=== PATIENT | male | born 1965 | race Two or more races ===

== ENCOUNTER → 2020-08-20 13:25 | Outpatient (BNVA) | payer OTHER, SELFPAY | PROVIDERS: Visit Provider Internal Medicine Gastroenterology | DX: K21.9 Gastro-esophageal reflux disease without esophagitis (principal); K62.5 Hemorrhage of anus and rectum; Z86.010 Personal history of colon polyps; Z79.899 Other long term (current) drug therapy | CPT/HCPCS: 99213 ==

== ENCOUNTER → 2020-11-16 14:44 | Outpatient (BNVA) | payer OTHER, SELFPAY | PROVIDERS: Visit Provider Internal Medicine Gastroenterology | DX: Z76.89 Persons encountering health services in other specified circumstances (principal) ==

== ENCOUNTER → 2020-11-26 10:26 | Outpatient (BNVA) | payer OTHER, SELFPAY | PROVIDERS: Visit Provider Physician Assistant | DX: G56.20 Lesion of ulnar nerve, unspecified upper limb (principal); M75.80 Other shoulder lesions, unspecified shoulder | CPT/HCPCS: 99212 ==

== ENCOUNTER 2021-01-09 09:58 | Emergency (ER) | payer OTHER, SELFPAY ==
--- NOTE | ~2021-01-09 | XR_ITS ---
EXAMINATION: SHOULDER 3 VIEWS, RIGHT CLINICAL INFORMATION: Right shoulder pain. COMPARISON: None. TECHNIQUE: AP views of the right shoulder were obtained in internal and external rotation. In addition, a Y view was obtained. FINDINGS: There are no fractures or dislocations. The humeral head is seated within a well-formed glenoid. The AC joint is intact. XR/XR shoulder RT min 2V IMPRESSION: Unremarkable right shoulder radiographs.
[2021-01-09 11:10] VITALS: BP 120/81; PULSE 76; RESP 18; TEMP 36.6; O2SAT 99; BMI 27.4
--- NOTE | 2021-01-09 12:38 | ED.EXTPRO ---
HPI - Extremity Problem General Chief complaint: Extremity Injury, Upper Stated complaint: shoulder pain Time Seen by Provider: 01/09/21 12:38 History of Present Illness HPI Narrative: Patient complains of right shoulder pain for the past several months which is getting worse and now it is at the point where it keeps him up at night and wakes him from sleep multiple times and has been very painful to use the shoulder or move the shoulder, there is no injury that he could recall, he does have some tingling running down to his fingertips but no weakness and no numbness Related Data Home Medications Medication Instructions Recorded Confirmed atorvastatin 20 mg tablet 20 mg PO DAILY 08/20/20 12/28/20 hydroxyzine HCl 25 mg tablet 25 mg PO Q8H PRN 08/20/20 12/28/20 meclizine 12.5 mg tablet 12.5 mg PO TID 08/20/20 12/28/20 omeprazole 20 mg capsule,delayed 20 mg PO QAM 08/20/20 12/28/20 release sertraline 100 mg tablet 100 mg PO DAILY 08/20/20 12/28/20 Previous Rx's Medication Instructions Recorded nicotine 21 mg/24 hr daily 1 patch TRANSDERMAL DAILY #28 ea 09/23/20 transdermal patch pantoprazole 40 mg tablet,delayed 40 mg PO BID 30 Days #60 tab 11/16/20 release ibuprofen 600 mg tablet 600 mg PO Q8H PRN 10 Days #30 tab 12/28/20 tramadol 50 mg tablet 50 mg PO BID PRN 10 Days #20 tab 12/28/20 hydrocortisone 2.5 % topical cream 1 appl AR BID-QID PRN 30 Days #30 g 12/29/20 with perineal applicator sucralfate 1 gram tablet 1 g PO BID 30 Days #60 tab 12/29/20 hydrocodone-acetaminophen 1 tab PO Q6H PRN #10 tab 01/09/21 Allergies Allergy/AdvReac Type Severity Reaction Status Date / Time No Known Allergies Allergy Verified 12/14/20 13:26 [No Known Allergies*] Review of Systems Review of Systems: Positive for right shoulder pain and tingling Negatives are no fever no chills no dizziness no weakness no neck pain, no numbness no muscle weakness, no changes to bowel or bladder no chest pain no shortness of breath no rash PMFSH Past Medical History Source: nursing notes reviewed Medical History Anxiety Arthritis Chronic back pain High cholesterol History of adenomatous polyp of colon Hyperlipidemia Internal hemorrhoids Major depression Rectal bleeding Shoulder pain Sigmoid diverticulosis Surgical History (Updated 01/09/21 @ 11:16 by Natalie Heredia RN) H/O shoulder surgery Hx of colonoscopy Hx of endoscopy Family History Family History Father Diabetes Mother Alzheimer disease Dementia Brother No problems noted. Brother No problems noted. Sister No problems noted. Sister No problems noted. Son No problems noted. Daughter No problems noted. Daughter No problems noted. Social History Social History Alcohol intake: never Smoking Status: Current every day smoker Tobacco Type: Cigarette Packs Per Day: 1 Cigarettes Per Day: 20.0 Advance Directives: No Advance Directives Information Provided: No Current occupational status: unemployed Current occupation: Right Handed Physical Exam Vital Signs: Vital Signs: Last Vital Signs Temp 97.9 F 01/09/21 11:10 Pulse 76 01/09/21 11:10 Resp 18 01/09/21 11:10 BP 120/81 01/09/21 11:10 Pulse Ox 99 01/09/21 11:10 Body Mass Index 27.4 General appearance is no acute distress, com cooperative Head is normocephalic atraumatic The neck is supple and nontender The chest is clear to auscultation, no chest wall tenderness The extremities the right shoulder is tender over the deltoid and anterior shoulder area, there is also some mild right trapezius tenderness, the skin is normal with no redness or warmth or swelling, the arm is neurovascular intact distal, the range of motion is limited by pain on extension and external rotation and abduction Neuro no focal deficit Skin no rash Course Course Course Narrative: X-ray right shoulder was normal, patient was given a sling to use a few hours a day for comfort, as he said it did make him feel more comfortable but he is warned there will be muscle loss and loss of range of motion if he uses it more frequently He will follow with Orthopedics for right shoulder pain Discharge Plan Discharge Clinical Impression: Arthralgia of right shoulder region Patient Disposition: Home, Self-Care Additional Instructions: Follow with orthopedist for further evaluation Return any concerns Prescriptions: New hydrocodone-acetaminophen 5-325 mg tablet 1 tab PO Q6H PRN (Reason: pain) Qty: 10 RF: 0 No Action tramadol 50 mg tablet 50 mg PO BID PRN (Reason: pain) 10 Days Qty: 20 RF: 0 ibuprofen 600 mg tablet 600 mg PO Q8H PRN (Reason: pain) 10 Days Qty: 30 RF: 0 nicotine 21 mg/24 hr patch 24 hour 1 patch transdermal DAILY Qty: 28 RF: 5 omeprazole 20 mg capsule,delayed release(DR/EC) 20 mg PO QAM RF: 0 sertraline 100 mg tablet 100 mg PO DAILY RF: 0 atorvastatin 20 mg tablet 20 mg PO DAILY RF: 0 hydroxyzine HCl 25 mg tablet 25 mg PO Q8H PRN (Reason: anxiety) RF: 0 meclizine 12.5 mg tablet 12.5 mg PO TID RF: 0 pantoprazole 40 mg tablet,delayed release (DR/EC) 40 mg PO BID 30 Days Qty: 60 RF: 3 sucralfate 1 gram tablet 1 g PO BID 30 Days Qty: 60 RF: 1 hydrocortisone 2.5 % cream with perineal applicator 1 appl AR BID-QID PRN (Reason: hemorrhoids) 30 Days Qty: 30 RF: 1 Referrals: Marlin Real MD [Physician] - 1 week (Chronic worsening right shoulder pain)
== END 2021-01-09 14:15 | disposition home or self-care (01) ==
PROVIDERS: Emergency Provider Emergency Medicine Emergency Medical Services; PCP Internal Medicine
DX: M25.511 Pain in right shoulder (principal); E78.5 Hyperlipidemia, unspecified; F41.9 Anxiety disorder, unspecified; Z79.02 Long term (current) use of antithrombotics/antiplatelets; Z79.899 Other long term (current) drug therapy; F17.210 Nicotine dependence, cigarettes, uncomplicated
CPT/HCPCS: 73030; 99283

== ENCOUNTER → 2021-01-20 10:02 | Outpatient (BNVA) | payer OTHER, SELFPAY | PROVIDERS: PCP Internal Medicine; Visit Provider Student in an Organized Health Care Education/Training Program | DX: M25.50 Pain in unspecified joint (principal); Z79.899 Other long term (current) drug therapy | CPT/HCPCS: 99202 ==

== ENCOUNTER 2021-01-21 07:49 | Outpatient (REF) | payer OTHER, SELFPAY ==
--- NOTE | ~2021-01-21 | XR_ITS ---
EXAMINATION: XR HAND, RIGHT XR HAND, LEFT CLINICAL INFORMATION: Pain. COMPARISON: None TECHNIQUE: AP, oblique, and lateral views of the right and left hand. FINDINGS: Right Hand: No acute fracture or dislocation. Normal carpal alignment. Tiny marginal osteophytes at the 1st carpometacarpal joint. No osseous erosion. No abnormal soft tissue calcification. No significant periarticular osteopenia. Left Hand: No acute fracture or dislocation. Corticated ossification along the dorsal aspect of the 2nd metatarsal head which may represent an accessory ossicle versus remote fracture fragment. Normal carpal alignment. Tiny marginal osteophytes at the triscaphe and 1st carpometacarpal joints. Joint space narrowing with marginal osteophytes at the 5th carpometacarpal joint. No osseous erosion. XR/XR hand RT min 3V IMPRESSION: Right Hand: Mild degenerative arthritis at the 1st carpometacarpal joint. Left Hand: Mild degenerative arthritis at the triscaphe and 1st carpometacarpal joints with more moderate degenerative arthritis at the 5th carpometacarpal joint.
--- NOTE | ~2021-01-21 | XR_ITS ---
EXAMINATION: XR HAND, RIGHT XR HAND, LEFT CLINICAL INFORMATION: Pain. COMPARISON: None TECHNIQUE: AP, oblique, and lateral views of the right and left hand. FINDINGS: Right Hand: No acute fracture or dislocation. Normal carpal alignment. Tiny marginal osteophytes at the 1st carpometacarpal joint. No osseous erosion. No abnormal soft tissue calcification. No significant periarticular osteopenia. Left Hand: No acute fracture or dislocation. Corticated ossification along the dorsal aspect of the 2nd metatarsal head which may represent an accessory ossicle versus remote fracture fragment. Normal carpal alignment. Tiny marginal osteophytes at the triscaphe and 1st carpometacarpal joints. Joint space narrowing with marginal osteophytes at the 5th carpometacarpal joint. No osseous erosion. XR/XR hand LT min 3V IMPRESSION: Right Hand: Mild degenerative arthritis at the 1st carpometacarpal joint. Left Hand: Mild degenerative arthritis at the triscaphe and 1st carpometacarpal joints with more moderate degenerative arthritis at the 5th carpometacarpal joint.
--- NOTE | ~2021-01-21 | XR_ITS ---
EXAMINATION: XR LUMBOSACRAL SPINE CLINICAL INFORMATION: Pain. COMPARISON: None TECHNIQUE: Three views of the lumbosacral spine. FINDINGS: The lumbar lordosis is maintained. No acute fracture or subluxation. No loss of vertebral body height. Mild multilevel loss of intervertebral disc height with anterior endplate osteophytes. Bilateral facet arthropathy at L4-L5 and L5-S1. No concerning lytic or blastic osseous lesion. Atherosclerotic calcifications. XR/XR lumbar spine 2-3V IMPRESSION: Mild to moderate multilevel degenerative disc disease. Bilateral facet arthropathy at L4-L5 and L5-S1.
[2021-01-21 08:36] LABS: MANUAL DIFF FLAG NO
[2021-01-21 08:41] LABS: Basophils Percent Auto 0.6 % (0-2); Eosinophils Absolute Auto 0.1 X10*3/uL (0.0-0.4); Eosinophils Percent Auto 1.7 % (0-4); Hemoglobin 14.6 g/dl (14.0-18.0); Imm Gran Abs Auto 0.01 X10*3/uL (0.00-0.03); Imm Gran Pct Auto 0.2 % (0.0-0.4); Lymphocytes Absolute Auto 1.8 X10*3/uL (1.2-4.9); Lymphocytes Percent Auto 38.3 % (20-40); Mean Corpuscular HGB Conc 33.2 g/dl (31.0-36.0); Mean Corpuscular Hemoglobin 29.7 pg (27.0-33.0); Mean Corpuscular Volume 89.6 fL (80-98); Mean Platelet Volume 9.1 fL (9.4-12.4); Monocytes Absolute Auto 0.5 X10*3/uL (0.1-1.2); Monocytes Percent Auto 9.5 % (2-11); Neutrophils Absolute Auto 2.4 X10*3/uL (2.0-8.3); Neutrophils Percent Auto 49.7 % (45-73); Platelet Count 264 X10*3/uL (160-400); Red Blood Count 4.91 X10*6/uL (4.60-5.80); Red Cell Distribution Width 12.4 % (11.0-16.0); White Blood Count 4.8 X10*3/uL (4.8-10.8)
[2021-01-21 09:07] LABS: Alanine Aminotransferase 26 U/L (0-40); Albumin Level 4.3 g/dL (3.5-5.0); Alkaline Phosphatase 87 U/L (39-117); Anion Gap 10 (12-20); Aspartate Amino Transferase 19 U/L (5-37); Bilirubin Total 0.4 mg/dL (0.0-1.0); Blood Urea Nitrogen 19 mg/dL (9-16); C Reactive Protein 0.09 mg/dL (< or = 0.50); Calcium 8.7 mg/dL (8.4-10.2); Carbon Dioxide 29 mmol/L (22-29); Chloride 105 mmol/L (96-108); Cholesterol 250 mg/dL; Estimated Glomerular Filt Rate > 60; Glucose Random 94 mg/dL (60-115); HDL Cholesterol 39 mg/dL; LDL Cholesterol Calculated 154 mg/dl; Potassium 4.4 mmol/L (3.3-5.1); Rheumatoid Factor < 15.0 IU/mL (<15.0); Sodium 140 mmol/L (135-145); Triglycerides 286 mg/dL
[2021-01-21 09:32] LABS: Lipase 41 U/L (8-78)
[2021-01-21 09:36] LABS: Erythrocyte Sedimentation Rate 7 MM/HR (0-15)
[2021-01-22 17:56] LABS: Lyme Abs Screen <0.90 index
[2021-01-25 13:01] LABS: Cyclic Citrullinated Peptide <16 UNITS
[2021-01-31 12:36] LABS: Vitamin D 25-OH, D2 <4 ng/mL; Vitamin D 25-OH, D3 19 ng/mL; Vitamin D 25-OH, Total 19 ng/mL (30-100)
== END 2021-01-21 07:50 | disposition home or self-care (01) ==
LOC: HO.LAB 07:49
PROVIDERS: PCP Internal Medicine; Visit Provider Student in an Organized Health Care Education/Training Program
DX: M25.50 Pain in unspecified joint (principal); E78.00 Pure hypercholesterolemia, unspecified; E11.9 Type 2 diabetes mellitus without complications; R10.32 Left lower quadrant pain
CPT/HCPCS: 36415; 72100; 73130; 80053; 80061; 82306; 83690; 85025; 85652; 86140; 86200; 86431; 86618

== ENCOUNTER → 2021-02-04 12:34 | Outpatient (BNVA) | payer OTHER, SELFPAY | PROVIDERS: Visit Provider Student in an Organized Health Care Education/Training Program | DX: M25.50 Pain in unspecified joint (principal); M19.041 Primary osteoarthritis, right hand; M47.816 Spondylosis without myelopathy or radiculopathy, lumbar region | CPT/HCPCS: 99212 ==

== ENCOUNTER 2021-02-10 12:57 | Outpatient (REF) | payer OTHER, SELFPAY ==
--- NOTE | ~2021-02-10 | CT_ITS ---
EXAMINATION: CT ABDOMEN AND PELVIS WITH CONTRAST CLINICAL INFORMATION: Upper abdominal pain COMPARISON: None TECHNIQUE: Multidetector volumetric images were obtained from the superior aspect of the liver through the pubic symphysis following administration 85 mL of Omnipaque 350 intravenous contrast. Sagittal and coronal reformatted images were obtained on the technologist's workstation. Oral contrast: Yes This CT examination was performed using dose optimization techniques as appropriate, variously including the following: *Automated exposure control *Adjustment of mA and/or kV according to patient size (this includes techniques or standardized protocols for targeted exams where dose is matched to indication/reason for exam; i.e. extremities or head) *Use of iterative reconstruction technique DLP: 410 mGy-cm FINDINGS: LUNG BASES: The visualized lung bases are unremarkable. LIVER, GALLBLADDER, AND BILIARY TREE: The liver is normal in size, shape, and attenuation. No focal hepatic lesion or biliary ductal dilatation is present. The gallbladder is unremarkable with no evidence of radiopaque gallstones, gallbladder wall thickening, or obvious pericholecystic inflammatory changes. PANCREAS: Unremarkable. SPLEEN: Unremarkable. ADRENAL GLANDS: Unremarkable. KIDNEYS AND URETERS: There is a 2 mm nonobstructing stone in the upper pole of the left kidney. The kidneys are otherwise unremarkable. BLADDER: Unremarkable. GASTROINTESTINAL TRACT: There is a small duodenal diverticulum adjacent to the head of the pancreas. The small and large bowel are otherwise unremarkable. The appendix is unremarkable. The stomach is unremarkable. ABDOMINAL WALL: No significant hernia is appreciated. LYMPH NODES: Normal. VASCULAR: Unremarkable. PELVIC VISCERA: Unremarkable. OSSEOUS STRUCTURES: There are mild degenerative changes of the cysts spine. CT/CT abdomen pelvis w con IMPRESSION: Small nonobstructing left renal stone. Otherwise unremarkable exam.
[2021-02-10] MEDS: Barium Sulfate Oral (Mocha) 450 ML ORAL.SUSP 900 ML PO (15:55)
== END 2021-02-10 12:58 | disposition home or self-care (01) ==
LOC: HO.CT 12:57
PROVIDERS: PCP Internal Medicine; Visit Provider Internal Medicine Gastroenterology
DX: R10.32 Left lower quadrant pain (principal); R10.10 Upper abdominal pain, unspecified
CPT/HCPCS: 74177; Q9967

== ENCOUNTER → 2021-02-11 09:12 | Outpatient (BNVA) | payer OTHER, SELFPAY | PROVIDERS: PCP Internal Medicine; Visit Provider Surgery | DX: K64.9 Unspecified hemorrhoids (principal) | CPT/HCPCS: 46600; 99212 ==

== ENCOUNTER → 2021-02-15 13:36 | Outpatient (BNVA) | payer OTHER, SELFPAY | PROVIDERS: PCP Internal Medicine; Visit Provider Internal Medicine Gastroenterology ==

== ENCOUNTER 2021-02-19 06:41 | Day surgery (SDC) | payer OTHER, SELFPAY ==
--- NOTE | 2021-02-17 15:18 | HO.ANESPROP2 ---
Documented by User: Rea Santiago 02/17/21 15:19 HPI - Anesthesia Eval Consult details Narrative: 55yo M for EUA, Hemorrhoidectomy PMFSH Active Problems Active Problems: All Active Problems (Updated 02/11/21 @ 09:39 by Diogo Serrato MD) Bleeding hemorrhoids (Acute) Smoker (Acute) Lumbar spondylosis (Acute) Primary osteoarthritis of hands, bilateral (Acute) Polyarthralgia (Acute) High cholesterol (Acute) GERD (gastroesophageal reflux disease) (Acute) Rotator cuff tendonitis (Acute) Cubital tunnel syndrome (Acute) Left lower quadrant abdominal pain of unknown etiology (Acute) Major depression (Acute) Hyperlipidemia (Acute) Shoulder pain (Acute) Rectal bleeding (Acute) History of adenomatous polyp of colon (Acute) Internal hemorrhoids (Acute) Sigmoid diverticulosis (Acute) Past Medical History Medical History Anxiety Arthritis Bleeding hemorrhoids Chronic back pain High cholesterol History of adenomatous polyp of colon Hyperlipidemia Internal hemorrhoids Major depression Rectal bleeding Shoulder pain Sigmoid diverticulosis Smoker Family History Family History Father Diabetes Mother Alzheimer disease Dementia Brother No problems noted. Brother No problems noted. Sister No problems noted. Sister No problems noted. Son No problems noted. Daughter No problems noted. Daughter No problems noted. Surgical History Surgical History H/O shoulder surgery Hx of colonoscopy Hx of endoscopy Social History Social History Alcohol intake: never Smoking Status: Current every day smoker Tobacco Type: Cigarette Packs Per Day: 1 Cigarettes Per Day: 20.0 Use of substances other than those prescribed or required for medical reasons: No Advance Directives: No Advance Directives Information Provided: Yes Current occupational status: unemployed Current occupation: Right Handed Meds Allergies Allergy/AdvReac Type Severity Reaction Status Date / Time No Known Allergies Allergy Verified 02/15/21 13:37 [No Known Allergies*] Home Medications Medication Instructions Recorded Confirmed Last Taken Type hydroxyzine HCl 25 mg tablet 25 mg PO Q8H PRN 08/20/20 02/15/21 Unknown History meclizine 12.5 mg tablet 12.5 mg PO TID 08/20/20 02/15/21 Unknown History sertraline 100 mg tablet 100 mg PO DAILY 08/20/20 02/15/21 Unknown History Exam Exam Date and Time: February 17, 2021 1518 Pertinent Lab Results Pertinent Lab Results: Laboratory Tests 01/21/21 01/21/21 08:19 08:19 WBC 4.8 Hgb 14.6 Hct 44.0 Plt Count 264 Sodium 140 Potassium 4.4 Chloride 105 Carbon Dioxide 29 BUN 19 H Creatinine 0.92 Assessment and Plan Assessment Anesthesia Assessment: Chart Reviewed Documented by User: Samara Figueroa 02/19/21 07:47 PMFSH Past Medical History Medical History Anxiety Arthritis Bleeding hemorrhoids Chronic back pain High cholesterol History of adenomatous polyp of colon Hyperlipidemia Internal hemorrhoids Major depression Rectal bleeding Shoulder pain Sigmoid diverticulosis Smoker Family History Family History Father Diabetes Mother Alzheimer disease Dementia Brother No problems noted. Brother No problems noted. Sister No problems noted. Sister No problems noted. Son No problems noted. Daughter No problems noted. Daughter No problems noted. Surgical History Surgical History H/O shoulder surgery Hx of colonoscopy Hx of endoscopy Social History Social History Alcohol intake: never Smoking Status: Current every day smoker Tobacco Type: Cigarette Packs Per Day: 1 Cigarettes Per Day: 20.0 Use of substances other than those prescribed or required for medical reasons: No Advance Directives: No Advance Directives Information Provided: Yes Current occupational status: unemployed Current occupation: Right Handed Meds Allergies Allergy/AdvReac Type Severity Reaction Status Date / Time No Known Allergies Allergy Verified 02/15/21 13:37 [No Known Allergies*] Home Medications Medication Instructions Recorded Confirmed Last Taken Type hydroxyzine HCl 25 mg tablet 25 mg PO Q8H PRN 08/20/20 02/15/21 Unknown History meclizine 12.5 mg tablet 12.5 mg PO TID 08/20/20 02/15/21 Unknown History sertraline 100 mg tablet 100 mg PO DAILY 08/20/20 02/15/21 Unknown History Exam Airway Mallampati Class: II TM Dist: >3cm Neck ROM: Full Loose/Missing/Broken Teeth: No Heart: RRR Lungs: CTA Assessment and Plan Assessment Anesthesia Assessment: Anesthesia Plan Discussed and Chart Reviewed Final Anesthetic Review NPO: Yes ASA Class: II Final Preanesthetic Review: Meds/Allgs Chart Reviewed, Consent Obtained/Reviewed and Anes Risks/Benef Reviewed Patient Risk: Low Procedure Risk: Intermediate Anesthetic Plan Anesthetic Plan: GA Disposition: Standard PACU
[2021-02-19 07:08] VITALS: BMI 29.8
[2021-02-19] MEDS: Lactated Ringers 1,000 ML 100 ML IVCONT (07:22)
--- NOTE | 2021-02-19 08:04 | MHC.SHP ---
Pre-Procedural Eval Section B Chief Complaint: Bleeding Hemorrhoids Allergies: Allergies Allergy/AdvReac Type Severity Reaction Status Date / Time No Known Allergies Allergy Verified 02/15/21 13:37 [No Known Allergies*] Plan I have reviewed the history and physical and performed a pertinent physical examination on my patient. No changes have occurred unless specified.
--- NOTE | 2021-02-19 09:07 | PM.OP ---
Brief Operative Note Date of Service: 02/19/21 Pre-op diagnosis: Bleeding hemorrhoids Post-op diagnosis: same Procedure: Exam under anesthesia, hemorrhoidectomy Surgeon: Diogo Serrato MD Anesthesia: GETA Estimated blood loss (mL): 50 Pathology: other (Hemorrhoids) Condition: stable Disposition: PACU
--- NOTE | 2021-02-19 09:08 | P.OP_ITS ---
Operative Note Operative Note Date of Service: 02/19/21 Narrative: Preop diagnosis: Bleeding hemorrhoids Postop diagnose: Bleeding hemorrhoids, internal and external Procedure: Exam under anesthesia, hemorrhoidectomy x2 columns Surgeon: Diogo Serrato MD The patient is a 55-year-old male seen in the office for bleeding per rectum consistent with the hemorrhoids. He wanted to proceed with hemorrhoidectomy. He understood the technique of the procedure. He was aware of the risks, benefits, and alternatives. He was brought the operating room and placed in prone modesta-knife position under general anesthesia via endotracheal tube. The buttocks were retracted with wide tape laterally. The perianal area was prepped and draped in the usual sterile fashion. There was note of bulky external hemorrhoids on the right anterior. There was note of another less bulky external hemorrhoidal column on the left lateral. I inserted a Kayla Sarkar retractor and examined the anal canal circumferentially. Examined the entire anal canal carefully and circumferentially. Examination of the anal with the retractor in place showed a bulky internal external hemorrhoidal column on the right anterior. There was note of a smaller hemorrhoidal columns, mix of internal and external the left. I therefore applied a Rolon grasper at the hemorrhoidal column on the left side to retract this. I created a [id number] stitch at the pedicle proximal to the dentate line using chromic 3-0. I made an incision around this hemorrhoidal column to the perianal skin using blade 15. I excised this hemorrhoidal column above the plane of the sphincters along this incision all the way to the pedicle. I closed the incision with a running chromic 3-0 stitch with additional hemostatic sutures being placed for oozing areas care I then applied a Rolon grasper on the bulky hemorrhoidal column on the right anterior. I made a [id number]-[id number] stitch at the pedicle using chromic 3- 0 a mid incision on this hemorrhoid column to the perianal skin using using a blade 15. Excised this hemorrhoid column above the plane of sphincters using scissors. There was note of significant oozing because of the bulky nature of this hemorrhoid. I applied a chromic 3-0 running states to close this incision. I had to apply multiple [id number] sutures as well for hemostasis. There were no other lesions on examination of the anal canal. I observed for hemostasis. Once hemostasis was ensured, I proceeded to then apply rolled Gelfoam packing to the anal area. I infiltrated the perianal area with Marcaine 0.5% for postop analgesia. The procedure was then completed The patient tolerated the procedure well. There were no immediate complications. Initial and final counts of sponges and instruments were correct. Estimated blood loss was about 50 cc. He was extubated without difficulty and transferred to the recovery room with stable vital signs.
[2021-02-19 09:10] VITALS: BP 107/68; PULSE 84; RESP 18; TEMP 36.1; O2SAT 100
[2021-02-19 09:15] VITALS: BP 90/57; PULSE 73; RESP 16; O2SAT 100
[2021-02-19] MEDS: Acetaminophen 325 MG TABLET 650 MG PO (09:19)
[2021-02-19 09:20] VITALS: BP 100/64; PULSE 74; RESP 16; O2SAT 100
[2021-02-19] MEDS: oxyCODONE HCl Immed Release 5 MG TABLET 10 MG PO (09:20)
[2021-02-19 09:25] VITALS: BP 101/54; PULSE 71; RESP 16; O2SAT 100
[2021-02-19 09:40] VITALS: BP 96/65; PULSE 64; RESP 16; O2SAT 96
[2021-02-19 09:55] VITALS: BP 118/77; PULSE 68; RESP 16; TEMP 36.2; O2SAT 97
== END 2021-02-19 10:20 | disposition home or self-care (01) ==
PROVIDERS: PCP Internal Medicine; Visit Provider Surgery
PROC: (CPT 46260; principal; 2021-02-19 08:20)
DX: K64.8 Other hemorrhoids (principal); K64.4 Residual hemorrhoidal skin tags
CPT/HCPCS: 46260; 88304; J1100; J1885; J2250; J2405; J3010

== ENCOUNTER → 2021-03-04 12:30 | Outpatient (BNVA) | payer OTHER, SELFPAY | PROVIDERS: PCP Internal Medicine; Visit Provider Internal Medicine Gastroenterology ==

== ENCOUNTER 2021-03-09 08:00 | Outpatient (RCR) | payer OTHER, SELFPAY | END 2021-06-18 09:27 | disposition other institution (70) | LOC: HO.OT 08:00 | PROVIDERS: PCP Internal Medicine; Visit Provider Student in an Organized Health Care Education/Training Program | DX: M19.041 Primary osteoarthritis, right hand (principal) | CPT/HCPCS: 97035; 97110; 97165 ==

== ENCOUNTER → 2021-03-10 09:48 | Outpatient (BNVA) | payer OTHER, SELFPAY | PROVIDERS: PCP Internal Medicine; Visit Provider Surgery | DX: Z87.19 Personal history of other diseases of the digestive system (principal) | CPT/HCPCS: 99212 ==

== ENCOUNTER → 2021-04-06 14:35 | Outpatient (BNVA) | payer OTHER, SELFPAY | PROVIDERS: PCP Internal Medicine; Visit Provider Nurse Practitioner Family | DX: Z13.89 Encounter for screening for other disorder (principal) | CPT/HCPCS: 99202 ==

== ENCOUNTER → 2021-05-19 09:40 | Outpatient (BNVA) | payer OTHER, SELFPAY | PROVIDERS: Visit Provider Nurse Practitioner Family ==

== ENCOUNTER 2021-06-01 15:41 | Emergency (ER) | payer OTHER, SELFPAY ==
--- NOTE | 2021-06-01 | ECG_ITS ---
Test Reason : CHEST PAIN Blood Pressure : / mmHG Vent. Rate : 087 BPM Atrial Rate : 087 BPM P-R Int : 152 ms QRS Dur : 092 ms QT Int : 374 ms P-R-T Axes : 074 078 057 degrees QTc Int : 450 ms Normal sinus rhythm Normal ECG No previous ECGs available Referred By: Generic ED Physician Electronically Signed By:STEFANIA CARTAGENA MD
--- NOTE | ~2021-06-01 | CT_ITS ---
EXAMINATION: CT HEAD WITHOUT CONTRAST CLINICAL INFORMATION: Left-sided headache blurred vision COMPARISON: None TECHNIQUE: Contiguous axial imaging was performed from the skull base to vertex without intravenous administration of contrast. This CT examination was performed using dose optimization techniques as appropriate, variously including the following: *Automated exposure control *Adjustment of mA and/or kV according to patient size (this includes techniques or standardized protocols for targeted exams where dose is matched to indication/reason for exam; i.e. extremities or head) *Use of iterative reconstruction technique DLP: 716 mGy-cm FINDINGS: There is no evidence of acute intracranial hemorrhage or territorial infarction. No abnormal mass effect or midline shift is seen. Nielson to white matter differentiation is well preserved. No extra-axial fluid collections are identified. The ventricles are normal in size. There is no abnormal attenuation within the brain parenchyma. The osseous structures are intact. There is minimal stranding in the subcutaneous soft tissues knee left posterior parietal scalp region with some minimal calcification. This could reflect old soft tissue contusion Mastoid air cells clear. Sinuses clear. CT/CT head/brain wo con IMPRESSION: No acute intracranial pathology.
--- NOTE | ~2021-06-01 | XR_ITS ---
EXAMINATION: XR CHEST CLINICAL INFORMATION: Pain COMPARISON: None TECHNIQUE: Frontal view of the chest was obtained. FINDINGS: No acute significant abnormality is noted involving the heart, lungs, mediastinum, bony thorax or soft tissues. Of note the left costophrenic angle is out of the [id number] the exam. XR/XR chest 1V IMPRESSION: Unremarkable examination.
--- NOTE | ~2021-06-01 | CT_ITS ---
EXAMINATION: CT CERVICAL SPINE WITHOUT CONTRAST CLINICAL INFORMATION: Neck pain with tingling down left arm COMPARISON: None TECHNIQUE: CT scan of the cervical spine was performed with reconstruction imaging performed at the acquisition workstation. This CT examination was performed using dose optimization techniques as appropriate, variously including the following: *Automated exposure control *Adjustment of mA and/or kV according to patient size (this includes techniques or standardized protocols for targeted exams where dose is matched to indication/reason for exam; i.e. extremities or head) *Use of iterative reconstruction technique DLP: 586 mGy-cm FINDINGS: Vertebral bodies normally aligned. There is no fracture subluxation or dislocation. There is multilevel degenerative disc changes manifested by endplate osteophytes with minimal disc space narrowing from C3-4 through C6-7. Facets unremarkable. Surrounding soft tissues unremarkable. Lung apices clear. CT/CT cervical spine wo con IMPRESSION: Spondylosis of the cervical spine. No acute abnormality
[2021-06-01 15:43] VITALS: BP 137/86; PULSE 97; RESP 18; TEMP 37.1; O2SAT 98; BMI 29.0
--- NOTE | 2021-06-01 16:57 | ED.CHESTPAIN ---
HPI - Chest Pain General Chief Complaint: Chest Pain Stated Complaint: headache,chest pain, left sided numbness Time Seen by Provider: 06/01/21 16:52 Source: patient and family Mode of arrival: ambulatory Limitations: no limitations History of Present Illness HPI narrative: 56 y/o male with history of fibromyalgia, migraines, HLD, diverticulosis, GERD who presents to the ER with c/o left sided headache since 10 am today. He reports it feels different than his usual migraine headaches and that he has not gotten a migrane in a long time. He also reports aching, non-radiating central chest pain that has been going on for weeks but he noticed it to be worse today. It is worse with palpation and movement. He is not short of breath. He also c/o left sided arm pain and tingling since this morning as well. It starts in his neck and radiates down to his hand. No numbness or weakness. It feels like his arm is asleep. He denies neck injury. He has had pains like this before but they usually do not last very long. He reports his headache is on the left side of his head, starting behind his eye and radiating to his entire left head. No fever, chills, N/V/D, abdominal pain. No difficulty walking. No difficulty speaking. No photophobia. MD complaint: chest pain and other (headache) Onset (ago): week(s) Timing of current episode: constant Prior episodes: Yes Onset: during rest Pain location: substernal Severity: mild Quality: aching Relieving factors: nothing Exacerbating factors: palpation and movement Treatment prior to arrival: none Risk Factors Coronary artery disease risk factors: hyperlipidemia Thoracic aortic dissection risk factors: none Related Data Home Medications Medication Instructions Recorded Confirmed hydroxyzine HCl 25 mg tablet 25 mg PO Q8H PRN 08/20/20 05/19/21 meclizine 12.5 mg tablet 12.5 mg PO TID 08/20/20 05/19/21 sertraline 100 mg tablet 100 mg PO DAILY 08/20/20 05/19/21 Previous Rx's Medication Instructions Recorded docusate sodium [Colace] 100 mg PO BID #60 cap 02/19/21 tramadol 50 mg tablet 50 mg PO BID PRN 10 Days #20 tab 04/26/21 prednisone 40 mg PO DAILY #10 tab 06/01/21 Allergies Allergy/AdvReac Type Severity Reaction Status Date / Time ibuprofen [From Motrin] Allergy Severe stomach Verified 06/01/21 15:43 pain Review of Systems Review of Systems: Constitutional: No Fever, No Chills ENT/Mouth: No sore throat, No Rhinorrhea, No Swallowing Difficulty Eyes: + Eye Pain, No Swelling, No Redness Cardiovascular: + Chest Pain, No SOB, No Orthopnea, No Edema Respiratory: No Cough, No Sputum, No Wheezing, No dyspnea Gastrointestinal: No Nausea, No Vomiting, No Diarrhea, No abdominal Pain, No Hematochezia, No Melena Genitourinary: No Dysuria, No Urinary Frequency, No Hematuria Musculoskeletal: + joint pain, + Myalgias Skin: No Skin Lesions, No rash Neuro: No Weakness, No Numbness, No Dizziness, + Headache Psych: No Anxiety/Panic, No Depression Heme/Lymph: No Bruising, No Lymphadenopathy Endocrine: No Polyuria, No Polydipsia PMFSH Past Medical History Attestation statement: The following information was validated with the patient. Medical History Anxiety Arthritis Bleeding hemorrhoids Chronic back pain Fibromyalgia High cholesterol History of adenomatous polyp of colon Hyperlipidemia Internal hemorrhoids Major depression Rectal bleeding Shoulder pain Sigmoid diverticulosis Smoker Surgical History (Updated 04/26/21 @ 10:49 by ZENA Rosenthal) H/O hemorrhoidectomy H/O shoulder surgery History of elbow surgery Hx of colonoscopy Hx of endoscopy Family History Family History Father Diabetes Mother Alzheimer disease Dementia Brother No problems noted. Brother No problems noted. Sister No problems noted. Sister No problems noted. Son No problems noted. Daughter No problems noted. Daughter No problems noted. Social History Social History Housing: Apartment Alcohol intake: never Patient Tobacco Use Status: Current everyday Tobacco user Cigarette Packs Per Day: 1 Cigarettes Per Day: 20.0 Second Hand Smoke Exposure: No Advance Directives: No Advance Directives Information Provided: No service: No Current occupational status: unemployed Current occupation: Right Handed Physical Exam Vital Signs: Vital Signs: Last Vital Signs Temp 98.7 F 06/01/21 15:43 Pulse 64 06/01/21 18:04 Resp 16 06/01/21 18:04 BP 120/87 06/01/21 18:04 Pulse Ox 98 06/01/21 18:04 Body Mass Index 29.0 Appearance: Alert. Oriented X3. No acute distress. Eyes: Pupils equal, round and reactive to light. EOMI, no nystagmus ENT: Pharynx normal. Neck: Normal inspection. Neck supple. CVS: Normal heart rate and rhythm. Pulses normal. Respiratory: No respiratory distress. Breath sounds normal. Abdomen: Soft and nontender. +BS x4 Skin: Skin warm and dry. Normal skin color. Normal skin turgor. No rashes. Extremities: No lower extremity edema. Neuro: Oriented X 3. No motor deficit. No sensory deficit. Speaks in complete sentences. Equal and symmetrical strength throughout. NIH 0 Course Course Course Narrative: 56 y/o male presenting with chest pain, headache and left arm tingling. Chest pain is reproducible and present for weeks to months. His left arm tingling also has been going on chronically at home but usually does not last as long as it is today. His NIH is 0 and his symptoms are nondebiliting, not a tpa candidate. Doubt CVA. His headache is most consistent with migraine. Will treat with Toradol, Bendryl and Reglan. Will check CT head, EKG and lab work up. Reevaluation(s) Reevaluation #1: Workup is unremarkable. CT head normal. Cervical spine with some degenerative disc disease that could explain his LUE tingling. His headache is almost completely resolved. He is stable for discharge home with treatment for costochrondritis and f/u with his doctor for migraines. Encouraged trial of excedrin migraine if recurs. He is stable for d/c home. MDM - Chest Pain Medical Records Data Attestation: I reviewed the patient's medical records. Lab Data Attestation: I reviewed the patient's lab results. Result diagrams: 06/01/21 17:17 06/01/21 17:17 Labs: Lab Results 06/01/21 06/01/21 06/01/21 Range/Units 17:17 17:17 17:17 WBC 8.1 (4.8-10.8) X10*3/uL RBC 4.82 (4.60-5.80) X10*6/uL Hgb 14.4 (14.0-18.0) g/dl Hct 42.0 (42-52) % MCV 87.1 (80-98) fL MCH 29.9 (27.0-33.0) pg MCHC 34.3 (31.0-36.0) g/dl RDW 12.6 (11.0-16.0) % Plt Count 276 (160-400) X10*3/uL MPV 8.9 L (9.4-12.4) fL Immature Gran % (Auto) 0.1 (0.0-0.4) % Neut % (Auto) 63.0 (45-73) % Lymph % (Auto) 29.6 (20-40) % [place] % (Auto) 5.7 (2-11) % Eos % (Auto) 1.1 (0-4) % Baso % (Auto) 0.5 (0-2) % Lymph # (Auto) 2.4 (1.2-4.9) X10*3/uL [place] # (Auto) 0.5 (0.1-1.2) X10*3/uL Eos # (Auto) 0.1 (0.0-0.4) X10*3/uL Baso # (Auto) 0.0 (0.0-0.2) X10*3/uL Abs Immat Gran (auto) 0.01 (0.00-0.03) X10*3/uL Absolute Neuts (auto) 5.1 (2.0-8.3) X10*3/uL Absolute Nucleated RBC 0.000 (0.0-0.012) X10*3/uL Nucleated RBC % (auto) 0.0 (0.0-0.2) /100WBC Sodium 140 (135-145) mmol/L Potassium 4.1 (3.3-5.1) mmol/L Chloride 105 (96-108) mmol/L Carbon Dioxide 25 (22-29) mmol/L Anion Gap 14 (12-20) BUN 13 (9-16) mg/dL Creatinine 0.95 (0.5-1.4) mg/dL Estim Creat Clear Calc 87.1 Estimated GFR > 60 Random Glucose 94 (60-115) mg/dL Calcium 9.3 D (8.4-10.2) mg/dL Magnesium 2.2 (1.6-2.6) mg/dL Total Bilirubin 0.4 (0.0-1.0) mg/dL Direct Bilirubin < 0.2 (0.0-0.5) mg/dL AST 20 (5-37) U/L ALT 17 (0-40) U/L Alkaline Phosphatase 80 (39-117) U/L Troponin I High Sens < 3.5 (<3.5-35.0) ng/L Total Protein 7.0 (6.5-8.0) g/dL Albumin 4.2 (3.5-5.0) g/dL Urine Color Urine Appearance Urine pH (5.0-8.0) Ur Specific [place] (1.005-1.025) Urine Protein (NEG-TRACE) MG/DL Urine Glucose (UA) (NEG) MG/DL Urine Ketones (NEG) MG/DL Urine Blood (NEG) Urine Nitrite (NEG) Ur Leukocyte Esterase (NEG) COVID-19 (RENA) (Negative) COVID-19 Clin Com 06/01/21 06/01/21 Range/Units 17:17 18:10 WBC (4.8-10.8) X10*3/uL RBC (4.60-5.80) X10*6/uL Hgb (14.0-18.0) g/dl Hct (42-52) % MCV (80-98) fL MCH (27.0-33.0) pg MCHC (31.0-36.0) g/dl RDW (11.0-16.0) % Plt Count (160-400) X10*3/uL MPV (9.4-12.4) fL Immature Gran % (Auto) (0.0-0.4) % Neut % (Auto) (45-73) % Lymph % (Auto) (20-40) % [place] % (Auto) (2-11) % Eos % (Auto) (0-4) % Baso % (Auto) (0-2) % Lymph # (Auto) (1.2-4.9) X10*3/uL [place] # (Auto) (0.1-1.2) X10*3/uL Eos # (Auto) (0.0-0.4) X10*3/uL Baso # (Auto) (0.0-0.2) X10*3/uL Abs Immat Gran (auto) (0.00-0.03) X10*3/uL Absolute Neuts (auto) (2.0-8.3) X10*3/uL Absolute Nucleated RBC (0.0-0.012) X10*3/uL Nucleated RBC % (auto) (0.0-0.2) /100WBC Sodium (135-145) mmol/L Potassium (3.3-5.1) mmol/L Chloride (96-108) mmol/L Carbon Dioxide (22-29) mmol/L Anion Gap (12-20) BUN (9-16) mg/dL Creatinine (0.5-1.4) mg/dL Estim Creat Clear Calc Estimated GFR Random Glucose (60-115) mg/dL Calcium (8.4-10.2) mg/dL Magnesium (1.6-2.6) mg/dL Total Bilirubin (0.0-1.0) mg/dL Direct Bilirubin (0.0-0.5) mg/dL AST (5-37) U/L ALT (0-40) U/L Alkaline Phosphatase (39-117) U/L Troponin I High Sens (<3.5-35.0) ng/L Total Protein (6.5-8.0) g/dL Albumin (3.5-5.0) g/dL Urine Color YELLOW Urine Appearance CLEAR Urine pH 7.0 (5.0-8.0) Ur Specific [place] 1.015 (1.005-1.025) Urine Protein NEG (NEG-TRACE) MG/DL Urine Glucose (UA) NEG (NEG) MG/DL Urine Ketones NEG (NEG) MG/DL Urine Blood NEG (NEG) Urine Nitrite NEG (NEG) Ur Leukocyte Esterase NEG (NEG) COVID-19 (RENA) Negative (Negative) COVID-19 Clin Com See Note ECG Data ECG #1: Attestation: I personally reviewed and interpreted this ECG as follows: ECG interpretation date: 06/01/21 Prior ECG tracings: available for review Interpretation: normal sinus rhythm, HR 87 bpm, normal CA interval, no ST segment elevations or depressions. Core Measures AMI core measures followed: No Measure exclusions: not indicated Scores Heart Score History: -0- slightly suspicious ECG: -0- normal Age: -1- >45 - <65 Risk factory: -1- 1 or 2 risk factors Troponin: -0- < or = normal limit Score: 2 Risk: 1.7% Critical Care Time Critical Care Time Critical Care Time: No Discharge Plan Discharge Clinical Impression: Costalchondritis Migraine Qualifiers: Migraine type: without aura Status migrainosus presence: without status migrainosus Intractability: not intractable Qualified Code(s): G43.009 - Migraine without aura, not intractable, without status migrainosus Patient Disposition: Home, Self-Care Instructions: Migraine Headache (ED), Costochondritis (ED) Additional Instructions: Your lab workup today was normal. Your CT scan showed degenerative disc changes in your spine in your neck. This can cause the symptoms you have in your left arm. Recommend following up with your doctor this week. Your chest pain is muscular. Recommend rest and anti-inflammatories. Take the prescribed medication for 5 days. Take with food. If you develop new or worsening symptoms call 911 or come back to the ER for further evaluation. Prescriptions: New prednisone 20 mg tablet 40 mg PO DAILY Qty: 10 RF: 0 No Action docusate sodium [Colace] 100 mg capsule 100 mg PO BID Qty: 60 RF: 2 tramadol 50 mg tablet 50 mg PO BID PRN (Reason: pain) 10 Days Qty: 20 RF: 0 sertraline 100 mg tablet 100 mg PO DAILY RF: 0 hydroxyzine HCl 25 mg tablet 25 mg PO Q8H PRN (Reason: anxiety) RF: 0 meclizine 12.5 mg tablet 12.5 mg PO TID RF: 0 Interventions: ED Discharge Assessment Last Done: 06/01/21 20:14 Discharge Date/Time: 06/01/21 20:14
[2021-06-01] MEDS: 0.9 % Sodium Chloride 1,000 ML 999 ML IVCONT (17:18)
[2021-06-01 17:24] LABS: MANUAL DIFF FLAG NO
[2021-06-01 17:27] LABS: Basophils Percent Auto 0.5 % (0-2); Eosinophils Absolute Auto 0.1 X10*3/uL (0.0-0.4); Eosinophils Percent Auto 1.1 % (0-4); Hemoglobin 14.4 g/dl (14.0-18.0); Imm Gran Abs Auto 0.01 X10*3/uL (0.00-0.03); Imm Gran Pct Auto 0.1 % (0.0-0.4); Lymphocytes Absolute Auto 2.4 X10*3/uL (1.2-4.9); Lymphocytes Percent Auto 29.6 % (20-40); Mean Corpuscular HGB Conc 34.3 g/dl (31.0-36.0); Mean Corpuscular Hemoglobin 29.9 pg (27.0-33.0); Mean Corpuscular Volume 87.1 fL (80-98); Mean Platelet Volume 8.9 fL (9.4-12.4); Monocytes Absolute Auto 0.5 X10*3/uL (0.1-1.2); Monocytes Percent Auto 5.7 % (2-11); Neutrophils Absolute Auto 5.1 X10*3/uL (2.0-8.3); Platelet Count 276 X10*3/uL (160-400); Red Blood Count 4.82 X10*6/uL (4.60-5.80); Red Cell Distribution Width 12.6 % (11.0-16.0); White Blood Count 8.1 X10*3/uL (4.8-10.8)
[2021-06-01] MEDS: Metoclopramide HCl 10 MG/2 ML VIAL IVPUSH (17:35)
[2021-06-01] MEDS: diphenhydrAMINE HCL 50 MG/ML VIAL IVPUSH (17:35)
[2021-06-01] MEDS: Ketorolac Tromethamine 30 MG/ML VIAL IVPUSH (17:36)
[2021-06-01 17:42] LABS: COVID-19 Test Negative (Negative)
[2021-06-01 17:46] LABS: Alanine Aminotransferase 17 U/L (0-40); Albumin Level 4.2 g/dL (3.5-5.0); Alkaline Phosphatase 80 U/L (39-117); Anion Gap 14 (12-20); Aspartate Amino Transferase 20 U/L (5-37); Bilirubin Direct < 0.2 mg/dL (0.0-0.5); Bilirubin Total 0.4 mg/dL (0.0-1.0); Blood Urea Nitrogen 13 mg/dL (9-16); Calcium 9.3 mg/dL (8.4-10.2); Carbon Dioxide 25 mmol/L (22-29); Chloride 105 mmol/L (96-108); Creatinine Clr Calc Pharmacy 87.1; Estimated Glomerular Filt Rate > 60; Glucose Random 94 mg/dL (60-115); Magnesium 2.2 mg/dL (1.6-2.6); Potassium 4.1 mmol/L (3.3-5.1); Sodium 140 mmol/L (135-145)
[2021-06-01 17:52] LABS: Troponin-I High Sensitivity < 3.5 ng/L (<3.5-35.0)
[2021-06-01 18:01] VITALS: BP 119/82; PULSE 59
[2021-06-01 18:02] VITALS: BP 120/87; BP 126/84; PULSE 60; PULSE 61
[2021-06-01 18:04] VITALS: BP 120/87; PULSE 64; RESP 16; O2SAT 98
[2021-06-01 18:18] LABS: Glucose Urine UA NEG (NEG); Leukocyte Esterase Urine NEG (NEG); Nitrite Urine NEG (NEG); Specific Gravity - Urine 1.015 (1.005-1.025); Urine Blood NEG (NEG); Urine Ketones NEG (NEG); Urine Protein NEG (NEG-TRACE)
[2021-06-01 18:19] LABS: Appearance Urine CLEAR; Color Urine YELLOW; UACC Culture Trigger NO
== END 2021-06-01 20:14 | disposition home or self-care (01) ==
PROVIDERS: Physician Assistant; Emergency Provider Emergency Medicine
DX: G43.009 Migraine without aura, not intractable, without status migrainosus (principal); M94.0 Chondrocostal junction syndrome [Tietze]; Z79.899 Other long term (current) drug therapy; Z20.822 Contact with and (suspected) exposure to COVID-19
CPT/HCPCS: 36415; 70450; 71045; 72125; 80048; 80076; 81003; 83735; 84484; 85025; 87635; 93005; 96361; 96374; 96375; 99285; J1200; J1885; J2765

== ENCOUNTER → 2021-06-24 14:59 | Outpatient (BNVA) | payer OTHER, SELFPAY | PROVIDERS: Visit Provider Internal Medicine Gastroenterology ==

== ENCOUNTER 2021-07-27 06:21 | Outpatient (REF) | payer OTHER, SELFPAY ==
--- NOTE | ~2021-07-27 | FL_ITS ---
EXAMINATION: XR FLUOROSCOPY WITH IMAGES CLINICAL INFORMATION: M47.816 - Spondylosis without myelopathy or radiculopathy COMPARISON: The CT abdomen and pelvis 02/10/2021 TECHNIQUE: Fluoroscopy performed by Dr. Peter Shi. Fluoroscopy time: 0.3 minutes DAP: 3.33 Gycm2 Images: 4 FINDINGS: There are spinal needles overlying the bilateral outer neural foramen, likely L3 and L4 on each side. There is contrast seen in the respective nerve sheaths. Some early transforaminal epidural extension is suggested. No visible vascular communication. FL/FL guidance in treatment room IMPRESSION: Fluoroscopy for pain management procedures.
== END 2021-07-27 06:22 | disposition home or self-care (01) ==
LOC: HO.RADIR 06:21
PROVIDERS: Visit Provider Anesthesiology
DX: M47.816 Spondylosis without myelopathy or radiculopathy, lumbar region (principal); M53.3 Sacrococcygeal disorders, not elsewhere classified
CPT/HCPCS: 64493; 64494; Q9967

== ENCOUNTER → 2021-08-04 08:50 | Outpatient (BNVA) | payer OTHER, SELFPAY | PROVIDERS: PCP Internal Medicine; Visit Provider Anesthesiology | DX: M47.816 Spondylosis without myelopathy or radiculopathy, lumbar region (principal); M53.3 Sacrococcygeal disorders, not elsewhere classified; M51.36 Other intervertebral disc degeneration, lumbar region | CPT/HCPCS: 99212 ==

== ENCOUNTER 2021-08-17 06:18 | Outpatient (REF) | payer OTHER, SELFPAY | END 2021-08-17 06:19 | disposition home or self-care (01) | LOC: HO.RADIR 06:18 | PROVIDERS: Visit Provider Anesthesiology | DX: M47.816 Spondylosis without myelopathy or radiculopathy, lumbar region (principal); M53.3 Sacrococcygeal disorders, not elsewhere classified; M51.36 Other intervertebral disc degeneration, lumbar region | CPT/HCPCS: 64493; 64494; J3300; Q9967 ==

== ENCOUNTER → 2021-09-13 11:11 | Outpatient (BNVA) | payer OTHER, SELFPAY | PROVIDERS: PCP Internal Medicine; Visit Provider Internal Medicine Gastroenterology ==

== ENCOUNTER → 2021-09-15 10:38 | Outpatient (BNVA) | payer OTHER, SELFPAY | PROVIDERS: PCP Internal Medicine; Visit Provider Anesthesiology | DX: M47.816 Spondylosis without myelopathy or radiculopathy, lumbar region (principal); M53.3 Sacrococcygeal disorders, not elsewhere classified; M51.36 Other intervertebral disc degeneration, lumbar region | CPT/HCPCS: 99212 ==

== ENCOUNTER → 2021-09-29 09:57 | Outpatient (BNVA) | payer OTHER, SELFPAY | PROVIDERS: Visit Provider Anesthesiology | DX: M47.816 Spondylosis without myelopathy or radiculopathy, lumbar region (principal); M53.3 Sacrococcygeal disorders, not elsewhere classified; M51.36 Other intervertebral disc degeneration, lumbar region; M46.1 Sacroiliitis, not elsewhere classified | CPT/HCPCS: 99212 ==

== ENCOUNTER 2021-12-21 06:10 | Outpatient (REF) | payer OTHER, SELFPAY ==
--- NOTE | ~2021-12-21 | FL_ITS ---
EXAMINATION: XR FLUOROSCOPY WITH IMAGES CLINICAL INFORMATION: M47.816 - Spondylosis without myelopathy or radiculopathy COMPARISON: Fluoroscopic spot images 07/27/2021. TECHNIQUE: Fluoroscopy performed by Dr. Peter Shi. Fluoroscopy time: 0.2 minutes DAP: 1.44 Gycm2 Images: 2 FINDINGS: There is spinal needle at the interlaminar L2 space. There are osteophytes involving the lumbar vertebral bodies. No vertebral compression or focal disc narrowing appreciated. FL/FL guidance in treatment room IMPRESSION: Fluoroscopy for pain management procedure.
== END 2021-12-21 06:11 | disposition home or self-care (01) ==
LOC: HO.RADIR 06:10
PROVIDERS: Visit Provider Anesthesiology
DX: M47.816 Spondylosis without myelopathy or radiculopathy, lumbar region (principal); M51.36 Other intervertebral disc degeneration, lumbar region; M53.3 Sacrococcygeal disorders, not elsewhere classified; F17.210 Nicotine dependence, cigarettes, uncomplicated; M46.1 Sacroiliitis, not elsewhere classified
CPT/HCPCS: 62323; J2270; Q9967

== ENCOUNTER → 2021-12-27 16:33 | Outpatient (BNVA) | payer OTHER, SELFPAY | PROVIDERS: Visit Provider Anesthesiology ==

== ENCOUNTER → 2022-03-01 13:33 | Outpatient (RCR) | payer OTHER, SELFPAY | END | disposition home or self-care (01) | LOC: HO.PTCHIC 12-02 09:38 | PROVIDERS: PCP Internal Medicine; Visit Provider Physician Assistant | DX: M75.80 Other shoulder lesions, unspecified shoulder (principal) ==

== ENCOUNTER 2022-07-28 12:37 | Outpatient (REF) | payer OTHER, SELFPAY | END 2022-07-28 12:38 | disposition home or self-care (01) | LOC: HO.HOSX 12:37 | PROVIDERS: Visit Provider Physician Assistant | DX: Z13.89 Encounter for screening for other disorder (principal) ==

== ENCOUNTER 2022-09-12 08:28 | Outpatient (REF) | payer OTHER, SELFPAY | END 2022-09-12 08:29 | disposition home or self-care (01) | LOC: HO.HOSX 08:28 | PROVIDERS: Visit Provider Physician Assistant | DX: Z13.89 Encounter for screening for other disorder (principal) ==

== ENCOUNTER 2022-10-01 07:05 | Emergency (ER) | payer MEDICARE, MEDICAID, SELFPAY ==
--- NOTE | ~2022-10-01 | XR_ITS ---
EXAMINATION: XR HIP, RIGHT CLINICAL INFORMATION: Right hip pain COMPARISON: None TECHNIQUE: Two views of the right hip. Pelvis one view. FINDINGS: Minimal right hip arthritis, with small osteophytes and acetabular roof sclerosis. No acute fracture or dislocation. Hip joint space is maintained. Minimal left hip arthritis. Mild symphysis pubis degeneration. Symphysis pubis and SI joints are intact. Endplate spurring in the visualized lower lumbar spine. No acute pelvic fractures seen. No abnormal soft tissue calcification.. XR/XR hip RT w PEL1V IMPRESSION: Minimal bilateral hip joint arthritis. No evidence of acute fracture or dislocation.
[2022-10-01 07:09] VITALS: BP 148/93; PULSE 100; RESP 19; TEMP 36.6; O2SAT 98; BMI 26.9
[2022-10-01 08:30] VITALS: BP 141/95; PULSE 94; RESP 17; TEMP 37.1; O2SAT 96
--- NOTE | 2022-10-01 08:47 | ED.LOWEXIN ---
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 He states the pain is been constant. He describes the pain is a burning sensation he points to the lateral aspect of his hip. The pain is 8/10. The pain is worse if he sits stands or lies down. He states that especially at night if he lies on his right side the pain is worse. The patient denies any injury. He has not had any systemic illness such as fever, chills, weakness, fatigue, nausea or vomiting. He has not been evaluated for this hip pain. He is not taking any new medications for this have pain. The patient does have chronic pain and has been taking his meloxicam and gabapentin with no relief his discomfort. Severity: severe Severity scale (1-10): 8 Relieving factors: nothing Exacerbating factors: nothing Other symptoms: none Related Data Home Medications Medication Instructions Recorded Confirmed hydroxyzine HCl 25 mg tablet 25 mg PO Q8H PRN anxiety 08/20/20 09/29/21 meclizine 12.5 mg tablet 12.5 mg PO TID 08/20/20 09/29/21 sertraline 100 mg tablet 100 mg PO DAILY 08/20/20 09/29/21 gabapentin 400 mg capsule 400 mg PO TID 09/13/21 09/29/21 trazodone 50 mg tablet 25 - 50 mg PO BEDTIME 12/27/21 Previous Rx's Medication Instructions Recorded docusate sodium 100 mg capsule 100 mg PO BID #60 caps 02/19/21 (Colace) albuterol sulfate 90 mcg/actuation 2 puff inhalation Q4-6H PRN 06/04/21 aerosol inhaler (ProAir HFA) bronchospasm 30 days #8.5 grams pantoprazole 40 mg tablet,delayed 40 mg PO BID 30 days #60 tabs 06/24/21 release dicyclomine 20 mg tablet 20 mg PO TID PRN abdominal pain 30 09/13/21 days #60 tabs meloxicam 15 mg tablet 15 mg PO DAILY #30 tabs 09/16/21 methylprednisolone 4 mg tablets in 4 mg PO QAM 6 days #21 ea 12/24/21 a dose pack (Medrol (Joselito)) meloxicam 7.5 mg tablet 7.5 mg PO DAILY #14 tabs 10/01/22 Allergies Allergy/AdvReac Type Severity Reaction Status Date / Time ibuprofen [From Motrin] Allergy Severe stomach Verified 12/27/21 16:34 pain morphine Allergy Rash Verified 10/01/22 07:13 Review of Systems Review of Systems: Yes all other systems are reviewed and are negative [facility] Past Medical History [facility] Narrative: Social history: The patient smokes 1 pack of cigarettes per day times 44 years. The patient drinks alcohol every 2-3 days he drinks a 12 pack and several shots of rum. He denies drug use. Medical History Anxiety Arthritis Bleeding hemorrhoids Chronic back pain Disc degeneration, lumbar Fibromyalgia High cholesterol History of adenomatous polyp of colon Hyperlipidemia Internal hemorrhoids Major depression Rectal bleeding Sacroiliitis Shoulder pain Sigmoid diverticulosis Smoker Surgical History H/O hemorrhoidectomy H/O shoulder surgery History of elbow surgery Hx of colonoscopy Hx of endoscopy Family History Family History Father Diabetes Mother Alzheimer disease Dementia Brother No problems noted. Brother No problems noted. Sister No problems noted. Sister No problems noted. Son No problems noted. Daughter No problems noted. Daughter No problems noted. Social History Social History Housing: Apartment Alcohol intake: never Patient Tobacco Use Status: Current everyday Tobacco user Cigarette Packs Per Day: 1 Cigarettes Per Day: 20.0 Second Hand Smoke Exposure: No Advance Directives: No service: No Current occupational status: unemployed Current occupation: Right Handed Physical Exam Vital Signs: Vital Signs: Last Vital Signs Temp 98.8 F 10/01/22 08:30 Pulse 94 10/01/22 08:30 Resp 17 10/01/22 08:30 BP 141/95 H 10/01/22 08:30 Pulse Ox 96 10/01/22 08:30 O2 Del Method 10/01/22 08:30 BMI result Body Mass Index 26.9 Const: General: cooperative and no acute distress Orientation/consciousness: oriented to person and oriented to place Limitations: no limitations HEENT: Head: Yes normal to inspection, Yes normocephalic and Yes atraumatic Ears: external ears normal General nose exam: Normal external nose present Face and sinus: Yes normal facial exam Mouth: Normal oral and palatal mucosa present Throat: Yes posterior oropharynx normal Eyes: General: appearance normal, both eyes and all related structures Pupils: Equal, round and reactive pupils present Neck: Neck: Yes normal visual inspection, Yes no lymphadenopathy, Yes trachea midline and Yes supple Chest: Chest palpation & inspection: normal inspection of the chest and normal palpation of entire chest wall Resp: Effort & Inspection: normal respiratory effort and able to speak in complete sentences Auscultation: clear to auscultation bilaterally Cardio: Rate: regular rate Rhythm: regular rhythm Heart sounds: S1 normal heart sound present, S2 normal heart sound present and no murmurs GI: Inspection: Yes normal to inspection Palpation (GI): Soft to palpation, nontender and no guarding Auscultation: normal bowel sounds : General: Yes no CVA tenderness Back/Spine/Pelvis: Back: no CVA tenderness Skin: General skin exam: no rashes or lesions noted Neuro: General: oriented to person and oriented to place Cranial nerves: Yes CN's II-XII intact bilaterally and Yes Equal, round and reactive pupils present Cognition (Neuro): normal cognition Motor exam (neuro): 5/5 motor strength present throughout Extrem: Other: Right hip examination: Patient has limited range of motion both actively and passively secondary to pain, he has no pain with palpation over the groin area/hip joint. His significant pain with palpation over the lateral trochanteric area with no ecchymosis or soft tissue swelling noted. There is no erythema. Psych: Appearance: grossly normal Speech and movement: Normal speech and movement present Affect: normal affect Attitude: cooperative Course Course Course Narrative: 57-year-old male who presents emergency department for evaluation of right hip pain x2 months with no injury. Patient does have chronic pain syndrome and takes meloxicam and gabapentin and this is not relieved his pain. Patient's vital signs did reveal an elevated blood pressure of 140/93 which could be secondary to his pain. Patient does have significant pain with palpation over the right trochanteric bursa region. X-rays of the right hip and pelvis were obtained the patient has mild degenerative disease of the hip. Patient's presentation is consistent with bursitis. The patient's right bursa area was injected with 5 cc of 2% lidocaine and 40 mg Depo-Medrol. Patient states that ibuprofen upsets his stomach but he has been able take meloxicam in the past. He was prescribed meloxicam 7.5 mg once a day as needed for pain. He was given printed and verbal instructions and discharged home. Medications Administered Discontinued Medications Generic Name Dose Route Start Last Admin Trade Name Brina PRN Reason Stop Dose Admin Lidocaine HCl 5 ml 10/01/22 08:46 10/01/22 09:17 Lidocaine Hcl 2 % Mpf 5 Ml Vial INFILTRATI 10/01/22 08:47 5 ml ONCE ONE Administration Methylprednisolone Acetate 40 mg 10/01/22 07:44 10/01/22 09:16 Methylprednisolone Acetate 40 Mg Vial IM 10/01/22 07:45 40 mg ONCE STA Administration Procedures Bursa Procedures Time Out Performed: No Side of body: right Site of Procedure: trochanteric bursa (Bursitis) XRAY Obtained: normal Antisepsis Used: Povidone-Iodine1% Medication Injected: Methylprednisolone Acetate Amount of medication used (mg): 40 Lidocaine Added to Medication: Yes (2% lidocaine-3 cc) Patient Tolerated Procedure: well Complications: none Additional Comments: Patient has trochanteric bursitis and was injected with 40 mg of Depo-Medrol and 2% lidocaine 3 cc Discharge Plan Discharge Clinical Impression: Greater trochanteric bursitis of right hip Patient Disposition: Home, Self-Care Instructions: Hip Bursitis (ED) Additional Instructions: Your x-ray of your hip revealed mild hip arthritis, your pain is not coming from your hip joints. You had tenderness with palpation over the bursa of the hip (trochanteric bursitis) which is caused by inflammation of the bursa (bursitis). Your injected with 40 mg of Depo-Medrol (a long-acting anti-inflammatory steroid) and 3 mL of 2% lidocaine. Take meloxicam 7.5 mg once a day for the next 3 days then as needed for pain. Follow-up with your doctor in 2 days. Please return to the emergency department if your symptoms get worse or if you develop any symptoms that are concerning to you. Prescriptions: New meloxicam 7.5 mg tablet 7.5 mg PO DAILY Qty: 14 0RF No Action albuterol sulfate [ProAir HFA] 90 mcg/actuation HFA aerosol inhaler 2 puff inhalation Q4-6H PRN (Reason: bronchospasm) 30 Days Qty: 8.5 8RF meloxicam 15 mg tablet 15 mg PO DAILY Qty: 30 4RF methylprednisolone [Medrol (Joselito)] 4 mg tablets,dose pack 4 mg PO QAM 6 Days Qty: 21 0RF Rx Instructions: Day 1: 8 mg PO before breakfast, 4 mg after lunch and after dinner, and 8 mg at bedtime Day 2: 4 mg PO before breakfast, after lunch, and after dinner and 8 mg at bedtime Day 3: 4 mg PO before breakfast, after lunch, after dinner, and at bedtime Day 4: 4 mg PO before breakfast, after lunch, and at bedtime Day 5: 4 mg PO before breakfast and at bedtime Day 6: 4 mg PO before breakfast docusate sodium [Colace] 100 mg capsule 100 mg PO BID Qty: 60 2RF sertraline 100 mg tablet 100 mg PO DAILY hydroxyzine HCl 25 mg tablet 25 mg PO Q8H PRN (Reason: anxiety) meclizine 12.5 mg tablet 12.5 mg PO TID pantoprazole 40 mg tablet,delayed release (DR/EC) 40 mg PO BID 30 Days Qty: 60 3RF gabapentin 400 mg capsule 400 mg PO TID dicyclomine 20 mg tablet 20 mg PO TID PRN (Reason: abdominal pain) 30 Days Qty: 60 3RF trazodone 50 mg tablet 25 - 50 mg PO BEDTIME
[2022-10-01] MEDS: methylPREDNISolone acetate 40 MG VIAL IM (09:16)
[2022-10-01] MEDS: Lidocaine HCl 2 % MPF 5 ML VIAL INFILTRATI (09:17)
== END 2022-10-01 10:43 | disposition home or self-care (01) ==
PROVIDERS: Emergency Provider Emergency Medicine Emergency Medical Services; PCP Internal Medicine
DX: M70.61 Trochanteric bursitis, right hip (principal); Y93.9 Activity, unspecified; M25.551 Pain in right hip
CPT/HCPCS: 20610; 73502; 96372; 99283; 99285; J1020

== ENCOUNTER 2023-01-21 22:08 | Emergency (ER) | payer MEDICARE, MEDICAID, SELFPAY ==
--- NOTE | 2023-01-21 | ECG_ITS ---
Test Reason : SHORTNESS OF BREATH Blood Pressure : / mmHG Vent. Rate : 091 BPM Atrial Rate : 091 BPM P-R Int : 142 ms QRS Dur : 106 ms QT Int : 396 ms P-R-T Axes : 063 073 056 degrees QTc Int : 487 ms Normal sinus rhythm Prolonged QT Abnormal ECG When compared with ECG of 01-JUN-2021 15:56, No significant change was found Referred By: Generic ED Physician Electronically Signed By:VLADIMIR PRITCHARD
--- NOTE | ~2023-01-21 | XR_ITS ---
EXAMINATION: XR CHEST CLINICAL INFORMATION: Cough COMPARISON: 06/01/2021 TECHNIQUE: 2 views of the chest were obtained. FINDINGS: No acute finding. No infiltrate or effusion. The cardiac silhouette is within normal limits. The hilar regions do not appear pathologically enlarged. There is no effusion. Degenerative change in the thoracic spine. XR/XR chest 2V IMPRESSION: No acute finding.
[2023-01-21 22:11] VITALS: BP 161/102; PULSE 96; RESP 20; TEMP 37; O2SAT 96; BMI 33.5
[2023-01-21 22:34] LABS: Basophils Absolute Auto 0.1 X10*3/uL (0.0-0.2); Basophils Percent Auto 0.9 % (0-2); Eosinophils Absolute Auto 0.4 X10*3/uL (0.0-0.4); Eosinophils Percent Auto 5.7 % (0-4); Hematocrit 42.6 % (42.0-52.0); Hemoglobin 14.6 g/dl (14.0-18.0); Imm Gran Abs Auto 0.01 X10*3/uL (0.00-0.03); Imm Gran Pct Auto 0.2 % (0.0-0.4); Lymphocytes Absolute Auto 1.8 X10*3/uL (1.2-4.9); Lymphocytes Percent Auto 27.1 % (20-40); MANUAL DIFF FLAG NO; Mean Corpuscular HGB Conc 34.3 g/dl (31.0-36.0); Mean Corpuscular Hemoglobin 30.7 pg (27.0-33.0); Mean Corpuscular Volume 89.5 fL (80.0-98.0); Mean Platelet Volume 9.2 fL (9.4-12.4); Monocytes Absolute Auto 0.7 X10*3/uL (0.1-1.2); Monocytes Percent Auto 10.8 % (2-11); Neutrophils Absolute Auto 3.7 x10*3/uL (2.0-8.3); Neutrophils Percent Auto 55.3 % (45-73); Platelet Count 244 X10*3/uL (160-400); Red Blood Count 4.76 X10*6/uL (4.60-5.80); Red Cell Distribution Width 12.4 % (11.0-16.0); White Blood Count 6.6 X10*3/uL (4.8-10.8)
[2023-01-21 22:44] VITALS: BP 165/95; PULSE 93; RESP 20; O2SAT 96
[2023-01-21 22:49] LABS: COVID-19 Test Negative (Negative); IDNOW Serial# 6674DD1D
[2023-01-21 22:51] LABS: Alanine Aminotransferase 27 U/L (0-40); Albumin Level 4.2 g/dL (3.5-5.0); Alkaline Phosphatase 85 U/L (39-117); Anion Gap 13 (12-20); Aspartate Amino Transferase 27 U/L (5-37); Bilirubin Total 1.2 mg/dL (0.0-1.0); Blood Urea Nitrogen 15 mg/dL (9-16); Calcium 8.9 mg/dL (8.4-10.2); Carbon Dioxide 26 mmol/L (22-29); Chloride 104 mmol/L (96-108); Creatinine Clr Calc Pharmacy 104.7; Estimated Glomerular Filt Rate > 60; Glucose Random 103 mg/dL (60-115); Potassium 3.6 mmol/L (3.3-5.1); Sodium 139 mmol/L (135-145); Total Protein 7.1 g/dL (6.5-8.0)
[2023-01-21 22:58] LABS: Troponin-I High Sensitivity 5.4 ng/L (<3.5-35.0)
--- NOTE | 2023-01-21 22:59 | ED_ITS ---
HPI - Asthma General Chief Complaint: Asthma Stated Complaint: Chest pain/back pain/astma Time Seen by Provider: 01/21/23 22:44 Source: patient Mode of arrival: ambulatory Limitations: no limitations History of Present Illness HPI Narrative: Patient history of asthma smoker ran out of his inhaler been coughing for last 3- 4 days mostly dry cough but feels phlegm in his lungs no fever no chills no chest pain or palpitation Related Data Home Medications Medication Instructions Recorded Confirmed hydroxyzine HCl 25 mg tablet 25 mg PO Q8H PRN anxiety 08/20/20 09/29/21 meclizine 12.5 mg tablet 12.5 mg PO TID 08/20/20 09/29/21 sertraline 100 mg tablet 100 mg PO DAILY 08/20/20 09/29/21 gabapentin 400 mg capsule 400 mg PO TID 09/13/21 09/29/21 trazodone 50 mg tablet 25 - 50 mg PO BEDTIME 12/27/21 Previous Rx's Medication Instructions Recorded docusate sodium 100 mg capsule 100 mg PO BID #60 caps 02/19/21 (Colace) albuterol sulfate 90 mcg/actuation 2 puff inhalation Q4-6H PRN 06/04/21 aerosol inhaler (ProAir HFA) bronchospasm 30 days #8.5 grams pantoprazole 40 mg tablet,delayed 40 mg PO BID 30 days #60 tabs 06/24/21 release dicyclomine 20 mg tablet 20 mg PO TID PRN abdominal pain 30 09/13/21 days #60 tabs meloxicam 15 mg tablet 15 mg PO DAILY #30 tabs 09/16/21 methylprednisolone 4 mg tablets in 4 mg PO QAM 6 days #21 ea 12/24/21 a dose pack (Medrol (Joselito)) meloxicam 7.5 mg tablet 7.5 mg PO DAILY #14 tabs 10/01/22 albuterol sulfate 90 mcg/actuation 2 puff inhalation Q4-6H PRN 01/21/23 aerosol inhaler (ProAir HFA) shortness of breath or wheezing #8.5 grams benzonatate 200 mg capsule 200 mg PO TID PRN cough #30 caps 01/21/23 doxycycline hyclate 100 mg tablet 100 mg PO BID #20 tabs 01/21/23 prednisone 20 mg tablet 40 mg PO DAILY #10 tabs 01/21/23 Allergies Allergy/AdvReac Type Severity Reaction Status Date / Time ibuprofen [From Motrin] Allergy Severe stomach Verified 01/21/23 22:10 pain morphine Allergy Rash Verified 01/21/23 22:10 Review of Systems Review of Systems: Yes all other systems are reviewed and are negative [facility] Past Medical History Medical History Anxiety Arthritis Bleeding hemorrhoids Chronic back pain Disc degeneration, lumbar Fibromyalgia High cholesterol History of adenomatous polyp of colon Hyperlipidemia Internal hemorrhoids Major depression Rectal bleeding Sacroiliitis Shoulder pain Sigmoid diverticulosis Smoker Surgical History H/O hemorrhoidectomy H/O shoulder surgery History of elbow surgery Hx of colonoscopy Hx of endoscopy Family History Family History Father Diabetes Mother Alzheimer disease Dementia Brother No problems noted. Brother No problems noted. Sister No problems noted. Sister No problems noted. Son No problems noted. Daughter No problems noted. Daughter No problems noted. Social History Social History Housing: Apartment Alcohol intake: never Patient Tobacco Use Status: Current everyday Tobacco user Cigarette Packs Per Day: 1 Cigarettes Per Day: 20.0 Second Hand Smoke Exposure: No Advance Directives: No Advance Directives Information Provided: Yes service: No Current occupational status: unemployed Current occupation: Right Handed Physical Exam Vital Signs: Vital Signs: Last Vital Signs Temp 98.6 F 01/21/23 22:11 Pulse 85 01/21/23 23:23 Resp 20 01/21/23 23:23 BP 165/95 H 01/21/23 22:44 Pulse Ox 96 01/21/23 22:44 O2 Del Method 01/21/23 22:44 BMI result Body Mass Index 33.5 Appearance: Alert. Oriented X3. No acute distress. ENT: Pharynx normal. Oral Mucosa moist Neck: Normal inspection. Neck supple. CVS: Normal heart rate and rhythm. Pulses normal. Respiratory: No respiratory distress. Equal air entry bilateral, bilateral wheezing prolonged expiration no crackles Abdomen: Soft and nontender. Bowel sounds are present, no mass palpable, no CVA tenderness Skin: Skin warm and dry. Normal skin color. Normal skin turgor. Extremities: No lower extremity edema. No calf tenderness Neuro: Oriented X 3. Medications Administered Discontinued Medications Generic Name Dose Route Start Last Admin Trade Name Rolandoq PRN Reason Stop Dose Admin Albuterol Sulfate 5 mg/ 0 mg 01/21/23 23:03 01/21/23 23:22 Ipratropium [place] 0.5 mg INHALE 01/21/23 23:04 1 each ONCE ONE Administration Dexamethasone 10 mg 01/21/23 23:03 01/21/23 23:15 Dexamethasone 2 Mg Tablet PO 01/21/23 23:04 10 mg ONCE ONE Administration Doxycycline Monohydrate 100 mg 01/21/23 23:04 01/21/23 23:14 Doxycycline Monohydrate 100 Mg Capsule PO 01/21/23 23:05 100 mg ONCE ONE Administration Guaifenesin/Codeine Phosphate 10 ml 01/21/23 23:03 01/21/23 23:14 Guaifen/Codeine Sf 200/20/10ml 10 Ml Liquid PO 01/21/23 23:04 10 ml ONCE ONE Administration Medical Decision Making Medical Decision Making MDM Narrative: Patient lab stable click chest x-ray negative clinically allergic bronchitis will give nebulizing treatment and steroids Lab Data MDM Lab Attestation statement: I reviewed the patient's lab results. 01/21/23 22:29 01/21/23 22:29 Labs: Lab Results 01/21/23 01/21/23 01/21/23 Range/Units 22:29 22:29 22:29 WBC 6.6 (4.8-10.8) X10*3/uL RBC 4.76 (4.60-5.80) X10*6/uL Hgb 14.6 (14.0-18.0) g/dl Hct 42.6 (42.0-52.0) % MCV 89.5 (80.0-98.0) fL MCH 30.7 (27.0-33.0) pg MCHC 34.3 (31.0-36.0) g/dl RDW 12.4 (11.0-16.0) % Plt Count 244 (160-400) X10*3/uL MPV 9.2 L (9.4-12.4) fL Immature Gran % (Auto) 0.2 (0.0-0.4) % Neut % (Auto) 55.3 (45-73) % Lymph % (Auto) 27.1 (20-40) % [place] % (Auto) 10.8 (2-11) % Eos % (Auto) 5.7 H (0-4) % Baso % (Auto) 0.9 (0-2) % Lymph # (Auto) 1.8 (1.2-4.9) X10*3/uL [place] # (Auto) 0.7 (0.1-1.2) X10*3/uL Eos # (Auto) 0.4 (0.0-0.4) X10*3/uL Baso # (Auto) 0.1 (0.0-0.2) X10*3/uL Abs Immat Gran (auto) 0.01 (0.00-0.03) X10*3/uL Absolute Neuts (auto) 3.7 (2.0-8.3) x10*3/uL Absolute Nucleated RBC 0.000 (0.0-0.012) X10*3/uL Nucleated RBC % (auto) 0.0 (0.0-0.2) /100WBC Sodium 139 (135-145) mmol/L Potassium 3.6 (3.3-5.1) mmol/L Chloride 104 (96-108) mmol/L Carbon Dioxide 26 (22-29) mmol/L Anion Gap 13 (12-20) BUN 15 (9-16) mg/dL Creatinine 0.78 (0.5-1.4) mg/dL Estim Creat Clear Calc 104.7 Estimated GFR > 60 Random Glucose 103 (60-115) mg/dL Calcium 8.9 (8.4-10.2) mg/dL Total Bilirubin 1.2 H (0.0-1.0) mg/dL AST 27 (5-37) U/L ALT 27 (0-40) U/L Alkaline Phosphatase 85 (39-117) U/L Troponin I High Sens 5.4 (<3.5-35.0) ng/L Total Protein 7.1 (6.5-8.0) g/dL Albumin 4.2 (3.5-5.0) g/dL COVID-19 ([facility]) (Negative) COVID-19 Clin Com 01/21/23 Range/Units 22:29 WBC (4.8-10.8) X10*3/uL RBC (4.60-5.80) X10*6/uL Hgb (14.0-18.0) g/dl Hct (42.0-52.0) % MCV (80.0-98.0) fL MCH (27.0-33.0) pg MCHC (31.0-36.0) g/dl RDW (11.0-16.0) % Plt Count (160-400) X10*3/uL MPV (9.4-12.4) fL Immature Gran % (Auto) (0.0-0.4) % Neut % (Auto) (45-73) % Lymph % (Auto) (20-40) % [place] % (Auto) (2-11) % Eos % (Auto) (0-4) % Baso % (Auto) (0-2) % Lymph # (Auto) (1.2-4.9) X10*3/uL [place] # (Auto) (0.1-1.2) X10*3/uL Eos # (Auto) (0.0-0.4) X10*3/uL Baso # (Auto) (0.0-0.2) X10*3/uL Abs Immat Gran (auto) (0.00-0.03) X10*3/uL Absolute Neuts (auto) (2.0-8.3) x10*3/uL Absolute Nucleated RBC (0.0-0.012) X10*3/uL Nucleated RBC % (auto) (0.0-0.2) /100WBC Sodium (135-145) mmol/L Potassium (3.3-5.1) mmol/L Chloride (96-108) mmol/L Carbon Dioxide (22-29) mmol/L Anion Gap (12-20) BUN (9-16) mg/dL Creatinine (0.5-1.4) mg/dL Estim Creat Clear Calc Estimated GFR Random Glucose (60-115) mg/dL Calcium (8.4-10.2) mg/dL Total Bilirubin (0.0-1.0) mg/dL AST (5-37) U/L ALT (0-40) U/L Alkaline Phosphatase (39-117) U/L Troponin I High Sens (<3.5-35.0) ng/L Total Protein (6.5-8.0) g/dL Albumin (3.5-5.0) g/dL COVID-19 ([facility]) Negative (Negative) COVID-19 Clin Com See Note Discharge Plan Discharge Clinical Impression: Acute bronchitis Patient Disposition: Home, Self-Care Instructions: Acute Bronchitis (ED) Additional Instructions: Please do not smoke Use albuterol inhaler 2 puffs every 4-6 hours as needed Antibiotics prednisone and cough drops as prescribed Follow with PCP if not better por favor no fumes Use el inhalador de albuterol 2 inhalaciones cada 4 a 6 horas seg?n sea necesario Antibi?ticos prednisona y pastillas para la tos seg?n prescripci?n m?dica Siga con PCP si no mejor Prescriptions: New benzonatate 200 mg capsule 200 mg PO TID PRN (Reason: cough) Qty: 30 0RF prednisone 20 mg tablet 40 mg PO DAILY Qty: 10 0RF albuterol sulfate [ProAir HFA] 90 mcg/actuation HFA aerosol inhaler 2 puff inhalation Q4-6H PRN (Reason: shortness of breath or wheezing) Qty: 8.5 2RF doxycycline hyclate 100 mg tablet 100 mg PO BID Qty: 20 0RF No Action albuterol sulfate [ProAir HFA] 90 mcg/actuation HFA aerosol inhaler 2 puff inhalation Q4-6H PRN (Reason: bronchospasm) 30 Days Qty: 8.5 8RF meloxicam 15 mg tablet 15 mg PO DAILY Qty: 30 4RF methylprednisolone [Medrol (Joselito)] 4 mg tablets,dose pack 4 mg PO QAM 6 Days Qty: 21 0RF Rx Instructions: Day 1: 8 mg PO before breakfast, 4 mg after lunch and after dinner, and 8 mg at bedtime Day 2: 4 mg PO before breakfast, after lunch, and after dinner and 8 mg at bedtime Day 3: 4 mg PO before breakfast, after lunch, after dinner, and at bedtime Day 4: 4 mg PO before breakfast, after lunch, and at bedtime Day 5: 4 mg PO before breakfast and at bedtime Day 6: 4 mg PO before breakfast docusate sodium [Colace] 100 mg capsule 100 mg PO BID Qty: 60 2RF meloxicam 7.5 mg tablet 7.5 mg PO DAILY Qty: 14 0RF sertraline 100 mg tablet 100 mg PO DAILY hydroxyzine HCl 25 mg tablet 25 mg PO Q8H PRN (Reason: anxiety) meclizine 12.5 mg tablet 12.5 mg PO TID pantoprazole 40 mg tablet,delayed release (DR/EC) 40 mg PO BID 30 Days Qty: 60 3RF gabapentin 400 mg capsule 400 mg PO TID dicyclomine 20 mg tablet 20 mg PO TID PRN (Reason: abdominal pain) 30 Days Qty: 60 3RF trazodone 50 mg tablet 25 - 50 mg PO BEDTIME Interventions: ED Discharge Assessment Last Done: 01/22/23 00:06 Discharge Date/Time: 01/22/23 00:31 Print Language: Bhutanese
[2023-01-21] MEDS: Doxycycline Monohydrate 100 MG CAPSULE PO (23:14)
[2023-01-21] MEDS: guaiFEN/Codeine SF 200/20/10ML 10 ML LIQUID PO (23:14)
[2023-01-21] MEDS: dexAMETHasone 2 MG TABLET 10 MG PO (23:15)
[2023-01-21 23:23] VITALS: PULSE 85; RESP 20; O2SAT 96
== END 2023-01-22 00:31 | disposition home or self-care (01) ==
PROVIDERS: Emergency Provider Internal Medicine
DX: J20.9 Acute bronchitis, unspecified (principal); Z20.822 Contact with and (suspected) exposure to COVID-19; E78.00 Pure hypercholesterolemia, unspecified; F17.210 Nicotine dependence, cigarettes, uncomplicated; Z79.899 Other long term (current) drug therapy
CPT/HCPCS: 36415; 71046; 80053; 84484; 85025; 87635; 93005; 94640; 99284; 99285; J8540

== ENCOUNTER 2023-01-26 22:31 | Emergency (ER) | payer MEDICARE, MEDICAID, SELFPAY ==
--- NOTE | 2023-01-26 | ECG_ITS ---
Test Reason : sob Blood Pressure : / mmHG Vent. Rate : 093 BPM Atrial Rate : 093 BPM P-R Int : 138 ms QRS Dur : 092 ms QT Int : 350 ms P-R-T Axes : 065 077 066 degrees QTc Int : 435 ms Normal sinus rhythm Normal ECG When compared with ECG of 21-JAN-2023 22:19, Nonspecific T wave abnormality now evident in Lateral leads QT has shortened Referred By: Generic ED Physician Electronically Signed By:Kyler Toney
--- NOTE | ~2023-01-26 | CT_ITS ---
EXAMINATION: CT ANGIOGRAM OF THE CHEST WITH AND WITHOUT CONTRAST (CT PULMONARY ANGIOGRAM FOR PE) CLINICAL INFORMATION: Reason for Exam shortness of breath COMPARISON: None available. TECHNIQUE: Prior to contrast administration, noncontrast localization images were obtained. Subsequently, multidetector volumetric imaging was performed from the thoracic inlet to below the diaphragms following the administration of 65 mL Omnipaque 350 intravenous contrast. No contrast reaction reported Sagittal, coronal, and MIP oblique sagittal reformatted images were obtained on the CT workstation, uploaded to PACS, and reviewed. This CT examination was performed using dose optimization techniques as appropriate, variously including the following: *Automated exposure control *Adjustment of mA and/or kV according to patient size (this includes techniques or standardized protocols for targeted exams where dose is matched to indication/reason for exam; i.e. extremities or head) *Use of iterative reconstruction technique Total exam dose-length product 284 mGy-cm FINDINGS: QUALITY OF STUDY/CONTRAST BOLUS: Satisfactory. PULMONARY ARTERIES: No central or segmental pulmonary emboli. THORACIC AORTA: No aneurysm or dissection. LUNG: No focal consolidation, nodules or masses. Diffuse moderate bronchial thickening, with scattered endobronchial secretions within bilateral lower lobe bronchioles. Patchy groundglass opacities scattered throughout both lungs but predominantly within the lower lungs bilaterally. PLEURA: No pleural effusion or pneumothorax. MEDIASTINUM: Normal heart size. Coronary calcifications. No pericardial effusion. No hilar or mediastinal lymphadenopathy. No evidence of septal bowing or right heart strain. CORONARY ARTERY CALCIFICATION: None visualized on this study. CHEST WALL/AXILLA: No axillary or internal mammary lymphadenopathy. OSSEOUS STRUCTURES: No acute or suspicious osseous abnormality. UPPER ABDOMEN: Unremarkable. CT/CT angio chest PE protocol IMPRESSION: * No evidence of pulmonary embolism. * Diffuse moderate bronchial thickening with scattered endobronchial secretions within bilateral lower lobe bronchioles. Findings likely represent colitis. * Patchy groundglass opacities scattered throughout both lungs, predominantly within the lower lungs bilaterally. These could represent areas of atelectasis mild or resolving atypical pneumonitis VTE: negative
[2023-01-26 22:36] VITALS: BP 100/54; PULSE 100; RESP 28; TEMP 36.6; O2SAT 89; BMI 33.3
[2023-01-26 23:14] VITALS: BP 122/73; PULSE 94; RESP 16; TEMP 36.8; O2SAT 94
[2023-01-26 23:19] LABS: MANUAL DIFF FLAG NO
[2023-01-26 23:20] LABS: Basophils Percent Auto 0.4 % (0-2); Eosinophils Absolute Auto 0.3 X10*3/uL (0.0-0.4); Eosinophils Percent Auto 3.3 % (0-4); Hematocrit 43.1 % (42.0-52.0); Hemoglobin 14.8 g/dl (14.0-18.0); Imm Gran Abs Auto 0.07 X10*3/uL (0.00-0.03); Imm Gran Pct Auto 0.8 % (0.0-0.4); Lymphocytes Absolute Auto 2.7 X10*3/uL (1.2-4.9); Lymphocytes Percent Auto 29.5 % (20-40); Mean Corpuscular HGB Conc 34.3 g/dl (31.0-36.0); Mean Corpuscular Hemoglobin 30.9 pg (27.0-33.0); Mean Platelet Volume 9.1 fL (9.4-12.4); Monocytes Absolute Auto 0.7 X10*3/uL (0.1-1.2); Monocytes Percent Auto 8.1 % (2-11); Neutrophils Absolute Auto 5.3 x10*3/uL (2.0-8.3); Neutrophils Percent Auto 57.9 % (45-73); Platelet Count 256 X10*3/uL (160-400); Red Blood Count 4.79 X10*6/uL (4.60-5.80); Red Cell Distribution Width 12.4 % (11.0-16.0); White Blood Count 9.1 X10*3/uL (4.8-10.8)
[2023-01-26 23:22] VITALS: PULSE 100; RESP 18; O2SAT 95
[2023-01-26 23:23] LABS: VBG Base Excess -2.3 mmol/L; VBG HCO3 22 mmol/L (22-26); VBG pCO2 38 mmHg; VBG pH 7.37 (7.32-7.43); VBG pO2 75 mmHg
[2023-01-26 23:24] LABS: Venous Blood Gas Refer to POC result
[2023-01-26 23:37] LABS: COVID-19 Test Negative (Negative); IDNOW Serial# BCCEAD1C
[2023-01-26 23:39] LABS: Alanine Aminotransferase 20 U/L (0-40); Albumin Level 3.9 g/dL (3.5-5.0); Alkaline Phosphatase 78 U/L (39-117); Anion Gap 19 (12-20); Aspartate Amino Transferase 21 U/L (5-37); Bilirubin Total 0.2 mg/dL (0.0-1.0); Blood Urea Nitrogen 23 mg/dL (9-16); Carbon Dioxide 24 mmol/L (22-29); Chloride 101 mmol/L (96-108); Creatinine Clr Calc Pharmacy 74.6; Estimated Glomerular Filt Rate > 60; Glucose Random 104 mg/dL (60-115); Potassium 4.1 mmol/L (3.3-5.1); Sodium 140 mmol/L (135-145); Total Protein 6.8 g/dL (6.5-8.0)
--- NOTE | 2023-01-26 23:45 | ED_ITS ---
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 He was prescribed prednisone, albuterol inhaler, benzonatate, doxycycline. The patient reports he has been taking the medication without any improvement in his symptoms He feels as though ?I am not getting any oxygen in. ? He denies any fevers or chills. He has been coughing and has chest pain related to his cough He rates his discomfort as he out of 10 Related Data Home Medications Medication Instructions Recorded Confirmed hydroxyzine HCl 25 mg tablet 25 mg PO Q8H PRN anxiety 08/20/20 09/29/21 meclizine 12.5 mg tablet 12.5 mg PO TID 08/20/20 09/29/21 sertraline 100 mg tablet 100 mg PO DAILY 08/20/20 09/29/21 gabapentin 400 mg capsule 400 mg PO TID 09/13/21 09/29/21 trazodone 50 mg tablet 25 - 50 mg PO BEDTIME 12/27/21 Previous Rx's Medication Instructions Recorded docusate sodium 100 mg capsule 100 mg PO BID #60 caps 02/19/21 (Colace) albuterol sulfate 90 mcg/actuation 2 puff inhalation Q4-6H PRN 06/04/21 aerosol inhaler (ProAir HFA) bronchospasm 30 days #8.5 grams pantoprazole 40 mg tablet,delayed 40 mg PO BID 30 days #60 tabs 06/24/21 release dicyclomine 20 mg tablet 20 mg PO TID PRN abdominal pain 30 09/13/21 days #60 tabs meloxicam 15 mg tablet 15 mg PO DAILY #30 tabs 09/16/21 methylprednisolone 4 mg tablets in 4 mg PO QAM 6 days #21 ea 12/24/21 a dose pack (Medrol (Joselito)) meloxicam 7.5 mg tablet 7.5 mg PO DAILY #14 tabs 10/01/22 albuterol sulfate 90 mcg/actuation 2 puff inhalation Q4-6H PRN 01/21/23 aerosol inhaler (ProAir HFA) shortness of breath or wheezing #8.5 grams benzonatate 200 mg capsule 200 mg PO TID PRN cough #30 caps 01/21/23 doxycycline hyclate 100 mg tablet 100 mg PO BID #20 tabs 01/21/23 prednisone 20 mg tablet 40 mg PO DAILY #10 tabs 01/21/23 azithromycin 250 mg tablet See Rx Instructions PO .COMPLEX #6 01/27/23 tabs Allergies Allergy/AdvReac Type Severity Reaction Status Date / Time ibuprofen [From Motrin] Allergy Severe stomach Verified 01/21/23 22:10 pain morphine Allergy Rash Verified 01/21/23 22:10 Penicillins Allergy Hives Verified 01/26/23 22:43 Review of Systems Constitutional: Constitutional: Reports as per HPI, Denies chills, Denies fatigue, Denies fever(s) and Denies headache(s) ENT: Denies headache(s) Cardiovascular: Cardiovascular: Reports chest pain and Reports dyspnea Respiratory: Respiratory: Reports cough and Reports dyspnea Gastrointestinal: Gastrointestinal: Denies abdominal pain, Denies constipation and Denies vomiting Genitourinary: Genitourinary: Denies difficulty urinating and Denies dysuria Neurologic: Denies headache(s) and Denies focal weakness Endocrine: Endocrine: Denies fatigue PMFSH Past Medical History Medical History Anxiety Arthritis Bleeding hemorrhoids Chronic back pain Disc degeneration, lumbar Fibromyalgia High cholesterol History of adenomatous polyp of colon Hyperlipidemia Internal hemorrhoids Major depression Rectal bleeding Sacroiliitis Shoulder pain Sigmoid diverticulosis Smoker Surgical History H/O hemorrhoidectomy H/O shoulder surgery History of elbow surgery Hx of colonoscopy Hx of endoscopy Family History Family History Father Diabetes Mother Alzheimer disease Dementia Brother No problems noted. Brother No problems noted. Sister No problems noted. Sister No problems noted. Son No problems noted. Daughter No problems noted. Daughter No problems noted. Social History Social History Housing: Apartment Alcohol intake: never Patient Tobacco Use Status: Current everyday Tobacco user Cigarette Packs Per Day: 1 Cigarettes Per Day: 20.0 Second Hand Smoke Exposure: No Advance Directives: No Advance Directives Information Provided: Yes service: No Current occupational status: unemployed Current occupation: Right Handed Physical Exam ED Vital Signs: Vital Signs - 24 hr 01/26/23 22:36 01/26/23 23:14 01/26/23 23:22 Temperature 97.8 F 98.2 F Pulse Rate 100 94 100 Respiratory Rate 28 H 16 18 Blood Pressure 100/54 L 122/73 Pulse Oximetry 89 L 94 Oxygen Delivery Method Room Air Nasal Cannula Oxygen Flow Rate 3 BMI result Body Mass Index 33.3 Const General: healthy appearing, comfortable, no acute distress, alert and awake Nutritional Appearance: well nourished Orientation/consciousness: patient oriented x3 HENMT Head: Yes normocephalic and Yes atraumatic Throat: Yes posterior oropharynx normal Eyes Eyelids: Yes eyelids normal Conjunctivae: conjunctivae normal Sclerae: sclerae normal Corneas: corneas normal Pupils: Equal, round and reactive pupils present EOM: EOMs intact bilaterally Neck Neck: Yes full ROM Resp Effort & Inspection: normal respiratory effort, able to speak in complete sentences, no audible wheezes and not labored Auscultation: clear to auscultation bilaterally (Faint expiratory wheeze) Cardio Rate: regular rate Rhythm: regular rhythm GI Inspection: No distended Palpation (GI): Soft to palpation, not firm, nontender, no guarding and not rigid Auscultation: normoactive bowel sounds Skin General skin exam: no rashes or lesions noted and elasticity normal Neuro General: patient oriented x3 Cranial nerves: Yes CN's II-XII intact bilaterally, Yes Equal, round and reactive pupils present and Yes Bilaterally intact EOM present Cognition (Neuro): normal cognition Extrem Other: Moving all extremities well without any obvious deformities Course Reevaluation(s) Reevaluation #1: Patient re-evaluated reports that he feels much better. His oxygen saturation is 96% on 2 L. The patient would prefer to be discharged home. Will take him for ambulation trial with oxygen saturation monitoring. Patient's CTA was negative for PE but did show bronchial thickening and likely resolving atypical pneumonia. Time: 01:10 Reevaluation #2: Patient ambulated with an oxygen saturation maintained 96% on room air. Patient would prefer discharge, he will be discharged will add azithromycin to his regimen to treat community-acquired. I do not feel a need any further prednisone and hear any has albuterol Time: 01:34 Medications Administered Discontinued Medications Generic Name Dose Route Start Last Admin Trade Name Brina PRN Reason Stop Dose Admin Albuterol Sulfate 5 mg/ 0 mg 01/26/23 23:10 01/26/23 23:21 Ipratropium [place] 0.5 mg INHALE 01/26/23 23:11 1 each ONCE ONE Administration Iohexol 65 ml 01/27/23 00:27 01/27/23 00:27 Iohexol 350 Mg/Ml 100 Ml Infus..Btl IV 01/27/23 00:28 65 ml ONCE ONE Administration Medical Decision Making Medical Decision Making [facility] Narrative: 57-year-old male past medical history significant for asthma, tobacco dependence presents for evaluation shortness of breath. Also asked to have the patient shortly after patient's arrival as nursing prior to my attention as oxygen satur ation was 89% on room air. The time of my evaluation he is on 2 L supplemental oxygen via nasal cannula as sat is 98%. His lungs have a faint expiratory wheeze but no significant wheezing or rhonchi. He has been taking his previously prescribed medications as prescribed. Will repeat chest x-ray to evaluate for pneumonia, pneumothorax. I also feel that given his physical exam is not impressive to warrant such a low O2 sat which she get a CTA to evaluate for PE. Patient's EKG is sinus rhythm with some flattening T-waves when compared to January 21, 2023. Will get troponin as well Differential Diagnosis Acute asthma exacerbation Bronchitis Pneumonia PE Lab Data [facility] Lab Attestation statement: I reviewed the patient's lab results. 01/26/23 23:11 01/26/23 23:11 Labs: Lab Results 01/26/23 01/26/23 01/26/23 Range/Units 23:11 23:11 23:11 WBC 9.1 (4.8-10.8) X10*3/uL RBC 4.79 (4.60-5.80) X10*6/uL Hgb 14.8 (14.0-18.0) g/dl Hct 43.1 (42.0-52.0) % MCV 90.0 (80.0-98.0) fL MCH 30.9 (27.0-33.0) pg MCHC 34.3 (31.0-36.0) g/dl RDW 12.4 (11.0-16.0) % Plt Count 256 (160-400) X10*3/uL MPV 9.1 L (9.4-12.4) fL Immature Gran % (Auto) 0.8 H (0.0-0.4) % Neut % (Auto) 57.9 (45-73) % Lymph % (Auto) 29.5 (20-40) % [place] % (Auto) 8.1 (2-11) % Eos % (Auto) 3.3 (0-4) % Baso % (Auto) 0.4 (0-2) % Lymph # (Auto) 2.7 (1.2-4.9) X10*3/uL [place] # (Auto) 0.7 (0.1-1.2) X10*3/uL Eos # (Auto) 0.3 (0.0-0.4) X10*3/uL Baso # (Auto) 0.0 (0.0-0.2) X10*3/uL Abs Immat Gran (auto) 0.07 H (0.00-0.03) X10*3/uL Absolute Neuts (auto) 5.3 (2.0-8.3) x10*3/uL Absolute Nucleated RBC 0.000 (0.0-0.012) X10*3/uL Nucleated RBC % (auto) 0.0 (0.0-0.2) /100WBC VBG pH (7.32-7.43) VBG pCO2 mmHg VBG pO2 mmHg VBG HCO3 (22-26) mmol/L VBG O2 Saturation % VBG Base Excess mmol/L Sodium 140 (135-145) mmol/L Potassium 4.1 (3.3-5.1) mmol/L Chloride 101 (96-108) mmol/L Carbon Dioxide 24 (22-29) mmol/L Anion Gap 19 (12-20) BUN 23 H (9-16) mg/dL Creatinine 1.13 (0.5-1.4) mg/dL Estim Creat Clear Calc 74.6 Estimated GFR > 60 Random Glucose 104 (60-115) mg/dL Calcium 9.0 (8.4-10.2) mg/dL Total Bilirubin 0.2 (0.0-1.0) mg/dL AST 21 (5-37) U/L ALT 20 (0-40) U/L Alkaline Phosphatase 78 (39-117) U/L Total Protein 6.8 (6.5-8.0) g/dL Albumin 3.9 (3.5-5.0) g/dL COVID-19 (RENA) Negative (Negative) COVID-19 Clin Com See Note 01/26/23 Range/Units 23:16 WBC (4.8-10.8) X10*3/uL RBC (4.60-5.80) X10*6/uL Hgb (14.0-18.0) g/dl Hct (42.0-52.0) % MCV (80.0-98.0) fL MCH (27.0-33.0) pg MCHC (31.0-36.0) g/dl RDW (11.0-16.0) % Plt Count (160-400) X10*3/uL MPV (9.4-12.4) fL Immature Gran % (Auto) (0.0-0.4) % Neut % (Auto) (45-73) % Lymph % (Auto) (20-40) % [place] % (Auto) (2-11) % Eos % (Auto) (0-4) % Baso % (Auto) (0-2) % Lymph # (Auto) (1.2-4.9) X10*3/uL [place] # (Auto) (0.1-1.2) X10*3/uL Eos # (Auto) (0.0-0.4) X10*3/uL Baso # (Auto) (0.0-0.2) X10*3/uL Abs Immat Gran (auto) (0.00-0.03) X10*3/uL Absolute Neuts (auto) (2.0-8.3) x10*3/uL Absolute Nucleated RBC (0.0-0.012) X10*3/uL Nucleated RBC % (auto) (0.0-0.2) /100WBC VBG pH 7.37 (7.32-7.43) VBG pCO2 38 mmHg VBG pO2 75 mmHg VBG HCO3 22 (22-26) mmol/L VBG O2 Saturation 93.0 % VBG Base Excess -2.3 mmol/L Sodium (135-145) mmol/L Potassium (3.3-5.1) mmol/L Chloride (96-108) mmol/L Carbon Dioxide (22-29) mmol/L Anion Gap (12-20) BUN (9-16) mg/dL Creatinine (0.5-1.4) mg/dL Estim Creat Clear Calc Estimated GFR Random Glucose (60-115) mg/dL Calcium (8.4-10.2) mg/dL Total Bilirubin (0.0-1.0) mg/dL AST (5-37) U/L ALT (0-40) U/L Alkaline Phosphatase (39-117) U/L Total Protein (6.5-8.0) g/dL Albumin (3.5-5.0) g/dL COVID-19 ([facility]NA) (Negative) COVID-19 Clin Com Independent Interpretation I performed an independent interpretation of an: EKG Discharge Plan Discharge Clinical Impression: Atypical pneumonia Patient Disposition: Home, Self-Care Instructions: Community Acquired Pneumonia (ED) Additional Instructions: Your CT scan shows that you have what looks like atypical pneumonia though it looks like it is resolving. Continue taking your doxycycline as prescribed. I am going to add an additional medication azithromycin Take this medication as prescribed Continue using your inhaler Return for new or worsening symptoms Prescriptions: New azithromycin 250 mg tablet See Rx Instructions .ROUTE .COMPLEX Qty: 6 0RF Rx Instructions: For 250 mg dose pack: take 500 mg today (day 1), then 250 mg for 4 days (days 2-5) No Action albuterol sulfate [ProAir HFA] 90 mcg/actuation HFA aerosol inhaler 2 puff inhalation Q4-6H PRN (Reason: bronchospasm) 30 Days Qty: 8.5 8RF meloxicam 15 mg tablet 15 mg PO DAILY Qty: 30 4RF methylprednisolone [Medrol (Joselito)] 4 mg tablets,dose pack 4 mg PO QAM 6 Days Qty: 21 0RF Rx Instructions: Day 1: 8 mg PO before breakfast, 4 mg after lunch and after dinner, and 8 mg at bedtime Day 2: 4 mg PO before breakfast, after lunch, and after dinner and 8 mg at bedtime Day 3: 4 mg PO before breakfast, after lunch, after dinner, and at bedtime Day 4: 4 mg PO before breakfast, after lunch, and at bedtime Day 5: 4 mg PO before breakfast and at bedtime Day 6: 4 mg PO before breakfast docusate sodium [Colace] 100 mg capsule 100 mg PO BID Qty: 60 2RF meloxicam 7.5 mg tablet 7.5 mg PO DAILY Qty: 14 0RF benzonatate 200 mg capsule 200 mg PO TID PRN (Reason: cough) Qty: 30 0RF prednisone 20 mg tablet 40 mg PO DAILY Qty: 10 0RF albuterol sulfate [ProAir HFA] 90 mcg/actuation HFA aerosol inhaler 2 puff inhalation Q4-6H PRN (Reason: shortness of breath or wheezing) Qty: 8.5 2RF doxycycline hyclate 100 mg tablet 100 mg PO BID Qty: 20 0RF sertraline 100 mg tablet 100 mg PO DAILY hydroxyzine HCl 25 mg tablet 25 mg PO Q8H PRN (Reason: anxiety) meclizine 12.5 mg tablet 12.5 mg PO TID pantoprazole 40 mg tablet,delayed release (DR/EC) 40 mg PO BID 30 Days Qty: 60 3RF gabapentin 400 mg capsule 400 mg PO TID dicyclomine 20 mg tablet 20 mg PO TID PRN (Reason: abdominal pain) 30 Days Qty: 60 3RF trazodone 50 mg tablet 25 - 50 mg PO BEDTIME
[2023-01-27] MEDS: iohexoL 350 MG/ML 100 ML INFUS..BTL 65 ML IV (00:27)
--- NOTE | 2023-01-27 01:24 | MHC.EDTECH ---
Ambulated pt per HAYDEN De León'Zhao O2 steady at 96% RN aware.
== END 2023-01-27 02:00 | disposition home or self-care (01) ==
PROVIDERS: Emergency Provider Emergency Medicine Emergency Medical Services; PCP Internal Medicine
DX: J18.9 Pneumonia, unspecified organism (principal); Z20.822 Contact with and (suspected) exposure to COVID-19; F17.210 Nicotine dependence, cigarettes, uncomplicated; Z79.899 Other long term (current) drug therapy
CPT/HCPCS: 36415; 71275; 80053; 82803; 85025; 87635; 93005; 94640; 99285; Q9967

== ENCOUNTER 2023-02-01 21:56 | Emergency (ER) | payer MEDICARE, MEDICAID, SELFPAY ==
--- NOTE | ~2023-02-01 | XR_ITS ---
EXAMINATION: XR CHEST CLINICAL INFORMATION: Pneumonia. COMPARISON: Most recent CTA chest dated 01/27/2023. TECHNIQUE: Frontal view of the chest was obtained. FINDINGS: The lungs are clear. The cardiomediastinal silhouette is normal in size. There is no pleural effusion or pneumothorax. No acute osseous abnormality. XR/XR chest 1V IMPRESSION: No acute cardiopulmonary findings.
[2023-02-01 22:14] VITALS: BP 94/62; PULSE 102; RESP 18; TEMP 36.4; O2SAT 91; BMI 34.3
--- NOTE | 2023-02-01 22:30 | ED_ITS ---
HPI - Asthma General Chief Complaint: Asthma Stated Complaint: Asthma Time Seen by Provider: 02/01/23 22:24 Source: patient and family Mode of arrival: ambulatory Limitations: no limitations History of Present Illness HPI Narrative: Patient comes emergency room complaining of cough, wheezing. Patient's family states that the main reason that the patient is here is because of the cough. Patient has been seen here for similar complaints on 11 days and 6 days ago. Patient has not had any fever. No difficulty breathing. No chest pain. Related Data Home Medications Medication Instructions Recorded Confirmed hydroxyzine HCl 25 mg tablet 25 mg PO Q8H PRN anxiety 08/20/20 09/29/21 meclizine 12.5 mg tablet 12.5 mg PO TID 08/20/20 09/29/21 sertraline 100 mg tablet 100 mg PO DAILY 08/20/20 09/29/21 gabapentin 400 mg capsule 400 mg PO TID 09/13/21 09/29/21 trazodone 50 mg tablet 25 - 50 mg PO BEDTIME 12/27/21 Previous Rx's Medication Instructions Recorded docusate sodium 100 mg capsule 100 mg PO BID #60 caps 02/19/21 (Colace) albuterol sulfate 90 mcg/actuation 2 puff inhalation Q4-6H PRN 06/04/21 aerosol inhaler (ProAir HFA) bronchospasm 30 days #8.5 grams pantoprazole 40 mg tablet,delayed 40 mg PO BID 30 days #60 tabs 06/24/21 release dicyclomine 20 mg tablet 20 mg PO TID PRN abdominal pain 30 09/13/21 days #60 tabs meloxicam 15 mg tablet 15 mg PO DAILY #30 tabs 09/16/21 methylprednisolone 4 mg tablets in 4 mg PO QAM 6 days #21 ea 12/24/21 a dose pack (Medrol (Joselito)) meloxicam 7.5 mg tablet 7.5 mg PO DAILY #14 tabs 10/01/22 albuterol sulfate 90 mcg/actuation 2 puff inhalation Q4-6H PRN 01/21/23 aerosol inhaler (ProAir HFA) shortness of breath or wheezing #8.5 grams benzonatate 200 mg capsule 200 mg PO TID PRN cough #30 caps 01/21/23 doxycycline hyclate 100 mg tablet 100 mg PO BID #20 tabs 01/21/23 prednisone 20 mg tablet 40 mg PO DAILY #10 tabs 01/21/23 azithromycin 250 mg tablet See Rx Instructions PO .COMPLEX #6 01/27/23 tabs guaifenesin 400 mg tablet 400 mg PO Q4H PRN cough #14 tabs 02/01/23 Allergies Allergy/AdvReac Type Severity Reaction Status Date / Time ibuprofen [From Motrin] Allergy Severe stomach Verified 01/21/23 22:10 pain morphine Allergy Rash Verified 01/21/23 22:10 Penicillins Allergy Hives Verified 01/26/23 22:43 Review of Systems Review of Systems: Constitutional : No Weight loss, No Fever, No Chills, No Night Sweats, No Fatigue, No Malaise ENT/Mouth : No Hearing loss, No Ear Pain, No Nasal Congestion, No Sinus Pain, No Hoarseness, No sore throat, No Rhinorrhea, No Swallowing Difficulty Eyes: No Eye Pain, No Swelling, No Redness, No Foreign Body, No Discharge, No Vision Changes Cardiovascular : No Chest Pain, No SOB, No Dyspnea on Exertion, No Orthopnea, No Edema, No Palpitations Respiratory : Patient complaining of cough for approximately 2 weeks Gastrointestinal : No Nausea, No Vomiting, No Diarrhea, No Constipation, No abdominal Pain, No Hematochezia, No Melena Genitourinary : no irregular bleeding, No Dysuria, No Urinary Frequency, No Hematuria, No Urinary Incontinence, No Urgency, No Flank Pain, No Urinary Flow Changes, No Hesitancy Musculoskeletal : No joint pain, No Myalgias, No Joint Swelling Skin : No Skin Lesions, No rash Neuro : No Weakness, No Numbness, No Paresthesias, No Loss of Consciousness, No Dizziness, No Headache Psych : No Anxiety/Panic, No Depression, No SI/HI/AH/VH, No Social Issues, Heme/Lymph: No Bruising, No Bleeding,No Lymphadenopathy Endocrine : No Polyuria, No Polydipsia, No Temperature Intolerance PMFSH Past Medical History Medical History Anxiety Arthritis Bleeding hemorrhoids Chronic back pain Disc degeneration, lumbar Fibromyalgia High cholesterol History of adenomatous polyp of colon Hyperlipidemia Internal hemorrhoids Major depression Rectal bleeding Sacroiliitis Shoulder pain Sigmoid diverticulosis Smoker Surgical History H/O hemorrhoidectomy H/O shoulder surgery History of elbow surgery Hx of colonoscopy Hx of endoscopy Family History Family History Father Diabetes Mother Alzheimer disease Dementia Brother No problems noted. Brother No problems noted. Sister No problems noted. Sister No problems noted. Son No problems noted. Daughter No problems noted. Daughter No problems noted. Social History Social History Housing: Apartment Alcohol intake: never Patient Tobacco Use Status: Current everyday Tobacco user Cigarette Packs Per Day: 1 Cigarettes Per Day: 20.0 Second Hand Smoke Exposure: No Advance Directives: No Advance Directives Information Provided: Yes service: No Current occupational status: unemployed Current occupation: Right Handed Physical Exam Vital Signs: Vital Signs: Last Vital Signs Temp 97.6 F 02/01/23 22:14 Pulse 92 02/01/23 22:37 Resp 20 02/01/23 22:37 BP 94/62 02/01/23 22:14 Pulse Ox 91 L 02/01/23 22:14 O2 Del Method 02/01/23 22:14 BMI result Body Mass Index 34.3 Const: Other: Appearance: Alert. Oriented X3. Patient came in very angry for unclear reason, patient's family trying to help him and talked in to calm down Eyes: Pupils equal, round and reactive to light. ENT: Pharynx normal. Neck: Normal inspection. Neck supple. No lymph nodes noted. No crepitus CVS: Normal heart rate and rhythm. Pulses normal. Normal S1 and S2 Respiratory: No respiratory distress. Breath sounds normal. No Wheezing. Oxygen saturation 95% on room air, yelling at his family and his nurse in full sentences Abdomen: Soft and nontender. No rigidity. No distention. Skin: Skin warm and dry. Normal skin color. Normal skin turgor. Extremities: No lower extremity edema. No Lacerations. No Rash Neuro: Oriented X 3. No motor deficit. No sensory deficit. Moving all extremities. No slurred speech. CN 2 through 12 grossly intact Psych: calm, a bit belligerent, redirectable by his family Course Course Course Narrative: -patient's labs and imaging pending. -patient had a CTA done 5 days ago, patient did not have a pulmonary embolism, likely bronchitis versus resolving atypical pneumonitis Medications Administered Generic Name Dose Route Start Last Admin Trade Name Freq PRN Reason Stop Dose Admin Sodium Chloride 1,000 mls @ 999 mls/hr 02/01/23 22:31 02/01/23 22:38 Ns IVCONT 02/01/23 23:31 999 mls/hr .Q1H1M ONE Administration Discontinued Medications Generic Name Dose Route Start Last Admin Trade Name Freq PRN Reason Stop Dose Admin Albuterol Sulfate 5 mg 02/01/23 22:28 02/01/23 22:36 Albuterol Sulfate (0.083%) 2.5 Mg/3 Ml Vial.Neb INHALE 02/01/23 22:29 5 mg ONCE ONE Administration Benzonatate 100 mg 02/01/23 22:29 02/01/23 22:38 Benzonatate 100 Mg Capsule PO 02/01/23 22:30 100 mg ONCE ONE Administration Methylprednisolone Sodium Succinate 125 mg 02/01/23 22:28 02/01/23 22:38 Methylprednisolone Sod Succ 125 Mg/2 Ml Vial IVPUSH 02/01/23 22:29 125 mg ONCE ONE Administration Medical Decision Making Medical Decision Making [facility] Narrative: -I discussed with the patient his labs imaging, chest x-ray shows no acute abnormalities. -this patient arrived to the emergency room, patient has been [id number] to 94% on RA. -on ambulation, oxygen saturation remained at 95% -of note, it was noted that the patient tries to hold his breath to make his O2 sat look low. When patient can no longer hold his breath, takes a big breath and starts breathing normal, oxygen saturation 96% Differential Diagnosis Differential Diagnoses: The differential diagnosis associated with the presentation includes (Bronchitis, viral URI) Lab Data [facility] Lab Attestation statement: I reviewed the patient's lab results. 02/01/23 22:33 02/01/23 22:52 Labs: Lab Results 02/01/23 02/01/23 Range/Units 22:33 22:52 WBC 9.4 (4.8-10.8) X10*3/uL RBC 4.47 L (4.60-5.80) X10*6/uL Hgb 14.0 (14.0-18.0) g/dl Hct 41.0 L (42.0-52.0) % MCV 91.7 (80.0-98.0) fL MCH 31.3 (27.0-33.0) pg MCHC 34.1 (31.0-36.0) g/dl RDW 12.3 (11.0-16.0) % Plt Count 293 (160-400) X10*3/uL MPV 8.9 L (9.4-12.4) fL Immature Gran % (Auto) 0.9 H (0.0-0.4) % Neut % (Auto) 59.1 (45-73) % Lymph % (Auto) 26.4 (20-40) % [place] % (Auto) 6.6 (2-11) % Eos % (Auto) 6.1 H (0-4) % Baso % (Auto) 0.9 (0-2) % Lymph # (Auto) 2.5 (1.2-4.9) X10*3/uL [place] # (Auto) 0.6 (0.1-1.2) X10*3/uL Eos # (Auto) 0.6 H (0.0-0.4) X10*3/uL Baso # (Auto) 0.1 (0.0-0.2) X10*3/uL Abs Immat Gran (auto) 0.08 H (0.00-0.03) X10*3/uL Absolute Neuts (auto) 5.6 (2.0-8.3) x10*3/uL Absolute Nucleated RBC 0.000 (0.0-0.012) X10*3/uL Nucleated RBC % (auto) 0.0 (0.0-0.2) /100WBC Sodium 140 (135-145) mmol/L Potassium 3.7 (3.3-5.1) mmol/L Chloride 106 (96-108) mmol/L Carbon Dioxide 23 (22-29) mmol/L Anion Gap 15 (12-20) BUN 16 (9-16) mg/dL Creatinine 0.91 (0.5-1.4) mg/dL Estim Creat Clear Calc 90.9 Estimated GFR > 60 Random Glucose 108 (60-115) mg/dL Calcium 8.4 D (8.4-10.2) mg/dL Independent Interpretation I performed an independent interpretation of an: Plain X-Ray (My interpretation of chest x-ray: No infiltrates, no pneumonia) Radiology Impression Discussion of test interpretation with radiology: I have reviewed the radiologist's reading. Radiologist Impression: INDINGS: The lungs are clear. The cardiomediastinal silhouette is normal in size. There is no pleural effusion or pneumothorax. No acute osseous abnormality. XR/XR chest 1V IMPRESSION: No acute cardiopulmonary findings. Discharge Plan Discharge Clinical Impression: Bronchitis Patient Disposition: Home, Self-Care Instructions: Acute Bronchitis (ED) Additional Instructions: You will probably be coughing for next 4-6 weeks gradually getting better. Please follow-up with your primary care physician tomorrow. If you have any worsening or new symptoms, please return to the emergency room or call 911 Prescriptions: New guaifenesin 400 mg tablet 400 mg PO Q4H PRN (Reason: cough) Qty: 14 0RF No Action albuterol sulfate [ProAir HFA] 90 mcg/actuation HFA aerosol inhaler 2 puff inhalation Q4-6H PRN (Reason: bronchospasm) 30 Days Qty: 8.5 8RF meloxicam 15 mg tablet 15 mg PO DAILY Qty: 30 4RF methylprednisolone [Medrol (Joselito)] 4 mg tablets,dose pack 4 mg PO QAM 6 Days Qty: 21 0RF Rx Instructions: Day 1: 8 mg PO before breakfast, 4 mg after lunch and after dinner, and 8 mg at bedtime Day 2: 4 mg PO before breakfast, after lunch, and after dinner and 8 mg at bedtime Day 3: 4 mg PO before breakfast, after lunch, after dinner, and at bedtime Day 4: 4 mg PO before breakfast, after lunch, and at bedtime Day 5: 4 mg PO before breakfast and at bedtime Day 6: 4 mg PO before breakfast docusate sodium [Colace] 100 mg capsule 100 mg PO BID Qty: 60 2RF meloxicam 7.5 mg tablet 7.5 mg PO DAILY Qty: 14 0RF benzonatate 200 mg capsule 200 mg PO TID PRN (Reason: cough) Qty: 30 0RF prednisone 20 mg tablet 40 mg PO DAILY Qty: 10 0RF albuterol sulfate [ProAir HFA] 90 mcg/actuation HFA aerosol inhaler 2 puff inhalation Q4-6H PRN (Reason: shortness of breath or wheezing) Qty: 8.5 2RF doxycycline hyclate 100 mg tablet 100 mg PO BID Qty: 20 0RF azithromycin 250 mg tablet See Rx Instructions .ROUTE .COMPLEX Qty: 6 0RF Rx Instructions: For 250 mg dose pack: take 500 mg today (day 1), then 250 mg for 4 days (days 2-5) sertraline 100 mg tablet 100 mg PO DAILY hydroxyzine HCl 25 mg tablet 25 mg PO Q8H PRN (Reason: anxiety) meclizine 12.5 mg tablet 12.5 mg PO TID pantoprazole 40 mg tablet,delayed release (DR/EC) 40 mg PO BID 30 Days Qty: 60 3RF gabapentin 400 mg capsule 400 mg PO TID dicyclomine 20 mg tablet 20 mg PO TID PRN (Reason: abdominal pain) 30 Days Qty: 60 3RF trazodone 50 mg tablet 25 - 50 mg PO BEDTIME
[2023-02-01] MEDS: Albuterol Sulfate (0.083%) 2.5 MG/3 ML VIAL.NEB 5 MG INHALE (22:36)
[2023-02-01 22:37] VITALS: PULSE 92; RESP 20; O2SAT 95
[2023-02-01 22:37] LABS: MANUAL DIFF FLAG NO
[2023-02-01] MEDS: Benzonatate 100 MG CAPSULE PO (22:38)
[2023-02-01] MEDS: 0.9 % Sodium Chloride 1,000 ML 999 ML IVCONT (22:38)
[2023-02-01] MEDS: methylPREDNISolone Sod Succ 125 MG/2 ML VIAL IVPUSH (22:38)
[2023-02-01 22:39] LABS: Basophils Absolute Auto 0.1 X10*3/uL (0.0-0.2); Basophils Percent Auto 0.9 % (0-2); Eosinophils Absolute Auto 0.6 X10*3/uL (0.0-0.4); Eosinophils Percent Auto 6.1 % (0-4); Imm Gran Abs Auto 0.08 X10*3/uL (0.00-0.03); Imm Gran Pct Auto 0.9 % (0.0-0.4); Lymphocytes Absolute Auto 2.5 X10*3/uL (1.2-4.9); Lymphocytes Percent Auto 26.4 % (20-40); Mean Corpuscular HGB Conc 34.1 g/dl (31.0-36.0); Mean Corpuscular Hemoglobin 31.3 pg (27.0-33.0); Mean Corpuscular Volume 91.7 fL (80.0-98.0); Mean Platelet Volume 8.9 fL (9.4-12.4); Monocytes Absolute Auto 0.6 X10*3/uL (0.1-1.2); Monocytes Percent Auto 6.6 % (2-11); Neutrophils Absolute Auto 5.6 x10*3/uL (2.0-8.3); Neutrophils Percent Auto 59.1 % (45-73); Platelet Count 293 X10*3/uL (160-400); Red Blood Count 4.47 X10*6/uL (4.60-5.80); Red Cell Distribution Width 12.3 % (11.0-16.0); White Blood Count 9.4 X10*3/uL (4.8-10.8)
[2023-02-01 23:17] LABS: Anion Gap 15 (12-20); Blood Urea Nitrogen 16 mg/dL (9-16); Calcium 8.4 mg/dL (8.4-10.2); Carbon Dioxide 23 mmol/L (22-29); Chloride 106 mmol/L (96-108); Creatinine Clr Calc Pharmacy 90.9; Estimated Glomerular Filt Rate > 60; Glucose Random 108 mg/dL (60-115); Potassium 3.7 mmol/L (3.3-5.1); Sodium 140 mmol/L (135-145)
[2023-02-01 23:27] VITALS: O2SAT 95
--- NOTE | 2023-02-01 23:27 | PC.NURSE ---
O2 check per Dr. Leonard, pt stating 95% provider aware.
[2023-02-01 23:47] VITALS: BP 122/68; PULSE 94; RESP 18; TEMP 36.9; O2SAT 94
--- NOTE | 2023-02-01 23:51 | PC.NURSE ---
iv removed at discharge spo2 94% ra. pt at bedside at this time. pt provided with discharge packet. pt and verbalize understanding of discharge plan
== END 2023-02-01 23:53 | disposition home or self-care (01) ==
PROVIDERS: Emergency Provider Emergency Medicine; PCP Internal Medicine
DX: J40 Bronchitis, not specified as acute or chronic (principal); E78.00 Pure hypercholesterolemia, unspecified; F17.210 Nicotine dependence, cigarettes, uncomplicated; Z79.899 Other long term (current) drug therapy
CPT/HCPCS: 36415; 71045; 80048; 85025; 94640; 99284; 99285; J2930

== ENCOUNTER 2023-02-05 13:03 | Emergency (ER) | payer MEDICARE, MEDICAID, SELFPAY ==
--- NOTE | ~2023-02-05 | XR_ITS ---
EXAMINATION: XR CHEST CLINICAL INFORMATION: Difficulty breathing. COMPARISON: Chest radiograph 02/01/2023. TECHNIQUE: Frontal view of the chest was obtained. FINDINGS: Normal appearance of the cardiomediastinal silhouette. Mild subsegmental atelectasis in the retrocardiac region and left lower lobe. No focal infiltrate, pleural effusion or pneumothorax. No acute osseous abnormalities. XR/XR chest 1V IMPRESSION: Mild subsegmental atelectasis in the left lower lobe. Otherwise, clear lungs.
[2023-02-05 14:09] VITALS: BP 136/93; PULSE 106; RESP 19; TEMP 37.1; O2SAT 95; BMI 26.4
--- NOTE | 2023-02-05 14:12 | ECG_ITS ---
Test Reason : SOB Blood Pressure : / mmHG Vent. Rate : 093 BPM Atrial Rate : 093 BPM P-R Int : 138 ms QRS Dur : 092 ms QT Int : 364 ms P-R-T Axes : 069 074 060 degrees QTc Int : 452 ms Normal sinus rhythm Normal ECG When compared with ECG of 26-JAN-2023 23:00, Nonspecific T wave abnormality no longer evident in Lateral leads Referred By: Roc Tijerina Electronically Signed By:VLADIMIR PRITCHARD
--- NOTE | 2023-02-05 14:15 | ED.GENADULT ---
HPI - General Adult General Chief complaint: Upper Respiratory Symptoms Stated complaint: Diff breathing Time Seen by Provider: 02/05/23 20:35 Related Data Home Medications Medication Instructions Recorded Confirmed hydroxyzine HCl 25 mg tablet 25 mg PO Q8H PRN anxiety 08/20/20 02/02/23 meclizine 12.5 mg tablet 12.5 mg PO TID 08/20/20 02/02/23 sertraline 100 mg tablet 100 mg PO DAILY 08/20/20 02/02/23 gabapentin 400 mg capsule 400 mg PO TID 09/13/21 02/02/23 trazodone 50 mg tablet 25 - 50 mg PO BEDTIME 12/27/21 02/02/23 Previous Rx's Medication Instructions Recorded docusate sodium 100 mg capsule 100 mg PO BID #60 caps 02/19/21 (Colace) albuterol sulfate 90 mcg/actuation 2 puff inhalation Q4-6H PRN 06/04/21 aerosol inhaler (ProAir HFA) bronchospasm 30 days #8.5 grams pantoprazole 40 mg tablet,delayed 40 mg PO BID 30 days #60 tabs 06/24/21 release dicyclomine 20 mg tablet 20 mg PO TID PRN abdominal pain 30 09/13/21 days #60 tabs meloxicam 15 mg tablet 15 mg PO DAILY #30 tabs 09/16/21 meloxicam 7.5 mg tablet 7.5 mg PO DAILY #14 tabs 10/01/22 albuterol sulfate 90 mcg/actuation 2 puff inhalation Q4-6H PRN 01/21/23 aerosol inhaler (ProAir HFA) shortness of breath or wheezing #8.5 grams benzonatate 200 mg capsule 200 mg PO TID PRN cough #30 caps 01/21/23 guaifenesin 400 mg tablet 400 mg PO Q4H PRN cough #14 tabs 02/01/23 nicotine 21 mg/24 hr daily 1 patch transdermal DAILY #28 ea 02/02/23 transdermal patch benzonatate 200 mg capsule 200 mg PO TID PRN cough #30 caps 02/05/23 loratadine 10 mg tablet (Claritin) 10 mg PO DAILY #30 tabs 02/05/23 montelukast 10 mg tablet 10 mg PO BEDTIME #30 tabs 02/05/23 (Singulair) prednisone 20 mg tablet 40 mg PO DAILY #10 tabs 02/05/23 Allergies Allergy/AdvReac Type Severity Reaction Status Date / Time ibuprofen [From Motrin] Allergy Severe stomach Verified 02/05/23 14:14 pain morphine Allergy Rash Verified 02/05/23 14:14 Penicillins Allergy Hives Verified 02/05/23 14:14 [facility] Past Medical History Medical History Anxiety Arthritis Bleeding hemorrhoids Chronic back pain Disc degeneration, lumbar Fibromyalgia High cholesterol History of adenomatous polyp of colon Hyperlipidemia Internal hemorrhoids Major depression Rectal bleeding Sacroiliitis Shoulder pain Sigmoid diverticulosis Smoker Surgical History H/O hemorrhoidectomy H/O shoulder surgery History of elbow surgery Hx of colonoscopy Hx of endoscopy Family History Family History Father Diabetes Mother Alzheimer disease Dementia Brother No problems noted. Brother No problems noted. Sister No problems noted. Sister No problems noted. Son No problems noted. Daughter No problems noted. Daughter No problems noted. Social History Social History Housing: Apartment Alcohol intake: never Patient Tobacco Use Status: Current everyday Tobacco user Cigarette Packs Per Day: 1 Cigarettes Per Day: 20.0 e-Cigarette/Vaping Use: Never Used Second Hand Smoke Exposure: No Advance Directives: No Advance Directives Information Provided: Yes service: No Current occupational status: unemployed Current occupation: Right Handed Cognitive needs: No Hearing needs: No Vision needs: No Physical Exam ED Vital Signs: Vital Signs - 24 hr 02/05/23 14:09 02/05/23 20:22 02/05/23 21:22 Temperature 98.8 F 98.5 F Pulse Rate 106 H 89 90 Respiratory Rate 19 18 18 Blood Pressure 136/93 H 154/97 H Pulse Oximetry 95 96 Oxygen Delivery Method Room Air Room Air 02/05/23 21:50 Temperature 98.4 F Pulse Rate 111 H Respiratory Rate 16 Blood Pressure 137/91 H Pulse Oximetry 91 L Oxygen Delivery Method Room Air BMI result Body Mass Index 26.4 Course Course Course Narrative: RME: 57 yold male smoker presents to the ED for SOB. patient recently diagnosed with with Bronchitis. states no leg swelling. EKG and labs ordered. CHest xray ordered. no leg swelling, pitting edema, or calf tendernss on palpation. lungs clear. Medications Administered Discontinued Medications Generic Name Dose Route Start Last Admin Trade Name [place] PRN Reason Stop Dose Admin Albuterol Sulfate 4 puff 02/05/23 22:36 02/05/23 22:51 Albuterol Sulfate 90 Mcg 8 Gm Inhaler INHALE 02/05/23 22:37 Not Given ONCE ONE Albuterol Sulfate 7.5 mg/ 0 mg 02/05/23 21:03 02/05/23 21:20 Ipratropium [place] 0.5 mg INHALE 02/05/23 21:04 1 each ONCE ONE Administration Dexamethasone 10 mg 02/05/23 21:03 02/05/23 21:13 Dexamethasone 2 Mg Tablet PO 02/05/23 21:04 10 mg ONCE ONE Administration Guaifenesin/Codeine Phosphate 10 ml 02/05/23 21:03 02/05/23 21:13 Guaifen/Codeine Sf 200/20/10ml 10 Ml Liquid PO 02/05/23 21:04 10 ml ONCE ONE Administration Medical Decision Making Lab Data 02/05/23 15:42 02/05/23 15:42 Labs: Lab Results 02/05/23 02/05/23 02/05/23 Range/Units 15:42 15:42 15:42 WBC 9.8 (4.8-10.8) X10*3/uL RBC 4.52 L (4.60-5.80) X10*6/uL Hgb 14.2 (14.0-18.0) g/dl Hct 41.4 L (42.0-52.0) % MCV 91.6 (80.0-98.0) fL MCH 31.4 (27.0-33.0) pg MCHC 34.3 (31.0-36.0) g/dl RDW 12.3 (11.0-16.0) % Plt Count 317 (160-400) X10*3/uL MPV 8.9 L (9.4-12.4) fL Immature Gran % (Auto) 0.3 (0.0-0.4) % Neut % (Auto) 64.5 (45-73) % Lymph % (Auto) 17.6 L (20-40) % [place] % (Auto) 7.2 (2-11) % Eos % (Auto) 9.7 H (0-4) % Baso % (Auto) 0.7 (0-2) % Lymph # (Auto) 1.7 (1.2-4.9) X10*3/uL [place] # (Auto) 0.7 (0.1-1.2) X10*3/uL Eos # (Auto) 1.0 H (0.0-0.4) X10*3/uL Baso # (Auto) 0.1 (0.0-0.2) X10*3/uL Abs Immat Gran (auto) 0.03 (0.00-0.03) X10*3/uL Absolute Neuts (auto) 6.3 (2.0-8.3) x10*3/uL Absolute Nucleated RBC 0.000 (0.0-0.012) X10*3/uL Nucleated RBC % (auto) 0.0 (0.0-0.2) /100WBC PT (10.0-13.1) SEC INR (0.9-1.1) APTT (26.0-36.4) SEC Sodium 140 (135-145) mmol/L Potassium 4.3 (3.3-5.1) mmol/L Chloride 103 (96-108) mmol/L Carbon Dioxide 27 (22-29) mmol/L Anion Gap 14 (12-20) BUN 12 (9-16) mg/dL Creatinine 0.84 (0.5-1.4) mg/dL Estim Creat Clear Calc 81.2 Estimated GFR > 60 Random Glucose 87 (60-115) mg/dL Calcium 9.4 D (8.4-10.2) mg/dL Total Bilirubin 0.7 (0.0-1.0) mg/dL AST 15 (5-37) U/L ALT 18 (0-40) U/L Alkaline Phosphatase 87 (39-117) U/L Troponin I High Sens < 3.5 (<3.5-35.0) ng/L B-Natriuretic Peptide (<100) pg/mL Total Protein 6.9 (6.5-8.0) g/dL Albumin 4.1 (3.5-5.0) g/dL Influenza Type A (PCR) (Negative) Influenza Type B (PCR) (Negative) RSV RNA Qual (PCR) (Negative) SARS-CoV-2 RNA (RT-PCR) (Negative) 02/05/23 02/05/23 02/05/23 Range/Units 15:42 15:42 15:42 WBC (4.8-10.8) X10*3/uL RBC (4.60-5.80) X10*6/uL Hgb (14.0-18.0) g/dl Hct (42.0-52.0) % MCV (80.0-98.0) fL MCH (27.0-33.0) pg MCHC (31.0-36.0) g/dl RDW (11.0-16.0) % Plt Count (160-400) X10*3/uL MPV (9.4-12.4) fL Immature Gran % (Auto) (0.0-0.4) % Neut % (Auto) (45-73) % Lymph % (Auto) (20-40) % [place] % (Auto) (2-11) % Eos % (Auto) (0-4) % Baso % (Auto) (0-2) % Lymph # (Auto) (1.2-4.9) X10*3/uL [place] # (Auto) (0.1-1.2) X10*3/uL Eos # (Auto) (0.0-0.4) X10*3/uL Baso # (Auto) (0.0-0.2) X10*3/uL Abs Immat Gran (auto) (0.00-0.03) X10*3/uL Absolute Neuts (auto) (2.0-8.3) x10*3/uL Absolute Nucleated RBC (0.0-0.012) X10*3/uL Nucleated RBC % (auto) (0.0-0.2) /100WBC PT 11.2 (10.0-13.1) SEC INR 1.0 (0.9-1.1) APTT 35.0 (26.0-36.4) SEC Sodium (135-145) mmol/L Potassium (3.3-5.1) mmol/L Chloride (96-108) mmol/L Carbon Dioxide (22-29) mmol/L Anion Gap (12-20) BUN (9-16) mg/dL Creatinine (0.5-1.4) mg/dL Estim Creat Clear Calc Estimated GFR Random Glucose (60-115) mg/dL Calcium (8.4-10.2) mg/dL Total Bilirubin (0.0-1.0) mg/dL AST (5-37) U/L ALT (0-40) U/L Alkaline Phosphatase (39-117) U/L Troponin I High Sens (<3.5-35.0) ng/L B-Natriuretic Peptide 16 (<100) pg/mL Total Protein (6.5-8.0) g/dL Albumin (3.5-5.0) g/dL Influenza Type A (PCR) NEGATIVE (Negative) Influenza Type B (PCR) NEGATIVE (Negative) RSV RNA Qual (PCR) NEGATIVE (Negative) SARS-CoV-2 RNA (RT-PCR) NEGATIVE (Negative) Discharge Plan Discharge Clinical Impression: Asthma with exacerbation Patient Disposition: Home, Self-Care Instructions: Asthma (ED) Additional Instructions: Use inhaler 2 puffs every 4-6 hours as needed Prednisone as advised Cough drops Follow-up with a lung specialist Prescriptions: New benzonatate 200 mg capsule 200 mg PO TID PRN (Reason: cough) Qty: 30 0RF prednisone 20 mg tablet 40 mg PO DAILY Qty: 10 0RF montelukast [Singulair] 10 mg tablet 10 mg PO BEDTIME Qty: 30 0RF loratadine [Claritin] 10 mg tablet 10 mg PO DAILY Qty: 30 0RF No Action albuterol sulfate [ProAir HFA] 90 mcg/actuation HFA aerosol inhaler 2 puff inhalation Q4-6H PRN (Reason: bronchospasm) 30 Days Qty: 8.5 8RF meloxicam 15 mg tablet 15 mg PO DAILY Qty: 30 4RF docusate sodium [Colace] 100 mg capsule 100 mg PO BID Qty: 60 2RF meloxicam 7.5 mg tablet 7.5 mg PO DAILY Qty: 14 0RF benzonatate 200 mg capsule 200 mg PO TID PRN (Reason: cough) Qty: 30 0RF albuterol sulfate [ProAir HFA] 90 mcg/actuation HFA aerosol inhaler 2 puff inhalation Q4-6H PRN (Reason: shortness of breath or wheezing) Qty: 8.5 2RF guaifenesin 400 mg tablet 400 mg PO Q4H PRN (Reason: cough) Qty: 14 0RF nicotine 21 mg/24 hr patch 24 hour 1 patch transdermal DAILY Qty: 28 3RF sertraline 100 mg tablet 100 mg PO DAILY hydroxyzine HCl 25 mg tablet 25 mg PO Q8H PRN (Reason: anxiety) meclizine 12.5 mg tablet 12.5 mg PO TID pantoprazole 40 mg tablet,delayed release (DR/EC) 40 mg PO BID 30 Days Qty: 60 3RF gabapentin 400 mg capsule 400 mg PO TID dicyclomine 20 mg tablet 20 mg PO TID PRN (Reason: abdominal pain) 30 Days Qty: 60 3RF trazodone 50 mg tablet 25 - 50 mg PO BEDTIME Interventions: ED Discharge Assessment Last Done: 02/05/23 22:52 Discharge Date/Time: 02/05/23 22:55
[2023-02-05 15:50] LABS: MANUAL DIFF FLAG NO
[2023-02-05 16:04] LABS: Basophils Absolute Auto 0.1 X10*3/uL (0.0-0.2); Basophils Percent Auto 0.7 % (0-2); Eosinophils Percent Auto 9.7 % (0-4); Hematocrit 41.4 % (42.0-52.0); Hemoglobin 14.2 g/dl (14.0-18.0); Imm Gran Abs Auto 0.03 X10*3/uL (0.00-0.03); Imm Gran Pct Auto 0.3 % (0.0-0.4); Lymphocytes Absolute Auto 1.7 X10*3/uL (1.2-4.9); Lymphocytes Percent Auto 17.6 % (20-40); Mean Corpuscular HGB Conc 34.3 g/dl (31.0-36.0); Mean Corpuscular Hemoglobin 31.4 pg (27.0-33.0); Mean Corpuscular Volume 91.6 fL (80.0-98.0); Mean Platelet Volume 8.9 fL (9.4-12.4); Monocytes Absolute Auto 0.7 X10*3/uL (0.1-1.2); Monocytes Percent Auto 7.2 % (2-11); Neutrophils Absolute Auto 6.3 x10*3/uL (2.0-8.3); Neutrophils Percent Auto 64.5 % (45-73); Platelet Count 317 X10*3/uL (160-400); Red Blood Count 4.52 X10*6/uL (4.60-5.80); Red Cell Distribution Width 12.3 % (11.0-16.0); White Blood Count 9.8 X10*3/uL (4.8-10.8)
[2023-02-05 16:07] LABS: Alanine Aminotransferase 18 U/L (0-40); Albumin Level 4.1 g/dL (3.5-5.0); Alkaline Phosphatase 87 U/L (39-117); Anion Gap 14 (12-20); Aspartate Amino Transferase 15 U/L (5-37); Bilirubin Total 0.7 mg/dL (0.0-1.0); Blood Urea Nitrogen 12 mg/dL (9-16); Calcium 9.4 mg/dL (8.4-10.2); Carbon Dioxide 27 mmol/L (22-29); Chloride 103 mmol/L (96-108); Creatinine Clr Calc Pharmacy 81.2; Estimated Glomerular Filt Rate > 60; Glucose Random 87 mg/dL (60-115); Potassium 4.3 mmol/L (3.3-5.1); Sodium 140 mmol/L (135-145); Total Protein 6.9 g/dL (6.5-8.0)
[2023-02-05 16:11] LABS: B Type Natriuretic Peptide 16 pg/mL (<100); Prothrombin Time 11.2 SEC (10.0-13.1)
[2023-02-05 16:13] LABS: Troponin-I High Sensitivity < 3.5 ng/L (<3.5-35.0)
[2023-02-05 16:28] LABS: Influenza A PCR NEGATIVE (Negative); Influenza B PCR NEGATIVE (Negative); Resp Syncy Virus RNA Qual PCR NEGATIVE (Negative); SARS COV2 PCR INHOUSE NEGATIVE (Negative)
[2023-02-05 20:22] VITALS: BP 154/97; PULSE 89; RESP 18; TEMP 36.9; O2SAT 96
[2023-02-05] MEDS: guaiFEN/Codeine SF 200/20/10ML 10 ML LIQUID PO (21:13)
[2023-02-05] MEDS: dexAMETHasone 2 MG TABLET 10 MG PO (21:13)
[2023-02-05 21:22] VITALS: PULSE 90; RESP 18; O2SAT 90
[2023-02-05 21:50] VITALS: BP 137/91; PULSE 111; RESP 16; TEMP 36.9; O2SAT 91
--- NOTE | 2023-02-05 22:42 | ED.SOB ---
HPI - SOB/Dyspnea General Chief Complaint: Upper Respiratory Symptoms Stated Complaint: Diff breathing Time Seen by Provider: 02/05/23 20:35 Source: patient Mode of arrival: ambulatory Limitations: no limitations History of Present Illness HPI Narrative: Patient history of asthma smoker usually stable last 1 month been having dry cough with wheezing seen here earlier had a atypical pneumonia on CT scan 01/27 taken a course of doxycycline, Zithromax and prednisone comes in for increased shortness of breath for last 3 days with wheezing saturating 91% at room air no fever no chills Related Data Home Medications Medication Instructions Recorded Confirmed hydroxyzine HCl 25 mg tablet 25 mg PO Q8H PRN anxiety 08/20/20 02/02/23 meclizine 12.5 mg tablet 12.5 mg PO TID 08/20/20 02/02/23 sertraline 100 mg tablet 100 mg PO DAILY 08/20/20 02/02/23 gabapentin 400 mg capsule 400 mg PO TID 09/13/21 02/02/23 trazodone 50 mg tablet 25 - 50 mg PO BEDTIME 12/27/21 02/02/23 Previous Rx's Medication Instructions Recorded docusate sodium 100 mg capsule 100 mg PO BID #60 caps 02/19/21 (Colace) albuterol sulfate 90 mcg/actuation 2 puff inhalation Q4-6H PRN 06/04/21 aerosol inhaler (ProAir HFA) bronchospasm 30 days #8.5 grams pantoprazole 40 mg tablet,delayed 40 mg PO BID 30 days #60 tabs 06/24/21 release dicyclomine 20 mg tablet 20 mg PO TID PRN abdominal pain 30 09/13/21 days #60 tabs meloxicam 15 mg tablet 15 mg PO DAILY #30 tabs 09/16/21 meloxicam 7.5 mg tablet 7.5 mg PO DAILY #14 tabs 10/01/22 albuterol sulfate 90 mcg/actuation 2 puff inhalation Q4-6H PRN 01/21/23 aerosol inhaler (ProAir HFA) shortness of breath or wheezing #8.5 grams benzonatate 200 mg capsule 200 mg PO TID PRN cough #30 caps 01/21/23 guaifenesin 400 mg tablet 400 mg PO Q4H PRN cough #14 tabs 02/01/23 nicotine 21 mg/24 hr daily 1 patch transdermal DAILY #28 ea 02/02/23 transdermal patch benzonatate 200 mg capsule 200 mg PO TID PRN cough #30 caps 02/05/23 loratadine 10 mg tablet (Claritin) 10 mg PO DAILY #30 tabs 02/05/23 montelukast 10 mg tablet 10 mg PO BEDTIME #30 tabs 02/05/23 (Singulair) prednisone 20 mg tablet 40 mg PO DAILY #10 tabs 02/05/23 Allergies Allergy/AdvReac Type Severity Reaction Status Date / Time ibuprofen [From Motrin] Allergy Severe stomach Verified 02/05/23 14:14 pain morphine Allergy Rash Verified 02/05/23 14:14 Penicillins Allergy Hives Verified 02/05/23 14:14 Review of Systems Review of Systems: Yes all other systems are reviewed and are negative [facility] Past Medical History Medical History Anxiety Arthritis Bleeding hemorrhoids Chronic back pain Disc degeneration, lumbar Fibromyalgia High cholesterol History of adenomatous polyp of colon Hyperlipidemia Internal hemorrhoids Major depression Rectal bleeding Sacroiliitis Shoulder pain Sigmoid diverticulosis Smoker Surgical History H/O hemorrhoidectomy H/O shoulder surgery History of elbow surgery Hx of colonoscopy Hx of endoscopy Family History Family History Father Diabetes Mother Alzheimer disease Dementia Brother No problems noted. Brother No problems noted. Sister No problems noted. Sister No problems noted. Son No problems noted. Daughter No problems noted. Daughter No problems noted. Social History Social History Housing: Apartment Alcohol intake: never Patient Tobacco Use Status: Current everyday Tobacco user Cigarette Packs Per Day: 1 Cigarettes Per Day: 20.0 e-Cigarette/Vaping Use: Never Used Second Hand Smoke Exposure: No Advance Directives: No Advance Directives Information Provided: Yes service: No Current occupational status: unemployed Current occupation: Right Handed Cognitive needs: No Hearing needs: No Vision needs: No Physical Exam Vital Signs: Vital Signs: Last Vital Signs Temp 98.4 F 02/05/23 21:50 Pulse 111 H 02/05/23 21:50 Resp 16 02/05/23 21:50 BP 137/91 H 02/05/23 21:50 Pulse Ox 91 L 02/05/23 21:50 O2 Del Method Room Air 02/05/23 21:50 BMI result Body Mass Index 26.4 Appearance: Alert. Oriented X3. Mild respiratory distress Eyes: No pallor or icterus ENT: Pharynx normal. Oral Mucosa moist Neck: Normal inspection. Neck supple. CVS: Normal heart rate and rhythm. Pulses normal. Respiratory: Mild respiratory distress. Equal air entry bilateral, bilateral wheezing no crackles Abdomen: Soft and nontender. Bowel sounds are present Skin: Skin warm and dry. Normal skin color. Normal skin turgor. Extremities: No lower extremity edema. No calf tenderness Neuro: Oriented X 3. No motor deficit. Medications Administered Discontinued Medications Generic Name Dose Route Start Last Admin Trade Name Freq PRN Reason Stop Dose Admin Albuterol Sulfate 4 puff 02/05/23 22:36 02/05/23 22:51 Albuterol Sulfate 90 Mcg 8 Gm Inhaler INHALE 02/05/23 22:37 Not Given ONCE ONE Albuterol Sulfate 7.5 mg/ 0 mg 02/05/23 21:03 02/05/23 21:20 Ipratropium [place] 0.5 mg INHALE 02/05/23 21:04 1 each ONCE ONE Administration Dexamethasone 10 mg 02/05/23 21:03 02/05/23 21:13 Dexamethasone 2 Mg Tablet PO 02/05/23 21:04 10 mg ONCE ONE Administration Guaifenesin/Codeine Phosphate 10 ml 02/05/23 21:03 02/05/23 21:13 Guaifen/Codeine Sf 200/20/10ml 10 Ml Liquid PO 02/05/23 21:04 10 ml ONCE ONE Administration Medical Decision Making Medical Decision Making [facility] Narrative: Patient with asthma smoker with acute asthma attack lab workup showed increased eosinophilic count. Patient does not know any allergic component leg since discharge patient prednisone and Singulair and Claritin Lab Data [facility] Lab Attestation statement: I reviewed the patient's lab results. 02/05/23 15:42 02/05/23 15:42 Labs: Lab Results 02/05/23 02/05/23 02/05/23 Range/Units 15:42 15:42 15:42 WBC 9.8 (4.8-10.8) X10*3/uL RBC 4.52 L (4.60-5.80) X10*6/uL Hgb 14.2 (14.0-18.0) g/dl Hct 41.4 L (42.0-52.0) % MCV 91.6 (80.0-98.0) fL MCH 31.4 (27.0-33.0) pg MCHC 34.3 (31.0-36.0) g/dl RDW 12.3 (11.0-16.0) % Plt Count 317 (160-400) X10*3/uL MPV 8.9 L (9.4-12.4) fL Immature Gran % (Auto) 0.3 (0.0-0.4) % Neut % (Auto) 64.5 (45-73) % Lymph % (Auto) 17.6 L (20-40) % [place] % (Auto) 7.2 (2-11) % Eos % (Auto) 9.7 H (0-4) % Baso % (Auto) 0.7 (0-2) % Lymph # (Auto) 1.7 (1.2-4.9) X10*3/uL [place] # (Auto) 0.7 (0.1-1.2) X10*3/uL Eos # (Auto) 1.0 H (0.0-0.4) X10*3/uL Baso # (Auto) 0.1 (0.0-0.2) X10*3/uL Abs Immat Gran (auto) 0.03 (0.00-0.03) X10*3/uL Absolute Neuts (auto) 6.3 (2.0-8.3) x10*3/uL Absolute Nucleated RBC 0.000 (0.0-0.012) X10*3/uL Nucleated RBC % (auto) 0.0 (0.0-0.2) /100WBC PT (10.0-13.1) SEC INR (0.9-1.1) APTT (26.0-36.4) SEC Sodium 140 (135-145) mmol/L Potassium 4.3 (3.3-5.1) mmol/L Chloride 103 (96-108) mmol/L Carbon Dioxide 27 (22-29) mmol/L Anion Gap 14 (12-20) BUN 12 (9-16) mg/dL Creatinine 0.84 (0.5-1.4) mg/dL Estim Creat Clear Calc 81.2 Estimated GFR > 60 Random Glucose 87 (60-115) mg/dL Calcium 9.4 D (8.4-10.2) mg/dL Total Bilirubin 0.7 (0.0-1.0) mg/dL AST 15 (5-37) U/L ALT 18 (0-40) U/L Alkaline Phosphatase 87 (39-117) U/L Troponin I High Sens < 3.5 (<3.5-35.0) ng/L B-Natriuretic Peptide (<100) pg/mL Total Protein 6.9 (6.5-8.0) g/dL Albumin 4.1 (3.5-5.0) g/dL Influenza Type A (PCR) (Negative) Influenza Type B (PCR) (Negative) RSV RNA Qual (PCR) (Negative) SARS-CoV-2 RNA (RT-PCR) (Negative) 02/05/23 02/05/23 02/05/23 Range/Units 15:42 15:42 15:42 WBC (4.8-10.8) X10*3/uL RBC (4.60-5.80) X10*6/uL Hgb (14.0-18.0) g/dl Hct (42.0-52.0) % MCV (80.0-98.0) fL MCH (27.0-33.0) pg MCHC (31.0-36.0) g/dl RDW (11.0-16.0) % Plt Count (160-400) X10*3/uL MPV (9.4-12.4) fL Immature Gran % (Auto) (0.0-0.4) % Neut % (Auto) (45-73) % Lymph % (Auto) (20-40) % [place] % (Auto) (2-11) % Eos % (Auto) (0-4) % Baso % (Auto) (0-2) % Lymph # (Auto) (1.2-4.9) X10*3/uL [place] # (Auto) (0.1-1.2) X10*3/uL Eos # (Auto) (0.0-0.4) X10*3/uL Baso # (Auto) (0.0-0.2) X10*3/uL Abs Immat Gran (auto) (0.00-0.03) X10*3/uL Absolute Neuts (auto) (2.0-8.3) x10*3/uL Absolute Nucleated RBC (0.0-0.012) X10*3/uL Nucleated RBC % (auto) (0.0-0.2) /100WBC PT 11.2 (10.0-13.1) SEC INR 1.0 (0.9-1.1) APTT 35.0 (26.0-36.4) SEC Sodium (135-145) mmol/L Potassium (3.3-5.1) mmol/L Chloride (96-108) mmol/L Carbon Dioxide (22-29) mmol/L Anion Gap (12-20) BUN (9-16) mg/dL Creatinine (0.5-1.4) mg/dL Estim Creat Clear Calc Estimated GFR Random Glucose (60-115) mg/dL Calcium (8.4-10.2) mg/dL Total Bilirubin (0.0-1.0) mg/dL AST (5-37) U/L ALT (0-40) U/L Alkaline Phosphatase (39-117) U/L Troponin I High Sens (<3.5-35.0) ng/L B-Natriuretic Peptide 16 (<100) pg/mL Total Protein (6.5-8.0) g/dL Albumin (3.5-5.0) g/dL Influenza Type A (PCR) NEGATIVE (Negative) Influenza Type B (PCR) NEGATIVE (Negative) RSV RNA Qual (PCR) NEGATIVE (Negative) SARS-CoV-2 RNA (RT-PCR) NEGATIVE (Negative) Discharge Plan Discharge Clinical Impression: Asthma with exacerbation Patient Disposition: Home, Self-Care Instructions: Asthma (ED) Additional Instructions: Use inhaler 2 puffs every 4-6 hours as needed Prednisone as advised Cough drops Follow-up with a lung specialist Prescriptions: New benzonatate 200 mg capsule 200 mg PO TID PRN (Reason: cough) Qty: 30 0RF prednisone 20 mg tablet 40 mg PO DAILY Qty: 10 0RF montelukast [Singulair] 10 mg tablet 10 mg PO BEDTIME Qty: 30 0RF loratadine [Claritin] 10 mg tablet 10 mg PO DAILY Qty: 30 0RF No Action albuterol sulfate [ProAir HFA] 90 mcg/actuation HFA aerosol inhaler 2 puff inhalation Q4-6H PRN (Reason: bronchospasm) 30 Days Qty: 8.5 8RF meloxicam 15 mg tablet 15 mg PO DAILY Qty: 30 4RF docusate sodium [Colace] 100 mg capsule 100 mg PO BID Qty: 60 2RF meloxicam 7.5 mg tablet 7.5 mg PO DAILY Qty: 14 0RF benzonatate 200 mg capsule 200 mg PO TID PRN (Reason: cough) Qty: 30 0RF albuterol sulfate [ProAir HFA] 90 mcg/actuation HFA aerosol inhaler 2 puff inhalation Q4-6H PRN (Reason: shortness of breath or wheezing) Qty: 8.5 2RF guaifenesin 400 mg tablet 400 mg PO Q4H PRN (Reason: cough) Qty: 14 0RF nicotine 21 mg/24 hr patch 24 hour 1 patch transdermal DAILY Qty: 28 3RF sertraline 100 mg tablet 100 mg PO DAILY hydroxyzine HCl 25 mg tablet 25 mg PO Q8H PRN (Reason: anxiety) meclizine 12.5 mg tablet 12.5 mg PO TID pantoprazole 40 mg tablet,delayed release (DR/EC) 40 mg PO BID 30 Days Qty: 60 3RF gabapentin 400 mg capsule 400 mg PO TID dicyclomine 20 mg tablet 20 mg PO TID PRN (Reason: abdominal pain) 30 Days Qty: 60 3RF trazodone 50 mg tablet 25 - 50 mg PO BEDTIME
== END 2023-02-05 22:55 | disposition home or self-care (01) ==
PROVIDERS: Physician Assistant; Emergency Provider Internal Medicine; PCP Internal Medicine
DX: J45.901 Unspecified asthma with (acute) exacerbation (principal); R06.02 Shortness of breath; R05.9 Cough, unspecified; F17.210 Nicotine dependence, cigarettes, uncomplicated; Z71.6 Tobacco abuse counseling; Z20.822 Contact with and (suspected) exposure to COVID-19; Z20.828 Contact with and (suspected) exposure to other viral communicable diseases; Z79.899 Other long term (current) drug therapy
CPT/HCPCS: 0241U; 36415; 71045; 80053; 83880; 84484; 85025; 85610; 85730; 93005; 94640; 99284; J8540

== ENCOUNTER 2023-02-16 06:09 | Outpatient (REF) | payer OTHER, SELFPAY | END 2023-02-16 06:10 | disposition home or self-care (01) | LOC: HO.HOSX 06:09 | PROVIDERS: Visit Provider Physician Assistant | DX: Z13.89 Encounter for screening for other disorder (principal) ==

== ENCOUNTER 2023-04-03 07:03 | Outpatient (REF) | payer MEDICARE, MEDICAID, SELFPAY ==
--- NOTE | ~2023-04-03 | XR_ITS ---
EXAMINATION: XR AP STANDING VIEW BOTH KNEES. XR KNEE, RIGHT. CLINICAL INFORMATION: Knee pain COMPARISON: None. TECHNIQUE: AP standing view both knees. Lateral and sunrise views of the right knee. FINDINGS: No joint space narrowing. No fracture or focal osseous lesion. No joint effusion. Small enthesophyte at the tibial tubercle of the right knee. XR/XR knee standing BI IMPRESSION: No acute osseous abnormality. No joint space narrowing.
--- NOTE | ~2023-04-03 | XR_ITS ---
EXAMINATION: XR AP STANDING VIEW BOTH KNEES. XR KNEE, RIGHT. CLINICAL INFORMATION: Knee pain COMPARISON: None. TECHNIQUE: AP standing view both knees. Lateral and sunrise views of the right knee. FINDINGS: No joint space narrowing. No fracture or focal osseous lesion. No joint effusion. Small enthesophyte at the tibial tubercle of the right knee. XR/XR knee RT 2V IMPRESSION: No acute osseous abnormality. No joint space narrowing.
== END 2023-04-03 07:04 | disposition home or self-care (01) ==
LOC: HO.HOSX 07:03
PROVIDERS: Visit Provider Physician Assistant
DX: M17.11 Unilateral primary osteoarthritis, right knee (principal); M25.562 Pain in left knee; Z79.899 Other long term (current) drug therapy
CPT/HCPCS: 20610; 73560; 73565; 99212; J1040

== ENCOUNTER 2023-08-12 21:20 | Emergency (ER) | payer MEDICARE, MEDICAID, SELFPAY ==
--- NOTE | ~2023-08-12 | XR_ITS ---
EXAMINATION: XR HIP, RIGHT CLINICAL INFORMATION: Right hip pain COMPARISON: None available. TECHNIQUE: Two views of the right hip. AP pelvis one view FINDINGS: AP pelvis and right hip: There is normal symmetry of both hip joints and SI joints. No pelvic bone abnormality seen. AP and frog-leg views right hip reveals normal right hip joint space without bony erosive changes are enthesophytes. No fracture or dislocation. The soft tissues are normal. XR/XR hip RT min 2V IMPRESSION: Normal right hip and AP pelvis
[2023-08-12 21:38] VITALS: BP 123/84; PULSE 99; RESP 18; TEMP 36.6; O2SAT 94; BMI 28.7
[2023-08-13 00:30] VITALS: BP 113/73; PULSE 100; RESP 16; TEMP 36.8; O2SAT 95
--- NOTE | 2023-08-13 00:59 | ED.GENADULT ---
HPI - General Adult General Chief complaint: Extremity Problem Stated complaint: right side lower abd pain Time Seen by Provider: 08/12/23 22:38 Source: patient and family () Mode of arrival: ambulatory History of Present Illness HPI narrative: 58-year-old male with atraumatic right hip pain, no fever, chills no nausea or vomiting in no urinary symptoms. Patient does have an appointment with orthopedic surgeon. Related Data Home Medications Medication Instructions Recorded Confirmed gabapentin 400 mg capsule 400 mg PO TID 09/13/21 04/03/23 trazodone 50 mg tablet 25 - 50 mg PO BEDTIME 12/27/21 04/03/23 Previous Rx's Medication Instructions Recorded albuterol sulfate 90 mcg/actuation 2 puff inhalation Q4-6H PRN 06/04/21 aerosol inhaler (ProAir HFA) bronchospasm 30 days #8.5 grams dicyclomine 20 mg tablet 20 mg PO TID PRN abdominal pain 30 09/13/21 days #60 tabs meloxicam 7.5 mg tablet 7.5 mg PO DAILY #14 tabs 10/01/22 albuterol sulfate 90 mcg/actuation 2 puff inhalation Q4-6H PRN 01/21/23 aerosol inhaler (ProAir HFA) shortness of breath or wheezing #8.5 grams nicotine 21 mg/24 hr daily 1 patch transdermal DAILY #28 ea 02/02/23 transdermal patch Allergies Allergy/AdvReac Type Severity Reaction Status Date / Time ibuprofen [From Motrin] Allergy Severe stomach Verified 04/03/23 09:19 pain morphine Allergy Rash Verified 04/03/23 09:19 Penicillins Allergy Hives Verified 04/03/23 09:19 Review of Systems Review of Systems: Pertinent positives and negatives as stated in HPI [facility] Past Medical History Source: nursing notes reviewed Medical History Sacroiliitis Disc degeneration, lumbar Fibromyalgia Bleeding hemorrhoids Smoker Major depression Hyperlipidemia Shoulder pain Rectal bleeding History of adenomatous polyp of colon Internal hemorrhoids Sigmoid diverticulosis Anxiety Arthritis High cholesterol Chronic back pain Surgical History History of elbow surgery H/O hemorrhoidectomy H/O shoulder surgery Hx of endoscopy Hx of colonoscopy Family History Family History Father Diabetes Mother Alzheimer disease Dementia Brother No problems noted. Brother No problems noted. Sister No problems noted. Sister No problems noted. Son No problems noted. Daughter No problems noted. Daughter No problems noted. Social History Social History Housing: Apartment Alcohol intake: never Patient Tobacco Use Status: Current everyday Tobacco user Cigarette Packs Per Day: 1 Cigarettes Per Day: 20.0 e-Cigarette/Vaping Use: Never Used Second Hand Smoke Exposure: No Advance Directives: No Advance Directives Information Provided: Yes service: No Current occupational status: unemployed Current occupation: Right Handed Cognitive needs: No Hearing needs: No Vision needs: No Physical Exam ED Vital Signs: Vital Signs - 24 hr 08/12/23 21:38 08/13/23 00:30 Temperature 97.9 F 98.2 F Pulse Rate 99 100 Respiratory Rate 18 16 Blood Pressure 123/84 113/73 Pulse Oximetry 94 95 Oxygen Delivery Method Room Air Room Air BMI result Body Mass Index 28.7 VITAL SIGNS: Reviewed. GENERAL: Well developed, well nourished, in no acute distress. HEAD: Normocephalic/atraumatic EYES: PERRLA, EOMI LUNGS: Normal breath sounds. No adventitious sounds or accessory muscle use. SpO2<95> CARDIOVASCULAR: Regular rate and rhythm without noted murmurs ABDOMEN: Soft, non-tender, non-distended with bowel sounds. PELVIS: Stable, nontender, there is mild tenderness to palpation at the superior gluteus without overlying erythema or induration. MUSCULOSKELETAL: No tenderness, deformities, or effusions noted on gross inspection. EXTREMITIES: No cyanosis, clubbing or edema. SKIN: Inspection of the skin reveals no rashes, NEUROLOGIC: Alert and oriented x 4. Strength and sensation to light touch were grossly intact x 4. Medications Administered Discontinued Medications Generic Name Dose Route Start Last Admin Trade Name Freq PRN Reason Stop Dose Admin Acetaminophen 975 mg 08/13/23 00:59 08/13/23 01:35 Acetaminophen 325 Mg Tablet PO 08/13/23 01:00 975 mg ONCE ONE Administration Ketorolac Tromethamine 15 mg 08/13/23 00:59 08/13/23 01:36 Ketorolac Tromethamine 15 Mg/Ml Vial IM 08/13/23 01:00 15 mg ONCE ONE Administration Lidocaine 1 patch 08/13/23 00:59 08/13/23 01:36 Lidocaine 4 % Patch Adh..Patch TRANSDERMA 08/13/23 01:00 1 patch ONCE ONE Administration Protocol Lidocaine/Diphenhydr/Alum/Mg/Simeth 10 ml 08/13/23 01:00 08/13/23 01:37 Mag&Al/Sim/Diphenhyd/Lidocaine 10 Ml Oral.Susp PO 08/13/23 01:01 Not Given ONCE ONE Protocol Medical Decision Making Medical Decision Making MDM Narrative: 58-year-old male with history and clinical presentation consistent with musculoskeletal/chronic right hip pain. He received combination analgesics to include a lidocaine patch with good resolution of his pain. On review of x-rays there is no evidence of acute pathology such as fracture or dislocation. Patient is otherwise discharged home. Differential Diagnosis Differential Diagnoses: The differential diagnosis associated with the presentation includes Please see the discussion above Admission/Observation Consideration of admission/observation: Escalation of care including admission/observation considered Please see the discussion above Radiology Impression Discussion of test interpretation with radiology: I have reviewed the radiologist's reading. Radiologist Impression: Please see the discussion above External Record Review External record reviewed: Outpatient record, Prior outpatient labs and Prior outpatient radiology Discharge Plan Discharge Clinical Impression: Hip pain, right Patient Disposition: Home, Self-Care Instructions: Hip Pain (ED) Additional Instructions: 1. Tylenol 1000 mg, por v?a oral, cada 6 horas seg?n sea necesario para controlar el dolor. No exceda los 4000 mg en 24 horas. 2. Parche de lidoca?na, apl?quelo en el ?ivan de m?xima sensibilidad yan se indica en el paquete exterior. 3. Zane un seguimiento de baldwin reshma ortop?dica seg?n lo programado. Regrese a la parris de emergencias si los s?ntomas empeoran. 1. Tylenol 1000 mg, orally, every 6 hours as needed for pain control. Do not exceed 4000 mg within 24 hours. 2. Lidocaine patch, apply to area of maximal tenderness as directed on the outside packaging. 3. Follow-up with your orthopedic appointment as scheduled. Return to the ER for any worsening symptoms. Prescriptions: No Action albuterol sulfate [ProAir HFA] 90 mcg/actuation HFA aerosol inhaler 2 puff inhalation Q4-6H PRN (Reason: bronchospasm) 30 Days Qty: 8.5 8RF meloxicam 7.5 mg tablet 7.5 mg PO DAILY Qty: 14 0RF albuterol sulfate [ProAir HFA] 90 mcg/actuation HFA aerosol inhaler 2 puff inhalation Q4-6H PRN (Reason: shortness of breath or wheezing) Qty: 8.5 2RF nicotine 21 mg/24 hr patch 24 hour 1 patch transdermal DAILY Qty: 28 3RF gabapentin 400 mg capsule 400 mg PO TID dicyclomine 20 mg tablet 20 mg PO TID PRN (Reason: abdominal pain) 30 Days Qty: 60 3RF trazodone 50 mg tablet 25 - 50 mg PO BEDTIME Referrals: Servando Willard MD [Primary Care Provider] - Print Language: Indonesian
[2023-08-13] MEDS: Acetaminophen 325 MG TABLET 975 MG PO (01:35)
[2023-08-13] MEDS: Ketorolac Tromethamine 15 MG/ML VIAL IM (01:36)
[2023-08-13] MEDS: Lidocaine 4 % Patch ADH..PATCH 1 PATCH TRANSDERMA (01:36)
== END 2023-08-13 03:32 | disposition home or self-care (01) ==
PROVIDERS: Emergency Provider Student in an Organized Health Care Education/Training Program; PCP Internal Medicine
DX: M25.551 Pain in right hip (principal); E78.5 Hyperlipidemia, unspecified; F17.210 Nicotine dependence, cigarettes, uncomplicated
CPT/HCPCS: 73502; 96372; 99283; 99284; J1885

== ENCOUNTER 2023-08-25 18:58 | Emergency (ER) | payer MEDICARE, MEDICAID, SELFPAY ==
--- NOTE | ~2023-08-25 | XR_ITS ---
EXAMINATION: XR CHEST CLINICAL INFORMATION: Shortness of breath. COMPARISON: 02/05/2023 TECHNIQUE: Frontal view of the chest was obtained. FINDINGS: The cardiomediastinal silhouette is normal. There is no focal lung consolidation or pleural effusion. The bony structures and soft tissues are unremarkable. XR/XR chest 1V IMPRESSION: No active cardiopulmonary disease.
--- NOTE | 2023-08-25 19:03 | ECG_ITS ---
Test Reason : CHEST PAIN Blood Pressure : / mmHG Vent. Rate : 102 BPM Atrial Rate : 102 BPM P-R Int : 160 ms QRS Dur : 108 ms QT Int : 372 ms P-R-T Axes : 062 087 059 degrees QTc Int : 484 ms Sinus tachycardia Otherwise normal ECG When compared with ECG of 05-FEB-2023 15:44, T wave amplitude has decreased in Anterolateral leads Referred By: Gildardo Tam Electronically Signed By:LYNDSAY COVINGTON MD
--- NOTE | 2023-08-25 19:04 | ED.GENADULT ---
HPI - General Adult General Chief complaint: Asthma Stated complaint: Asthma Time Seen by Provider: 08/25/23 19:12 Source: patient Mode of arrival: ambulatory Limitations: no limitations History of Present Illness HPI narrative: Patient has history of asthma complaining of increased shortness of breath for last 3 days patient ran out of his inhaler and the nebulizing medication having dry cough no fever no chills does have nausea no other family member sick Related Data Home Medications Medication Instructions Recorded Confirmed gabapentin 400 mg capsule 400 mg PO TID 09/13/21 04/03/23 trazodone 50 mg tablet 25 - 50 mg PO BEDTIME 12/27/21 04/03/23 Previous Rx's Medication Instructions Recorded albuterol sulfate 90 mcg/actuation 2 puff inhalation Q4-6H PRN 06/04/21 aerosol inhaler (ProAir HFA) bronchospasm 30 days #8.5 grams dicyclomine 20 mg tablet 20 mg PO TID PRN abdominal pain 30 09/13/21 days #60 tabs meloxicam 7.5 mg tablet 7.5 mg PO DAILY #14 tabs 10/01/22 albuterol sulfate 90 mcg/actuation 2 puff inhalation Q4-6H PRN 01/21/23 aerosol inhaler (ProAir HFA) shortness of breath or wheezing #8.5 grams nicotine 21 mg/24 hr daily 1 patch transdermal DAILY #28 ea 02/02/23 transdermal patch albuterol sulfate 2.5 mg/3 mL 2.5 mg (3 mL) inhalation Q4-6H PRN 08/25/23 (0.083 %) solution for nebulization shortness of breath or wheezing #90 mL albuterol sulfate 90 mcg/actuation 2 puff inhalation Q4-6H PRN 08/25/23 aerosol inhaler (ProAir HFA) shortness of breath or wheezing #8.5 grams benzonatate 200 mg capsule 200 mg PO TID PRN cough #30 caps 08/25/23 nebulizer and compressor #1 ea 08/25/23 prednisone 20 mg tablet 40 mg (2 x 20 mg) PO DAILY #10 tabs 08/25/23 Allergies Allergy/AdvReac Type Severity Reaction Status Date / Time ibuprofen [From Motrin] Allergy Severe stomach Verified 04/03/23 09:19 pain morphine Allergy Rash Verified 04/03/23 09:19 Penicillins Allergy Hives Verified 04/03/23 09:19 [facility] Past Medical History Medical History (Updated 08/26/23 @ 00:03 by Marshal Berry) Asthma Sacroiliitis Disc degeneration, lumbar Fibromyalgia Bleeding hemorrhoids Smoker Major depression Hyperlipidemia Shoulder pain Rectal bleeding History of adenomatous polyp of colon Internal hemorrhoids Sigmoid diverticulosis Anxiety Arthritis High cholesterol Chronic back pain Surgical History History of elbow surgery H/O hemorrhoidectomy H/O shoulder surgery Hx of endoscopy Hx of colonoscopy Family History Family History Father Diabetes Mother Alzheimer disease Dementia Brother No problems noted. Brother No problems noted. Sister No problems noted. Sister No problems noted. Son No problems noted. Daughter No problems noted. Daughter No problems noted. Social History Social History Housing: Apartment Alcohol intake: current Alcohol intake frequency: does not drink Alcohol type: hard liquor Patient Tobacco Use Status: Current everyday Tobacco user Cigarette Packs Per Day: 1 Cigarettes Per Day: 20.0 Smoked in Last 30 Days: Yes e-Cigarette/Vaping Use: Never Used Second Hand Smoke Exposure: No Use of substances other than those prescribed or required for medical reasons: No Advance Directives: No Advance Directives Information Provided: No service: No Current occupational status: unemployed Current occupation: Right Handed Cognitive needs: No Hearing needs: No Vision needs: No Physical Exam ED Vital Signs: Vital Signs - 24 hr 08/25/23 19:09 08/25/23 19:32 08/25/23 19:33 Temperature 98.0 F 97.9 F Pulse Rate 106 H 97 102 H Respiratory Rate 16 22 H 18 Blood Pressure 125/75 105/73 Pulse Oximetry 98 98 Oxygen Delivery Method Room Air Room Air 08/25/23 21:20 Temperature Pulse Rate 95 Respiratory Rate 14 Blood Pressure 121/88 Pulse Oximetry 97 Oxygen Delivery Method Room Air BMI result Body Mass Index 29.9 Appearance: Alert. Oriented X3. No acute distress. Eyes: PERRLA, No Nystagmus ENT: Pharynx normal. Oral Mucosa moist Neck: Normal inspection. Neck supple. CVS: Normal heart rate and rhythm. Pulses normal. Respiratory: No respiratory distress. Equal air entry bilateral, bilateral wheezing Abdomen: Soft and nontender. Bowel sounds are present, no mass palpable, Skin: Skin warm and dry. Normal skin color. Normal skin turgor. Extremities: No lower extremity edema. No calf tenderness Neuro: Oriented X 3. No motor deficit. No sensory deficit.No cerebellar signs , Course Course Course Narrative: RME- 58 year old male presents for evaluation of cough and shortness of breath. Symptoms started 3-4 days ago. Denies fevers but reports that he feels similar to when he was diagnosed with pneumonia last year. Plan for labs, chest x-ray. sat 96% on room air, he is afebrile Medications Administered Discontinued Medications Generic Name Dose Route Start Last Admin Trade Name Freq PRN Reason Stop Dose Admin Albuterol/Ipratropium 3 ml 08/25/23 19:30 08/25/23 19:33 Albuterol/Iprat 2.5/0.5mg 3 Ml Ampul.Neb INHALE 08/25/23 19:31 3 ml ONCE ONE Administration Magnesium Sulfate 2 gm in 50 mls @ 25 mls/hr 08/25/23 19:27 08/25/23 19:34 Magnesium Sulfate/H2o IV 08/25/23 21:26 25 mls/hr ONCE ONE Administration Methylprednisolone Sodium Succinate 125 mg 08/25/23 19:26 08/25/23 19:30 Methylprednisolone Sod Succ 125 Mg/2 Ml Vial IVPUSH 08/25/23 19:27 125 mg ONCE ONE Administration Medical Decision Making Medical Decision Making [facility] Narrative: Patient is PERC negative loss of responded to nebulizing treatment will discharge patient home on same same patient is saturating 97% at room air at time of discharge Differential Diagnosis Differential Diagnoses: The differential diagnosis associated with the presentation includes Asthma/atypial pneumonia/pneumonia/CHF Lab Data [facility] Lab Attestation statement: I reviewed the patient's lab results. 08/25/23 19:08/25/23 19:23 Labs: Lab Results 08/25/23 08/25/23 Range/Units : 19:29 WBC 5.4 (4.8-10.8) X10*3/uL RBC 4.40 L (4.60-5.80) X10*6/uL Hgb 13.8 L (14.0-18.0) g/dl Hct 40.6 L (42.0-52.0) % MCV 92.3 (80.0-98.0) fL MCH 31.4 (27.0-33.0) pg MCHC 34.0 (31.0-36.0) g/dl RDW 13.2 (11.0-16.0) % Plt Count 243 (160-400) X10*3/uL MPV 9.2 L (9.4-12.4) fL Immature Gran % (Auto) 0.2 (0.0-0.4) % Neut % (Auto) 50.7 (45-73) % Lymph % (Auto) 38.1 (20-40) % Barnwell % (Auto) 6.7 (2-11) % Eos % (Auto) 3.4 (0-4) % Baso % (Auto) 0.9 (0-2) % Lymph # (Auto) 2.0 (1.2-4.9) X10*3/uL Barnwell # (Auto) 0.4 (0.1-1.2) X10*3/uL Eos # (Auto) 0.2 (0.0-0.4) X10*3/uL Baso # (Auto) 0.1 (0.0-0.2) X10*3/uL Abs Immat Gran (auto) 0.01 (0.00-0.03) X10*3/uL Absolute Neuts (auto) 2.7 (2.0-8.3) x10*3/uL Absolute Nucleated RBC 0.000 (0.0-0.012) X10*3/uL Nucleated RBC % (auto) 0.0 (0.0-0.2) /100WBC Sodium 148 H (135-145) mmol/L Potassium 3.3 D (3.3-5.1) mmol/L Chloride 109 H (96-108) mmol/L Carbon Dioxide 26 (22-29) mmol/L Anion Gap 16 (12-20) BUN 13 (9-16) mg/dL Creatinine 0.83 (0.5-1.4) mg/dL Estim Creat Clear Calc 98.5 Estimated GFR > 60 Random Glucose 124 H (60-115) mg/dL Lactic Acid 1.7 (0.5-2.0) mmol/L Calcium 8.8 D (8.4-10.2) mg/dL Total Bilirubin 0.2 (0.0-1.0) mg/dL AST 46 H (5-37) U/L ALT 57 H (0-40) U/L Alkaline Phosphatase 71 (39-117) U/L Total Protein 7.2 (6.5-8.0) g/dL Albumin 4.3 (3.5-5.0) g/dL Lipase 31 (8-78) U/L COVID-19 (RENA) Negative (Negative) COVID-19 Clin Com See Note Influenza Type A (TOBY) Negative (Negative) Influenza Type B (TOBY) Negative (Negative) Influenza A & B Note See Note Independent Interpretation I performed an independent interpretation of an: EKG Interpretation: Sinus tachycardia heart rate 102 beats per minute no acute ST T wave changes no acute ischemic Discharge Plan Discharge Clinical Impression: Acute asthma exacerbation Patient Disposition: Home, Self-Care Instructions: Asthma (ED) Additional Instructions: Use a nebulizer/inhaler treatment every 4 hours as needed Prednisone as prescribed Cough drops as needed Follow-up with PCP if not better Prescriptions: New albuterol sulfate 2.5 mg /3 mL (0.083 %) solution for nebulization 2.5 mg inhalation Q4-6H PRN (Reason: shortness of breath or wheezing) Qty: 90 0RF albuterol sulfate [ProAir HFA] 90 mcg/actuation HFA aerosol inhaler 2 puff inhalation Q4-6H PRN (Reason: shortness of breath or wheezing) Qty: 8.5 0RF benzonatate 200 mg capsule 200 mg PO TID PRN (Reason: cough) Qty: 30 0RF prednisone 20 mg tablet 40 mg PO DAILY Qty: 10 0RF (DME) nebulizer and compressor Device See Rx Instructions .Route Qty: 1 0RF Rx Instructions: As directed No Action albuterol sulfate [ProAir HFA] 90 mcg/actuation HFA aerosol inhaler 2 puff inhalation Q4-6H PRN (Reason: bronchospasm) 30 Days Qty: 8.5 8RF meloxicam 7.5 mg tablet 7.5 mg PO DAILY Qty: 14 0RF albuterol sulfate [ProAir HFA] 90 mcg/actuation HFA aerosol inhaler 2 puff inhalation Q4-6H PRN (Reason: shortness of breath or wheezing) Qty: 8.5 2RF nicotine 21 mg/24 hr patch 24 hour 1 patch transdermal DAILY Qty: 28 3RF gabapentin 400 mg capsule 400 mg PO TID dicyclomine 20 mg tablet 20 mg PO TID PRN (Reason: abdominal pain) 30 Days Qty: 60 3RF trazodone 50 mg tablet 25 - 50 mg PO BEDTIME Interventions: ED Discharge Assessment Last Done: 08/25/23 21:20 Discharge Date/Time: 08/25/23 21:21
[2023-08-25 19:09] VITALS: BP 125/75; PULSE 106; RESP 16; TEMP 36.7; O2SAT 98; BMI 29.9
--- NOTE | 2023-08-25 19:13 | MHC.EDTECH ---
Pt very agitated while trying to obtain EKG, will try again after.
[2023-08-25 19:29] LABS: MANUAL DIFF FLAG NO
[2023-08-25] MEDS: methylPREDNISolone Sod Succ 125 MG/2 ML VIAL IVPUSH (19:30)
[2023-08-25 19:32] VITALS: BP 105/73; PULSE 97; RESP 22; TEMP 36.6; O2SAT 98
[2023-08-25 19:33] VITALS: PULSE 102; RESP 18; O2SAT 95
[2023-08-25] MEDS: Albuterol/Iprat 2.5/0.5MG 3 ML AMPUL.NEB INHALE (19:33)
[2023-08-25] MEDS: Magnesium Sulfate/H2O 2 GM/50 ML PIGGYBACK IV (19:34)
[2023-08-25 19:36] LABS: Basophils Absolute Auto 0.1 X10*3/uL (0.0-0.2); Basophils Percent Auto 0.9 % (0-2); Eosinophils Absolute Auto 0.2 X10*3/uL (0.0-0.4); Eosinophils Percent Auto 3.4 % (0-4); Hematocrit 40.6 % (42.0-52.0); Hemoglobin 13.8 g/dl (14.0-18.0); Imm Gran Abs Auto 0.01 X10*3/uL (0.00-0.03); Imm Gran Pct Auto 0.2 % (0.0-0.4); Lymphocytes Percent Auto 38.1 % (20-40); Mean Corpuscular Hemoglobin 31.4 pg (27.0-33.0); Mean Corpuscular Volume 92.3 fL (80.0-98.0); Mean Platelet Volume 9.2 fL (9.4-12.4); Monocytes Absolute Auto 0.4 X10*3/uL (0.1-1.2); Monocytes Percent Auto 6.7 % (2-11); Neutrophils Absolute Auto 2.7 x10*3/uL (2.0-8.3); Neutrophils Percent Auto 50.7 % (45-73); Platelet Count 243 X10*3/uL (160-400); Red Cell Distribution Width 13.2 % (11.0-16.0); White Blood Count 5.4 X10*3/uL (4.8-10.8)
[2023-08-25 19:45] LABS: Lactic Acid 1.7 mmol/L (0.5-2.0)
[2023-08-25 19:50] LABS: Alanine Aminotransferase 57 U/L (0-40); Albumin Level 4.3 g/dL (3.5-5.0); Alkaline Phosphatase 71 U/L (39-117); Anion Gap 16 (12-20); Aspartate Amino Transferase 46 U/L (5-37); Bilirubin Total 0.2 mg/dL (0.0-1.0); Blood Urea Nitrogen 13 mg/dL (9-16); Calcium 8.8 mg/dL (8.4-10.2); Carbon Dioxide 26 mmol/L (22-29); Chloride 109 mmol/L (96-108); Creatinine Clr Calc Pharmacy 98.5; Estimated Glomerular Filt Rate > 60; Glucose Random 124 mg/dL (60-115); Lipase 31 U/L (8-78); Potassium 3.3 mmol/L (3.3-5.1); Sodium 148 mmol/L (135-145); Total Protein 7.2 g/dL (6.5-8.0)
[2023-08-25 19:56] LABS: IDNOW Serial# 08D9AD1C; Influenza A Negative (Negative); Influenza B2 Negative (Negative)
[2023-08-25 19:57] LABS: COVID-19 Test Negative (Negative); IDNOW Serial# BCCEAD1C
--- NOTE | 2023-08-25 19:57 | PC.NURSE ---
Pt aox4 brought in by triage nurse as pt was sob and having difficulty breathing. Pt anxious and agitated, reporting difficulty breathing. O2 sat 97% RA, no respiratory distress noted. Sinus tach on monitor with HR 105. Abd soft and non tender. Skin warm pink and dry. No diaphoresis noted. Verbal reassurance provided. Pt became calm and cooperative. Apologetic for previous aggressive behavior. Nurse able to place 20G L AC. Labs drawn and sent. Respiratory at bedside. Bi Pt medicated as ordered and tolerated well. Pending lab and x-ray results. Pt aware of plan of care.
--- NOTE | 2023-08-25 20:56 | PC.NURSE ---
Pt reports feeling better and breathing better. Reports wanting to go home. O2 sat 97% on RA. NSR on monitor HR 99. No distress noted. aware.
[2023-08-25 21:20] VITALS: BP 121/88; PULSE 95; RESP 14; O2SAT 97
== END 2023-08-25 21:21 | disposition home or self-care (01) ==
PROVIDERS: Physician Assistant; Emergency Provider Internal Medicine; PCP Internal Medicine
DX: J45.901 Unspecified asthma with (acute) exacerbation (principal); R06.02 Shortness of breath; Z11.52 Encounter for screening for COVID-19; F17.210 Nicotine dependence, cigarettes, uncomplicated; Z79.899 Other long term (current) drug therapy
CPT/HCPCS: 71045; 80053; 83605; 83690; 85025; 87040; 87502; 87635; 93005; 96374; 96375; 99284; 99285; J2930; J3475

== ENCOUNTER 2023-08-28 08:12 | Outpatient (AMB) | payer MEDICARE, MEDICAID, SELFPAY ==
--- NOTE | 2023-08-28 08:21 | A.OFFVIS_ITS ---
Intake Vital Signs 08/28/23 08:29 Height 5 ft 6 in Weight 185 lb BMI 29.9 Intake Visit Reasons: New Prob- Right hip pain Intake Note: Rei yepez 58 year old male presents today with complaints of right hip pain. Patient reports pain has been present for about 5-6 months. States falling in the shower twice due to his pain. Pain starts at the lateral aspect of hip that radiates into his groin and down his leg to his toes. Complaints of numbness at the lateral aspect of right knee. No previous tx. 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 He states he has pain in the lateral aspect of his groin which radiates down to his leg and toes. His pain is aggravated with sleeping on the right side and he reports he fell in the shower twice due to the pain. He also c/o numbness at the lateral aspect of his right knee. He has not had any treatment in the past. He has a history of back pain. He does not have a history of diabetes. [facility] Medical History (Updated 08/28/23 @ 11:37 by Sheree Vargas PA-C) Asthma Sacroiliitis Disc degeneration, lumbar Fibromyalgia Bleeding hemorrhoids Smoker Major depression Hyperlipidemia Shoulder pain Rectal bleeding History of adenomatous polyp of colon Internal hemorrhoids Sigmoid diverticulosis Anxiety Arthritis High cholesterol Chronic back pain Surgical History History of elbow surgery H/O hemorrhoidectomy H/O shoulder surgery Hx of endoscopy Hx of colonoscopy Family History Father Diabetes Mother Alzheimer disease Dementia Brother No problems noted. Brother No problems noted. Sister No problems noted. Sister No problems noted. Son No problems noted. Daughter No problems noted. Daughter No problems noted. Social History Housing: Apartment Alcohol intake: current Alcohol intake frequency: does not drink Alcohol type: hard liquor Patient Tobacco Use Status: Current everyday Tobacco user Cigarette Packs Per Day: 1 Cigarettes Per Day: 20.0 e-Cigarette/Vaping Use: Never Used Second Hand Smoke Exposure: No service: No Current occupational status: unemployed Current occupation: Right Handed Cognitive needs: No Hearing needs: No Vision needs: No Review of Systems Const All systems reviewed & are unremarkable except as noted in HPI and below Physical Exam Vital Signs: BMI result Body Mass Index 29.9 Extrem Other: Right hip: Normal to inspection. No pain with ROM of the hip. Pain along the greater trochanter. No pain with hip flexion or abduction. Negative tenderness along the SI joint, Negative SLR. NVI. Office Procedures Joint Injection/Drain Joint Injection/Drain Details: right trochanteric bursa Prep: site was prepped using aseptic technique, ethochloride spray was applied and injection warnings given Injected: 80 mg of, DepoMedrol, with 8 mL of and 1% plain lidocaine Procedure: The patient tolerated the procedure well and there was some relief wi th the local anesthesia Coding 19743 - Glenohumeral/Tronchanteric Bursa/Intraarticular Procedure code (CPT) selection complete Results Reviewed Results Reviewed: 08/28/23 08:52 Lidocaine HCl 2 % MPF [Xylocaine 2 % MPF] 5 ml .ROUTE .STK-MED ONE methylPREDNISolone acetate [DEPO-MedroL] 80 mg .ROUTE .STK-MED ONE X-rays of the right hip obtained on August 12 show mild OA. Assessment & Plan Assessment & Plan (1) Trochanteric bursitis, right hip: Code(s): M70.61 - Trochanteric bursitis, right hip Plan We discussed options today which include steroid injection. They did consent to move forward with the right hip injection, which was tolerated well. I recommended rest, ice and elevation and OTC anti-inflammatories PRN for d iscomfort. He was also given a handout of home exercises in the office today. If symptoms persist or worsens over the next 6-8 weeks, patient will contact the office, otherwise follow-up as needed. Patient Instructions: Scribed for Sheree Vargas PA-C, by [facility] manager, on 08/28/2023 at 8:30 AM Sheree HERRERA PA-C, have personally reviewed and agree with the information entered by the scribe. Coding Level of Care Code Est Pt Level 3 (04399) Diagnoses Trochanteric bursitis, right hip M70.61 CPT Codes Coding - Joint 7: 52323 - Glenohumeral/Tronchanteric Bursa/Intraarticular ([id number])
[2023-08-28 08:29] VITALS: BMI 29.9
== END 2023-08-28 09:44 | disposition home or self-care (01) ==
PROVIDERS: PCP Internal Medicine; Visit Provider Physician Assistant
DX: M70.61 Trochanteric bursitis, right hip (principal)
CPT/HCPCS: 20610; 99213

== ENCOUNTER → 2023-08-28 08:12 | Outpatient (BNVA) | payer MEDICARE, MEDICAID, SELFPAY | PROVIDERS: PCP Internal Medicine; Visit Provider Physician Assistant | DX: M70.61 Trochanteric bursitis, right hip (principal) | CPT/HCPCS: 20610; 99212; J1040 ==

== ENCOUNTER 2023-09-06 11:14 | Outpatient (AMB) | payer MEDICARE, MEDICAID, SELFPAY ==
--- NOTE | 2023-09-06 11:32 | A.OFFVIS_ITS ---
Intake Vital Signs 09/06/23 11:41 09/06/23 11:42 Height 5 ft 6 in Weight 179 lb BMI 28.9 BP 172/102 H 176/102 H Blood Pressure Location Rt brachial Lt brachial Position Sitting Respiration 16 Pulse 96 Pulse Source Pulse Oximeter Pulse Oximetry (%) 98 Oxygen Delivery Method Room Air Intake Visit Reasons: SCS DISCUSSION Allergies ibuprofen [From Motrin] Allergy (Severe, Verified 09/06/23 11:41) stomach pain morphine Allergy (Verified 09/06/23 11:41) Rash Penicillins Allergy (Verified 09/06/23 11:41) Hives HPI HPI Comments History of Present Illness Details Rei is a pleasant Sami speaking 56 year old male who is in my office today for the discussion of the results of trial of intrathecal drug delivery system pain pump and prospects for further management. He developed brief episode of post dural puncture headache after trial of morphine in 2021. He also developed allergic reaction to morphine. He refuses to continue pain pump trials. I offered him in the past [facility] in he wants to go for the trial. His psych evaluation might have and if it is so we would need to try to endorse the previous psych evaluation.. Prior: ?He is suffering from spondylosis and disc degeneration of the lumbar spine mostly at L4- L5 level. Previously he has tried physical therapy but did not feel his symptoms were improving. He recently completed PT for his bilateral hand pain. Denies any chiropractic manipulation, massage or acupuncture. He has had injections for the hips at [facility]. Denies any previous back injections or surgery. He is unsure if he had any recent imaging of his lumbar spine. He went for L4-5 bilateral medial branch blocks and he reports only pain aggravation in no pain improvement.? After that we performed L4-5 L5 and S1 left transforaminal epidural steroid injection and he reports today that his pain is not getting better.? 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 Therefore I offered him a trial of intrathecal drug delivery system pain pump [facility] Medical History (Updated 08/28/23 @ 11:37 by Sheree Vargas PA-C) Asthma Sacroiliitis Disc degeneration, lumbar Fibromyalgia Bleeding hemorrhoids Smoker Major depression Hyperlipidemia Shoulder pain Rectal bleeding History of adenomatous polyp of colon Internal hemorrhoids Sigmoid diverticulosis Anxiety Arthritis High cholesterol Chronic back pain Surgical History History of elbow surgery H/O hemorrhoidectomy H/O shoulder surgery Hx of endoscopy Hx of colonoscopy Family History Father Diabetes Mother Alzheimer disease Dementia Brother No problems noted. Brother No problems noted. Sister No problems noted. Sister No problems noted. Son No problems noted. Daughter No problems noted. Daughter No problems noted. Social History Housing: Apartment Alcohol intake: current Alcohol intake frequency: does not drink Alcohol type: hard liquor Patient Tobacco Use Status: Current everyday Tobacco user Cigarette Packs Per Day: 1 Cigarettes Per Day: 20.0 e-Cigarette/Vaping Use: Never Used Second Hand Smoke Exposure: No service: No Current occupational status: unemployed Current occupation: Right Handed Cognitive needs: No Hearing needs: No Vision needs: No Review of Systems Const All systems reviewed & are unremarkable except as noted in HPI and below ENT Reports Normal hearing present Neuro Reports Normal hearing present and Denies Abnormal speech present Physical Exam Vital Signs: Last Vital Signs Pulse 96 09/06/23 11:41 Resp 16 09/06/23 11:41 BP 176/102 H 09/06/23 11:42 Pulse Ox 98 09/06/23 11:41 Oxygen Delivery Method Room Air 09/06/23 11:41 BMI result Body Mass Index 28.9 Const General: cooperative and no acute distress Orientation/consciousness: patient oriented x3 Resp Effort & Inspection: normal respiratory effort, able to speak in complete sentences and no audible wheezes Back/Spine/Pelvis Other: Reports pain mostly axial in nature across the lumbar spine with radiation into bilateral lower extremities. Neuro General: patient oriented x3 Cranial nerves: Yes Normal hearing present Speech: No Abnormal speech present Psych Mental Status: mental status grossly normal Speech and movement: Clear speech present Attitude: cooperative Thought process: Normal thought process present Thought content: Normal thought content present Insight: Good insight present (Psych) Judgement: Good judgement present (Psych) Assessment & Plan Assessment & Plan (1) Spondylosis of lumbar region without myelopathy or radiculopathy: Code(s): M47.816 - Spondylosis without myelopathy or radiculopathy, lumbar region (2) Pain of both sacroiliac joints: Code(s): M53.3 - Sacrococcygeal disorders, not elsewhere classified (3) Disc degeneration, lumbar: Code(s): M51.36 - Other intervertebral disc degeneration, lumbar region (4) Sacroiliitis: Code(s): M46.1 - Sacroiliitis, not elsewhere classified Isaiah Minaya is a very pleasant 56 years old gentleman received a trial of morphine I DDD. He developed brief episode of post dural puncture headache and he developed allergic reaction to intrathecal morphine. I explained to him that this might not be necessary occurrence with next I DDD trial but he wants to proceed with a trial of SCS Nevro. I will schedule him for the procedure. Will try to endorse previous psych evaluation. Patient Instructions: I here by testify that I spent 30 minutes in conversation with this patient with the help of our office bilingual interpreter Jacki, I also was planning his care and organizing this note. Coding Level of Care Code Est Pt Level 4 (11049) Diagnoses Spondylosis of lumbar region without myelopathy or radiculopathy M47.816 Pain of both sacroiliac joints M53.3 Disc degeneration, lumbar M51.36 Sacroiliitis M46.1
[2023-09-06 11:41] VITALS: BP 172/102; PULSE 96; RESP 16; O2SAT 98; BMI 28.9
[2023-09-06 11:42] VITALS: BP 176/102
== END 2023-09-06 11:54 | disposition home or self-care (01) ==
PROVIDERS: PCP Internal Medicine; Visit Provider Anesthesiology
DX: M47.816 Spondylosis without myelopathy or radiculopathy, lumbar region (principal); M53.3 Sacrococcygeal disorders, not elsewhere classified; M51.36 Other intervertebral disc degeneration, lumbar region; M46.1 Sacroiliitis, not elsewhere classified
CPT/HCPCS: 99214

== ENCOUNTER → 2023-09-06 11:14 | Outpatient (BNVA) | payer MEDICARE, MEDICAID, SELFPAY | PROVIDERS: PCP Internal Medicine; Visit Provider Anesthesiology | DX: M47.816 Spondylosis without myelopathy or radiculopathy, lumbar region (principal); M53.3 Sacrococcygeal disorders, not elsewhere classified; M51.36 Other intervertebral disc degeneration, lumbar region; M46.1 Sacroiliitis, not elsewhere classified | CPT/HCPCS: 99212 ==

== ENCOUNTER 2023-10-19 04:36 | Emergency (ER) | payer MEDICARE, MEDICAID, SELFPAY ==
[2023-10-19 04:48] VITALS: BP 158/99; PULSE 108; RESP 20; TEMP 37.2; O2SAT 95; BMI 28.4
--- NOTE | 2023-10-19 05:33 | ED.SOB ---
HPI - SOB/Dyspnea General Chief Complaint: Dyspnea Stated Complaint: Asthma Time Seen by Provider: 10/19/23 05:23 Source: patient and family Mode of arrival: ambulatory Limitations: no limitations History of Present Illness HPI Narrative: Patient comes to the emergency room accompanied by his . Patient complaining of asthma exacerbation. Patient states that his neb machine at home treatments are not working. Patient denies any chest pain. Patient has not been using steroids within the last few weeks. Related Data Home Medications Medication Instructions Recorded Confirmed gabapentin 400 mg capsule 400 mg PO TID 09/13/21 04/03/23 trazodone 50 mg tablet 25 - 50 mg PO BEDTIME 12/27/21 04/03/23 Previous Rx's Medication Instructions Recorded dicyclomine 20 mg tablet 20 mg PO TID PRN abdominal pain 30 09/13/21 days #60 tabs meloxicam 7.5 mg tablet 7.5 mg PO DAILY #14 tabs 10/01/22 nicotine 21 mg/24 hr daily 1 patch transdermal DAILY #28 ea 02/02/23 transdermal patch albuterol sulfate 2.5 mg/3 mL 2.5 mg (3 mL) inhalation Q4-6H PRN 08/25/23 (0.083 %) solution for nebulization shortness of breath or wheezing #90 mL benzonatate 200 mg capsule 200 mg PO TID PRN cough #30 caps 08/25/23 nebulizer and compressor #1 ea 08/25/23 prednisone 20 mg tablet 40 mg (2 x 20 mg) PO DAILY #10 tabs 08/25/23 albuterol sulfate 90 mcg/actuation 2 puff inhalation Q4-6H PRN 10/18/23 aerosol inhaler (ProAir HFA) shortness of breath or wheezing #8.5 grams albuterol sulfate 2.5 mg/3 mL 2.5 mg (3 mL) inhalation Q4H PRN 10/19/23 (0.083 %) solution for nebulization shortness of breath or wheezing #75 mL albuterol sulfate 90 mcg/actuation 2 puff inhalation Q4-6H PRN 10/19/23 aerosol inhaler shortness of breath or wheezing #8.5 grams prednisone 50 mg tablet 50 mg PO DAILY #4 tabs 10/19/23 Allergies Allergy/AdvReac Type Severity Reaction Status Date / Time ibuprofen [From Motrin] Allergy Severe stomach Verified 09/06/23 11:41 pain morphine Allergy Rash Verified 09/06/23 11:41 Penicillins Allergy Hives Verified 09/06/23 11:41 Review of Systems Review of Systems: Constitutional : No Weight loss, No Fever, No Chills, No Night Sweats, No Fatigue, No Malaise ENT/Mouth : No Hearing loss, No Ear Pain, No Nasal Congestion, No Sinus Pain, No Hoarseness, No sore throat, No Rhinorrhea, No Swallowing Difficulty Eyes: No Eye Pain, No Swelling, No Redness, No Foreign Body, No Discharge, No Vision Changes Cardiovascular : No Chest Pain, No SOB, No Dyspnea on Exertion, No Orthopnea, No Edema, No Palpitations Respiratory : Complaining of cough, wheezing, shortness of breath Gastrointestinal : No Nausea, No Vomiting, No Diarrhea, No Constipation, No abdominal Pain, No Hematochezia, No Melena Genitourinary : no irregular bleeding, No Dysuria, No Urinary Frequency, No Hematuria, No Urinary Incontinence, No Urgency, No Flank Pain, No Urinary Flow Changes, No Hesitancy Musculoskeletal : No joint pain, No Myalgias, No Joint Swelling Skin : No Skin Lesions, No rash Neuro : No Weakness, No Numbness, No Paresthesias, No Loss of Consciousness, No Dizziness, No Headache Psych : No Anxiety/Panic, No Depression, No SI/HI/AH/VH, No Social Issues, Heme/Lymph: No Bruising, No Bleeding,No Lymphadenopathy Endocrine : No Polyuria, No Polydipsia, No Temperature Intolerance PMFSH Past Medical History Medical History Asthma Sacroiliitis Disc degeneration, lumbar Fibromyalgia Bleeding hemorrhoids Smoker Major depression Hyperlipidemia Shoulder pain Rectal bleeding History of adenomatous polyp of colon Internal hemorrhoids Sigmoid diverticulosis Anxiety Arthritis High cholesterol Chronic back pain Surgical History History of elbow surgery H/O hemorrhoidectomy H/O shoulder surgery Hx of endoscopy Hx of colonoscopy Family History Family History Father Diabetes Mother Alzheimer disease Dementia Brother No problems noted. Brother No problems noted. Sister No problems noted. Sister No problems noted. Son No problems noted. Daughter No problems noted. Daughter No problems noted. Social History Social History Housing: Apartment Alcohol intake: current Alcohol intake frequency: does not drink Alcohol type: hard liquor Patient Tobacco Use Status: Current everyday Tobacco user Cigarette Packs Per Day: 1 Cigarettes Per Day: 20.0 e-Cigarette/Vaping Use: Never Used Second Hand Smoke Exposure: No Advance Directives: No Advance Directives Information Provided: Yes service: No Current occupational status: unemployed Current occupation: Right Handed Cognitive needs: No Hearing needs: No Vision needs: No Physical Exam Vital Signs: Vital Signs: Last Vital Signs Temp 98.9 F 10/19/23 04:48 Pulse 108 H 10/19/23 04:48 Resp 20 10/19/23 04:48 BP 158/99 H 10/19/23 04:48 Pulse Ox 95 10/19/23 04:48 O2 Del Method Room Air 10/19/23 04:48 BMI result Body Mass Index 28.4 Const: Other: Appearance: Alert. Oriented X3. Very anxious Eyes: Pupils equal, round and reactive to light. ENT: Pharynx normal. Neck: Normal inspection. Neck supple. No lymph nodes noted. No crepitus CVS: Normal heart rate and rhythm. Pulses normal. Normal S1 and S2 Respiratory: No respiratory distress. Breath sounds normal. No Wheezing. No rales Abdomen: Soft and nontender. No rigidity. No distention. Skin: Skin warm and dry. Normal skin color. Normal skin turgor. Extremities: No lower extremity edema. No Lacerations. No Rash Neuro: Oriented X 3. No motor deficit. No sensory deficit. Moving all extremities. No slurred speech. CN 2 through 12 grossly intact Psych: calm, cooperative, very anxious Course Course Course Narrative: -patient is not wheezing at all, oxygen saturation 99% on room air. Patient is very anxious. -at this time, patient does not need a breathing treatment, airway is completely open, oxygen saturation 99% on room air. -patient was given p.o. prednisone and 1 mg of Ativan for his anxiety. Medications Administered Discontinued Medications Generic Name Dose Route Start Last Admin Trade Name Freq PRN Reason Stop Dose Admin Lorazepam 1 mg 10/19/23 05:34 10/19/23 05:53 Lorazepam 1 Mg Tablet PO 10/19/23 05:35 1 mg ONCE ONE Administration Prednisone 60 mg 10/19/23 05:32 10/19/23 05:53 Prednisone 20 Mg Tablet PO 10/19/23 05:33 60 mg ONCE ONE Administration Medical Decision Making Medical Decision Making [facility] [place] Narrative: Patient came in with normal vitals, not wheezing. Seems that patient symptoms are related to anxiety. Differential Diagnosis Differential Diagnoses: The differential diagnosis associated with the presentation includes (Asthma exacerbation, anxiety) Lab Data [facility] [place] Lab Attestation statement: I reviewed the patient's lab results. Labs: Lab Results 10/19/23 Range/Units 05:54 Influenza Type A (PCR) NEGATIVE (Negative) Influenza Type B (PCR) NEGATIVE (Negative) RSV RNA Qual (PCR) NEGATIVE (Negative) SARS-CoV-2 RNA (RT-PCR) NEGATIVE (Negative) Discharge Plan Discharge Clinical Impression: Asthma, Anxiety Patient Disposition: Home, Self-Care Instructions: Asthma (ED) Additional Instructions: Please follow-up with your primary care physician tomorrow. If you have any worsening or new symptoms, please return to the emergency room or call 911 Prescriptions: New prednisone 50 mg tablet 50 mg PO DAILY Qty: 4 0RF Rx Instructions: Starting 10/20/2023 1st dose given 10/19/2023 albuterol sulfate 90 mcg/actuation HFA aerosol inhaler 2 puff inhalation Q4-6H PRN (Reason: shortness of breath or wheezing) Qty: 8.5 0RF albuterol sulfate 2.5 mg /3 mL (0.083 %) solution for nebulization 2.5 mg inhalation Q4H PRN (Reason: shortness of breath or wheezing) Qty: 75 0RF No Action albuterol sulfate [ProAir HFA] 90 mcg/actuation HFA aerosol inhaler 2 puff inhalation Q4-6H PRN (Reason: shortness of breath or wheezing) Qty: 8.5 3RF meloxicam 7.5 mg tablet 7.5 mg PO DAILY Qty: 14 0RF albuterol sulfate 2.5 mg /3 mL (0.083 %) solution for nebulization 2.5 mg inhalation Q4-6H PRN (Reason: shortness of breath or wheezing) Qty: 90 0RF benzonatate 200 mg capsule 200 mg PO TID PRN (Reason: cough) Qty: 30 0RF prednisone 20 mg tablet 40 mg PO DAILY Qty: 10 0RF (DME) nebulizer and compressor Device See Rx Instructions .Route Qty: 1 0RF Rx Instructions: As directed nicotine 21 mg/24 hr patch 24 hour 1 patch transdermal DAILY Qty: 28 3RF gabapentin 400 mg capsule 400 mg PO TID dicyclomine 20 mg tablet 20 mg PO TID PRN (Reason: abdominal pain) 30 Days Qty: 60 3RF trazodone 50 mg tablet 25 - 50 mg PO BEDTIME
[2023-10-19] MEDS: LORazepam 1 MG TABLET PO (05:53)
[2023-10-19] MEDS: predniSONE 20 MG TABLET 60 MG PO (05:53)
[2023-10-19 06:38] LABS: Influenza A PCR NEGATIVE (Negative); Influenza B PCR NEGATIVE (Negative); Resp Syncy Virus RNA Qual PCR NEGATIVE (Negative); SARS COV2 PCR INHOUSE NEGATIVE (Negative)
== END 2023-10-19 06:56 | disposition home or self-care (01) ==
PROVIDERS: Emergency Provider Emergency Medicine; PCP Internal Medicine
DX: J45.909 Unspecified asthma, uncomplicated (principal); F41.9 Anxiety disorder, unspecified; Z20.822 Contact with and (suspected) exposure to COVID-19; Z20.828 Contact with and (suspected) exposure to other viral communicable diseases; F17.210 Nicotine dependence, cigarettes, uncomplicated
CPT/HCPCS: 0241U; 99283; 99284

== ENCOUNTER 2023-11-04 01:33 | Emergency (ER) | payer MEDICARE, MEDICAID, SELFPAY ==
--- NOTE | ~2023-11-04 | XR_ITS ---
EXAMINATION: XR CHEST CLINICAL INFORMATION: Cough COMPARISON: 08/25/2023 TECHNIQUE: 2 views of the chest were obtained. FINDINGS: No significant abnormality is noted involving the heart, lungs, mediastinum, bony thorax or soft tissues. XR/XR chest 2V IMPRESSION: Unremarkable examination.
[2023-11-04 01:36] VITALS: BP 145/101; PULSE 90; RESP 16; TEMP 36.6; O2SAT 94; BMI 29.0
--- NOTE | 2023-11-04 03:04 | ECG_ITS ---
Test Reason : SOB Blood Pressure : / mmHG Vent. Rate : 078 BPM Atrial Rate : 078 BPM P-R Int : 158 ms QRS Dur : 090 ms QT Int : 402 ms P-R-T Axes : 066 065 074 degrees QTc Int : 458 ms Normal sinus rhythm Normal ECG When compared with ECG of 25-AUG-2023 19:53, No significant change was found Referred By: Mariama Harrison Electronically Signed By:STEFANIA CARTAGENA MD
--- NOTE | 2023-11-04 03:06 | ED.SOB ---
HPI - SOB/Dyspnea General Chief Complaint: Dyspnea Stated Complaint: coughing, sometimes coughing blood, hx ashtma Time Seen by Provider: 11/04/23 02:58 Source: patient and family Mode of arrival: ambulatory Limitations: no limitations History of Present Illness HPI Narrative: patient comes to the emergency room accompanied by his . Patient complaining of shortness of breath with exertion and wheezing. Patient denies syncope or near syncope, no chest pain, no lower extremity swelling. Patient states that sometimes he coughs so hard that he sees blood in the cough. Patient denies nausea vomiting or diarrhea Related Data Home Medications Medication Instructions Recorded Confirmed gabapentin 400 mg capsule 400 mg PO TID 09/13/21 04/03/23 trazodone 50 mg tablet 25 - 50 mg PO BEDTIME 12/27/21 04/03/23 Previous Rx's Medication Instructions Recorded dicyclomine 20 mg tablet 20 mg PO TID PRN abdominal pain 30 09/13/21 days #60 tabs meloxicam 7.5 mg tablet 7.5 mg PO DAILY #14 tabs 10/01/22 nicotine 21 mg/24 hr daily 1 patch transdermal DAILY #28 ea 02/02/23 transdermal patch albuterol sulfate 2.5 mg/3 mL 2.5 mg (3 mL) inhalation Q4-6H PRN 08/25/23 (0.083 %) solution for nebulization shortness of breath or wheezing #90 mL benzonatate 200 mg capsule 200 mg PO TID PRN cough #30 caps 08/25/23 nebulizer and compressor #1 ea 08/25/23 prednisone 20 mg tablet 40 mg (2 x 20 mg) PO DAILY #10 tabs 08/25/23 albuterol sulfate 90 mcg/actuation 2 puff inhalation Q4-6H PRN 10/18/23 aerosol inhaler (ProAir HFA) shortness of breath or wheezing #8.5 grams albuterol sulfate 2.5 mg/3 mL 2.5 mg (3 mL) inhalation Q4H PRN 10/19/23 (0.083 %) solution for nebulization shortness of breath or wheezing #75 mL albuterol sulfate 90 mcg/actuation 2 puff inhalation Q4-6H PRN 10/19/23 aerosol inhaler shortness of breath or wheezing #8.5 grams prednisone 50 mg tablet 50 mg PO DAILY #4 tabs 10/19/23 albuterol sulfate 2.5 mg/3 mL 2.5 mg (3 mL) inhalation Q4H #75 mL 11/04/23 (0.083 %) solution for nebulization albuterol sulfate 90 mcg/actuation 2 puff inhalation Q4-6H PRN 11/04/23 aerosol inhaler shortness of breath or wheezing #8.5 grams prednisone 50 mg tablet 50 mg PO DAILY #4 tabs 11/04/23 Allergies Allergy/AdvReac Type Severity Reaction Status Date / Time ibuprofen [From Motrin] Allergy Severe stomach Verified 09/06/23 11:41 pain morphine Allergy Rash Verified 09/06/23 11:41 Penicillins Allergy Hives Verified 09/06/23 11:41 Review of Systems Review of Systems: Constitutional : No Weight loss, No Fever, No Chills, No Night Sweats, No Fatigue, No Malaise ENT/Mouth : No Hearing loss, No Ear Pain, No Nasal Congestion, No Sinus Pain, No Hoarseness, No sore throat, No Rhinorrhea, No Swallowing Difficulty Eyes: No Eye Pain, No Swelling, No Redness, No Foreign Body, No Discharge, No Vision Changes Cardiovascular : No Chest Pain, No SOB, No Dyspnea on Exertion, No Orthopnea, No Edema, No Palpitations Respiratory : complaining of cough, wheezing Gastrointestinal : No Nausea, No Vomiting, No Diarrhea, No Constipation, No abdominal Pain, No Hematochezia, No Melena Genitourinary : no irregular bleeding, No Dysuria, No Urinary Frequency, No Hematuria, No Urinary Incontinence, No Urgency, No Flank Pain, No Urinary Flow Changes, No Hesitancy Musculoskeletal : No joint pain, No Myalgias, No Joint Swelling Skin : No Skin Lesions, No rash Neuro : No Weakness, No Numbness, No Paresthesias, No Loss of Consciousness, No Dizziness, No Headache Psych : No Anxiety/Panic, No Depression, No SI/HI/AH/VH, No Social Issues, Heme/Lymph: No Bruising, No Bleeding,No Lymphadenopathy Endocrine : No Polyuria, No Polydipsia, No Temperature Intolerance PMFSH Past Medical History Medical History Asthma Sacroiliitis Disc degeneration, lumbar Fibromyalgia Bleeding hemorrhoids Smoker Major depression Hyperlipidemia Shoulder pain Rectal bleeding History of adenomatous polyp of colon Internal hemorrhoids Sigmoid diverticulosis Anxiety Arthritis High cholesterol Chronic back pain Surgical History History of elbow surgery H/O hemorrhoidectomy H/O shoulder surgery Hx of endoscopy Hx of colonoscopy Family History Family History Father Diabetes Mother Alzheimer disease Dementia Brother No problems noted. Brother No problems noted. Sister No problems noted. Sister No problems noted. Son No problems noted. Daughter No problems noted. Daughter No problems noted. Social History Social History Housing: Apartment Alcohol intake: current Alcohol intake frequency: does not drink Alcohol type: hard liquor Patient Tobacco Use Status: Current everyday Tobacco user Cigarette Packs Per Day: 1 Cigarettes Per Day: 20.0 Smoked in Last 30 Days: No e-Cigarette/Vaping Use: Never Used Second Hand Smoke Exposure: No Use of substances other than those prescribed or required for medical reasons: No Advance Directives: No Advance Directives Information Provided: No service: No Current occupational status: unemployed Current occupation: Right Handed Cognitive needs: No Hearing needs: No Vision needs: No Physical Exam Vital Signs: Vital Signs: Last Vital Signs Temp 97.3 F 11/04/23 05:21 Pulse 85 11/04/23 05:21 Resp 16 11/04/23 05:21 BP 128/85 11/04/23 05:21 Pulse Ox 92 11/04/23 05:21 O2 Del Method Room Air 11/04/23 05:21 BMI result Body Mass Index 29.0 Const: Other: Appearance: Alert. Oriented X3. No acute distress. Eyes: Pupils equal, round and reactive to light. ENT: Pharynx normal. Neck: Normal inspection. Neck supple. No lymph nodes noted. No crepitus CVS: Normal heart rate and rhythm. Pulses normal. Normal S1 and S2 Respiratory: No respiratory distress. bilateral wheezing, no rales or crackles Abdomen: Soft and nontender. No rigidity. No distention. Skin: Skin warm and dry. Normal skin color. Normal skin turgor. Extremities: No lower extremity edema. No Lacerations. No Rash Neuro: Oriented X 3. No motor deficit. No sensory deficit. Moving all extremities. No slurred speech. CN 2 through 12 grossly intact Psych: calm, cooperative, normal affect Course Course Course Narrative: - patient receiving nebulization treatments, IV magnesium and prednisone. - Patient's EKG labs and imaging pending Medications Administered Discontinued Medications Generic Name Dose Route Start Last Admin Trade Name Brina PRN Reason Stop Dose Admin Albuterol Sulfate 7.5 mg 11/04/23 03:05 11/04/23 03:23 Albuterol Sulfate (0.083%) 2.5 Mg/3 Ml Vial.Neb INHALE 11/04/23 03:06 7.5 mg ONCE ONE Administration Magnesium Sulfate 2 gm in 50 mls @ 25 mls/hr 11/04/23 03:05 11/04/23 03:56 Magnesium Sulfate/H2o IV 11/04/23 05:04 25 mls/hr ONCE ONE Administration Methylprednisolone Sodium Succinate 125 mg 11/04/23 03:05 11/04/23 03:56 Methylprednisolone Sod Succ 125 Mg/2 Ml Vial IVPUSH 11/04/23 03:06 125 mg ONCE ONE Administration Medical Decision Making Medical Decision Making [facility] Narrative: - my interpretation of chest x-ray: No infiltrate - my interpretation of labs: Normal hematology, normal chemistry, normal coagulation, normal troponin and BNP. - Patient improved with steroids and albuterol. - Patient has a remote history of smoking. Discussed with the patient that it would be good to follow up with pulmonology for pulmonary function tests to rule out COPD at this time, patient does not have the diagnosis Differential Diagnosis Differential Diagnoses: The differential diagnosis associated with the presentation includes ( asthma, pneumonia, viral illness) Admission/Observation Consideration of admission/observation: Escalation of care including admission/observation considered ( patient came in complaining of asthma exacerbation, admission was considered) Lab Data [facility] Lab Attestation statement: I reviewed the patient's lab results. 11/04/23 03:38 11/04/23 03:38 Labs: Lab Results 11/04/23 11/04/23 Range/Units 02:49 03:38 WBC 10.0 (4.8-10.8) X10*3/uL RBC 4.53 L (4.60-5.80) X10*6/uL Hgb 14.4 (14.0-18.0) g/dl Hct 41.7 L (42.0-52.0) % MCV 92.1 (80.0-98.0) fL MCH 31.8 (27.0-33.0) pg MCHC 34.5 (31.0-36.0) g/dl RDW 12.3 (11.0-16.0) % Plt Count 342 D (160-400) X10*3/uL MPV 8.9 L (9.4-12.4) fL Immature Gran % (Auto) 0.3 (0.0-0.4) % Neut % (Auto) 63.7 (45-73) % Lymph % (Auto) 18.6 L (20-40) % [place] % (Auto) 6.9 (2-11) % Eos % (Auto) 9.4 H (0-4) % Baso % (Auto) 1.1 (0-2) % Lymph # (Auto) 1.9 (1.2-4.9) X10*3/uL [place] # (Auto) 0.7 (0.1-1.2) X10*3/uL Eos # (Auto) 0.9 H (0.0-0.4) X10*3/uL Baso # (Auto) 0.1 (0.0-0.2) X10*3/uL Abs Immat Gran (auto) 0.03 (0.00-0.03) X10*3/uL Absolute Neuts (auto) 6.4 (2.0-8.3) x10*3/uL Absolute Nucleated RBC 0.000 (0.0-0.012) X10*3/uL Nucleated RBC % (auto) 0.0 (0.0-0.2) /100WBC PT 11.5 (11.1-13.3) SEC INR 0.9 (0.9-1.1) Sodium 137 (135-145) mmol/L Potassium 3.8 (3.3-5.1) mmol/L Chloride 103 (96-108) mmol/L Carbon Dioxide 24 (22-29) mmol/L Anion Gap 14 (12-20) BUN 13 (9-16) mg/dL Creatinine 0.79 (0.5-1.4) mg/dL Estim Creat Clear Calc 105.5 Estimated GFR > 60 Random Glucose 100 (60-115) mg/dL Calcium 9.4 D (8.4-10.2) mg/dL Troponin I High Sens < 2.7 (<3.5-35.0) ng/L B-Natriuretic Peptide 13 (<100) pg/mL Influenza Type A (PCR) NEGATIVE (Negative) Influenza Type B (PCR) NEGATIVE (Negative) RSV RNA Qual (PCR) NEGATIVE (Negative) SARS-CoV-2 RNA (RT-PCR) NEGATIVE (Negative) Independent Interpretation I performed an independent interpretation of an: Plain X-Ray Radiology Impression Discussion of test interpretation with radiology: I have reviewed the radiologist's reading. Radiologist Impression: No significant abnormality is noted involving the heart, lungs, mediastinum, bony thorax or soft tissues. XR/XR chest 2V IMPRESSION: Unremarkable examination. Independent Historian Clinical information obtained from an independent historian. History obtained from or confirmed by: Spouse Critical Care Time Critical Care Time Critical Care Time: Yes Total Critical Care Time: 30 Attestation: I have personally provided critical care time. Time includes review of lab data, radiology results, discussion with consultants, and monitoring for potential decompensation. Intervention performed as documented. Discharge Plan Discharge Clinical Impression: Asthma Patient Disposition: Home, Self-Care Instructions: Asthma (ED) Additional Instructions: Please follow-up with your primary care physician tomorrow. If you have any worsening or new symptoms, please return to the emergency room or call 911 Prescriptions: New albuterol sulfate 90 mcg/actuation HFA aerosol inhaler 2 puff inhalation Q4-6H PRN (Reason: shortness of breath or wheezing) Qty: 8.5 1RF albuterol sulfate 2.5 mg /3 mL (0.083 %) solution for nebulization 2.5 mg inhalation Q4H Qty: 75 0RF prednisone 50 mg tablet 50 mg PO DAILY Qty: 4 0RF No Action albuterol sulfate [ProAir HFA] 90 mcg/actuation HFA aerosol inhaler 2 puff inhalation Q4-6H PRN (Reason: shortness of breath or wheezing) Qty: 8.5 3RF meloxicam 7.5 mg tablet 7.5 mg PO DAILY Qty: 14 0RF albuterol sulfate 2.5 mg /3 mL (0.083 %) solution for nebulization 2.5 mg inhalation Q4-6H PRN (Reason: shortness of breath or wheezing) Qty: 90 0RF benzonatate 200 mg capsule 200 mg PO TID PRN (Reason: cough) Qty: 30 0RF prednisone 20 mg tablet 40 mg PO DAILY Qty: 10 0RF (DME) nebulizer and compressor Device See Rx Instructions .Route Qty: 1 0RF Rx Instructions: As directed prednisone 50 mg tablet 50 mg PO DAILY Qty: 4 0RF Rx Instructions: Starting 10/20/2023 1st dose given 10/19/2023 albuterol sulfate 90 mcg/actuation HFA aerosol inhaler 2 puff inhalation Q4-6H PRN (Reason: shortness of breath or wheezing) Qty: 8.5 0RF albuterol sulfate 2.5 mg /3 mL (0.083 %) solution for nebulization 2.5 mg inhalation Q4H PRN (Reason: shortness of breath or wheezing) Qty: 75 0RF nicotine 21 mg/24 hr patch 24 hour 1 patch transdermal DAILY Qty: 28 3RF gabapentin 400 mg capsule 400 mg PO TID dicyclomine 20 mg tablet 20 mg PO TID PRN (Reason: abdominal pain) 30 Days Qty: 60 3RF trazodone 50 mg tablet 25 - 50 mg PO BEDTIME Referrals: Rei Bailey MD [Physician] - 11/07/23 (asthma/copd, pulm function test)
[2023-11-04] MEDS: Albuterol Sulfate (0.083%) 2.5 MG/3 ML VIAL.NEB 7.5 MG INHALE (03:23)
[2023-11-04 03:24] VITALS: PULSE 76; RESP 16; O2SAT 96
[2023-11-04 03:30] LABS: Influenza A PCR NEGATIVE (Negative); Influenza B PCR NEGATIVE (Negative); Resp Syncy Virus RNA Qual PCR NEGATIVE (Negative); SARS COV2 PCR INHOUSE NEGATIVE (Negative)
[2023-11-04 03:42] LABS: MANUAL DIFF FLAG NO
[2023-11-04 03:44] LABS: Basophils Absolute Auto 0.1 X10*3/uL (0.0-0.2); Basophils Percent Auto 1.1 % (0-2); Eosinophils Absolute Auto 0.9 X10*3/uL (0.0-0.4); Eosinophils Percent Auto 9.4 % (0-4); Hematocrit 41.7 % (42.0-52.0); Hemoglobin 14.4 g/dl (14.0-18.0); Imm Gran Abs Auto 0.03 X10*3/uL (0.00-0.03); Imm Gran Pct Auto 0.3 % (0.0-0.4); Lymphocytes Absolute Auto 1.9 X10*3/uL (1.2-4.9); Lymphocytes Percent Auto 18.6 % (20-40); Mean Corpuscular HGB Conc 34.5 g/dl (31.0-36.0); Mean Corpuscular Hemoglobin 31.8 pg (27.0-33.0); Mean Corpuscular Volume 92.1 fL (80.0-98.0); Mean Platelet Volume 8.9 fL (9.4-12.4); Monocytes Absolute Auto 0.7 X10*3/uL (0.1-1.2); Monocytes Percent Auto 6.9 % (2-11); Neutrophils Absolute Auto 6.4 x10*3/uL (2.0-8.3); Neutrophils Percent Auto 63.7 % (45-73); Platelet Count 342 X10*3/uL (160-400); Red Blood Count 4.53 X10*6/uL (4.60-5.80); Red Cell Distribution Width 12.3 % (11.0-16.0)
[2023-11-04 03:52] LABS: INTERNATIONAL NORM RATIO 0.9 (0.9-1.1); Prothrombin Time 11.5 SEC (11.1-13.3)
[2023-11-04] MEDS: methylPREDNISolone Sod Succ 125 MG/2 ML VIAL IVPUSH (03:56)
[2023-11-04] MEDS: Magnesium Sulfate/H2O 2 GM/50 ML PIGGYBACK IV (03:56)
[2023-11-04 04:00] LABS: Anion Gap 14 (12-20); Blood Urea Nitrogen 13 mg/dL (9-16); Calcium 9.4 mg/dL (8.4-10.2); Carbon Dioxide 24 mmol/L (22-29); Chloride 103 mmol/L (96-108); Creatinine Clr Calc Pharmacy 105.5; Estimated Glomerular Filt Rate > 60; Glucose Random 100 mg/dL (60-115); Potassium 3.8 mmol/L (3.3-5.1); Sodium 137 mmol/L (135-145)
[2023-11-04 04:04] LABS: B Type Natriuretic Peptide 13 pg/mL (<100)
[2023-11-04 04:22] LABS: Troponin-I High Sensitivity < 2.7 ng/L (<3.5-35.0)
[2023-11-04 05:21] VITALS: BP 128/85; PULSE 85; RESP 16; TEMP 36.3; O2SAT 92
== END 2023-11-04 06:19 | disposition home or self-care (01) ==
PROVIDERS: Emergency Provider Emergency Medicine; PCP Internal Medicine
DX: J45.909 Unspecified asthma, uncomplicated (principal); R06.02 Shortness of breath; R05.9 Cough, unspecified; R11.2 Nausea with vomiting, unspecified; Z20.822 Contact with and (suspected) exposure to COVID-19; Z20.828 Contact with and (suspected) exposure to other viral communicable diseases; Z79.899 Other long term (current) drug therapy
CPT/HCPCS: 0241U; 36415; 71046; 80048; 83880; 84484; 85025; 85610; 93005; 94640; 96374; 96375; 99284; 99285; J2930; J3475

== ENCOUNTER → 2023-11-04 03:04 | Outpatient (BNV) | payer MEDICARE, MEDICAID, SELFPAY | PROVIDERS: Emergency Provider Emergency Medicine; PCP Internal Medicine; Visit Provider Internal Medicine Cardiovascular Disease | DX: R06.02 Shortness of breath (principal) | CPT/HCPCS: 93010 ==

== ENCOUNTER 2023-11-07 13:38 | Outpatient (AMB) | payer MEDICARE, MEDICAID, SELFPAY ==
[2023-11-07 13:39] VITALS: BP 138/86; PULSE 85; O2SAT 93; BMI 29.3
--- NOTE | 2023-11-07 13:39 | A.OFFPC_ITS ---
Vital Signs 11/07/23 13:39 Height 5 ft 7 in Weight 187 lb 0.6 oz BMI 29.3 BP 138/86 Blood Pressure Location Lt brachial Position Sitting Pulse 85 Pulse Source Pulse Oximeter Pulse Oximetry (%) 93 Oxygen Delivery Method Room Air Intake [place] Re[place] [facility] [place] - Severe Asthma/ SOB [employer] Inspector Required: No Allergies ibuprofen [From Motrin] Allergy (Severe, Verified 11/07/23 13:39) stomach pain morphine Allergy (Verified 11/07/23 13:39) Rash Penicillins Allergy (Verified 11/07/23 13:39) Hives Medication List - Last Reconciled 11/07/23 by Servando Willard MD albuterol sulfate 2.5 mg (3 mL) inhalation Q4H PRN albuterol sulfate 90 mcg/actuation 2 puffs inhalation Q4-6H PRN albuterol sulfate 2.5 mg (3 mL) inhalation Q4H albuterol sulfate 90 mcg/actuation (ProAir HFA) 2 puffs inhalation Q4-6H PRN benzonatate 200 mg PO TID PRN dicyclomine 20 mg PO TID PRN 30 days gabapentin 400 mg PO TID meloxicam 7.5 mg PO DAILY nebulizer and compressor As directed nicotine 1 patch transdermal DAILY prednisone 50 mg PO DAILY trazodone 25 - 50 mg PO BEDTIME Tobacco use date assessed: 11/07/23 H[place] [facility] [place] - Severe Asthma/ SOB HPI Details had an er visit for asthma; given steroids and improved; er recommended a pulmonary f/u PFSH Medical History Asthma Sacroiliitis Disc degeneration, lumbar Fibromyalgia Bleeding hemorrhoids Smoker Major depression Hyperlipidemia Shoulder pain Rectal bleeding History of adenomatous polyp of colon Internal hemorrhoids Sigmoid diverticulosis Anxiety Arthritis High cholesterol Chronic back pain Surgical History History of elbow surgery H/O hemorrhoidectomy H/O shoulder surgery Hx of endoscopy Hx of colonoscopy Family History Father Diabetes Mother Alzheimer disease Dementia Brother No problems noted. Brother No problems noted. Sister No problems noted. Sister No problems noted. Son No problems noted. Daughter No problems noted. Daughter No problems noted. Social History Housing: Apartment Alcohol intake: current Alcohol intake frequency: does not drink Alcohol type: hard liquor Patient Tobacco Use Status: Current everyday Tobacco user Cigarette Packs Per Day: 1 Cigarettes Per Day: 20.0 e-Cigarette/Vaping Use: Never Used Second Hand Smoke Exposure: No service: No Current occupational status: unemployed Current occupation: Right Handed Cognitive needs: No Hearing needs: No Vision needs: No Questionnaire Thrive Questionnaire Date Thrive assessed: 02/02/23 AUDIT C Alcohol Use Questionnaire (AUDIT-C) 1. How often do you have a drink containing alcohol?: Never Total Score: 0 Score Reviewed/Action Taken: Yes FILEMON-7 AMB Questionnaire FILEMON-7 Date FILEMON - 7 assessed: 02/02/23 Source: Developed by Drs. José Miguel Mcclellan, Tessie Mcclain, Yair Sethi and colleagues, with an educational sudhakar from [employer]. Review of Systems Const Denies chills, Denies headache(s) and Denies weight loss ENT Denies headache(s) Card Denies chest pain, Denies syncope, Denies irregular heart rhythm and Denies dyspnea Resp Denies chest congestion, Denies cough and Denies dyspnea GI Denies abdominal pain, Denies change in stool character, Denies nausea and Denies vomiting Musc Denies deformity and Denies joint swelling Neuro Denies syncope and Denies headache(s) Physical exam (Primary Care) Vital Signs: Last Vital Signs Pulse 85 11/07/23 13:39 BP 138/86 11/07/23 13:39 Pulse Ox 93 11/07/23 13:39 Oxygen Delivery Method Room Air 11/07/23 13:39 BMI result Body Mass Index 29.3 Tobacco/Smoking Status: Tobacco use Status Tobacco use date assessed 11/07/23 11/07/23 13:40 Patient Tobacco Use Status Current everyday Tobacco 11/07/23 13:40 e-Cigarette/Vaping Use Never Used 11/07/23 13:40 Thrive Assessment: Date of Thrive Assessment Date Thrive assessed 02/02/23 11/07/23 13:40 Const General: cooperative, comfortable, no acute distress and alert Neck Neck: Yes no lymphadenopathy Thyroid: Thyroid normal Resp Effort & Inspection: normal respiratory effort Auscultation: clear to auscultation bilaterally Percussion: percussion normal Cardio Jugular venous distension: no JVD Palpation: normal PMI Rate: regular rate Rhythm: regular rhythm Heart sounds: S1 normal heart sound present and S2 normal heart sound present GI Inspection: Yes normal to inspection Palpation (GI): No hepatosplenomegaly present Skin General skin exam: no rashes or lesions noted Extrem General: Yes no clubbing, cyanosis or edema Assessment and Plan Assessment & Plan (1) Asthma: Code(s): J45.909 - Unspecified asthma, uncomplicated Plan: improved; ref pulm Orders: Referrals Pulmonary Medicine Referral J45.909 - Unspecified asthma, uncomplicated Coding Level of Care Code Est Pt Level 3 (25432) Diagnoses Asthma J45.909
== END 2023-11-07 14:05 | disposition home or self-care (01) ==
PROVIDERS: PCP Internal Medicine; Visit Provider Internal Medicine
DX: J45.909 Unspecified asthma, uncomplicated (principal)
CPT/HCPCS: 99213

== ENCOUNTER 2023-12-15 10:16 | Outpatient (REF) | payer MEDICARE, MEDICAID, SELFPAY ==
[2023-12-15 11:06] LABS: MANUAL DIFF FLAG NO
[2023-12-15 11:57] LABS: Basophils Percent Auto 0.5 % (0-2); Eosinophils Absolute Auto 0.2 X10*3/uL (0.0-0.4); Eosinophils Percent Auto 3.9 % (0-4); Hemoglobin 13.9 g/dl (14.0-18.0); Imm Gran Abs Auto 0.02 X10*3/uL (0.00-0.03); Imm Gran Pct Auto 0.3 % (0.0-0.4); Lymphocytes Absolute Auto 1.7 X10*3/uL (1.2-4.9); Lymphocytes Percent Auto 27.2 % (20-40); Mean Corpuscular HGB Conc 33.9 g/dl (31.0-36.0); Mean Corpuscular Hemoglobin 29.9 pg (27.0-33.0); Mean Corpuscular Volume 88.2 fL (80.0-98.0); Mean Platelet Volume 8.9 fL (9.4-12.4); Monocytes Absolute Auto 0.6 X10*3/uL (0.1-1.2); Neutrophils Absolute Auto 3.6 x10*3/uL (2.0-8.3); Neutrophils Percent Auto 59.1 % (45-73); Platelet Count 285 X10*3/uL (160-400); Red Blood Count 4.65 X10*6/uL (4.60-5.80); Red Cell Distribution Width 12.3 % (11.0-16.0); White Blood Count 6.1 X10*3/uL (4.8-10.8)
[2023-12-18 19:28] LABS: Class Alternaria alternata 0; Class Aspergillus fumigatus 1; Class Bermuda Grass 0; Class Birch 0; Class Cat Dander 0; Class Cladosporium herbarum 0; Class Cockroach 0; Class Common Ragweed 0; Class Cottonwood 0; Class Derm. pterony 0; Class Dermatophagoides farinae 0; Class Dog Dander 2; Class Elm 0; Class Maple Box Elder 0; Class Mountain Cedar 0; Class Mouse Urine Protein 0; Class Mugwort 0; Class Oak 0; Class Penicillium crysogenum 0; Class Rough Pigweed 0; Class Sheep Sorrel 0; Class Sycamore 0; Class Timothy Grass 0; Class Walnut Tree 0; Class White Ash 0; Class White Mulberry 0; D001 IgE D pteronyssinus <0.10 kU/L; D002 - IgE D farinae <0.10 kU/L; E001 - IgE Cat Dander <0.10 kU/L; E005 - IgE Dog Dander 0.91 kU/L; E072-IgE Mouse Urine <0.10 kU/L; G002 IgE Bermuda Grass <0.10 kU/L; G006 - IgE Timothy Grass <0.10 kU/L; I006-IgE Cockroach, German <0.10 kU/L; Immunoglobulin E 106 kU/L (<OR=114); M001 IgE Penicillium chrysogen <0.10 kU/L; M002 - IgE Cladosporium herbar <0.10 kU/L; M003 - IgE Aspergillus fumigat 0.68 kU/L; M006 - IgE Alternaria alternat <0.10 kU/L; T001 IgE Maple/Box Elder <0.10 kU/L; T003 IgE Common Silver Birch <0.10 kU/L; T006 - IgE Cedar, Mountain <0.10 kU/L; T007 - IgE Oak, White <0.10 kU/L; T008 IgE Elm, American <0.10 kU/L; T010 - IgE Walnut <0.10 kU/L; T011 - IgE Maple Leaf Sycamore <0.10 kU/L; T014 - IgE Cottonwood <0.10 kU/L; T015 - IgE Ash, White <0.10 kU/L; T070 - IgE White Mulberry <0.10 kU/L; W001 - IgE Ragweed, Short <0.10 kU/L; W006 - IgE Mugwort <0.10 kU/L; W014 IgE Pigweed, Common <0.10 kU/L; W018 IgE Sheep Sorrel <0.10 kU/L
== END 2023-12-15 10:17 | disposition home or self-care (01) ==
LOC: HO.LAB 10:16
PROVIDERS: PCP Internal Medicine; Referring Provider Internal Medicine; Visit Provider Internal Medicine Pulmonary Disease
DX: J45.909 Unspecified asthma, uncomplicated (principal); Z91.09 Other allergy status, other than to drugs and biological substances; G47.33 Obstructive sleep apnea (adult) (pediatric)
CPT/HCPCS: 36415; 82785; 85025; 86003; 99202

== ENCOUNTER 2023-12-15 10:16 | Outpatient (AMB) | payer MEDICARE, MEDICAID, SELFPAY ==
[2023-12-15 10:29] VITALS: BP 118/79; PULSE 91; O2SAT 96; BMI 31.1
--- NOTE | 2023-12-15 10:29 | MHC.OFFVIS ---
Intake Vital Signs 12/15/23 10:29 Height 5 ft 7 in Weight 198 lb 6.656 oz BMI 31.1 BP 118/79 Blood Pressure Location Lt brachial Position Sitting Pulse 91 Pulse Source Doppler Pulse Oximetry (%) 96 Oxygen Delivery Method Room Air Intake Visit Reasons: asthma Allergies ibuprofen [From Motrin] Allergy (Severe, Verified 12/15/23 10:32) stomach pain morphine Allergy (Verified 12/15/23 10:32) Rash Penicillins Allergy (Verified 12/15/23 10:32) Hives HPI asthma HPI Details 58-year-old gentleman, recent 40 pack-year smoker with underlying history of asthma since his 20s and recent several evaluations in the emergency room for asthma referred for management of his asthma symptoms. Patient states that he has been using albuterol MDI and nebs with suboptimal control of his symptoms. He complains of intermittent wheezing and dyspnea. He denies exposure to industrial dusts. Patient does have 2 dogs as pets. He also complains of unrestful sleep, daytime sleepiness, and snoring. Patient also complains of some environmental allergies. He denies family history of lung disease. [facility] Medical History Asthma Sacroiliitis Disc degeneration, lumbar Fibromyalgia Bleeding hemorrhoids Smoker Major depression Hyperlipidemia Shoulder pain Rectal bleeding History of adenomatous polyp of colon Internal hemorrhoids Sigmoid diverticulosis Anxiety Arthritis High cholesterol Chronic back pain Surgical History History of elbow surgery H/O hemorrhoidectomy H/O shoulder surgery Hx of endoscopy Hx of colonoscopy Family History Father Diabetes Mother Alzheimer disease Dementia Brother No problems noted. Brother No problems noted. Sister No problems noted. Sister No problems noted. Son No problems noted. Daughter No problems noted. Daughter No problems noted. Social History (Updated 12/15/23 @ 10:34 by ZENA Walters) Housing: Apartment Alcohol intake: current Alcohol intake frequency: does not drink Alcohol type: hard liquor Patient Tobacco Use Status: Former Tobacco user Cigarette Packs Per Day: 1 Cigarettes Per Day: 20.0 Years Smoked: quit in 09/2023 e-Cigarette/Vaping Use: Never Used Second Hand Smoke Exposure: No service: No Current occupational status: unemployed Current occupation: Right Handed Cognitive needs: No Hearing needs: No Vision needs: No Review of Systems Const Reports daytime sleepiness, Denies excessive sweating, Reports fatigue, Denies fever(s), Denies lethargy, Denies malaise, Denies night sweats, Reports snoring and Denies weight loss Eyes Denies blurry vision and Denies itchy eyes ENT Denies nasal congestion, Denies post nasal drip, Denies sinus pain, Denies sinus pressure and Denies other ( Thrush) Card Denies chest pain, Denies pedal edema, Denies dyspnea, Denies orthopnea and Denies paroxysmal nocturnal dyspnea Resp Denies cough, Denies hemoptysis, Denies excessive phlegm production, Denies dyspnea, Reports snoring and Reports wheezing GI Denies abdominal pain and Denies heartburn Musc Denies myalgias, Denies arthralgias and Denies joint swelling Skin/Breast Denies rash Neuro Denies memory loss and Denies seizure-like activity Psych Denies abnormal sleep pattern, Denies anxiety and Denies memory loss Endo Denies excessive sweating, Reports fatigue and Denies heat intolerance Blanco/Lymph Denies easy bruising Aller/Immun Denies itchy eyes, Denies seasonal rhinorrhea and Reports wheezing Physical Exam Vital Signs: Last Vital Signs Pulse 91 12/15/23 10:29 BP 118/79 12/15/23 10:29 Pulse Ox 96 12/15/23 10:29 Oxygen Delivery Method Room Air 12/15/23 10:29 BMI result Body Mass Index 31.1 Const General: no acute distress and alert Nutritional Appearance: not obese Orientation/consciousness: Other orientation findings ( oriented) HEENT Head: Yes atraumatic Eyes General: appearance normal, both eyes and all related structures Sclerae: sclerae normal EOM: EOMs intact bilaterally Neck Neck: Yes supple Lymphatic: no lymphadenopathy noted Resp Effort & Inspection: normal respiratory effort and no use of accessory muscles Auscultation: clear to auscultation bilaterally Cardio Rate: regular rate Rhythm: regular rhythm Heart sounds: no gallops, no murmurs and no rubs Skin General skin exam: other ( warm) Extrem General: No clubbing, No cyanosis and No edema Assessment & Plan Assessment & Plan (1) Asthma: Code(s): J45.909 - Unspecified asthma, uncomplicated Plan: Likely asthma or asthma/COPD overlap syndrome. Suboptimally controlled on albuterol MDI and nebs. Will start on Breo. Will obtain full PFT. (2) Environmental allergies: Code(s): Z91.09 - Other allergy status, other than to drugs and biological substances Plan: Will obtain IgE level, RAST, and CBC with differential for further evaluation. (3) GOLDEN (obstructive sleep apnea): Code(s): G47.33 - Obstructive sleep apnea (adult) (pediatric) Plan: Unrestful sleep, daytime sleepiness, snoring. [place] Sleepiness Scale score of 16. Will obtain home sleep study. Orders: Orders RT home sleep study Today G47.33 - Obstructive sleep apnea (adult) (pediatric) Resp Allergy Profile Region I Today J45.909 - Unspecified asthma, uncomplicated Complete Blood Count Auto Diff Today J45.909 - Unspecified asthma, uncomplicated PFT pulmonary function test Today J45.909 - Unspecified asthma, uncomplicated Medications: New fluticasone furoate-vilanterol 200-25 mcg/dose (Breo Ellipta) 1 inh inhalation DAILY 1 ea 6RF 30 days Coding Level of Care Code New Pt Level 4 (53531) Diagnoses Asthma J45.909 Environmental allergies Z91.09 GOLDEN (obstructive sleep apnea) G47.33
== END 2023-12-15 10:48 | disposition home or self-care (01) ==
PROVIDERS: PCP Internal Medicine; Referring Provider Internal Medicine; Visit Provider Internal Medicine Pulmonary Disease
DX: J45.909 Unspecified asthma, uncomplicated (principal); Z91.09 Other allergy status, other than to drugs and biological substances; G47.33 Obstructive sleep apnea (adult) (pediatric)
CPT/HCPCS: 99204

== ENCOUNTER 2024-01-15 09:41 | Outpatient (REF) | payer MEDICARE, MEDICAID, SELFPAY ==
[2024-01-15 07:42] VITALS: PULSE 90; RESP 16; O2SAT 97
--- NOTE | 2024-01-15 13:47 | PFT_ITS ---
Flows: FEV1: 81 % of predicted at 2.66 L FVC: 83 % of predicted at 3.49 L FEV1/FVC: 76 % Bronchodilator response: Absent Volumes: No lung volumes measurements available secondary to a technical issue. Diffusion capacity: Normal Impression: No obstructive ventilatory defect. No bronchodilator response. No lung volumes measurements available secondary to a technical issue. MTDD
== END 2024-01-15 09:42 | disposition home or self-care (01) ==
LOC: HO.RESP 09:41
PROVIDERS: PCP Internal Medicine; Visit Provider Internal Medicine Pulmonary Disease
DX: J45.909 Unspecified asthma, uncomplicated (principal)
CPT/HCPCS: 94010; 94640; 94727; 94729

== ENCOUNTER → 2024-01-15 13:47 | Outpatient (BNV) | payer MEDICARE, MEDICAID, SELFPAY | PROVIDERS: PCP Internal Medicine; Visit Provider Internal Medicine Pulmonary Disease | DX: J45.909 Unspecified asthma, uncomplicated (principal) | CPT/HCPCS: 94060; 94729 ==

== ENCOUNTER 2024-01-21 09:38 | Emergency (ER) | payer MEDICARE, MEDICAID, SELFPAY ==
--- NOTE | ~2024-01-21 | XR_ITS ---
EXAMINATION: XR KNEE, RIGHT XR ANKLE, RIGHT CLINICAL INFORMATION: Right knee pain. Right ankle pain. COMPARISON: None TECHNIQUE: Three views of the right knee. 3 views of the right ankle. FINDINGS: No fracture or malalignment. Joint spaces are well-preserved. No joint effusion. Enthesopathic spurring is present at the quadriceps tendon insertion and patellar tendon insertion. There is soft tissue swelling in the right ankle with subcutaneous edema. No fracture or malalignment. Enthesopathic spurring is present at the Achilles tendon insertion and plantar fascial origin. XR/XR knee RT 2V IMPRESSION: 1. No acute osseous abnormalities at the right knee and ankle. 2. Soft tissue swelling and subcutaneous edema at the right ankle.
--- NOTE | ~2024-01-21 | XR_ITS ---
EXAMINATION: XR KNEE, RIGHT XR ANKLE, RIGHT CLINICAL INFORMATION: Right knee pain. Right ankle pain. COMPARISON: None TECHNIQUE: Three views of the right knee. 3 views of the right ankle. FINDINGS: No fracture or malalignment. Joint spaces are well-preserved. No joint effusion. Enthesopathic spurring is present at the quadriceps tendon insertion and patellar tendon insertion. There is soft tissue swelling in the right ankle with subcutaneous edema. No fracture or malalignment. Enthesopathic spurring is present at the Achilles tendon insertion and plantar fascial origin. XR/XR ankle RT 2V IMPRESSION: 1. No acute osseous abnormalities at the right knee and ankle. 2. Soft tissue swelling and subcutaneous edema at the right ankle.
[2024-01-21 09:41] VITALS: BP 144/80; PULSE 77; RESP 19; TEMP 36.6; O2SAT 98; BMI 29.8
--- NOTE | 2024-01-21 11:13 | ED.LOWEXIN ---
HPI - Extremity Injury (Lower) General Chief Complaint: Extremity Injury, Lower Stated Complaint: Fall/R leg pain Time Seen by Provider: 01/21/24 11:13 Source: patient and family Mode of arrival: ambulatory Limitations: no limitations History of Present Illness HPI Narrative: 58-year-old male with history of back pain, arthritis, bursitis here with complaints of right knee pain after a fall on Monday. Patient reports he lost his balance and fell down 5 stairs hitting his right knee. No head strike or loss of consciousness. No AC therapy use. Denies associated weakness, numbness, tingling Related Data Home Medications Medication Instructions Recorded Confirmed gabapentin 400 mg capsule 400 mg PO TID 09/13/21 11/07/23 trazodone 50 mg tablet 25 - 50 mg PO BEDTIME 12/27/21 11/07/23 Previous Rx's Medication Instructions Recorded dicyclomine 20 mg tablet 20 mg PO TID PRN abdominal pain 30 09/13/21 days #60 tabs meloxicam 7.5 mg tablet 7.5 mg PO DAILY #14 tabs 10/01/22 nicotine 21 mg/24 hr daily 1 patch transdermal DAILY #28 ea 02/02/23 transdermal patch benzonatate 200 mg capsule 200 mg PO TID PRN cough #30 caps 08/25/23 nebulizer and compressor #1 ea 08/25/23 albuterol sulfate 90 mcg/actuation 2 puff inhalation Q4-6H PRN 10/18/23 aerosol inhaler (ProAir HFA) shortness of breath or wheezing #8.5 grams albuterol sulfate 2.5 mg/3 mL 2.5 mg (3 mL) inhalation Q4H PRN 10/19/23 (0.083 %) solution for nebulization shortness of breath or wheezing #75 mL albuterol sulfate 2.5 mg/3 mL 2.5 mg (3 mL) inhalation Q4H #75 mL 11/04/23 (0.083 %) solution for nebulization albuterol sulfate 90 mcg/actuation 2 puff inhalation Q4-6H PRN 11/04/23 aerosol inhaler shortness of breath or wheezing #8.5 grams prednisone 50 mg tablet 50 mg PO DAILY #4 tabs 11/04/23 fluticasone furoate 200 1 inh inhalation DAILY 30 days #1 12/15/23 mcg-vilanterol 25 mcg/dose ea inhalation powder (Breo Ellipta) Allergies Allergy/AdvReac Type Severity Reaction Status Date / Time ibuprofen [From Motrin] Allergy Severe stomach Verified 01/21/24 09:41 pain morphine Allergy Rash Verified 01/21/24 09:41 Penicillins Allergy Hives Verified 01/21/24 09:41 Review of Systems Review of Systems: Yes all other systems are reviewed and are negative Constitutional: Constitutional: Reports no additional constitutional complaints, Denies body ache(s), Denies chills, Denies fever(s), Denies headache(s) and Denies weakness Eyes: Eyes: Reports no additional eye complaints and Denies change in vision ENT: Reports system reviewed and no additional complaints, except as documented, Denies dizziness, Denies headache(s), Denies nasal congestion, Denies nasal discharge and Denies neck pain Cardiovascular: Cardiovascular: Reports no additional cardiovascular complaints, Denies chest pain, Denies leg edema and Denies dyspnea Respiratory: Respiratory: Reports no additional respiratory complaints, Denies cough and Denies dyspnea Gastrointestinal: Gastrointestinal: Reports no additional gastrointestinal complaints, Denies abdominal pain, Denies diarrhea, Denies nausea and Denies vomiting Genitourinary: Genitourinary: Denies urinary incontinence Musculoskeletal: Musculoskeletal: Reports no additional musculoskeletal complaints, Denies back pain, Reports arthralgias, Reports joint swelling, Denies limited range of motion, Denies neck pain, Denies numbness and Denies tingling Integumentary/Breasts: Skin/Breast: Reports system reviewed and no additional complaints, except as docu and Denies rash Neurologic: Reports system reviewed and no additional complaints, except as documented, Denies Abnormal speech present, Denies dizziness, Denies headache(s), Denies numbness, Denies tingling and Denies weakness [facility] Past Medical History Attestation statement: The following information was validated with the patient. Source: old records reviewed and nursing notes reviewed Medical History Asthma Sacroiliitis Disc degeneration, lumbar Fibromyalgia Bleeding hemorrhoids Smoker Major depression Hyperlipidemia Shoulder pain Rectal bleeding History of adenomatous polyp of colon Internal hemorrhoids Sigmoid diverticulosis Anxiety Arthritis High cholesterol Chronic back pain Surgical History History of elbow surgery H/O hemorrhoidectomy H/O shoulder surgery Hx of endoscopy Hx of colonoscopy Family History Family History Father Diabetes Mother Alzheimer disease Dementia Brother No problems noted. Brother No problems noted. Sister No problems noted. Sister No problems noted. Son No problems noted. Daughter No problems noted. Daughter No problems noted. Social History Social History Housing: Apartment Alcohol intake: current Alcohol intake frequency: does not drink Alcohol type: hard liquor Patient Tobacco Use Status: Former Tobacco user Cigarette Packs Per Day: 1 Cigarettes Per Day: 20.0 Years Smoked: quit in 09/2023 e-Cigarette/Vaping Use: Never Used Second Hand Smoke Exposure: No Advance Directives: No Advance Directives Information Provided: No service: No Current occupational status: unemployed Current occupation: Right Handed Cognitive needs: No Hearing needs: No Vision needs: No Physical Exam Vital Signs: Vital Signs: Last Vital Signs Temp 98 F 01/21/24 09:41 Pulse 77 01/21/24 09:41 Resp 19 01/21/24 09:41 BP 144/80 H 01/21/24 09:41 Pulse Ox 98 01/21/24 09:41 O2 Del Method Room Air 01/21/24 09:41 BMI result Body Mass Index 29.8 Const: General: cooperative, healthy appearing, comfortable and no acute distress Orientation/consciousness: patient oriented x3 Limitations: no limitations HEENT: Head: Yes normal to inspection Ears: hearing grossly normal bilaterally General nose exam: Normal external nose present Face and sinus: Yes normal facial exam Mouth: Normal oral and palatal mucosa present Throat: Yes posterior oropharynx normal Eyes: General: appearance normal, both eyes and all related structures Pupils: Equal, round and reactive pupils present Neck: Neck: Yes normal visual inspection Chest: Chest palpation & inspection: normal inspection of the chest Resp: Effort & Inspection: normal respiratory effort Auscultation: clear to auscultation bilaterally Cardio: Rate: regular rate Rhythm: regular rhythm Peripheral pulses: Peripheral pulses 2+ throughout GI: Inspection: Yes normal to inspection Palpation (GI): Soft to palpation and nontender Auscultation: normal bowel sounds Back/Spine/Pelvis: Thoracic/Lumbar Spine: thoracic and lumbar spine normal to inspection Skin: General skin exam: no rashes or lesions noted Neuro: General: patient oriented x3, no focal motor deficits and normal sensation to monofilament Cranial nerves: Yes Equal, round and reactive pupils present Cognition (Neuro): normal cognition Speech: No Abnormal speech present Gait exam (Neuro): Normal gait present Motor exam (neuro): 5/5 motor strength present throughout Extrem: Other: There is swelling to the right medial and anterior knee. Patient has active and passive range of motion. Normal DP and PT pulses distally. Normal range of motion to the distal joint. Normal sensation distally. Course Course Course Narrative: X-ray shows soft tissue swelling. No bony abnormality. Patient placed in Jose wrap. Reviewed rice. Reviewed worrisome signs and symptoms of when to return to the emergency room. Comfortable plan for discharge home. Medical Decision Making Medical Decision Making MDM Narrative: 58-year-old male with history of back pain, arthritis, bursitis here with complaints of right knee pain after a fall on Monday. Patient reports he lost his balance and fell down 5 stairs hitting his right knee. No head strike or loss of consciousness. No AC therapy use. Denies associated weakness, numbness, tingling There is swelling to the right medial and anterior knee. Patient has active and passive range of motion. Normal DP and PT pulses distally. Normal range of motion to the distal joint. Normal sensation distally. Will check x-rays Differential Diagnosis Differential Diagnoses: The differential diagnosis associated with the presentation includes Contusion, fracture Low suspicion for dislocation, complex fracture or vascular injury Admission/Observation Consideration of admission/observation: Escalation of care including admission/observation considered Low suspicion for dislocation, complex fracture or vascular injury requiring advanced imaging, urgent orthopedic consultation Independent Interpretation I performed an independent interpretation of an: Plain X-Ray Interpretation: I independently reviewed the x-ray and agree with rad report Radiology Impression Discussion of test interpretation with radiology: I have reviewed the radiologist's reading. Radiologist Impression: [address] [address] XRay Report Signed Patient: Rei Dunn MR#: [id number] : 1965 Acct:[id number] Age/Sex: 58 / M ADM Date: 01/21/24 Loc: HO.ED Attending Dr: Ordering Physician: Generic ED Physician Date of Service: 01/21/24 Procedure(s): XR ankle RT 2V Accession Number(s): [id number] cc: Generic ED Physician; Servando Willard MD~ EXAMINATION: XR KNEE, RIGHT XR ANKLE, RIGHT CLINICAL INFORMATION: Right knee pain. Right ankle pain. COMPARISON: None TECHNIQUE: Three views of the right knee. 3 views of the right ankle. FINDINGS: No fracture or malalignment. Joint spaces are well-preserved. No joint effusion. Enthesopathic spurring is present at the quadriceps tendon insertion and patellar tendon insertion. There is soft tissue swelling in the right ankle with subcutaneous edema. No fracture or malalignment. Enthesopathic spurring is present at the Achilles tendon insertion and plantar fascial origin. XR/XR ankle RT 2V IMPRESSION: 1. No acute osseous abnormalities at the right knee and ankle. 2. Soft tissue swelling and subcutaneous edema at the right ankle. Independent Historian Clinical information obtained from an independent historian. History obtained from or confirmed by: Spouse Tests considered The following testing was considered but not selected: Low suspicion for dislocation, complex fracture or vascular injury requiring advanced imaging Prescription Management I considered prescription management with: Pain Medication Discharge Plan Discharge Clinical Impression: Contusion of knee, right Patient Disposition: Home, Self-Care Instructions: Contusion in Adults (ED) Additional Instructions: Ice, elevation, use the compression wrap for the next few days Expect to feel sore for a few days. If still having pain after week please follow-up with primary care doctor. Take Tylenol for pain as needed. Return for any worsening symptoms Hielo, elevaci?n, utiliza la venda de compresi?n concepción los pr?ximos d?as. Espere sentir dolor concepción unos d?as. Si todav?a tiene dolor despu?s de du semana, consulte con baldwin m?dico de atenci?n primaria. Koppel Tylenol para el dolor seg?n sea necesario. Regrese si los s?ntomas empeoran. Prescriptions: No Action albuterol sulfate [ProAir HFA] 90 mcg/actuation HFA aerosol inhaler 2 puff inhalation Q4-6H PRN (Reason: shortness of breath or wheezing) Qty: 8.5 3RF meloxicam 7.5 mg tablet 7.5 mg PO DAILY Qty: 14 0RF benzonatate 200 mg capsule 200 mg PO TID PRN (Reason: cough) Qty: 30 0RF (DME) nebulizer and compressor Device See Rx Instructions .Route Qty: 1 0RF Rx Instructions: As directed albuterol sulfate 90 mcg/actuation HFA aerosol inhaler 2 puff inhalation Q4-6H PRN (Reason: shortness of breath or wheezing) Qty: 8.5 1RF albuterol sulfate 2.5 mg /3 mL (0.083 %) solution for nebulization 2.5 mg inhalation Q4H Qty: 75 0RF prednisone 50 mg tablet 50 mg PO DAILY Qty: 4 0RF albuterol sulfate 2.5 mg /3 mL (0.083 %) solution for nebulization 2.5 mg inhalation Q4H PRN (Reason: shortness of breath or wheezing) Qty: 75 0RF nicotine 21 mg/24 hr patch 24 hour 1 patch transdermal DAILY Qty: 28 3RF gabapentin 400 mg capsule 400 mg PO TID dicyclomine 20 mg tablet 20 mg PO TID PRN (Reason: abdominal pain) 30 Days Qty: 60 3RF trazodone 50 mg tablet 25 - 50 mg PO BEDTIME fluticasone furoate-vilanterol [Breo Ellipta] 200-25 mcg/dose blister with device 1 inh inhalation DAILY 30 Days Qty: 1 6RF Referrals: Servando Willard MD [Primary Care Provider] - 1 week
== END 2024-01-21 11:41 | disposition home or self-care (01) ==
PROVIDERS: Emergency Provider Student in an Organized Health Care Education/Training Program; PCP Internal Medicine
DX: S80.01XA Contusion of right knee, initial encounter (principal); M25.571 Pain in right ankle and joints of right foot; W10.9XXA Fall (on) (from) unspecified stairs and steps, initial encounter; Y93.9 Activity, unspecified; Y92.9 Unspecified place or not applicable; Y99.8 Other external cause status
CPT/HCPCS: 73560; 73600; 99282; 99283

== ENCOUNTER 2024-02-01 07:40 | Outpatient (AMB) | payer MEDICARE, MEDICAID, SELFPAY ==
--- NOTE | 2024-02-01 07:47 | A.OFFVIS_ITS ---
Vital Signs 02/01/24 08:04 Height 5 ft 7 in Weight 195 lb BMI 30.5 BP 142/85 H Blood Pressure Location Lt brachial Position Sitting Pulse 83 Intake Visit Reasons: abdominal pains Intake Note: Patient follow up for abdominal pain. Patient cc: Nauseas with acid reflex, abdominal pain on his left side with bloating, BM with blood. 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 Accompanied by: Spouse Allergies ibuprofen [From Motrin] Allergy (Severe, Verified 06/10/24 09:42) stomach pain morphine Allergy (Verified 06/10/24 09:42) Rash Penicillins Allergy (Verified 06/10/24 09:42) Hives Medication List - Last Reconciled 02/01/24 by Allison Paredes MD albuterol sulfate 2.5 mg (3 mL) inhalation Q4H PRN albuterol sulfate 90 mcg/actuation 2 puffs inhalation Q4-6H PRN albuterol sulfate 2.5 mg (3 mL) inhalation Q4H albuterol sulfate 90 mcg/actuation (ProAir HFA) 2 puffs inhalation Q4-6H PRN benzonatate 200 mg PO TID PRN dicyclomine 20 mg PO TID PRN 30 days fluticasone furoate-vilanterol 200-25 mcg/dose (Breo Ellipta) 1 inh inhalation DAILY 30 days gabapentin 400 mg PO TID meloxicam 7.5 mg PO DAILY nebulizer and compressor As directed nicotine 1 patch transdermal DAILY prednisone 50 mg PO DAILY trazodone 25 - 50 mg PO BEDTIME HPI HPI abdominal pains: Details: 58-YEAR-OLD TELUGU-SPEAKING MALE FOR FU OF GERD AND RECTAL BLEEDING 02/19/21 Pt had an exam under anesthesia, hemorrhoidectomy x2 columns by Dr Serrato ?LABS: January, reviewed ? IMAGING STUIDES:? 02/10/[address] SCAN SHOWED: ? ? ? KIDNEYS AND URETERS: There is a 2 mm nonobstructing stone in the upper ? ? ? pole of the left kidney. The kidneys are otherwise unremarkable. ? ? ? BLADDER: Unremarkable. ? ? ? GASTROINTESTINAL TRACT: There is a small duodenal diverticulum adjacent ? ? ? to the head of the pancreas. The small and large bowel are otherwise ? ? ? unremarkable. The appendix is unremarkable. The stomach is unremarkable. ?ENDOSCOPIC STUDIES: 04/09/20 EGD AND COLONOSCOPY SHOWED: ? ESOPHAGUS: 1 cms tongue of possible Brooks's - biopsied. ? STOMACH: Antral gastritis with superficial erosions. ? Colonoscopy Findings: ? One 10 mm polyp removed (TA on bx) ? Moderate diverticulosis seen in the sigmoid colon ? Large hemorrhoids on retroflexed exam. ? Plan: ? Continue present medications (Famotidine at 20 mg PO once daily) ? Repeat Colonoscopy interval based on path results - in 3-5 years if ? polyps are adenomatous and 10 years if polyps are hyperplastic. ? BIOPSIES SHOWED: ? A. Stomach, biopsies: Gastric mucosa with mild chronic, inactive gastritis; negative for Helicobacter pylori; negative for intestinal metaplasia/dysplasia. ? B. Esophagus, distal, biopsies: Cardia type mucosa with mild chronic inactive inflammation; negative for intestinal metaplasia/dysplasia; no squamous epithelium identified. ? C. Colon, sigmoid polyp, polypectomy: Tubular adenoma. 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 THE PATIENT UNDERSTANDS AND SPEAKS SOME BULGARIAN. Patient cc: Nauseas with acid reflex, abdominal pain on his left side with bloating, BM with blood. Intermittent left sided - sometimes after he eats (2-3 times a week) Pain last for 30 min and goes away after a BM Complains of heartburn and bloating Hb is worse at night He was taking Nexium and ran out. Eats dinner at 4 pm and sleeps at 10 am He quit smoking in Sep and sometimes has a late night snack. Intermittent rectal bleeding every 3-4 days and advised to take fiber in his diet. ?PAST VISIT: Complains of constant left sided abdominal pain (in the middle - beside the belly button) - x 1 week. Notes a burning sensation in the stomach and denies n, v or urinary symptoms. Denies change in BMs - has a BM daily. Doing not too well and not too bad ? Complains of left sided abdominal pain. ? Not taking any GI medications at present - he stopped after he was finished with the prescriptions. ? Has gained 9 lbs over the past year and was advised to work on loosing weight. ? Continues to smoke 1 PPD and trying to quit slowly - advised to quit since continued smoking and wt gain is likely contributing to persistent heartburn. ? Still recovering from hemorrhoid surgery and had just a little bleeding. ? Noted a little improvement in symptoms after increasing the Carafate to three times a day. ? Continues to experience heartburn - notes heartburn whenever he eats ? I have been taking the pills and the pills are not working - advised to increase sucralfate to three times a day. ? Taking medications for GERD and is not helping and unable to sleep at night. ? Taking Omeprazole once a day and is not helping and not taking Famotidine. ? Avoids greasy foods, sodas, citrus fruits and juices and drinks coffee once in the morning. ? Abd CT scan results were reviewed with the patient. ? Has dinner at 6 pm and goes to bed around 7 or 8 (does not go to sleep right away) ? Complains of rectal bleeding for the past several yrs worse for the past 4 yrs. ? Blood is bright red and separate from the stools. ? Can sometimes feel weak. ? Patient denies change in bowel habits, occasional black stools. ? Complains of heartburn x 3 yrs every 3-4 days ? Denies dysphagia, nausea or vomiting, change in appetite or weight. ? Intermittent hoarseness and denies cough or sore throat. ? Patient denies major cardiac or pulmonary problems, loud snoring or history of sleep apnea. ? Has sleep disturbance - does not sleep well ? He denies past problems with anesthesia. ? Patient denies known family history of colon cancer, colon polyp or other GI malignancy [facility] Medical History Asthma Sacroiliitis Disc degeneration, lumbar Fibromyalgia Bleeding hemorrhoids Smoker Major depression Hyperlipidemia Shoulder pain Rectal bleeding History of adenomatous polyp of colon Internal hemorrhoids Sigmoid diverticulosis Anxiety Arthritis High cholesterol Chronic back pain Surgical History History of elbow surgery H/O hemorrhoidectomy H/O shoulder surgery Hx of endoscopy Hx of colonoscopy Family History Father Diabetes Mother Alzheimer disease Dementia Brother No problems noted. Brother No problems noted. Sister No problems noted. Sister No problems noted. Son No problems noted. Daughter No problems noted. Daughter No problems noted. Social History Housing: Apartment Alcohol intake: current Alcohol intake frequency: does not drink Alcohol type: hard liquor Patient Tobacco Use Status: Former Tobacco user Cigarette Packs Per Day: 1 Cigarettes Per Day: 20.0 Years Smoked: quit in 09/2023 e-Cigarette/Vaping Use: Never Used Second Hand Smoke Exposure: No Are you DNR?: No Advance Directives: No Advance Directives Information Provided: Yes Nutrition Risks: No Nutritional Risk service: No Current occupational status: unemployed Current occupation: Right Handed Cognitive needs: Yes (cane) Hearing needs: No Vision needs: No Review of Systems Const All systems reviewed & are unremarkable except as noted in HPI and below Physical Exam Vital Signs: Last Vital Signs Pulse 83 02/01/24 08:04 BP 142/85 H 02/01/24 08:04 BMI result Body Mass Index 30.5 Const General: healthy appearing and no acute distress Nutritional Appearance: obese Orientation/consciousness: patient oriented x3 Limitations: language barrier HEENT Head: Yes normal to inspection Ears: hearing grossly normal bilaterally Eyes Sclerae: sclerae normal Pupils: Equal, round and reactive pupils present Neck Neck: Yes normal visual inspection Chest Chest palpation & inspection: normal inspection of the chest Resp Effort & Inspection: normal respiratory effort Auscultation: clear to auscultation bilaterally Cardio Palpation: normal PMI Rate: regular rate Rhythm: regular rhythm Heart sounds: S1 normal heart sound present, S2 normal heart sound present and no murmurs GI Palpation (GI): Soft to palpation, nontender and No hepatosplenomegaly present Auscultation: normal bowel sounds Rectal Exam - Male: Yes deferred Skin General skin exam: no rashes or lesions noted Neuro General: patient oriented x3, gait normal and moves all extremities Cranial nerves: Yes Equal, round and reactive pupils present Psych Appearance: grossly normal Mental Status: mental status grossly normal Assessment & Plan Assessment & Plan (1) Bleeding hemorrhoids: Comment: 02/19/21 Pt had an exam under anesthesia, hemorrhoidectomy x2 columns by Dr Serrato and rectal bleeding has almost resolved. Code(s): K64.9 - Unspecified hemorrhoids Category: Medical (2) GERD (gastroesophageal reflux disease): Code(s): K21.9 - Gastro-esophageal reflux disease without esophagitis Category: Medical (3) Rectal bleeding: Code(s): K62.5 - Hemorrhage of anus and rectum Category: Medical (4) History of adenomatous polyp of colon: Comment: 04/09/20 Colonoscopy showed sigmoid diverticulosis and a 10 mm tubular adenoma was removed. Repeat colonoscopy is advised in 3 years (due 03/2023) - action was set in [facility]. Code(s): Z86.010 - Personal history of colonic polyps Category: Medical (5) Sigmoid diverticulosis: Code(s): K57.30 - Diverticulosis of large intestine without perforation or abscess without bleeding Category: Medical (6) Hemorrhoids, internal, with bleeding: Code(s): K64.8 - Other hemorrhoids Category: Medical Plan year old Maori-speaking male? followed in GI for rectal bleeding and? history of adenomatous colon polyps. Rectal bleeding is likely from hemorrhoids. Patient also complained of symptoms of heartburn and was advised to take famotidine 20 mg twice daily inplace of Zantac and stated that he did not get the medicine at the pharmacy. Patient was advised to stop omeprazole and take sucralfate and pantoprazole 40 mg twice daily for continuing heartburn symptoms - he stopped the medications after he finished the prescriptions 04/09/20 EGD & COLONOSCOPY showed no esophagitis and antral gastritis with superficial erosions. Gastric biopsies were negative for Helicobacter pylori. A 10 mm tubular adenoma was removed during same-day colonoscopy. Moderate sigmoid diverticulosis and large hemorrhoids were noted. Rectal bleeding is likely from hemorrhoids. 02/19/21 Pt had an exam under anesthesia, hemorrhoidectomy x2 columns by Dr Serrato and rectal bleeding has almost resolved. Continues to smoke 1 PPD and advised to quit. Has gained 9 lbs over the past year and was advised to work on loosing weight. Patient was advised to resume taking pantoprazole 40 mg twice daily for heartburn. [place] of dicyclomine for abdominal pain. 02/01/24 Pt was advised to schedule a colonoscopy (FU of colon polyps) - scheduled 06/10/24 Follow-up clinic appointment in 5 months for follow-up of GERD and abdominal pain Medications: New psyllium husk mix into at least 8 oz of water or juice before administering 1 tbsp PO DAILY 480 grams 0RF 60 days K64.8 - Other hemorrhoids pantoprazole 40 mg PO DAILY 60 tabs 3RF 60 days K21.9 - Gastro-esophageal reflux disease without esophagitis Coding Level of Care Code Est Pt Level 4 (52597) Diagnoses Bleeding hemorrhoids K64.9 GERD (gastroesophageal reflux disease) K21.9 Rectal bleeding K62.5 History of adenomatous polyp of colon Z86.010 Sigmoid diverticulosis K57.30 Hemorrhoids, internal, with bleeding K64.8 Time Spent (min) 25
[2024-02-01 08:04] VITALS: BP 142/85; PULSE 83; BMI 30.5
== END 2024-02-01 09:36 | disposition home or self-care (01) ==
PROVIDERS: PCP Internal Medicine; Visit Provider Internal Medicine Gastroenterology
DX: K64.9 Unspecified hemorrhoids (principal); K21.9 Gastro-esophageal reflux disease without esophagitis; K62.5 Hemorrhage of anus and rectum; Z86.010 Personal history of colon polyps; K57.30 Diverticulosis of large intestine without perforation or abscess without bleeding; K64.8 Other hemorrhoids
CPT/HCPCS: 99214

== ENCOUNTER → 2024-02-01 07:40 | Outpatient (BNVA) | payer MEDICARE, MEDICAID, SELFPAY | PROVIDERS: PCP Internal Medicine; Visit Provider Internal Medicine Gastroenterology | DX: K21.9 Gastro-esophageal reflux disease without esophagitis (principal); K62.5 Hemorrhage of anus and rectum; K64.9 Unspecified hemorrhoids; K57.30 Diverticulosis of large intestine without perforation or abscess without bleeding; Z86.010 Personal history of colon polyps | CPT/HCPCS: 99212 ==

== ENCOUNTER 2024-02-07 08:15 | Outpatient (AMB) | payer MEDICARE, MEDICAID, SELFPAY ==
[2024-02-07 08:49] VITALS: BP 110/65; PULSE 70; O2SAT 98; BMI 44.5
--- NOTE | 2024-02-07 08:49 | A.OFFPC_ITS ---
Vital Signs 02/07/24 08:49 Height 5 ft 7 in Weight 284 lb BMI 44.5 BP 110/65 Blood Pressure Location Lt brachial Position Sitting Pulse 70 Pulse Source Pulse Oximeter Pulse Oximetry (%) 98 Oxygen Delivery Method Room Air Intake Visit Reasons: Annual Exam Computer Clerk Required: No Human Services Care Specialist: Present Accompanied by: Spouse Allergies ibuprofen [From Motrin] Allergy (Severe, Verified 02/07/24 08:50) stomach pain morphine Allergy (Verified 02/07/24 08:50) Rash Penicillins Allergy (Verified 02/07/24 08:50) Hives Medication List - Last Reconciled 02/08/24 by Servando Willard MD albuterol sulfate 2.5 mg (3 mL) inhalation Q4H PRN albuterol sulfate 90 mcg/actuation 2 puffs inhalation Q4-6H PRN albuterol sulfate 2.5 mg (3 mL) inhalation Q4H albuterol sulfate 90 mcg/actuation (ProAir HFA) 2 puffs inhalation Q4-6H PRN dicyclomine 20 mg PO TID PRN 30 days fluticasone furoate-vilanterol 200-25 mcg/dose (Breo Ellipta) 1 inh inhalation DAILY 30 days gabapentin 400 mg PO TID nebulizer and compressor As directed pantoprazole 40 mg PO DAILY 60 days prednisone 50 mg PO DAILY psyllium husk 1 tbsp PO DAILY 60 days trazodone 25 - 50 mg PO BEDTIME Tobacco use date assessed: 02/07/24 Dental Screening Dental Screen Date: 02/07/24 Did you have a dental visit in the last 12 months?: Yes Did you have a dental problem in the last 6 months where you did not have access to dental care?: No Was dental information given to patient?: Patient has dentist HPI Annual Exam HPI Details asthma on rx; doing well PFSH Medical History Asthma Sacroiliitis Disc degeneration, lumbar Fibromyalgia Bleeding hemorrhoids Smoker Major depression Hyperlipidemia Shoulder pain Rectal bleeding History of adenomatous polyp of colon Internal hemorrhoids Sigmoid diverticulosis Anxiety Arthritis High cholesterol Chronic back pain Surgical History History of elbow surgery H/O hemorrhoidectomy H/O shoulder surgery Hx of endoscopy Hx of colonoscopy Family History Father Diabetes Mother Alzheimer disease Dementia Brother No problems noted. Brother No problems noted. Sister No problems noted. Sister No problems noted. Son No problems noted. Daughter No problems noted. Daughter No problems noted. Social History Housing: Apartment Alcohol intake: current Alcohol intake frequency: does not drink Alcohol type: hard liquor Patient Tobacco Use Status: Former Tobacco user Cigarette Packs Per Day: 1 Cigarettes Per Day: 20.0 Years Smoked: quit in 09/2023 e-Cigarette/Vaping Use: Never Used Second Hand Smoke Exposure: No service: No Current occupational status: unemployed Current occupation: Right Handed Cognitive needs: Yes (cane) Hearing needs: No Vision needs: No Questionnaire PHQ-9 Over the last 2 weeks, how often have you been bothered by any of the following problems? 1. Little interest or pleasure in doing things: not at all 2. Feeling down, depressed, or hopeless: not at all 3. Trouble falling or staying asleep, or sleeping too much: not at all 4. Feeling tired or having little energy: not at all 5. Poor appetite or overeating: not at all 6. Feeling bad about yourself - or that you are a failure or have let yourself or your family down: not at all 7. Trouble concentrating on things, such as reading the newspaper or watching television: not at all 8. Moving or speaking so slowly that other people could have noticed. Or the opposite - being so fidgety or restless that you have been moving around a lot more than usual: not at all 9. Thoughts that you would be better off or of hurting yourself in some way: not at all Total score: 0 Depression Screening Interpretation: Negative Depression Screening Done: Yes 98865 - PHQ-9 Billing: Yes Source: Developed by Drs. José Miguel Mcclellan, Tessie Mcclain, Yair Sethi and colleagues, with an educational sudhakar from [employer]. Thrive Questionnaire Date Thrive assessed: 02/07/24 I am a: Patient What is your living situation today?: I have a steady place to live Within the past 12 months, did the food you bought not last and you didn't have the money to get more?: Never true Within the past 12 months, did you worry whether your food would run out before you got money to buy more?: Never true Do you have trouble paying for medicines?: No Do you have trouble getting transportation to medical appointments?: No Do you have trouble paying your heating and electricity bill?: No Do you have trouble taking care of your child, family member or friend?: No Do you have trouble with day-to-day activities such as bathing, preparing meals, shopping, managing finances, etc.?: No Are you currently unemployed and looking for a job?: No Are you interested in more education?: No Please select the resources that you would like help with: None THRIVE Score: 0 AUDIT C Alcohol Use Questionnaire (AUDIT-C) 1. How often do you have a drink containing alcohol?: Never Total Score: 0 Score Reviewed/Action Taken: Yes FILEMON-7 AMB Questionnaire FILEMON-7 Date FILEMON - 7 assessed: 02/07/24 Feeling nervous, anxious, or on edge: 0 = Not at all Not being able to stop or control worryin = Not at all Worrying too much about different things: 0 = Not at all Trouble relaxin = Not at all Being so restless that it is hard to sit still: 0 = Not at all Becoming easily annoyed or irritable: 0 = Not at all Feeling afraid as if something awful might happen: 0 = Not at all Total FILEMON-7 score (0-4 normal; 5-9 mild; 10-14 moderate; 15-21 severe): 0 Source: Developed by Drs. José Miguel Mcclellan, Tessie Mcclain, Yair Sethi and colleagues, with an educational sudhakar from [employer]. FILEMON-7 Assessment Billing FILEMON-7 Assessment Tool: FILEMON-7 Assessment 36834 Review of Systems Const Denies chills, Denies fatigue, Denies headache(s) and Denies weight loss Eyes Denies change in vision, Denies diplopia and Denies eye pain ENT Denies vertigo, Denies dizziness, Denies headache(s) and Denies nasal discharge Card Denies chest pain, Denies rapid heart rate and Denies dyspnea on exertion Resp Denies chest congestion, Denies cough, Denies pain with cough and Denies dyspnea on exertion GI Denies abdominal pain, Denies hematochezia and Denies change in bowel habits Musc Denies myalgias, Denies arthralgias and Denies joint swelling Skin/Breast Denies lesions and Denies unusual bruising Neuro Denies vertigo, Denies dizziness, Denies headache(s) and Denies focal weakness Endo Denies fatigue Physical exam (Primary Care) Vital Signs: Last Vital Signs Pulse 70 02/07/24 08:49 BP 110/65 02/07/24 08:49 Pulse Ox 98 02/07/24 08:49 Oxygen Delivery Method Room Air 02/07/24 08:49 BMI result Body Mass Index 44.5 Tobacco/Smoking Status: Tobacco use Status Tobacco use date assessed 02/07/24 02/07/24 08:52 Patient Tobacco Use Status Former Tobacco user 02/07/24 08:52 e-Cigarette/Vaping Use Never Used 02/07/24 08:52 PHQ-9: PHQ-9 Score PHQ-9: Total score 0 02/07/24 09:13 Depression Screening Interpretation: Negative Thrive Assessment: Date of Thrive Assessment Date Thrive assessed 02/07/24 02/07/24 08:52 Const General: cooperative, healthy appearing and no acute distress Orientation/consciousness: oriented to person, oriented to place and oriented to time [facility] Head: Yes normal to inspection, Yes normocephalic and Yes atraumatic Mouth: Normal oral and palatal mucosa present and tongue normal Throat: Yes posterior oropharynx normal and Yes uvula midline Eyes General: appearance normal, both eyes and all related structures Neck Neck: Yes normal visual inspection, Yes full ROM and Yes no lymphadenopathy Thyroid: Thyroid normal Carotids: normal carotid upstroke Chest Chest palpation & inspection: normal inspection of the chest Resp Effort & Inspection: normal respiratory effort and able to speak in complete sentences Auscultation: clear to auscultation bilaterally Cardio Jugular venous distension: no JVD Palpation: normal PMI Rate: regular rate Rhythm: regular rhythm Heart sounds: S1 normal heart sound present and S2 normal heart sound present GI Inspection: Yes normal to inspection Palpation (GI): Soft to palpation and No hepatosplenomegaly present Auscultation: normal bowel sounds General: Yes no CVA tenderness Back/Spine/Pelvis Back: no CVA tenderness Skin General skin exam: no rashes or lesions noted Neuro General: oriented to person, oriented to place and oriented to time Extrem General: Yes normal to inspection and Yes full ROM Assessment and Plan Assessment & Plan (1) Physical exam: Code(s): Z00.00 - Encounter for general adult medical examination without abnormal findings Plan: stable; do labs (2) Asthma: Code(s): J45.909 - Unspecified asthma, uncomplicated Plan: stable; same rx Orders: Orders Complete Blood Count Auto Diff Today D64.9 - Anemia, unspecified Comprehensive [place]. Panel Fast Today N28.9 - Disorder of kidney and ureter, unspecified Lipid Panel Today E78.5 - Hyperlipidemia, unspecified Thyroid Stimulating Hormone Today E03.9 - Hypothyroidism, unspecified Coding Level of Care Code Est Pt Prev Care 40-64y(70195) Diagnoses Physical exam Z00.00 Asthma J45.909 Additional Codes FILEMON-7 Assessment Billing - FILEMON-7 Assessment Tool: FILEMON-7 Assessment 23462 ([id number])
== END 2024-02-07 09:21 | disposition home or self-care (01) ==
PROVIDERS: Visit Provider Internal Medicine
DX: Z00.00 Encounter for general adult medical examination without abnormal findings (principal); J45.909 Unspecified asthma, uncomplicated
CPT/HCPCS: 99396

== ENCOUNTER 2024-03-12 09:21 | Outpatient (AMB) | payer MEDICARE, MEDICAID, SELFPAY ==
[2024-03-12 09:23] VITALS: BP 110/64; PULSE 75; O2SAT 98; BMI 31.9
--- NOTE | 2024-03-12 09:23 | MHC.OFFVIS ---
Vital Signs 03/12/24 09:23 Height 5 ft 7 in Weight 203 lb 14.841 oz BMI 31.9 BP 110/64 Blood Pressure Location Rt brachial Position Sitting Pulse 75 Pulse Source Doppler Pulse Oximetry (%) 98 Oxygen Delivery Method Room Air Intake Visit Reasons: dyspnea Allergies ibuprofen [From Motrin] Allergy (Severe, Verified 03/12/24 09:28) stomach pain morphine Allergy (Verified 03/12/24 09:28) Rash Penicillins Allergy (Verified 03/12/24 09:28) Hives HPI HPI dyspnea: Details: 58-year-old gentleman, recent 40 pack-year smoker with underlying history of asthma since his 20s and recent several evaluations in the emergency room for asthma referred for management of his asthma symptoms. Patient states that he has been using albuterol MDI and nebs with suboptimal control of his symptoms. He complains of intermittent wheezing and dyspnea. He denies exposure to industrial dusts. Patient does have 2 dogs as pets. He also complains of unrestful sleep, daytime sleepiness, and snoring. Patient also complains of some environmental allergies. He denies family history of lung disease. After the last office visit patient had pulmonary function test that showed off fixed obstruction, but mild decrease in diffusion capacity. His neurologic studies also show allergies to dogs and Aspergillus. He is using Breo and albuterol MDI with reasonable control of his symptoms. He denies any recent exacerbations. His sleep study is pending. [facility] Medical History Asthma Sacroiliitis Disc degeneration, lumbar Fibromyalgia Bleeding hemorrhoids Smoker Major depression Hyperlipidemia Shoulder pain Rectal bleeding History of adenomatous polyp of colon Internal hemorrhoids Sigmoid diverticulosis Anxiety Arthritis High cholesterol Chronic back pain Surgical History History of elbow surgery H/O hemorrhoidectomy H/O shoulder surgery Hx of endoscopy Hx of colonoscopy Family History Father Diabetes Mother Alzheimer disease Dementia Brother No problems noted. Brother No problems noted. Sister No problems noted. Sister No problems noted. Son No problems noted. Daughter No problems noted. Daughter No problems noted. Social History (Reviewed 03/12/24 @ 09:29 by LOLY Walters Housing: Apartment Alcohol intake: current Alcohol intake frequency: does not drink Alcohol type: hard liquor Patient Tobacco Use Status: Former Tobacco user Cigarette Packs Per Day: 1 Cigarettes Per Day: 20.0 Years Smoked: quit in 09/2023 e-Cigarette/Vaping Use: Never Used Second Hand Smoke Exposure: No service: No Current occupational status: unemployed Current occupation: Right Handed Cognitive needs: Yes (cane) Hearing needs: No Vision needs: No Review of Systems Const Denies daytime sleepiness, Denies excessive sweating, Denies fatigue, Denies fever(s), Denies lethargy, Denies malaise, Denies night sweats, Denies snoring and Denies weight loss Eyes Denies blurry vision and Denies itchy eyes ENT Denies nasal congestion, Denies post nasal drip, Denies sinus pain, Denies sinus pressure and Denies other ( Thrush) Card Denies chest pain, Denies pedal edema, Denies dyspnea, Denies orthopnea and Denies paroxysmal nocturnal dyspnea Resp Denies cough, Denies hemoptysis, Denies excessive phlegm production, Denies dyspnea, Denies snoring and Denies wheezing GI Denies abdominal pain and Denies heartburn Musc Denies myalgias, Denies arthralgias and Denies joint swelling Skin/Breast Denies rash Neuro Denies memory loss and Denies seizure-like activity Psych Denies abnormal sleep pattern, Denies anxiety and Denies memory loss Endo Denies excessive sweating, Denies fatigue and Denies heat intolerance Blanco/Lymph Denies easy bruising Aller/Immun Denies itchy eyes, Denies seasonal rhinorrhea and Denies wheezing Physical Exam Vital Signs: Last Vital Signs Pulse 75 03/12/24 09:23 BP 110/64 03/12/24 09:23 Pulse Ox 98 03/12/24 09:23 Oxygen Delivery Method Room Air 03/12/24 09:23 BMI result Body Mass Index 31.9 Const General: no acute distress and alert Nutritional Appearance: not obese Orientation/consciousness: Other orientation findings ( oriented) HEENT Head: Yes atraumatic Eyes General: appearance normal, both eyes and all related structures Sclerae: sclerae normal EOM: EOMs intact bilaterally Neck Neck: Yes supple Lymphatic: no lymphadenopathy noted Resp Effort & Inspection: normal respiratory effort and no use of accessory muscles Auscultation: clear to auscultation bilaterally Cardio Rate: regular rate Rhythm: regular rhythm Heart sounds: no gallops, no murmurs and no rubs Skin General skin exam: other ( warm) Extrem General: No clubbing, No cyanosis and No edema Assessment & Plan Assessment & Plan (1) Asthma: Code(s): J45.909 - Unspecified asthma, uncomplicated Category: Medical Plan: Results of pulmonary function test reviewed, underlying asthma/COPD overlap syndrome now well controlled on Breo MDI/nebs. Continue current regimen. (2) Environmental allergies: Code(s): Z91.09 - Other allergy status, other than to drugs and biological substances Category: Medical Plan: Results of immunologic workup reviewed. Patient does have significant allergies to dogs and Aspergillus. If no longer controlled inhaled corticosteroids, will consider immunologic therapy. (3) GOLDEN (obstructive sleep apnea): Code(s): G47.33 - Obstructive sleep apnea (adult) (pediatric) Category: Medical Plan: Sleep study is still pending. Coding Level of Care Code Est Pt Level 4 (53591) Diagnoses Asthma J45.909 Environmental allergies Z91.09 GOLDEN (obstructive sleep apnea) G47.33
== END 2024-03-12 09:40 | disposition home or self-care (01) ==
PROVIDERS: PCP Internal Medicine; Visit Provider Internal Medicine Pulmonary Disease
DX: J45.909 Unspecified asthma, uncomplicated (principal); Z91.09 Other allergy status, other than to drugs and biological substances; G47.33 Obstructive sleep apnea (adult) (pediatric)
CPT/HCPCS: 99214

== ENCOUNTER → 2024-03-12 09:21 | Outpatient (BNVA) | payer MEDICARE, MEDICAID, SELFPAY | PROVIDERS: PCP Internal Medicine; Visit Provider Internal Medicine Pulmonary Disease | DX: J45.909 Unspecified asthma, uncomplicated (principal); G47.33 Obstructive sleep apnea (adult) (pediatric); Z91.09 Other allergy status, other than to drugs and biological substances | CPT/HCPCS: 99212 ==

== ENCOUNTER → 2024-03-13 07:33 | Outpatient (REF) | payer MEDICARE, MEDICAID, SELFPAY | LOC: HO.SL 07:33 | PROVIDERS: PCP Internal Medicine; Visit Provider Internal Medicine Pulmonary Disease | DX: G47.33 Obstructive sleep apnea (adult) (pediatric) (principal) | CPT/HCPCS: 95806 ==

== ENCOUNTER → 2024-03-13 07:50 | Outpatient (BNV) | payer MEDICARE, MEDICAID, SELFPAY | PROVIDERS: PCP Internal Medicine; Visit Provider Internal Medicine | DX: G47.33 Obstructive sleep apnea (adult) (pediatric) (principal) | CPT/HCPCS: 95806 ==

== ENCOUNTER 2024-05-17 10:48 | Outpatient (AMB) | payer MEDICARE, MEDICAID, SELFPAY ==
[2024-05-17 10:51] VITALS: BMI 31.8
--- NOTE | 2024-05-17 10:51 | MHC.OFFVIS ---
Vital Signs 05/17/24 10:51 Height 5 ft 7 in Weight 203 lb BMI 31.8 Intake Visit Reasons: New prob- LT hand MF Intake Note: Rei is a 59 year old right hand dominant male who presents today for a for a evaluation of his left middle finger trigger. Patient reports he has been having his finger locking everyday for two months. He states that his finger lock even when he is sitting down. Denies numbness and tingling. Allergies ibuprofen [From Motrin] Allergy (Severe, Verified 05/17/24 10:56) stomach pain morphine Allergy (Verified 05/17/24 10:56) Rash Penicillins Allergy (Verified 05/17/24 10:56) Hives HPI HPI New prob- LT hand MF: Details: Patient is a 59-year-old male who presents for a 2 month history of locking and catching, with associated pain, in his left middle finger. The patient reports that his finger locks and catches every day, and that has gotten to the point where he needs to passively extend the finger in order to release it from locking. Patient also reports that he has been experiencing significant pain, which makes it difficult for him to fall asleep. Patient reports that this pain occurs throughout his hand, but that it is worst over the A1 raymond of the left middle finger. Patient also reports occasional locking and catching in middle and ring fingers of the right hand, but reports that these are not nearly as severe as the left middle finger, and he does not feel these require treatment at this time. [facility] Medical History Asthma Sacroiliitis Disc degeneration, lumbar Fibromyalgia Bleeding hemorrhoids Smoker Major depression Hyperlipidemia Shoulder pain Rectal bleeding History of adenomatous polyp of colon Internal hemorrhoids Sigmoid diverticulosis Anxiety Arthritis High cholesterol Chronic back pain Surgical History History of elbow surgery H/O hemorrhoidectomy H/O shoulder surgery Hx of endoscopy Hx of colonoscopy Family History Father Diabetes Mother Alzheimer disease Dementia Brother No problems noted. Brother No problems noted. Sister No problems noted. Sister No problems noted. Son No problems noted. Daughter No problems noted. Daughter No problems noted. Social History Housing: Apartment Alcohol intake: current Alcohol intake frequency: does not drink Alcohol type: hard liquor Patient Tobacco Use Status: Former Tobacco user Cigarette Packs Per Day: 1 Cigarettes Per Day: 20.0 Years Smoked: quit in 09/2023 e-Cigarette/Vaping Use: Never Used Second Hand Smoke Exposure: No service: No Current occupational status: unemployed Current occupation: Right Handed Cognitive needs: Yes (cane) Hearing needs: No Vision needs: No Review of Systems Const All systems reviewed & are unremarkable except as noted in HPI and below Physical Exam Vital Signs: BMI result Body Mass Index 31.8 Const Other: Patient is alert, oriented, cooperative, and in no acute distress HEENT Head: Yes normocephalic and Yes atraumatic Resp Effort & Inspection: normal respiratory effort and able to speak in complete sentences Cardio Jugular venous distension: no JVD Neuro General: gait normal Cognition (Neuro): normal cognition Extrem Other: Patient is alert, oriented, and in no acute distress. Neuro: Median, ulnar, radial nerves motor and sensory intact and sensation is normal to the tips of all digits. Vascular: Cap refill brisk Pain: Patient reports pain throughout the left hand, but states that pain is worst at the level of the A1 raymond of the left middle finger ROM: Patient is able to make a closed fist in the left hand with encouragement. Visible and palpable locking and catching of the left middle finger upon extension from a closed fist Left middle finger must be manually released from flexion at this time due to trigger finger. No locking and catching of any other digit bilaterally observed during exam today. Skin: No lacerations or abrasions. General: No ecchymosis, erythema, or evidence of infection. Psych: Appears grossly normal Affect normal Attitude cooperative Psych Appearance: grossly normal Mental Status: mental status grossly normal Office Procedures Injection-Therapetic Trigger Single Point: 76114-Odaegqt point injection, 1 or 2 Left middle finger trigger injection Assessment & Plan Assessment & Plan (1) Trigger finger, left middle finger: Code(s): M65.332 - Trigger finger, left middle finger Category: Medical (2) Trigger finger, right middle finger: Code(s): M65.331 - Trigger finger, right middle finger Category: Medical (3) Trigger finger, right ring finger: Code(s): M65.341 - Trigger finger, right ring finger Category: Medical Plan 1. Left middle finger trigger finger Locking and catching occurring every day Finger must be passively extended most of the time to be able to release trigger Patient would like to move forward with trigger injection at this time Injection #1: The risks and benefits of a steroid injection including but not limited to risk of damage to blood vessels, nerves, tendons, infection, skin bleaching, failure to improve symptoms, increased pain, and possible need for further injections or other intervention were discussed with the patient and the patient wishes to proceed with the steroid injection. Once consent was obtained, I sterilely prepped the area over the A1 raymond of the flexor tendon sheath of the left middle finger. I then injected the flexor tendon sheath with a combination of 1 mL of dexamethasone (4mg/ml), and 1% lidocaine. The patient tolerated the procedure well with no complications. Patient reports some pain relief while in exam room with local anesthesia Patient advised that it will take at least 3-4 weeks for potential relief of locking and catching. If the patient continues to have locking and catching 4-6 weeks following this injection, they may call to schedule appointment to discuss alternative treatment options Follow-up prn 2. Trigger finger, right middle finger 3. Trigger finger, right ring finger Patient reports that locking and catching occur occasionally in these 2 digits No visible or palpable locking or catching observed during exam today Patient does not feel that these fingers require treatment of triggers today, but will follow up in office if and when he feels he would like to explore potential treatment options. Coding Level of Care Code New Pt Level 3 (30676) Diagnoses Trigger finger, left middle finger M65.332 Trigger finger, right middle finger M65.331 Trigger finger, right ring finger M65.341 CPT Codes Details - Trigger Single Point: 49341-Lmmtsis point injection, 1 or 2 ([id number]) Time Spent (min) 27
== END 2024-05-17 12:13 | disposition home or self-care (01) ==
LOC: HO.HOS 10:48
PROVIDERS: PCP Internal Medicine
DX: M65.332 Trigger finger, left middle finger (principal); M65.331 Trigger finger, right middle finger; M65.341 Trigger finger, right ring finger
CPT/HCPCS: 20550; 99203; 99213

== ENCOUNTER → 2024-05-17 10:48 | Outpatient (BNVA) | payer MEDICARE, MEDICAID, SELFPAY | PROVIDERS: PCP Internal Medicine | DX: M65.332 Trigger finger, left middle finger (principal); M65.331 Trigger finger, right middle finger; M65.341 Trigger finger, right ring finger | CPT/HCPCS: 20550; 99202; J1100 ==

== ENCOUNTER 2024-06-10 08:30 | Day surgery (SDC) | payer MEDICARE, MEDICAID, SELFPAY ==
[2024-06-06 11:01] VITALS: BMI 30.5
--- NOTE | 2024-06-07 09:51 | HO.ANESPROP2 ---
Documented by User: Rea Santiago NP 06/07/24 09:52 HPI - Anesthesia Eval Consult details Narrative: 59yo M for Colonoscopy PMF Active Problems Active Problems: All Active Problems Trigger finger, right ring finger (Acute) Trigger finger, right middle finger (Acute) Trigger finger, left middle finger (Acute) Hemorrhoids, internal, with bleeding (Acute) Environmental allergies (Acute) GOLDEN (obstructive sleep apnea) (Acute) Trochanteric bursitis, right hip (Acute) Asthma (Acute) Osteoarthritis of right knee (Acute) Sacroiliitis (Acute) Disc degeneration, lumbar (Acute) Physical exam (Acute) Fibromyalgia (Acute) Bilateral lumbar radiculopathy (Acute) Pain of both sacroiliac joints (Acute) Spondylosis of lumbar region without myelopathy or radiculopathy (Acute) Bleeding hemorrhoids (Acute) Smoker (Acute) Lumbar spondylosis (Acute) Primary osteoarthritis of hands, bilateral (Acute) Polyarthralgia (Acute) High cholesterol (Acute) GERD (gastroesophageal reflux disease) (Acute) Rotator cuff tendonitis (Acute) Cubital tunnel syndrome (Acute) Left lower quadrant abdominal pain of unknown etiology (Acute) Major depression (Acute) Hyperlipidemia (Acute) Shoulder pain (Acute) Rectal bleeding (Acute) History of adenomatous polyp of colon (Acute) Internal hemorrhoids (Acute) Sigmoid diverticulosis (Acute) Past Medical History Medical History Asthma Sacroiliitis Disc degeneration, lumbar Fibromyalgia Bleeding hemorrhoids Smoker Major depression Hyperlipidemia Shoulder pain Rectal bleeding History of adenomatous polyp of colon Internal hemorrhoids Sigmoid diverticulosis Anxiety Arthritis High cholesterol Chronic back pain Family History Family History Father Diabetes Mother Alzheimer disease Dementia Brother No problems noted. Brother No problems noted. Sister No problems noted. Sister No problems noted. Son No problems noted. Daughter No problems noted. Daughter No problems noted. Surgical History Surgical History History of elbow surgery H/O hemorrhoidectomy H/O shoulder surgery Hx of endoscopy Hx of colonoscopy Social History Social History Housing: Apartment Alcohol intake: current Alcohol intake frequency: does not drink Alcohol type: hard liquor Patient Tobacco Use Status: Former Tobacco user Cigarette Packs Per Day: 1 Cigarettes Per Day: 20.0 Years Smoked: quit in 09/2023 e-Cigarette/Vaping Use: Never Used Second Hand Smoke Exposure: No Are you DNR?: No Advance Directives: No Advance Directives Information Provided: Yes Nutrition Risks: No Nutritional Risk service: No Current occupational status: unemployed Current occupation: Right Handed Cognitive needs: Yes (cane) Hearing needs: No Vision needs: No Meds Allergies Allergy/AdvReac Type Severity Reaction Status Date / Time ibuprofen [From Motrin] Allergy Severe stomach Verified 06/10/24 09:42 pain morphine Allergy Rash Verified 06/10/24 09:42 Penicillins Allergy Hives Verified 06/10/24 09:42 Home Medications ?Medication ?Instructions ?Recorded ?Confirmed ?Last Taken ?Type gabapentin 400 mg capsule 400 mg PO TID 09/13/21 06/10/24 Unknown History trazodone 50 mg tablet 25 - 50 mg PO BEDTIME 12/27/21 06/10/24 Unknown History Exam Height,Weight and Vital Signs: Height 5 ft 7 in Weight 88.451 kg Assessment and Plan Assessment Anesthesia Assessment: Chart Reviewed Documented by User: Samara Figueroa MD 06/10/24 10:58 [facility] Past Medical History Medical History Asthma Sacroiliitis Disc degeneration, lumbar Fibromyalgia Bleeding hemorrhoids Smoker Major depression Hyperlipidemia Shoulder pain Rectal bleeding History of adenomatous polyp of colon Internal hemorrhoids Sigmoid diverticulosis Anxiety Arthritis High cholesterol Chronic back pain Family History Family History Father Diabetes Mother Alzheimer disease Dementia Brother No problems noted. Brother No problems noted. Sister No problems noted. Sister No problems noted. Son No problems noted. Daughter No problems noted. Daughter No problems noted. Surgical History Surgical History History of elbow surgery H/O hemorrhoidectomy H/O shoulder surgery Hx of endoscopy Hx of colonoscopy History of Problems with Anesthesia: No Social History Social History Housing: Apartment Alcohol intake: current Alcohol intake frequency: does not drink Alcohol type: hard liquor Patient Tobacco Use Status: Former Tobacco user Cigarette Packs Per Day: 1 Cigarettes Per Day: 20.0 Years Smoked: quit in 09/2023 e-Cigarette/Vaping Use: Never Used Second Hand Smoke Exposure: No Are you DNR?: No Advance Directives: No Advance Directives Information Provided: Yes Nutrition Risks: No Nutritional Risk service: No Current occupational status: unemployed Current occupation: Right Handed Cognitive needs: Yes (cane) Hearing needs: No Vision needs: No Meds Allergies Allergy/AdvReac Type Severity Reaction Status Date / Time ibuprofen [From Motrin] Allergy Severe stomach Verified 06/10/24 09:42 pain morphine Allergy Rash Verified 06/10/24 09:42 Penicillins Allergy Hives Verified 06/10/24 09:42 Home Medications ?Medication ?Instructions ?Recorded ?Confirmed ?Last Taken ?Type gabapentin 400 mg capsule 400 mg PO TID 09/13/21 06/10/24 Unknown History trazodone 50 mg tablet 25 - 50 mg PO BEDTIME 12/27/21 06/10/24 Unknown History Exam Airway Mallampati Class: III TM Dist: >3cm Neck ROM: Full Loose/Missing/Broken Teeth: No Heart: RRR Lungs: CTA Assessment and Plan Assessment Anesthesia Assessment: Anesthesia Plan Discussed Final Anesthetic Review History of Problems with Anesthesia: No NPO: Yes ASA Class: II Final Preanesthetic Review: Meds/Allgs Chart Reviewed, Consent Obtained/Reviewed and Anes Risks/Benef Reviewed Patient Risk: Low Procedure Risk: Low Anesthetic Plan Anesthetic Plan: MAC: Disposition: Standard PACU
[2024-06-10 09:23] VITALS: BMI 30.7
[2024-06-10 09:40] VITALS: BP 132/80; PULSE 68; RESP 18; TEMP 36.6; O2SAT 98
[2024-06-10] MEDS: Lactated Ringers 1,000 ML 100 ML IVCONT (09:40)
--- NOTE | 2024-06-10 09:46 | MHC.SHP ---
Pre-Procedural Eval Section A - 24 Hr Update-Section A only Date of Service: 06/10/24 The patient is an INPATIENT: No The patient has been examined within 24 hours of the surgical procedure. The History & Physical has been completed within 30 days and I have reviewed it.: No Section B - Complete if H&P > 30 days Chief Complaint: Surveillance for colon polyps, rectal bleed, GERD Relevant Family History (Specify if Yes): No Relevant Social History: Tobacco Use (Former smoker) Present Medications: see Short Stay Collaborative assessment Medical History: Significant History (Asthma Sacroiliitis Disc degeneration, lumbar Fibromyalgia Bleeding hemorrhoids Smoker Major depression Hyperlipidemia Shoulder pain Rectal bleeding History of adenomatous polyp of colon Internal hemorrhoids Sigmoid diverticulosis) History of Previous Operations: Relevant previous surgery/procedure and date(s) (History of elbow surgery H/O hemorrhoidectomy H/O shoulder surgery Hx of endoscopy Hx of colonoscopy) Allergies: Allergies Allergy/AdvReac Type Severity Reaction Status Date / Time ibuprofen [From Motrin] Allergy Severe stomach Verified 06/10/24 09:42 pain morphine Allergy Rash Verified 06/10/24 09:42 Penicillins Allergy Hives Verified 06/10/24 09:42 Review of Systems Sugical H&P ROS: Negative: Constitution, Cardiovascular, Respiratory and Gastrointestinal Exam Surgical H&P Exam: Normal: Heart, Normal: Lungs, Normal: Extremities and Normal: Abdomen Plan Diagnosis/Plan: Unchanged I have reviewed the history and physical and performed a pertinent physical examination on my patient. No changes have occurred unless specified. Time Spent With Patient Time: Total time managing care of this patient today ____ minutes.
[2024-06-10 11:25] VITALS: BP 129/85; PULSE 92; RESP 18; TEMP 36.3; O2SAT 100
--- NOTE | 2024-06-10 11:28 | P.OPN-COLO_ITS ---
Colonoscopy Operative Note Operative Note Date of Service: 06/10/24 Narrative: COLONOSCOPY TILL CECUM WITH BIOPSIES AND SNARE POLYPECTOMY Pre-op diagnosis: Surveillance of colon polyps, rectal bleeding. Post-op diagnosis:? Colon polyps, Diverticulosis, hemorrhoids Endoscopist:? Allison Paredes MD Anesthesia:?MAC Consent: Indications for the procedure and potential complications of bleeding, perforation, reaction to medications and missed diagnosis were discussed with the patient and informed consent was obtained. Instrument: Olympus CF H 190 L variable stiffness adult colonoscope Monitoring: Vital signs and clinical assessment, intermittent blood pressure monitoring, continuous EKG monitoring, Pulse oximetry and Carbon Dioxide monitoring were done throughout the procedure. Please see anesthesia flowsheet. Colon withdrawl time was 15 minutes. Procedure: The patient was placed in the left lateral decubitis position and pre-procedure medications were administered. After a digital rectal examination of the ano-rectum, the video colonoscope was inserted into the rectum and advanced through the colon to the cecum. The colonoscope was slowly withdrawn in a retrograde panoramic fashion and the colon mucosa was carefully examined including a retroflexed view of the rectum. Findings and interventions are described below. Procedure Difficulty: without difficulty Findings: Terminal Ileum: Not evaluated Cecum: Normal Ascending Colon: Normal Transverse Colon: Normal Descending Colon: Normal Sigmoid Colon: A 3-4 mm sessile polyp - removed with a cold biopsy. A 7-8 mm sessile polyp - removed with a cold snare. Moderate diverticulosis Rectum: A 10 mm diminutive appearing polyp in the distal rectum (just inside the anal verge) - biopsied Ano-rectum: Smal internal hemorrhoids and scar of past hemorrhoidectomy Colon preparation: Good after copious irrigation and fair in the cecum (some undigested vegetable matter was scattered throughout the entire colon and could not be suctioned) [place] Bowel Preparation Scale Right colon; 2 Transverse colon: 2 Left colon; 2 (0 = Unprepared colon segment with mucosa not seen due to solid stool that cannot be cleared. 1 = Portion of mucosa of the colon segment seen, but other areas of the colon segment not well seen due to staining, residual stool and/or opaque liquid. 2 = Minor amount of residual staining, small fragments of stool and/or opaque liquid, but mucosa of colon segment seen well. 3 = Entire mucosa of colon segment seen well with no residual staining, small fragments of stool or opaque liquid) Impression and Post Procedure Diagnosis: Colonoscopy Findings: Two small polyps were removed and a hyperplastic appearing polyp was biopsied Moderate diverticulosis seen in the sigmoid colon Small hemorrhoids on retroflexed exam. Plan: Pt has a FU appointment on 06/20/[address] Paredes Repeat Colonoscopy in 5 years if polyps are adenomatous and due to history of adenomatous colon polyps. Above findings were reviewed with the patient and relevant handouts were given and the discharge area. Pt was advised to use hydrocortisone cream for hemorrhoids
[2024-06-10 11:40] VITALS: BP 129/85; PULSE 83; RESP 16; TEMP 36.2; O2SAT 100
== END 2024-06-10 12:22 | disposition home or self-care (01) ==
PROVIDERS: PCP Internal Medicine; Visit Provider Internal Medicine Gastroenterology
PROC: 0DJD8ZZ Inspection of Lower Intestinal Tract, Via Natural or Artificial Opening Endoscopic (ICD-10-PCS; CPT 45378; principal; 2024-06-10 10:50)
DX: Z12.11 Encounter for screening for malignant neoplasm of colon (principal); Z86.010 Personal history of colon polyps; K63.5 Polyp of colon; K62.1 Rectal polyp; K57.30 Diverticulosis of large intestine without perforation or abscess without bleeding; K21.9 Gastro-esophageal reflux disease without esophagitis; K64.8 Other hemorrhoids; E78.00 Pure hypercholesterolemia, unspecified; J45.909 Unspecified asthma, uncomplicated; M79.7 Fibromyalgia; F32.A Depression, unspecified; F41.9 Anxiety disorder, unspecified; Z79.51 Long term (current) use of inhaled steroids; Z79.52 Long term (current) use of systemic steroids; Z79.899 Other long term (current) drug therapy; Z88.0 Allergy status to penicillin; Z88.6 Allergy status to analgesic agent; Z88.5 Allergy status to narcotic agent
CPT/HCPCS: 45385; 45380; 88305; J2704

== ENCOUNTER → 2024-06-10 08:30 | Outpatient (BNV) | payer MEDICARE, MEDICAID, SELFPAY | PROVIDERS: PCP Internal Medicine; Visit Provider Internal Medicine Gastroenterology | DX: Z12.11 Encounter for screening for malignant neoplasm of colon (principal); Z86.010 Personal history of colon polyps; K63.5 Polyp of colon; K62.1 Rectal polyp; K62.5 Hemorrhage of anus and rectum; K57.30 Diverticulosis of large intestine without perforation or abscess without bleeding | CPT/HCPCS: 45380; 45385 ==

== ENCOUNTER 2024-07-19 08:03 | Outpatient (AMB) | payer MEDICARE, MEDICAID, SELFPAY ==
--- NOTE | 2024-07-19 08:06 | MHC.OFFVIS ---
Intake Visit Reasons: OV- Left Hand MF Pain Intake Note: Rei is a 59 year old right hand dominant male who presents today for a for a follow up evaluation of his left middle finger trigger. Patient reports that the injection didn't help and that he still has a lot of pain. Allergies ibuprofen [From Motrin] Allergy (Severe, Verified 07/19/24 08:11) stomach pain morphine Allergy (Verified 07/19/24 08:11) Rash Penicillins Allergy (Verified 07/19/24 08:11) Hives HPI HPI OV- Left Hand MF Pain: Details: Patient is a 59-year-old male who presents for follow-up for left middle finger trigger finger status post injection, date of injection 05/17/2024. The patient comes in wearing a metal finger splint, and states that he has been wearing this to prevent the finger from locking and catching, as it is extremely painful. The patient reports that the injection did not provide him with any relief, and he would like to proceed with further treatment options. The patient does report some occasional numbness only in the left middle finger, no other numbness or tingling noted. No other acute complaints or concerns at this time. [facility] Medical History Asthma Sacroiliitis Disc degeneration, lumbar Fibromyalgia Bleeding hemorrhoids Smoker Major depression Hyperlipidemia Shoulder pain Rectal bleeding History of adenomatous polyp of colon Internal hemorrhoids Sigmoid diverticulosis Anxiety Arthritis High cholesterol Chronic back pain Surgical History History of elbow surgery H/O hemorrhoidectomy H/O shoulder surgery Hx of endoscopy Hx of colonoscopy Family History Father Diabetes Mother Alzheimer disease Dementia Brother No problems noted. Brother No problems noted. Sister No problems noted. Sister No problems noted. Son No problems noted. Daughter No problems noted. Daughter No problems noted. Social History Housing: Apartment Alcohol intake: current Alcohol intake frequency: does not drink Alcohol type: hard liquor Patient Tobacco Use Status: Former Tobacco user Cigarette Packs Per Day: 1 Cigarettes Per Day: 20.0 Years Smoked: quit in 09/2023 e-Cigarette/Vaping Use: Never Used Second Hand Smoke Exposure: No service: No Current occupational status: unemployed Current occupation: Right Handed Cognitive needs: Yes (cane) Hearing needs: No Vision needs: No Physical Exam Extrem Other: Patient is alert, oriented, and in no acute distress. Neuro: Patient reports normal sensation of the tips of all digits at this time Vascular: Cap refill brisk Pain: Patient reports significant pain and discomfort with release of locked left middle finger trigger finger Patient reports tenderness to palpation over the A1 raymond of the left middle finger ROM: Visible and palpable locking and catching, requiring manual release, of the left middle finger noted Patient is able to flex and extend all other digits of bilateral hands fully and without difficulty. No locking and catching of the right middle and right ring fingers noted Skin: No lacerations or abrasions. General: No ecchymosis, erythema, or evidence of infection. Psych: Appears grossly normal Affect normal Attitude cooperative Assessment & Plan Assessment & Plan (1) Trigger finger, left middle finger: Code(s): M65.332 - Trigger finger, left middle finger Category: Medical (2) Trigger finger, right middle finger: Code(s): M65.331 - Trigger finger, right middle finger Category: Medical (3) Trigger finger, right ring finger: Code(s): M65.341 - Trigger finger, right ring finger Category: Medical Plan 1. Trigger finger, left middle finger, status post injection, date of injection 05/17/2024 I educated the patient about the condition. I discussed both operative and nonoperative treatment options. The patient would like to proceed with surgery. The risks and benefits of operative treatment were discussed with the patient and the patient wishes to proceed with surgery. These risks include, but are not limited to, risk of damage to blood vessels, nerves, tendons, infection, recurrence, incomplete relief of preoperative symptoms, persistent pain, possible need for further surgery, and the risks associated with regional blocks and/or anesthesia. Plan is to take the patient to the operating room at some point in the next few weeks for the following procedures: 1. Left middle finger trigger finger release under local anesthesia All of the preoperative paperwork including the consent was discussed today. All of the patient's questions were answered in the clinic today. The patient understands that they will be in contact with our fermentation engineer to discuss scheduling their procedure. Patient denies diabetes, blood thinners, asthma, heart issues, lung issues, kidney issues, or current smoking. 2. Trigger finger, right middle finger 3. Trigger finger, right ring finger Patient reports that these fingers are no longer locking and catching, and would not like any treatment for these fingers at this time. Patient will follow-up as needed with any acute concerns Coding Level of Care Code Est Pt Level 4 (52167) Diagnoses Trigger finger, left middle finger M65.332 Trigger finger, right middle finger M65.331 Trigger finger, right ring finger M65.341
== END 2024-07-19 08:37 | disposition home or self-care (01) ==
PROVIDERS: PCP Internal Medicine
DX: M65.332 Trigger finger, left middle finger (principal); M65.331 Trigger finger, right middle finger; M65.341 Trigger finger, right ring finger
CPT/HCPCS: 99214

== ENCOUNTER → 2024-07-19 08:03 | Outpatient (BNVA) | payer MEDICARE, MEDICAID, SELFPAY | PROVIDERS: PCP Internal Medicine | DX: M65.332 Trigger finger, left middle finger (principal); M65.331 Trigger finger, right middle finger; M65.341 Trigger finger, right ring finger | CPT/HCPCS: 99212 ==

== ENCOUNTER 2024-08-09 08:15 | Outpatient (AMB) | payer MEDICARE, MEDICAID, SELFPAY ==
[2024-08-09 08:29] VITALS: BP 142/82; PULSE 91; O2SAT 95; BMI 32.1
--- NOTE | 2024-08-09 08:29 | MHC.PC.OV ---
Vital Signs 08/09/24 08:29 Height 5 ft 7 in Weight 205 lb BMI 32.1 BP 142/82 H Blood Pressure Location Lt brachial Position Sitting Pulse 91 Pulse Source Pulse Oximeter Pulse Oximetry (%) 95 Oxygen Delivery Method Room Air Intake Visit Reasons: 6 Month F/U Intake Note: Pt reports rectal bleeding and pains in the side of his abdomen. Digester Required: Yes Allergies ibuprofen [From Motrin] Allergy (Severe, Verified 08/09/24 08:35) stomach pain morphine Allergy (Verified 08/09/24 08:35) Rash Penicillins Allergy (Verified 08/09/24 08:35) Hives Medication List - Last Reconciled 08/09/24 by Servando Willard MD albuterol sulfate 2.5 mg (3 mL) inhalation Q4H PRN albuterol sulfate 90 mcg/actuation 2 puffs inhalation Q4-6H PRN albuterol sulfate 2.5 mg (3 mL) inhalation Q4H albuterol sulfate 90 mcg/actuation (ProAir HFA) 2 puffs inhalation Q4-6H PRN fluticasone furoate-vilanterol 200-25 mcg/dose (Breo Ellipta) 1 inh inhalation DAILY 30 days gabapentin 400 mg PO TID hydrocortisone 2.5% 1 appl [place] BID-QID PRN 15 days nebulizer and compressor As directed pantoprazole 40 mg PO DAILY 60 days psyllium husk 1 tbsp PO DAILY 60 days trazodone 25 - 50 mg PO BEDTIME zolpidem 5 mg PO BEDTIME Tobacco use date assessed: 02/07/24 Dental Screening Dental Screen Date: 02/07/24 HPI 6 Month F/U HPI Details left sided abd pain and rectal bleeding for a few weeks PFSH Medical History Asthma Sacroiliitis Disc degeneration, lumbar Fibromyalgia Bleeding hemorrhoids Smoker Major depression Hyperlipidemia Shoulder pain Rectal bleeding History of adenomatous polyp of colon Internal hemorrhoids Sigmoid diverticulosis Anxiety Arthritis High cholesterol Chronic back pain Surgical History History of elbow surgery H/O hemorrhoidectomy H/O shoulder surgery Hx of endoscopy Hx of colonoscopy Family History Father Diabetes Mother Alzheimer disease Dementia Brother No problems noted. Brother No problems noted. Sister No problems noted. Sister No problems noted. Son No problems noted. Daughter No problems noted. Daughter No problems noted. Social History Housing: Apartment Alcohol intake: current Alcohol intake frequency: does not drink Alcohol type: hard liquor Patient Tobacco Use Status: Former Tobacco user Tobacco use type: Cigarette Cigarette Packs Per Day: 1 Cigarettes Per Day: 20.0 Years Smoked: quit in 09/2023 e-Cigarette/Vaping Use: Never Used Second Hand Smoke Exposure: No service: No Current occupational status: unemployed Current occupation: Right Handed Cognitive needs: Yes (cane) Hearing needs: No Vision needs: No Questionnaire PHQ-9 Over the last 2 weeks, how often have you been bothered by any of the following problems? 1. Little interest or pleasure in doing things: not at all 2. Feeling down, depressed, or hopeless: not at all 3. Trouble falling or staying asleep, or sleeping too much: not at all 4. Feeling tired or having little energy: not at all 5. Poor appetite or overeating: not at all 6. Feeling bad about yourself - or that you are a failure or have let yourself or your family down: not at all 7. Trouble concentrating on things, such as reading the newspaper or watching television: not at all 8. Moving or speaking so slowly that other people could have noticed. Or the opposite - being so fidgety or restless that you have been moving around a lot more than usual: not at all 9. Thoughts that you would be better off or of hurting yourself in some way: not at all Total score: 0 Depression Screening Interpretation: Negative Depression Screening Done: Yes [id number] - PHQ-9 Billing: Yes Source: Developed by Drs. José Miguel Mcclellan, Tessie Mcclain, Yair Sethi and colleagues, with an educational sudhakar from [employer]. Thrive Questionnaire Date Thrive assessed: 02/07/24 Are you currently unemployed and looking for a job?: No AUDIT C Alcohol Use Questionnaire (AUDIT-C) 1. How often do you have a drink containing alcohol?: Never Total Score: 0 Score Reviewed/Action Taken: Yes FILEMON-7 AMB Questionnaire FILEMON-7 Date FILEMON - 7 assessed: 02/07/24 Source: Developed by Drs. José Miguel Mcclellan, Tessie Mcclain, Yair Sethi and colleagues, with an educational sudhakar from [employer]. Review of Systems Const Denies chills, Denies headache(s) and Denies weight loss ENT Denies headache(s) Card Denies chest pain, Denies syncope, Denies irregular heart rhythm and Denies dyspnea Resp Denies chest congestion, Denies cough and Denies dyspnea GI Denies change in stool character, Denies nausea and Denies vomiting Musc Denies deformity and Denies joint swelling Neuro Denies syncope and Denies headache(s) Physical exam (Primary Care) Vital Signs: Last Vital Signs Pulse 91 08/09/24 08:29 BP 142/82 H 08/09/24 08:29 Pulse Ox 95 08/09/24 08:29 Oxygen Delivery Method Room Air 08/09/24 08:29 BMI result Body Mass Index 32.1 Tobacco/Smoking Status: Tobacco use Status Tobacco use date assessed 02/07/24 08/09/24 08:31 Patient Tobacco Use Status Former Tobacco user 08/09/24 08:31 Tobacco use type Cigarette 08/09/24 08:36 e-Cigarette/Vaping Use Never Used 08/09/24 08:31 PHQ-9: PHQ-9 Score PHQ-9: Total score 0 08/09/24 08:36 Depression Screening Interpretation: Negative Thrive Assessment: Date of Thrive Assessment Date Thrive assessed 02/07/24 08/09/24 08:31 Const General: cooperative, comfortable, no acute distress and alert Neck Neck: Yes no lymphadenopathy Thyroid: Thyroid normal Resp Effort & Inspection: normal respiratory effort Auscultation: clear to auscultation bilaterally Percussion: percussion normal Cardio Jugular venous distension: no JVD Palpation: normal PMI Rate: regular rate Rhythm: regular rhythm Heart sounds: S1 normal heart sound present and S2 normal heart sound present GI Inspection: Yes normal to inspection Palpation (GI): No hepatosplenomegaly present Skin General skin exam: no rashes or lesions noted Extrem General: Yes no clubbing, cyanosis or edema Assessment and Plan Assessment & Plan (1) Abdominal pain: Code(s): R10.9 - Unspecified abdominal pain Plan: GI referral Orders: Referrals Gastroenterology Referral R10.9 - Unspecified abdominal pain Coding Level of Care Code Est Pt Level 3 (15908) Diagnoses Abdominal pain R10.9
== END 2024-08-09 08:46 | disposition home or self-care (01) ==
PROVIDERS: PCP Internal Medicine; Visit Provider Internal Medicine
DX: R10.9 Unspecified abdominal pain (principal)

== ENCOUNTER → 2024-08-09 08:15 | Outpatient (BNVA) | payer MEDICARE, MEDICAID, SELFPAY | PROVIDERS: PCP Internal Medicine; Visit Provider Internal Medicine | DX: R10.9 Unspecified abdominal pain (principal) | CPT/HCPCS: 99212 ==

== ENCOUNTER 2024-08-12 07:16 | Outpatient (AMB) | payer MEDICARE, MEDICAID, SELFPAY ==
--- NOTE | 2024-08-12 07:28 | MHC.OFFVIS ---
Vital Signs 08/12/24 07:29 Height 5 ft 7 in Weight 250 lb BMI 39.2 BP 119/71 Blood Pressure Location Lt brachial Position Sitting Pulse 71 Intake Visit Reasons: pain with anal bleeding Intake Note: Patient req appt due pain and anal bleeding Patient cc: upper abdominal pain with bloating, dark red and black anal bleeding on and off, and heartburn with burnings sensation on his throat. 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 Required: No Accompanied by: Spouse Allergies ibuprofen [From Motrin] Allergy (Severe, Verified 08/12/24 07:24) stomach pain morphine Allergy (Verified 08/12/24 07:24) Rash Penicillins Allergy (Verified 08/12/24 07:24) Hives Medication List - Last Reconciled 08/12/24 by Allison Paredes MD albuterol sulfate 2.5 mg (3 mL) inhalation Q4H PRN albuterol sulfate 90 mcg/actuation 2 puffs inhalation Q4-6H PRN albuterol sulfate 2.5 mg (3 mL) inhalation Q4H albuterol sulfate 90 mcg/actuation (ProAir HFA) 2 puffs inhalation Q4-6H PRN fluticasone furoate-vilanterol 200-25 mcg/dose (Breo Ellipta) 1 inh inhalation DAILY 30 days gabapentin 400 mg PO TID hydrocortisone 2.5% 1 appl OK BID-QID PRN 15 days nebulizer and compressor As directed pantoprazole 40 mg PO DAILY 60 days psyllium husk 1 tbsp PO DAILY 60 days trazodone 25 - 50 mg PO BEDTIME zolpidem 5 mg PO BEDTIME HPI HPI pain with anal bleeding: Details: 59-YEAR-OLD LATVIAN-SPEAKING MALE FOR FU OF GERD AND RECTAL BLEEDING 02/19/21 Pt had an exam under anesthesia, hemorrhoidectomy x2 columns by Dr Serrato ?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 THE PATIENT UNDERSTANDS AND SPEAKS SOME SWAZI. Pt complains of intermittent rectal bleeding for the past few months - sometimes red and sometimes black. Sometimes mixed with the stool and sometimes just blood. Continues to have LUQ pain - states does not resolve after a BM. Frequent heartburn and medication is not helping. Takes Pantoprazole every day and has to take peptobismol at night. Can have black stool even if he does not take peptobismol. 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 He can wake up at night with the pain. Denies constipation or diarrhea. Can have a BM 2-3 times times a day ??PAST VISIT: Intermittent left sided - sometimes after he eats (2-3 times a week) Pain last for 30 min and goes away after a BM Complains of heartburn and bloating Hb is worse at night He was taking Nexium and ran out. Eats dinner at 4 pm and sleeps at 10 am He quit smoking in Sep and sometimes has a late night snack. Intermittent rectal bleeding every 3-4 days and advised to take fiber in his diet. ? ? ? Complains of constant left sided abdominal pain (in the middle - beside the belly button) - x 1 week. Notes a burning sensation in the stomach and denies n, v or urinary symptoms. Denies change in BMs - has a BM daily. Doing not too well and not too bad ? Complains of left sided abdominal pain. ? Not taking any GI medications at present - he stopped after he was finished with the prescriptions. ? Has gained 9 lbs over the past year and was advised to work on loosing weight. ? Continues to smoke 1 PPD and trying to quit slowly - advised to quit since continued smoking and wt gain is likely contributing to persistent heartburn. ? Still recovering from hemorrhoid surgery and had just a little bleeding. ? Noted a little improvement in symptoms after increasing the Carafate to three times a day. ? Continues to experience heartburn - notes heartburn whenever he eats ? I have been taking the pills and the pills are not working - advised to increase sucralfate to three times a day. ? Taking medications for GERD and is not helping and unable to sleep at night. ? Taking Omeprazole once a day and is not helping and not taking Famotidine. ? Avoids greasy foods, sodas, citrus fruits and juices and drinks coffee once in the morning. ? Abd CT scan results were reviewed with the patient. ? Has dinner at 6 pm and goes to bed around 7 or 8 (does not go to sleep right away) ? Complains of rectal bleeding for the past several yrs worse for the past 4 yrs. ? Blood is bright red and separate from the stools. ? Can sometimes feel weak. ? Patient denies change in bowel habits, occasional black stools. ? Complains of heartburn x 3 yrs every 3-4 days ? Denies dysphagia, nausea or vomiting, change in appetite or weight. ? Intermittent hoarseness and denies cough or sore throat. ? Patient denies major cardiac or pulmonary problems, loud snoring or history of sleep apnea. ? Has sleep disturbance - does not sleep well ? He denies past problems with anesthesia. ? Patient denies known family history of colon cancer, colon polyp or other GI malignancy LABS: January, reviewed ? IMAGING STUIDES:? 02/10/[address] SCAN SHOWED: ? ? ? KIDNEYS AND URETERS: There is a 2 mm nonobstructing stone in the upper ? ? ? pole of the left kidney. The kidneys are otherwise unremarkable. ? ? ? BLADDER: Unremarkable. ? ? ? GASTROINTESTINAL TRACT: There is a small duodenal diverticulum adjacent ? ? ? to the head of the pancreas. The small and large bowel are otherwise ? ? ? unremarkable. The appendix is unremarkable. The stomach is unremarkable. ?ENDOSCOPIC STUDIES: 04/09/20 EGD AND COLONOSCOPY SHOWED: ? ESOPHAGUS: 1 cms tongue of possible Brooks's - biopsied. ? STOMACH: Antral gastritis with superficial erosions. ? Colonoscopy Findings: ? One 10 mm polyp removed (TA on bx) ? Moderate diverticulosis seen in the sigmoid colon ? Large hemorrhoids on retroflexed exam. ? Plan: ? Continue present medications (Famotidine at 20 mg PO once daily) ? Repeat Colonoscopy interval based on path results - in 3-5 years if ? polyps are adenomatous and 10 years if polyps are hyperplastic. ? BIOPSIES SHOWED: ? A. Stomach, biopsies: Gastric mucosa with mild chronic, inactive gastritis; negative for Helicobacter pylori; negative for intestinal metaplasia/dysplasia. ? B. Esophagus, distal, biopsies: Cardia type mucosa with mild chronic inactive inflammation; negative for intestinal metaplasia/dysplasia; no squamous epithelium identified. ? C. Colon, sigmoid polyp, polypectomy: Tubular adenoma. COUNTS INCLUDE 234 BEDS AT THE [facility] Medical History Asthma Sacroiliitis Disc degeneration, lumbar Fibromyalgia Bleeding hemorrhoids Smoker Major depression Hyperlipidemia Shoulder pain Rectal bleeding History of adenomatous polyp of colon Internal hemorrhoids Sigmoid diverticulosis Anxiety Arthritis High cholesterol Chronic back pain Surgical History History of elbow surgery H/O hemorrhoidectomy H/O shoulder surgery Hx of endoscopy Hx of colonoscopy Family History Father Diabetes Mother Alzheimer disease Dementia Brother No problems noted. Brother No problems noted. Sister No problems noted. Sister No problems noted. Son No problems noted. Daughter No problems noted. Daughter No problems noted. Social History Housing: Apartment Alcohol intake: current Alcohol intake frequency: does not drink Alcohol type: hard liquor Patient Tobacco Use Status: Former Tobacco user Tobacco use type: Cigarette Cigarette Packs Per Day: 1 Cigarettes Per Day: 20.0 Years Smoked: quit in 09/2023 e-Cigarette/Vaping Use: Never Used Second Hand Smoke Exposure: No service: No Current occupational status: unemployed Current occupation: Right Handed Cognitive needs: Yes (cane) Hearing needs: No Vision needs: No Review of Systems Const All systems reviewed & are unremarkable except as noted in HPI and below Physical Exam Vital Signs: Last Vital Signs Pulse 71 08/12/24 07:29 BP 119/71 08/12/24 07:29 BMI result Body Mass Index 39.2 Const General: healthy appearing and no acute distress Nutritional Appearance: obese Orientation/consciousness: patient oriented x3 Limitations: language barrier HEENT Head: Yes normal to inspection Ears: hearing grossly normal bilaterally Eyes Sclerae: sclerae normal Pupils: Equal, round and reactive pupils present Neck Neck: Yes normal visual inspection Chest Chest palpation & inspection: normal inspection of the chest Resp Effort & Inspection: normal respiratory effort Auscultation: clear to auscultation bilaterally Cardio Palpation: normal PMI Rate: regular rate Rhythm: regular rhythm Heart sounds: S1 normal heart sound present, S2 normal heart sound present and no murmurs GI Palpation (GI): Soft to palpation, nontender and No hepatosplenomegaly present Auscultation: normal bowel sounds Rectal Exam - Male: Yes deferred Skin General skin exam: no rashes or lesions noted Neuro General: patient oriented x3, gait normal and moves all extremities Cranial nerves: Yes Equal, round and reactive pupils present Psych Appearance: grossly normal Mental Status: mental status grossly normal Assessment & Plan Assessment & Plan (1) Sigmoid diverticulosis: Code(s): K57.30 - Diverticulosis of large intestine without perforation or abscess without bleeding Category: Medical (2) History of adenomatous polyp of colon: Comment: 04/09/20 Colonoscopy showed sigmoid diverticulosis and a 10 mm tubular adenoma was removed. Repeat colonoscopy is advised in 3 years (due 03/2023) - action was set in [facility]. Code(s): Z86.010 - Personal history of colon polyps Category: Medical (3) GERD (gastroesophageal reflux disease): Code(s): K21.9 - Gastro-esophageal reflux disease without esophagitis Category: Medical (4) Bleeding hemorrhoids: Comment: 02/19/21 Pt had an exam under anesthesia, hemorrhoidectomy x2 columns by Dr Serrato and rectal bleeding has almost resolved. Code(s): K64.9 - Unspecified hemorrhoids Category: Medical (5) Chronic LUQ pain: Code(s): R10.12 - Left upper quadrant pain; G89.29 - Other chronic pain Category: Medical (6) Rectal bleeding: Code(s): K62.5 - Hemorrhage of anus and rectum Category: Medical (7) Duodenal diverticulum: Code(s): K57.10 - Diverticulosis of small intestine without perforation or abscess without bleeding Category: Medical Plan 59 year old Thai-speaking male? followed in GI for rectal bleeding and? history of adenomatous colon polyps. Rectal bleeding is likely from hemorrhoids. Patient also complained of symptoms of heartburn and was advised to take famotidine 20 mg twice daily inplace of Zantac and stated that he did not get the medicine at the pharmacy. Patient was advised to stop omeprazole and take sucralfate and pantoprazole 40 mg twice daily for continuing heartburn symptoms - he stopped the medications after he finished the prescriptions 04/09/20 EGD & COLONOSCOPY showed no esophagitis and antral gastritis with superficial erosions. Gastric biopsies were negative for Helicobacter pylori. A 10 mm tubular adenoma was removed during same-day colonoscopy. Moderate sigmoid diverticulosis and large hemorrhoids were noted. Rectal bleeding is likely from hemorrhoids. 02/19/21 Pt had an exam under anesthesia, hemorrhoidectomy x [address] Serrato and rectal bleeding has almost resolved. Continues to smoke 1 PPD and advised to quit. Has gained 9 lbs over the past year and was advised to work on loosing weight. Patient was advised to resume taking pantoprazole 40 mg twice daily for heartburn. Firth of dicyclomine for abdominal pain. 06/10/24 Colonoscopy (FU of colon polyps) was performed and two small hyperplastic polyps were removed and a hyperplastic appearing polyp was biopsied Moderate diverticulosis seen in the sigmoid colon Small hemorrhoids on retroflexed exam. Repeat Colonoscopy in 5 years if polyps are adenomatous and due to history of adenomatous colon polyps Pt placed on the colonoscopy recall list for repeat colon in 5 years. 08/12/24 Pt advised to have labs and schedule an Abd CT scan for evaluation of LUQ pain Increase Pantoprazole to twice daily Follow-up in 6 weeks Orders: Orders Comprehensive Met. Panel 08/12/24 R10.12 - Left upper quadrant pain, G89.29 - Other chronic pain Lipase 08/12/24 R10.12 - Left upper quadrant pain, G89.29 - Other chronic pain C Reactive Protein 08/12/24 R10.12 - Left upper quadrant pain, G89.29 - Other chronic pain Calprotectin, Fecal 08/12/24 R10.12 - Left upper quadrant pain, G89.29 - Other chronic pain, K62.5 - Hemorrhage of anus and rectum Complete Blood Count Auto Diff 08/12/24 R10.12 - Left upper quadrant pain, G89.29 - Other chronic pain Vitamin B12 and Folate 08/12/24 R10.12 - Left upper quadrant pain, G89.29 - Other chronic pain CT abdomen pelvis w IV con 08/12/24 R10.12 - Left upper quadrant pain, K62.5 - Hemorrhage of anus and rectum, K57.10 - Diverticulosis of small intestine without perforation or abscess without bleeding AMB Stool Occult Bld x3 gFOBT 08/12/24 R10.12 - Left upper quadrant pain, G89.29 - Other chronic pain [facility] 08/12/24 R10.12 - Left upper quadrant pain, G89.29 - Other chronic pain Medications: Changed From pantoprazole 40 mg PO DAILY 60 days 60 tabs 3RF K21.9 - Gastro-esophageal reflux disease without esophagitis To pantoprazole 40 mg PO BID 120 tabs 3RF 60 days K21.9 - Gastro-esophageal reflux disease without esophagitis Coding Level of Care Code Est Pt Level 4 (48449) Diagnoses Sigmoid diverticulosis K57.30 History of adenomatous polyp of colon Z86.010 GERD (gastroesophageal reflux disease) K21.9 Bleeding hemorrhoids K64.9 Chronic LUQ pain R10.12; G89.29 Rectal bleeding K62.5 Duodenal diverticulum K57.10 Time Spent (min) 20
[2024-08-12 07:29] VITALS: BP 119/71; PULSE 71; BMI 39.2
== END 2024-08-12 08:11 | disposition home or self-care (01) ==
PROVIDERS: PCP Internal Medicine; Visit Provider Internal Medicine Gastroenterology
DX: K57.30 Diverticulosis of large intestine without perforation or abscess without bleeding (principal); Z86.010 Personal history of colon polyps; K21.9 Gastro-esophageal reflux disease without esophagitis; K64.9 Unspecified hemorrhoids; R10.12 Left upper quadrant pain; G89.29 Other chronic pain; K62.5 Hemorrhage of anus and rectum; K57.10 Diverticulosis of small intestine without perforation or abscess without bleeding
CPT/HCPCS: 99214

== ENCOUNTER 2024-08-12 07:16 | Outpatient (REF) | payer MEDICARE, MEDICAID, SELFPAY ==
[2024-08-12 08:47] LABS: MANUAL DIFF FLAG NO
[2024-08-12 09:10] LABS: Basophils Percent Auto 0.8 % (0-2); Eosinophils Absolute Auto 0.1 X10*3/uL (0.0-0.4); Eosinophils Percent Auto 2.6 % (0-4); Hematocrit 41.8 % (42.0-52.0); Hemoglobin 13.9 g/dl (14.0-18.0); Imm Gran Abs Auto 0.01 X10*3/uL (0.00-0.03); Imm Gran Pct Auto 0.2 % (0.0-0.4); Lymphocytes Absolute Auto 1.8 X10*3/uL (1.2-4.9); Lymphocytes Percent Auto 35.8 % (20-40); Mean Corpuscular HGB Conc 33.3 g/dl (31.0-36.0); Mean Corpuscular Hemoglobin 28.7 pg (27.0-33.0); Mean Corpuscular Volume 86.4 fL (80.0-98.0); Mean Platelet Volume 8.9 fL (9.4-12.4); Monocytes Absolute Auto 0.4 X10*3/uL (0.1-1.2); Monocytes Percent Auto 8.9 % (2-11); Neutrophils Absolute Auto 2.6 x10*3/uL (2.0-8.3); Neutrophils Percent Auto 51.7 % (45-73); Platelet Count 285 X10*3/uL (160-400); Red Blood Count 4.84 X10*6/uL (4.60-5.80); Red Cell Distribution Width 12.9 % (11.0-16.0); White Blood Count 4.9 X10*3/uL (4.8-10.8)
[2024-08-12 09:55] LABS: Alanine Aminotransferase 26 U/L (0-40); Albumin Level 4.3 g/dL (3.5-5.0); Alkaline Phosphatase 105 U/L (39-117); Anion Gap 9 (12-20); Aspartate Amino Transferase 20 U/L (5-37); Bilirubin Total 0.4 mg/dL (0.0-1.0); Blood Urea Nitrogen 13 mg/dL (9-16); C Reactive Protein 0.29 mg/dL (< or = 0.50); Calcium 9.4 mg/dL (8.4-10.2); Carbon Dioxide 28 mmol/L (22-29); Chloride 106 mmol/L (96-108); Estimated Glomerular Filt Rate > 60; Glucose Random 96 mg/dL (60-115); Lipase 36 U/L (8-78); Potassium 4.3 mmol/L (3.3-5.1); Sodium 139 mmol/L (135-145); Total Protein 7.3 g/dL (6.5-8.0)
[2024-08-12 10:22] LABS: Folate 15.4 ng/mL (> or = 4.0); Vitamin B12 351 pg/mL (200-900)
== END 2024-08-12 07:17 | disposition home or self-care (01) ==
LOC: HO.LAB 07:16
PROVIDERS: PCP Internal Medicine; Visit Provider Internal Medicine Gastroenterology
DX: K57.30 Diverticulosis of large intestine without perforation or abscess without bleeding (principal); Z86.010 Personal history of colon polyps; K21.9 Gastro-esophageal reflux disease without esophagitis; K64.9 Unspecified hemorrhoids; R10.12 Left upper quadrant pain; G89.29 Other chronic pain; K62.5 Hemorrhage of anus and rectum; K57.10 Diverticulosis of small intestine without perforation or abscess without bleeding; R12 Heartburn; Z79.899 Other long term (current) drug therapy; Z87.891 Personal history of nicotine dependence
CPT/HCPCS: 36415; 80053; 81405; 81479; 82397; 82607; 82746; 83520; 83690; 85025; 86140; 88346; 88350; 99212

== ENCOUNTER 2024-08-27 | Outpatient (REF) | payer MEDICARE, MEDICAID, SELFPAY | END 2024-08-27 00:01 | disposition home or self-care (01) | LOC: CF | PROVIDERS: PCP Internal Medicine; Visit Provider Internal Medicine Pulmonary Disease | DX: J44.89 Other specified chronic obstructive pulmonary disease (principal); G47.33 Obstructive sleep apnea (adult) (pediatric); Z87.891 Personal history of nicotine dependence; Z91.09 Other allergy status, other than to drugs and biological substances | CPT/HCPCS: 99212 ==

== ENCOUNTER 2024-08-27 09:45 | Outpatient (AMB) | payer MEDICARE, MEDICAID, SELFPAY ==
[2024-08-27 09:52] VITALS: BP 122/82; PULSE 79; O2SAT 98; BMI 31.9
--- NOTE | 2024-08-27 09:52 | A.OFFVIS_ITS ---
Vital Signs 08/27/24 09:52 Height 5 ft 7 in Weight 203 lb 14.841 oz BMI 31.9 BP 122/82 Blood Pressure Location Rt brachial Position Sitting Pulse 79 Pulse Source Doppler Pulse Oximetry (%) 98 Oxygen Delivery Method Room Air Intake Visit Reasons: dyspnea Allergies ibuprofen [From Motrin] Allergy (Severe, Verified 08/12/24 07:24) stomach pain morphine Allergy (Verified 08/12/24 07:24) Rash Penicillins Allergy (Verified 08/12/24 07:24) Hives HPI HPI dyspnea: Details: 59-year-old gentleman, recent 40 pack-year smoker followed for underlying asthma/COPD overlap syndrome, environmental allergies, and mild obstructive sleep apnea. Patient has received her CPAP machine and states that his symptoms are now well controlled. He continues to use Breo, albuterol MDI, and albuterol nebs with good control of his underlying symptoms. He denies any recent exacerbations. [facility] Medical History Asthma Sacroiliitis Disc degeneration, lumbar Fibromyalgia Bleeding hemorrhoids Smoker Major depression Hyperlipidemia Shoulder pain Rectal bleeding History of adenomatous polyp of colon Internal hemorrhoids Sigmoid diverticulosis Anxiety Arthritis High cholesterol Chronic back pain Surgical History History of elbow surgery H/O hemorrhoidectomy H/O shoulder surgery Hx of endoscopy Hx of colonoscopy Family History Father Diabetes Mother Alzheimer disease Dementia Brother No problems noted. Brother No problems noted. Sister No problems noted. Sister No problems noted. Son No problems noted. Daughter No problems noted. Daughter No problems noted. Social History Housing: Apartment Alcohol intake: current Alcohol intake frequency: does not drink Alcohol type: hard liquor Patient Tobacco Use Status: Former Tobacco user Tobacco use type: Cigarette Cigarette Packs Per Day: 1 Cigarettes Per Day: 20.0 Years Smoked: quit in 09/2023 e-Cigarette/Vaping Use: Never Used Second Hand Smoke Exposure: No service: No Current occupational status: unemployed Current occupation: Right Handed Cognitive needs: Yes (cane) Hearing needs: No Vision needs: No Review of Systems Const Denies daytime sleepiness, Denies excessive sweating, Denies fatigue, Denies fever(s), Denies lethargy, Denies malaise, Denies night sweats, Denies snoring and Denies weight loss Eyes Denies blurry vision and Denies itchy eyes ENT Denies nasal congestion, Denies post nasal drip, Denies sinus pain, Denies sinus pressure and Denies other ( Thrush) Card Denies chest pain, Denies pedal edema, Denies dyspnea, Denies orthopnea and Denies paroxysmal nocturnal dyspnea Resp Denies cough, Denies hemoptysis, Denies excessive phlegm production, Denies dyspnea, Denies snoring and Denies wheezing GI Denies abdominal pain and Denies heartburn Musc Denies myalgias, Denies arthralgias and Denies joint swelling Skin/Breast Denies rash Neuro Denies memory loss and Denies seizure-like activity Psych Denies abnormal sleep pattern, Denies anxiety and Denies memory loss Endo Denies excessive sweating, Denies fatigue and Denies heat intolerance Blanco/Lymph Denies easy bruising Aller/Immun Denies itchy eyes, Denies seasonal rhinorrhea and Denies wheezing Physical Exam Vital Signs: Last Vital Signs Pulse 79 08/27/24 09:52 BP 122/82 08/27/24 09:52 Pulse Ox 98 08/27/24 09:52 Oxygen Delivery Method Room Air 08/27/24 09:52 BMI result Body Mass Index 31.9 Const General: no acute distress and alert Nutritional Appearance: not obese Orientation/consciousness: Other orientation findings ( oriented) HEENT Head: Yes atraumatic Eyes General: appearance normal, both eyes and all related structures Sclerae: sclerae normal EOM: EOMs intact bilaterally Neck Neck: Yes supple Lymphatic: no lymphadenopathy noted Resp Effort & Inspection: normal respiratory effort and no use of accessory muscles Auscultation: clear to auscultation bilaterally Cardio Rate: regular rate Rhythm: regular rhythm Heart sounds: no gallops, no murmurs and no rubs Skin General skin exam: other ( warm) Extrem General: No clubbing, No cyanosis and No edema Assessment & Plan Assessment & Plan (1) Asthma-COPD overlap syndrome: Code(s): J44.89 - Other specified chronic obstructive pulmonary disease Category: Medical Plan: Well controlled on current regimen of Breo, albuterol MDI, and albuterol nebs. Continue current regimen (2) Environmental allergies: Code(s): Z91.09 - Other allergy status, other than to drugs and biological substances Category: Medical Plan: Underlying significant allergic component, now well controlled on inhaled corticosteroid, if worsens, will consider immunologic therapy. (3) GOLDEN (obstructive sleep apnea): Code(s): G47.33 - Obstructive sleep apnea (adult) (pediatric) Category: Medical Plan: Underlying mild obstructive sleep apnea controlled on current CPAP therapy. Continue CPAP therapy. (4) Personal history of nicotine dependence: Code(s): Z87.891 - Personal history of nicotine dependence Category: Medical Plan: Will obtain lung cancer screening CT chest. Orders: Orders CT lung screening 01/25/25 Z87.891 - Personal history of nicotine dependence Coding Level of Care Code Est Pt Level 4 (08132) Complex EM visit Add On G2211 Diagnoses Asthma-COPD overlap syndrome J44.89 Environmental allergies Z91.09 GOLDEN (obstructive sleep apnea) G47.33 Personal history of nicotine dependence Z87.891
== END 2024-08-27 10:14 | disposition home or self-care (01) ==
PROVIDERS: PCP Internal Medicine; Visit Provider Internal Medicine Pulmonary Disease
DX: J44.89 Other specified chronic obstructive pulmonary disease (principal); Z91.09 Other allergy status, other than to drugs and biological substances; G47.33 Obstructive sleep apnea (adult) (pediatric); Z87.891 Personal history of nicotine dependence
CPT/HCPCS: 99214; G2211

== ENCOUNTER 2024-08-30 06:26 | Outpatient (REF) | payer MEDICARE, MEDICAID, SELFPAY ==
--- NOTE | ~2024-08-30 | CT_ITS ---
EXAMINATION: CT ABDOMEN AND PELVIS WITH CONTRAST CLINICAL INFORMATION: Left upper quadrant pain, most pronounced after eating; history of duodenal diverticulum. COMPARISON: CT abdomen and pelvis dated 04/12/2021. TECHNIQUE: Multidetector volumetric images were obtained from the superior aspect of the liver through the pubic symphysis following administration 85 mL of Omnipaque 350 intravenous contrast. Sagittal and coronal reformatted images were obtained on the technologist's workstation. Oral contrast: No This CT examination was performed using dose optimization techniques as appropriate, variously including the following: *Automated exposure control *Adjustment of mA and/or kV according to patient size (this includes techniques or standardized protocols for targeted exams where dose is matched to indication/reason for exam; i.e. extremities or head) *Use of iterative reconstruction technique DLP: 519 mGy-cm FINDINGS: LUNG BASES: The visualized lung bases are unremarkable. LIVER, GALLBLADDER, AND BILIARY TREE: The liver is normal in size, shape, and attenuation. No focal hepatic lesion or biliary ductal dilatation is present. The gallbladder is unremarkable with no evidence of radiopaque gallstones, gallbladder wall thickening, or obvious pericholecystic inflammatory changes. PANCREAS: Unremarkable. SPLEEN: Unremarkable. ADRENAL GLANDS: Unremarkable. KIDNEYS AND URETERS: The kidneys are normal in size, shape, and attenuation. At the upper pole of the right kidney (3:27), a 3 mm nonobstructing calculus is seen. There is no further urinary calculus, and no hydronephroureter is noted bilaterally. No perinephric stranding. BLADDER: Unremarkable. GASTROINTESTINAL TRACT: A small duodenal diverticulum is seen towards the junction of the second and third (inferior and transverse) segments. There is no adjacent inflammatory change. The small and large bowel are unremarkable. The vermiform appendix is unremarkable. ABDOMINAL WALL: There is a tiny fat-containing umbilical hernia. LYMPH NODES: Normal. VASCULAR: There is moderate aortoiliac atherosclerotic calcification. No abdominal aortic aneurysm or dissection is seen. There is a retroaortic left renal vein (3:40-2). PELVIC VISCERA: Unremarkable. OSSEOUS STRUCTURES: There is multi-level marked lower thoracic and mild lumbar spondylosis. No acute or aggressive osseous finding is noted. CT/CT abdomen pelvis w IV con IMPRESSION: 1. A small duodenal diverticulum is again seen, without associated inflammatory changes. 2. There is no bowel obstruction, free intraperitoneal air or abscess. No focal bowel wall thickening is seen. The vermiform appendix appears normal. 3. A 3 mm nonobstructing left renal calculus is seen. There is no further urinary calculus noted, and no obstructive uropathy is seen. 4. 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 This finding can be associated with recurrent left flank/abdominal pain, hematuria and proteinuria. 5. No abdominopelvic mass, free fluid or lymphadenopathy is seen. 6. There is a tiny fat-containing umbilical hernia. 7. There is multi-level marked lower thoracic and mild lumbar spondylosis. Fleischner guidelines were followed. Electronically signed by: Miguel Ángel Phillips MD 10/02/2024 02:37 PM FRANCISCA VANCE
[2024-08-30] MEDS: iohexoL 350 MG/ML 100 ML INFUS..BTL IV (09:44)
[2024-08-30] MEDS: Barium Sulfate Oral (Berry) 450 ML ORAL.SUSP PO ×2 (09:45)
== END 2024-08-30 06:27 | disposition home or self-care (01) ==
LOC: HO.CT 06:26
PROVIDERS: PCP Internal Medicine; Visit Provider Internal Medicine Gastroenterology
DX: R10.12 Left upper quadrant pain (principal); K62.5 Hemorrhage of anus and rectum; K57.10 Diverticulosis of small intestine without perforation or abscess without bleeding
CPT/HCPCS: 74177; Q9967

== ENCOUNTER 2024-09-05 07:06 | Outpatient (AMB) | payer MEDICARE, MEDICAID, SELFPAY ==
--- NOTE | 2024-09-05 07:41 | A.OFFVIS_ITS ---
Vital Signs 09/05/24 07:51 Height 5 ft 7 in Weight 202 lb BMI 31.6 BP 114/67 Blood Pressure Location Lt brachial Position Sitting Pulse 73 Intake Visit Reasons: Rectal bleeding, GERD Intake Note: Patient follow up rectal bleeding and GERD and CT scan results Patient cc: abdominal cramp with bloating, acid reflex on and off, denies any other GI issues. 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: No Accompanied by: Spouse Allergies ibuprofen [From Motrin] Allergy (Severe, Verified 11/29/24 07:22) stomach pain morphine Allergy (Verified 11/29/24 07:22) Rash Penicillins Allergy (Verified 11/29/24 07:22) Hives Medication List - Last Reconciled 09/05/24 by Allison Paredes MD albuterol sulfate 2.5 mg (3 mL) inhalation Q4H PRN albuterol sulfate 90 mcg/actuation 2 puffs inhalation Q4-6H PRN albuterol sulfate 2.5 mg (3 mL) inhalation Q4H albuterol sulfate 90 mcg/actuation (ProAir HFA) 2 puffs inhalation Q4-6H PRN fluticasone furoate-vilanterol 200-25 mcg/dose (Breo Ellipta) 1 inh inhalation DAILY 30 days gabapentin 400 mg PO TID hydrocortisone 2.5% 1 appl AL BID-QID PRN 15 days nebulizer and compressor As directed pantoprazole 40 mg PO BID 60 days psyllium husk 1 tbsp PO DAILY 60 days trazodone 25 - 50 mg PO BEDTIME zolpidem 5 mg PO BEDTIME HPI HPI Rectal bleeding, GERD: Details: 59-YEAR-OLD SOUTH AFRICAN-SPEAKING MALE FOR FU OF GERD AND RECTAL BLEEDING 02/19/21 Pt had an exam under anesthesia, hemorrhoidectomy x2 columns by Dr Serrato ?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 Pt is accompanied by his who interpreted for the pt. THE PATIENT UNDERSTANDS AND SPEAKS SOME EQUATORIAL GUINEAN. Rectal bleeding is not as much as before. Continues to have intermittent left sided abd pain - not all the time. Taking Pantoprazole and does not think its helping ?PAST VISIT: Pt complains of intermittent rectal bleeding for the past few months - sometimes red and sometimes black. Sometimes mixed with the stool and sometimes just blood. Continues to have LUQ pain - states does not resolve after a BM. Frequent heartburn and medication is not helping. Takes Pantoprazole every day and has to take peptobismol at night. Can have black stool even if he does not take peptobismol. 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 He can wake up at night with the pain. Denies constipation or diarrhea. Can have a BM 2-3 times times a day Intermittent left sided - sometimes after he eats (2-3 times a week) Pain last for 30 min and goes away after a BM Complains of heartburn and bloating Hb is worse at night He was taking Nexium and ran out. Eats dinner at 4 pm and sleeps at 10 am He quit smoking in Sep and sometimes has a late night snack. Intermittent rectal bleeding every 3-4 days and advised to take fiber in his diet. ? ? ? Complains of constant left sided abdominal pain (in the middle - beside the b cindi button) - x 1 week. Notes a burning sensation in the stomach and denies n, v or urinary symptoms. Denies change in BMs - has a BM daily. Doing not too well and not too bad ? Complains of left sided abdominal pain. ? Not taking any GI medications at present - he stopped after he was finished with the prescriptions. ? Has gained 9 lbs over the past year and was advised to work on loosing weight. ? Continues to smoke 1 PPD and trying to quit slowly - advised to quit since continued smoking and wt gain is likely contributing to persistent heartburn. ? Still recovering from hemorrhoid surgery and had just a little bleeding. ? Noted a little improvement in symptoms after increasing the Carafate to three times a day. ? Continues to experience heartburn - notes heartburn whenever he eats ? I have been taking the pills and the pills are not working - advised to increase sucralfate to three times a day. ? Taking medications for GERD and is not helping and unable to sleep at night. ? Taking Omeprazole once a day and is not helping and not taking Famotidine. ? Avoids greasy foods, sodas, citrus fruits and juices and drinks coffee once in the morning. ? Abd CT scan results were reviewed with the patient. ? Has dinner at 6 pm and goes to bed around 7 or 8 (does not go to sleep right away) ? Complains of rectal bleeding for the past several yrs worse for the past 4 yrs. ? Blood is bright red and separate from the stools. ? Can sometimes feel weak. ? Patient denies change in bowel habits, occasional black stools. ? Complains of heartburn x 3 yrs every 3-4 days ? Denies dysphagia, nausea or vomiting, change in appetite or weight. ? Intermittent hoarseness and denies cough or sore throat. ? Patient denies major cardiac or pulmonary problems, loud snoring or history of sleep apnea. ? Has sleep disturbance - does not sleep well ? He denies past problems with anesthesia. ? Patient denies known family history of colon cancer, colon polyp or other GI malignancy LABS: January, reviewed ? IMAGING STUIDES:? 02/10/[address] SCAN SHOWED: ? ? ? KIDNEYS AND URETERS: There is a 2 mm nonobstructing stone in the upper ? ? ? pole of the left kidney. The kidneys are otherwise unremarkable. ? ? ? BLADDER: Unremarkable. ? ? ? GASTROINTESTINAL TRACT: There is a small duodenal diverticulum adjacent ? ? ? to the head of the pancreas. The small and large bowel are otherwise ? ? ? unremarkable. The appendix is unremarkable. The stomach is unremarkable. ?ENDOSCOPIC STUDIES: 04/09/20 EGD AND COLONOSCOPY SHOWED: ? ESOPHAGUS: 1 cms tongue of possible Brooks's - biopsied. ? STOMACH: Antral gastritis with superficial erosions. ? Colonoscopy Findings: ? One 10 mm polyp removed (TA on bx) ? Moderate diverticulosis seen in the sigmoid colon ? Large hemorrhoids on retroflexed exam. ? Plan: ? Continue present medications (Famotidine at 20 mg PO once daily) ? Repeat Colonoscopy interval based on path results - in 3-5 years if ? polyps are adenomatous and 10 years if polyps are hyperplastic. ? BIOPSIES SHOWED: ? A. Stomach, biopsies: Gastric mucosa with mild chronic, inactive gastritis; negative for Helicobacter pylori; negative for intestinal metaplasia/dysplasia. ? B. Esophagus, distal, biopsies: Cardia type mucosa with mild chronic inactive inflammation; negative for intestinal metaplasia/dysplasia; no squamous epithelium identified. ? C. Colon, sigmoid polyp, polypectomy: Tubular adenoma PFSH Medical History GOLDEN (obstructive sleep apnea) GERD (gastroesophageal reflux disease) Asthma-COPD overlap syndrome Asthma Disc degeneration, lumbar Fibromyalgia Major depression Hyperlipidemia Sigmoid diverticulosis Anxiety Arthritis High cholesterol Chronic back pain Surgical History History of elbow surgery H/O hemorrhoidectomy H/O shoulder surgery Hx of endoscopy Hx of colonoscopy Family History Father Diabetes Mother Alzheimer disease Dementia Brother No problems noted. Brother No problems noted. Sister No problems noted. Sister No problems noted. Son No problems noted. Daughter No problems noted. Daughter No problems noted. Social History Housing: Apartment Alcohol intake: current Alcohol intake frequency: does not drink Alcohol type: hard liquor Patient Tobacco Use Status: Former Tobacco user Tobacco use type: Cigarette Cigarette Packs Per Day: 1 Cigarettes Per Day: 20.0 Years Smoked: quit in 09/2023 e-Cigarette/Vaping Use: Never Used Second Hand Smoke Exposure: No service: No Current occupational status: unemployed Current occupation: Right Handed Cognitive needs: Yes (cane) Hearing needs: No Vision needs: No Review of Systems Const All systems reviewed & are unremarkable except as noted in HPI and below Physical Exam Vital Signs: Last Vital Signs Pulse 73 09/05/24 07:51 BP 114/67 09/05/24 07:51 BMI result Body Mass Index 31.6 Const General: healthy appearing and no acute distress Nutritional Appearance: obese Orientation/consciousness: patient oriented x3 Limitations: language barrier HEENT Head: Yes normal to inspection Ears: hearing grossly normal bilaterally Eyes Sclerae: sclerae normal Pupils: Equal, round and reactive pupils present Neck Neck: Yes normal visual inspection Chest Chest palpation & inspection: normal inspection of the chest Resp Effort & Inspection: normal respiratory effort Auscultation: clear to auscultation bilaterally Cardio Palpation: normal PMI Rate: regular rate Rhythm: regular rhythm Heart sounds: S1 normal heart sound present, S2 normal heart sound present and no murmurs GI Palpation (GI): Soft to palpation, nontender and No hepatosplenomegaly present Auscultation: normal bowel sounds Rectal Exam - Male: Yes deferred Skin General skin exam: no rashes or lesions noted Neuro General: patient oriented x3, gait normal and moves all extremities Cranial nerves: Yes Equal, round and reactive pupils present Psych Appearance: grossly normal Mental Status: mental status grossly normal Assessment & Plan Assessment & Plan (1) Sigmoid diverticulosis: Code(s): K57.30 - Diverticulosis of large intestine without perforation or abscess without bleeding Category: Medical (2) History of adenomatous polyp of colon: Comment: 04/09/20 Colonoscopy showed sigmoid diverticulosis and a 10 mm tubular adenoma was removed. Repeat colonoscopy is advised in 3 years (due 03/2023) - action was set in [facility]. Code(s): Z86.010 - Personal history of colon polyps Category: Medical (3) GERD (gastroesophageal reflux disease): Code(s): K21.9 - Gastro-esophageal reflux disease without esophagitis Category: Medical (4) Bleeding hemorrhoids: Comment: 02/19/21 Pt had an exam under anesthesia, hemorrhoidectomy x2 columns by Dr Serrato and rectal bleeding has almost resolved. Code(s): K64.9 - Unspecified hemorrhoids Category: Medical (5) Hemorrhoids, internal, with bleeding: Code(s): K64.8 - Other hemorrhoids Category: Medical (6) Chronic LUQ pain: Code(s): R10.12 - Left upper quadrant pain; G89.29 - Other chronic pain Category: Medical (7) Duodenal diverticulum: Code(s): K57.10 - Diverticulosis of small intestine without perforation or abscess without bleeding Category: Medical Plan 59 year old Turkmen-speaking male? followed in GI for rectal bleeding and? history of adenomatous colon polyps. Rectal bleeding is likely from hemorrhoids. Patient also complained of symptoms of heartburn and was advised to take famotidine 20 mg twice daily in place of Zantac and stated that he did not get the medicine at the pharmacy. Patient was advised to stop omeprazole and take sucralfate and pantoprazole 40 mg twice daily for continuing heartburn symptoms - he stopped the medications after he finished the prescriptions 04/09/20 EGD & COLONOSCOPY showed no esophagitis and antral gastritis with superficial erosions. Gastric biopsies were negative for Helicobacter pylori. A 10 mm tubular adenoma was removed during same-day colonoscopy. Moderate sigmoid diverticulosis and large hemorrhoids were noted. Rectal bleeding is likely from hemorrhoids. 02/19/21 Pt had an exam under anesthesia, hemorrhoidectomy x [address] Serrato and rectal bleeding has almost resolved. Continues to smoke 1 PPD and advised to quit. Has gained 9 lbs over the past year and was advised to work on loosing weight. Patient was advised to resume taking pantoprazole 40 mg twice daily for heartburn. [place] of dicyclomine for abdominal pain. 06/10/24 Colonoscopy (FU of colon polyps) was performed and two small hyperplastic polyps were removed and a hyperplastic appearing polyp was biopsied Moderate diverticulosis seen in the sigmoid colon Small hemorrhoids on retroflexed exam. Repeat Colonoscopy in 5 years if polyps are adenomatous and due to history of adenomatous colon polyps Pt placed on the colonoscopy recall list for repeat colon in 5 years. 08/12/24 Pt advised to have labs and schedule an Abd CT scan for evaluation of LUQ pain Increase Pantoprazole to twice daily Normal CRP and IBD serologies were negative 09/05/24 Pt advised to switch from pantoprazole to Lansoprozole 30 mg twice daily Follow-up in 3 months Medications: New lansoprazole 30 mg PO BID 180 caps 1RF 90 days K21.9 - Gastro-esophageal reflux disease without esophagitis Discontinued pantoprazole Discontinued Reason: Ancillary Entered New Order 40 mg PO BID 60 days 120 tabs 3RF K21.9 - Gastro-esophageal reflux disease without esophagitis Coding Level of Care Code Est Pt Level 3 (52513) Diagnoses Sigmoid diverticulosis K57.30 History of adenomatous polyp of colon Z86.010 GERD (gastroesophageal reflux disease) K21.9 Bleeding hemorrhoids K64.9 Hemorrhoids, internal, with bleeding K64.8 Chronic LUQ pain R10.12; G89.29 Duodenal diverticulum K57.10 Time Spent (min) 18
[2024-09-05 07:51] VITALS: BP 114/67; PULSE 73; BMI 31.6
== END 2024-09-05 09:03 | disposition home or self-care (01) ==
PROVIDERS: PCP Internal Medicine; Visit Provider Internal Medicine Gastroenterology
DX: K57.30 Diverticulosis of large intestine without perforation or abscess without bleeding (principal); Z86.0100 Personal history of colon polyps, unspecified; K21.9 Gastro-esophageal reflux disease without esophagitis; K64.9 Unspecified hemorrhoids; K64.8 Other hemorrhoids; R10.12 Left upper quadrant pain; G89.29 Other chronic pain; K57.10 Diverticulosis of small intestine without perforation or abscess without bleeding
CPT/HCPCS: 99213

== ENCOUNTER → 2024-09-05 07:06 | Outpatient (BNVA) | payer MEDICARE, MEDICAID, SELFPAY | PROVIDERS: PCP Internal Medicine; Visit Provider Internal Medicine Gastroenterology | DX: K21.9 Gastro-esophageal reflux disease without esophagitis (principal); K62.5 Hemorrhage of anus and rectum; K57.30 Diverticulosis of large intestine without perforation or abscess without bleeding; K64.8 Other hemorrhoids; K57.10 Diverticulosis of small intestine without perforation or abscess without bleeding; R10.12 Left upper quadrant pain; G89.29 Other chronic pain; Z86.0100 Personal history of colon polyps, unspecified | CPT/HCPCS: 99212 ==

== ENCOUNTER 2024-09-12 07:39 | Day surgery (SDC) | payer MEDICARE, MEDICAID, SELFPAY ==
[2024-09-09 13:43] VITALS: BMI 31.6
--- NOTE | 2024-09-11 08:42 | HO.ANESPROP2 ---
HPI - Anesthesia Eval Consult details Narrative: 59yo M for Left Middle Finger Trigger Release PMFSH Active Problems Active Problems: All Active Problems Personal history of nicotine dependence (Acute) Asthma-COPD overlap syndrome (Acute) Duodenal diverticulum (Acute) Chronic LUQ pain (Acute) Abdominal pain (Acute) Trigger finger, right ring finger (Acute) Trigger finger, right middle finger (Acute) Trigger finger, left middle finger (Acute) Hemorrhoids, internal, with bleeding (Acute) Environmental allergies (Acute) GOLDEN (obstructive sleep apnea) (Acute) Trochanteric bursitis, right hip (Acute) Osteoarthritis of right knee (Acute) Sacroiliitis (Acute) Physical exam (Acute) Bilateral lumbar radiculopathy (Acute) Pain of both sacroiliac joints (Acute) Spondylosis of lumbar region without myelopathy or radiculopathy (Acute) Bleeding hemorrhoids (Acute) Lumbar spondylosis (Acute) Primary osteoarthritis of hands, bilateral (Acute) Polyarthralgia (Acute) Left lower quadrant abdominal pain of unknown etiology (Acute) Cubital tunnel syndrome (Acute) Rotator cuff tendonitis (Acute) GERD (gastroesophageal reflux disease) (Acute) High cholesterol (Acute) Shoulder pain (Acute) Rectal bleeding (Acute) History of adenomatous polyp of colon (Acute) Internal hemorrhoids (Acute) Asthma (Acute) Disc degeneration, lumbar (Acute) Fibromyalgia (Acute) Smoker (Acute) Major depression (Acute) Hyperlipidemia (Acute) Sigmoid diverticulosis (Acute) Past Medical History Medical History (Updated 09/09/24 @ 13:33 by Sylvia Quarles RN) GOLDEN (obstructive sleep apnea) GERD (gastroesophageal reflux disease) Asthma-COPD overlap syndrome Asthma Disc degeneration, lumbar Fibromyalgia Major depression Hyperlipidemia Sigmoid diverticulosis Anxiety Arthritis High cholesterol Chronic back pain Family History Family History Father Diabetes Mother Alzheimer disease Dementia Brother No problems noted. Brother No problems noted. Sister No problems noted. Sister No problems noted. Son No problems noted. Daughter No problems noted. Daughter No problems noted. Surgical History Surgical History (Updated 09/09/24 @ 13:31 by Sylvia Quarles RN) History of elbow surgery H/O hemorrhoidectomy H/O shoulder surgery Hx of endoscopy Hx of colonoscopy History of Problems with Anesthesia: No Social History Social History Housing: Apartment Alcohol intake: current Alcohol intake frequency: does not drink Alcohol type: hard liquor Patient Tobacco Use Status: Former Tobacco user Tobacco use type: Cigarette Cigarette Packs Per Day: 1 Cigarettes Per Day: 20.0 Years Smoked: quit in 09/2023 e-Cigarette/Vaping Use: Never Used Second Hand Smoke Exposure: No service: No Current occupational status: unemployed Current occupation: Right Handed Cognitive needs: Yes (cane) Hearing needs: No Vision needs: No Meds Allergies Allergy/AdvReac Type Severity Reaction Status Date / Time ibuprofen [From Motrin] Allergy Severe stomach Verified 09/05/24 07:43 pain morphine Allergy Rash Verified 09/05/24 07:43 Penicillins Allergy Hives Verified 09/05/24 07:43 Home Medications ?Medication ?Instructions ?Recorded ?Confirmed ?Last Taken ?Type gabapentin 400 mg capsule 400 mg PO TID 09/13/21 09/05/24 Unknown History trazodone 50 mg tablet 25 - 50 mg PO BEDTIME 12/27/21 09/05/24 Unknown History zolpidem 5 mg tablet 5 mg PO BEDTIME 08/09/24 09/05/24 Unknown History Exam Height,Weight and Vital Signs: Height 5 ft 7 in Weight 91.626 kg Pertinent Lab Results Pertinent Lab Results: Laboratory Tests 08/12/24 08:46 WBC 4.9 Hgb 13.9 L Hct 41.8 L Plt Count 285 Sodium 139 Potassium 4.3 Chloride 106 Carbon Dioxide 28 BUN 13 Creatinine 0.89 Narrative Narrative: EKG 10/2023 Vent. Rate : 078 BPM Atrial Rate : 078 BPM P-R Int : 158 ms QRS Dur : 090 ms QT Int : 402 ms P-R-T Axes : 066 065 074 degrees QTc Int : 458 ms Normal sinus rhythm Normal ECG When compared with ECG of 25-AUG-2023 19:53, No significant change was found Assessment and Plan Assessment Anesthesia Assessment: Chart Reviewed Final Anesthetic Review History of Problems with Anesthesia: No
--- NOTE | 2024-09-12 09:14 | MHC.SHP ---
Pre-Procedural Eval Section A - 24 Hr Update-Section A only Date of Service: 09/12/24 The patient is an INPATIENT: No Changes since office visit: No Cold of Flu in the past 2 weeks, No New Medical Problems, No Changes in Medication and No Patient answered all questions The patient has been examined within 24 hours of the surgical procedure. The History & Physical has been completed within 30 days and I have reviewed it.: Yes Section B - Complete if H&P > 30 days Chief Complaint: Trigger finger, left middle finger Allergies: Allergies Allergy/AdvReac Type Severity Reaction Status Date / Time ibuprofen [From Motrin] Allergy Severe stomach Verified 09/05/24 07:43 pain morphine Allergy Rash Verified 09/05/24 07:43 Penicillins Allergy Hives Verified 09/05/24 07:43 Plan Diagnosis/Plan: Unchanged I have reviewed the history and physical and performed a pertinent physical examination on my patient. No changes have occurred unless specified. Time Spent With Patient Time: Total time managing care of this patient today ____ minutes.
--- NOTE | 2024-09-12 09:14 | W.PM.OPN ---
Operative Note Operative Note Date of Service: 09/12/24 Narrative: Operative Note Preop diagnosis: 1. Left middle finger Trigger finger Postop diagnosis: 1. Left middle finger Trigger finger Procedure: 1. Left middle finger A1 raymond release Surgeon: Marlin Real MD General Activities Therapist: Bassam BLAKE Anesthesia: local block using 1% lidocaine with epinephrine Findings: No locking or catching after A1 raymond release EBL: Less than 5 mL Tourniquet time: None Specimens: None Complications: None Disposition: Brought to recovery room in stable condition Plan: Follow-up for 10-14 days for wound check and suture removal Indications: The patient is 59 years old, with a left middle finger trigger finger that has been unresponsive to nonoperative management. The risks and benefits of operative treatment including but not limited to risk of damage to blood vessels, nerves, tendons, infection, persistent pain, persistent symptoms, recurrence or possible need for additional surgery were discussed with the patient and the patient wishes to proceed with surgery. Procedure: Once consent was obtained a local block was performed in the preop area using a combination of 1% lidocaine with epinephrine. The patient was then brought back to the operating suite and placed on the operative table in supine position. The left upper extremity was prepped and draped in a standard surgical fashion. Once assured that we had a good block, a 1.5 cm oblique incision was made centered over the A1 raymond of the [ ] . The incision was made through the skin to the subcutaneous tissues using a #15 blade. Careful dissection was made down to the level of the A1 raymond using tenotomy scissors, with care being taken to protect the nearby neurovascular structures. A longitudinal incision was made in the A1 raymond 1st using a #15 blade, then using tenotomy scissors under direct visualization. The A1 raymond was noted to be thickened. Following our A1 raymond release, we no longer saw any locking or catching of the digit with flexion and extension. Once satisfied with our A1 raymond release the wound was copiously irrigated with normal saline and hemostasis was obtained with a brief period of local pressure. The skin edges were reapproximated with some 5.0 nylon suture material and a sterile dressing was applied. The patient appears to have tolerated the procedure well and with no complications. All digits were well vascularized at the conclusion of the case.
--- NOTE | 2024-09-12 09:35 | PC.NURSE ---
patient was a local procedure not mac.
[2024-09-12 11:03] VITALS: BP 104/62; PULSE 64; RESP 17; O2SAT 98
== END 2024-09-12 11:06 | disposition home or self-care (01) ==
PROVIDERS: PCP Internal Medicine; Visit Provider Orthopaedic Surgery
PROC: (CPT 26055; principal; 2024-09-12 10:50)
DX: M65.332 Trigger finger, left middle finger (principal); R20.0 Anesthesia of skin; M79.7 Fibromyalgia; J44.9 Chronic obstructive pulmonary disease, unspecified; E78.00 Pure hypercholesterolemia, unspecified; G47.33 Obstructive sleep apnea (adult) (pediatric); F32.A Depression, unspecified; Z79.899 Other long term (current) drug therapy; Z88.0 Allergy status to penicillin; Z88.5 Allergy status to narcotic agent; Z88.6 Allergy status to analgesic agent; Z98.890 Other specified postprocedural states; Z87.891 Personal history of nicotine dependence; Z56.0 Unemployment, unspecified
CPT/HCPCS: 26055; J0171; J2003

== ENCOUNTER → 2024-09-12 07:39 | Outpatient (BNV) | payer MEDICARE, MEDICAID, SELFPAY | PROVIDERS: PCP Internal Medicine; Visit Provider Orthopaedic Surgery | DX: M65.332 Trigger finger, left middle finger (principal) | CPT/HCPCS: 26055 ==

== ENCOUNTER 2024-09-27 07:40 | Outpatient (AMB) | payer MEDICARE, MEDICAID, SELFPAY ==
--- NOTE | 2024-09-27 08:18 | MHC.OFFVIS ---
Vital Signs 09/27/24 08:20 Height 5 ft 7 in Weight 202 lb BMI 31.6 Handedness Right Intake Visit Reasons: PO-Lt MF Trigger Release 09/12/24 Intake Note: Rei is a 59 year old right hand dominant male who presents today post operatively s/p left middle finger trigger release w/ Dr Real DOS: 09/12/24. Patient reports his left middle finger has no longer been triggering. He expresses his stitches have popped out but does not recall when. Denies numbness and tingling. Allergies ibuprofen [From Motrin] Allergy (Severe, Verified 09/27/24 08:20) stomach pain morphine Allergy (Verified 09/27/24 08:20) Rash Penicillins Allergy (Verified 09/27/24 08:20) Hives HPI HPI PO-Lt MF Trigger Release 09/12/24: Details: Patient is a 59-year-old male who presents for postoperative evaluation status post left middle finger trigger release, DOS 09/12/2024. The patient states that all but 1 of his sutures have fallen out since his surgery, and he did not feel it was necessary to call us for evaluation. Patient states that he is experiencing no pain, no locking or catching. And has no other acute complaints or concerns at this time. Patient states that he has been treating the wound site with antibiotic ointment and peroxide to prevent any infection. [facility] Medical History GOLDEN (obstructive sleep apnea) GERD (gastroesophageal reflux disease) Asthma-COPD overlap syndrome Asthma Disc degeneration, lumbar Fibromyalgia Major depression Hyperlipidemia Sigmoid diverticulosis Anxiety Arthritis High cholesterol Chronic back pain Surgical History History of elbow surgery H/O hemorrhoidectomy H/O shoulder surgery Hx of endoscopy Hx of colonoscopy Family History Father Diabetes Mother Alzheimer disease Dementia Brother No problems noted. Brother No problems noted. Sister No problems noted. Sister No problems noted. Son No problems noted. Daughter No problems noted. Daughter No problems noted. Social History Housing: Apartment Alcohol intake: current Alcohol intake frequency: does not drink Alcohol type: hard liquor Patient Tobacco Use Status: Former Tobacco user Tobacco use type: Cigarette Cigarette Packs Per Day: 1 Cigarettes Per Day: 20.0 Years Smoked: quit in 09/2023 e-Cigarette/Vaping Use: Never Used Second Hand Smoke Exposure: No service: No Current occupational status: unemployed Current occupation: Right Handed Cognitive needs: Yes (cane) Hearing needs: No Vision needs: No Physical Exam Vital Signs: BMI result Body Mass Index 31.6 Extrem Other: Patient is alert, oriented, and in no acute distress. Neuro: Normal sensation of the tips of all digits of the left hand at this time Vascular: Cap refill brisk Pain: No tenderness about the incision site at the A1 raymond of the left middle finger No pain with range of motion testing of the left hand ROM: Patient is able to make a full closed fist and extend all digits of the left hand fully and without difficulty Skin: Well healing incision site noted with granulation tissue formed of the A1 raymond of the left middle finger, but all but 1 suture has been removed No evidence of infection General: No ecchymosis, erythema, or evidence of infection. Psych: Appears grossly normal Affect normal Attitude cooperative Assessment & Plan Assessment & Plan (1) Trigger finger, left middle finger: Code(s): M65.332 - Trigger finger, left middle finger Category: Medical Plan 1. Left middle finger trigger finger status post trigger release DOS 09/12/2024 Patient appears to be recovering well postoperatively Patient is educated about the typical recovery course Remaining suture removed today Patient was educated that he should have called our office when his sutures began fall out, but that there is no evidence of infection or reason to worry at this time Patient is educated that he should continue cleaning the incision site with half-strength peroxide and water, as well as keeping the dressed when going out and about Patient will follow-up in 2 weeks for repeat wound check, sooner with any acute concerns Coding Level of Care Code Global (51455) Diagnoses Trigger finger, left middle finger M65.332
[2024-09-27 08:20] VITALS: BMI 31.6
== END 2024-09-27 08:35 | disposition home or self-care (01) ==
PROVIDERS: PCP Internal Medicine
DX: M65.332 Trigger finger, left middle finger (principal)
CPT/HCPCS: 99024

== ENCOUNTER → 2024-09-27 07:40 | Outpatient (BNVA) | payer MEDICARE, MEDICAID, SELFPAY | PROVIDERS: PCP Internal Medicine | DX: M65.332 Trigger finger, left middle finger (principal) | CPT/HCPCS: 99212 ==

== ENCOUNTER 2024-10-14 07:58 | Outpatient (AMB) | payer MEDICARE, MEDICAID, SELFPAY ==
--- NOTE | 2024-10-14 08:26 | MHC.OFFVIS ---
Vital Signs 10/14/24 08:33 Height 5 ft 7 in Weight 202 lb BMI 31.6 Handedness Right Intake Visit Reasons: PO-Lt MF Trigger Release 09/12/24 Intake Note: Rei is a 59 year old right hand dominant male who presents today post operatively and for a wound check s/p left middle finger trigger release w/ Dr Real DOS: 09/12/24. Patient reports he is having pain in his palm under the left middle finger. Healing of the incision looks good. Denies numbness and tingling. Allergies ibuprofen [From Motrin] Allergy (Severe, Verified 10/14/24 08:32) stomach pain morphine Allergy (Verified 10/14/24 08:32) Rash Penicillins Allergy (Verified 10/14/24 08:32) Hives HPI HPI PO-Lt MF Trigger Release 09/12/24: Details: Patient is a 59-year-old male who presents for wound check status post left middle finger trigger release, DOS 09/12/2024. Today, the patient reports that he is feeling well, and that the wound has healed very well with no acute concerns. Patient denies any redness or discharge from the area. No other acute complaints or concerns at this time. [facility] Medical History GOLDEN (obstructive sleep apnea) GERD (gastroesophageal reflux disease) Asthma-COPD overlap syndrome Asthma Disc degeneration, lumbar Fibromyalgia Major depression Hyperlipidemia Sigmoid diverticulosis Anxiety Arthritis High cholesterol Chronic back pain Surgical History History of elbow surgery H/O hemorrhoidectomy H/O shoulder surgery Hx of endoscopy Hx of colonoscopy Family History Father Diabetes Mother Alzheimer disease Dementia Brother No problems noted. Brother No problems noted. Sister No problems noted. Sister No problems noted. Son No problems noted. Daughter No problems noted. Daughter No problems noted. Social History Housing: Apartment Alcohol intake: current Alcohol intake frequency: does not drink Alcohol type: hard liquor Patient Tobacco Use Status: Former Tobacco user Tobacco use type: Cigarette Cigarette Packs Per Day: 1 Cigarettes Per Day: 20.0 Years Smoked: quit in 09/2023 e-Cigarette/Vaping Use: Never Used Second Hand Smoke Exposure: No service: No Current occupational status: unemployed Current occupation: Right Handed Cognitive needs: Yes (cane) Hearing needs: No Vision needs: No Physical Exam Vital Signs: BMI result Body Mass Index 31.6 Extrem Other: Patient is alert, oriented, and in no acute distress. Neuro: Normal sensation of the tips of all digits of the left hand at this time Vascular: Cap refill brisk Pain: No tenderness about the incision site at the A1 raymond of the left middle finger No pain with range of motion testing of the left hand ROM: Patient is able to make a full closed fist and extend all digits of the left hand fully and without difficulty Skin: Well healed incision site over the A1 raymond of the left middle finger No evidence of infection General: No ecchymosis, erythema, or evidence of infection. Psych: Appears grossly normal Affect normal Attitude cooperative Assessment & Plan Assessment & Plan (1) Trigger finger, left middle finger: Code(s): M65.332 - Trigger finger, left middle finger Category: Medical Plan 1. Left middle finger trigger finger status post trigger release DOS 09/12/2024 Patient appears to be recovering well postoperatively Patient is educated about the typical recovery course Patient was educated that he will not require any further acute follow-up with us, as his incision site appears to be well healed and there is no evidence of infection at this time. Patient was amenable to this plan Patient will follow-up as needed with any acute concerns Coding Level of Care Code Global (94778) Diagnoses Trigger finger, left middle finger M65.332
[2024-10-14 08:33] VITALS: BMI 31.6
== END 2024-10-14 08:55 | disposition home or self-care (01) ==
PROVIDERS: PCP Internal Medicine
DX: M65.332 Trigger finger, left middle finger (principal)
CPT/HCPCS: 99024

== ENCOUNTER → 2024-10-14 07:58 | Outpatient (BNVA) | payer MEDICARE, MEDICAID, SELFPAY | PROVIDERS: PCP Internal Medicine | DX: M79.642 Pain in left hand (principal); Z09 Encounter for follow-up examination after completed treatment for conditions other than malignant neoplasm; Z98.890 Other specified postprocedural states | CPT/HCPCS: 99212 ==

== ENCOUNTER 2024-11-29 07:05 | Outpatient (REF) | payer MEDICARE, MEDICAID, SELFPAY ==
[2024-11-29 09:05] LABS: Appearance Urine Clear; Color Urine Dark Yellow; Glucose Urine UA Negative (Negative); Leukocyte Esterase Urine Trace (Negative); Nitrite Urine Negative (Negative); PH 5.5 (5.0-9.0); Specific Gravity - Urine >= 1.030 (1.005-1.025); UMIC TRIGGER UA YES; UMIC TRIGGER UACC YES; Urine Blood Negative (Negative); Urine Ketones Trace mg/dL (Negative); Urine Protein Negative (Neg-Trace)
[2024-11-29 09:07] LABS: Bacteria Urine None Seen (None Seen); Hyaline Casts Urine 0-2 /LPF (0-2); RBC Urine 0-2 /HPF (0-2); Squamous Epithelial Cell Urine 0-2 /HPF (0-2); WBC Urine 0-5 /HPF (0-5)
== END 2024-11-29 07:06 | disposition home or self-care (01) ==
LOC: HO.LAB 07:05
PROVIDERS: PCP Internal Medicine; Visit Provider Internal Medicine Gastroenterology
DX: I87.1 Compression of vein (principal); Z86.0100 Personal history of colon polyps, unspecified; K21.9 Gastro-esophageal reflux disease without esophagitis; K64.9 Unspecified hemorrhoids; R10.12 Left upper quadrant pain; G89.29 Other chronic pain; K57.10 Diverticulosis of small intestine without perforation or abscess without bleeding; R14.0 Abdominal distension (gaseous)
CPT/HCPCS: 81001; 81003; 99212

== ENCOUNTER 2024-11-29 07:05 | Outpatient (AMB) | payer MEDICARE, MEDICAID, SELFPAY ==
--- NOTE | 2024-11-29 07:23 | A.OFFVIS_ITS ---
Vital Signs 11/29/24 07:34 Height 5 ft 7 in Weight 200 lb BMI 31.3 BP 95/62 Blood Pressure Location Lt brachial Position Sitting Intake Visit Reasons: 3 month follow up Intake Note: Patient follow up Bleeding hemorrhoids. Patient cc: abdominal discomfort/bloating, acid reflex with acid reflex with burning sensation on and off. Denies any other GI issues. Proposal Coordinator Required: No Accompanied by: Self / Same As Patient Allergies ibuprofen [From Motrin] Allergy (Severe, Verified 11/29/24 07:22) stomach pain morphine Allergy (Verified 11/29/24 07:22) Rash Penicillins Allergy (Verified 11/29/24 07:22) Hives Medication List - Last Reconciled 11/29/24 by Allison Paredes MD albuterol sulfate 90 mcg/actuation 2 puffs inhalation Q4-6H PRN albuterol sulfate 2.5 mg (3 mL) inhalation Q4H fluticasone furoate-vilanterol 200-25 mcg/dose (Breo Ellipta) 1 inh inhalation DAILY 30 days gabapentin 400 mg PO TID hydrocortisone 2.5% 1 appl ND BID-QID PRN 15 days lansoprazole 30 mg PO BID 90 days nebulizer and compressor As directed trazodone 25 - 50 mg PO BEDTIME zolpidem 5 mg PO BEDTIME HPI HPI 3 month follow up: Details: 59-YEAR-OLD [employer] [employer]-SPE[employer] MALE FOR FU OF GERD AND RECTAL BLEEDING 02/19/21 Pt had an exam under anesthesia, hemorrhoidectomy x2 columns by Dr Serrato ?TODAY'S VISIT Pt is accompanied by his interpreted for the pt. THE PATIENT UNDERSTANDS AND SPEAKS SOME [place]. Patient cc: abdominal discomfort/bloating, acid reflex with acid reflex with burning sensation on and off. Left sides abdominal pain and bloating. Abd pain comes and goes - wakes up with abdominal pain in the morning Bloated all the time. Notes bloating and diarrhea after taking cheese and icecream - does not drink milk Denies urinary problems Intermittent rectal bleeding - once a week, lasts 3-4 days and then stops Does not feel he has hemorrhoids Denies rectal pain, constipation or diarrhea. ?PAST VISITS: Pt complains of intermittent rectal bleeding for the past few months - sometimes red and sometimes black. Sometimes mixed with the stool and sometimes just blood. Continues to have LUQ pain - states does not resolve after a BM. Frequent heartburn and medication is not helping. Takes Pantoprazole every day and has to take peptobismol at night. Can have black stool even if he does not take peptobismol. 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 He can wake up at night with the pain. Denies constipation or diarrhea. Can have a BM 2-3 times times a day Intermittent left sided - sometimes after he eats (2-3 times a week) Pain last for 30 min and goes away after a BM Complains of heartburn and bloating Hb is worse at night He was taking Nexium and ran out. Eats dinner at 4 pm and sleeps at 10 am He quit smoking in Sep and sometimes has a late night snack. Intermittent rectal bleeding every 3-4 days and advised to take fiber in his diet. ? ? ? Complains of constant left sided abdominal pain (in the middle - beside the belly button) - x 1 week. Notes a burning sensation in the stomach and denies n, v or urinary symptoms. Denies change in BMs - has a BM daily. Doing not too well and not too bad ? Complains of left sided abdominal pain. ? Not taking any GI medications at present - he stopped after he was finished with the prescriptions. ? Has gained 9 lbs over the past year and was advised to work on loosing weight. ? Continues to smoke 1 PPD and trying to quit slowly - advised to quit since continued smoking and wt gain is likely contributing to persistent heartburn. ? Still recovering from hemorrhoid surgery and had just a little bleeding. ? Noted a little improvement in symptoms after increasing the Carafate to three times a day. ? Continues to experience heartburn - notes heartburn whenever he eats ? I have been taking the pills and the pills are not working - advised to increase sucralfate to three times a day. ? Taking medications for GERD and is not helping and unable to sleep at night. ? Taking Omeprazole once a day and is not helping and not taking Famotidine. ? Avoids greasy foods, sodas, citrus fruits and juices and drinks coffee once in the morning. ? Abd CT scan results were reviewed with the patient. ? Has dinner at 6 pm and goes to bed around 7 or 8 (does not go to sleep right away) ? Complains of rectal bleeding for the past several yrs worse for the past 4 yrs. ? Blood is bright red and separate from the stools. ? Can sometimes feel weak. ? Patient denies change in bowel habits, occasional black stools. ? Complains of heartburn x 3 yrs every 3-4 days ? Denies dysphagia, nausea or vomiting, change in appetite or weight. ? Intermittent hoarseness and denies cough or sore throat. ? Patient denies major cardiac or pulmonary problems, loud snoring or history of sleep apnea. ? Has sleep disturbance - does not sleep well ? He denies past problems with anesthesia. ? Patient denies known family history of colon cancer, colon polyp or other GI malignancy LABS: January, reviewed ? IMAGING STUIDES:? 02/10/[address] SCAN SHOWED: ? ? ? KIDNEYS AND URETERS: There is a 2 mm nonobstructing stone in the upper ? ? ? pole of the left kidney. The kidneys are otherwise unremarkable. ? ? ? BLADDER: Unremarkable. ? ? ? GASTROINTESTINAL TRACT: There is a small duodenal diverticulum adjacent ? ? ? to the head of the pancreas. The small and large bowel are otherwise ? ? ? unremarkable. The appendix is unremarkable. The stomach is unremarkable. ?ENDOSCOPIC STUDIES: 04/09/20 EGD AND COLONOSCOPY SHOWED: ? ESOPHAGUS: 1 cms tongue of possible Brooks's - biopsied. ? STOMACH: Antral gastritis with superficial erosions. ? Colonoscopy Findings: ? One 10 mm polyp removed (TA on bx) ? Moderate diverticulosis seen in the sigmoid colon ? Large hemorrhoids on retroflexed exam. ? Plan: ? Continue present medications (Famotidine at 20 mg PO once daily) ? Repeat Colonoscopy interval based on path results - in 3-5 years if ? polyps are adenomatous and 10 years if polyps are hyperplastic. ? BIOPSIES SHOWED: ? A. Stomach, biopsies: Gastric mucosa with mild chronic, inactive gastritis; negative for Helicobacter pylori; negative for intestinal metaplasia/dysplasia. ? B. Esophagus, distal, biopsies: Cardia type mucosa with mild chronic inactive inflammation; negative for intestinal metaplasia/dysplasia; no squamous epithelium identified. ? C. Colon, sigmoid polyp, polypectomy: Tubular adenoma PFSH Medical History GOLDEN (obstructive sleep apnea) GERD (gastroesophageal reflux disease) Asthma-COPD overlap syndrome Asthma Disc degeneration, lumbar Fibromyalgia Major depression Hyperlipidemia Sigmoid diverticulosis Anxiety Arthritis High cholesterol Chronic back pain Surgical History History of elbow surgery H/O hemorrhoidectomy H/O shoulder surgery Hx of endoscopy Hx of colonoscopy Family History Father Diabetes Mother Alzheimer disease Dementia Brother No problems noted. Brother No problems noted. Sister No problems noted. Sister No problems noted. Son No problems noted. Daughter No problems noted. Daughter No problems noted. Social History Housing: Apartment Alcohol intake: current Alcohol intake frequency: does not drink Alcohol type: hard liquor Patient Tobacco Use Status: Former Tobacco user Tobacco use type: Cigarette Cigarette Packs Per Day: 1 Cigarettes Per Day: 20.0 Years Smoked: quit in 09/2023 e-Cigarette/Vaping Use: Never Used Second Hand Smoke Exposure: No service: No Current occupational status: unemployed Current occupation: Right Handed Cognitive needs: Yes (cane) Hearing needs: No Vision needs: No Review of Systems Const All systems reviewed & are unremarkable except as noted in HPI and below Physical Exam Vital Signs: Last Vital Signs BP 95/62 11/29/24 07:34 BMI result Body Mass Index 31.3 Const General: healthy appearing and no acute distress Nutritional Appearance: obese Orientation/consciousness: patient oriented x3 Limitations: language barrier HEENT Head: Yes normal to inspection Ears: hearing grossly normal bilaterally Eyes Sclerae: sclerae normal Pupils: Equal, round and reactive pupils present Neck Neck: Yes normal visual inspection Chest Chest palpation & inspection: normal inspection of the chest Resp Effort & Inspection: normal respiratory effort Auscultation: clear to auscultation bilaterally Cardio Palpation: normal PMI Rate: regular rate Rhythm: regular rhythm Heart sounds: S1 normal heart sound present, S2 normal heart sound present and no murmurs GI Palpation (GI): Soft to palpation, nontender and No hepatosplenomegaly present Auscultation: normal bowel sounds Rectal Exam - Male: Yes deferred Skin General skin exam: no rashes or lesions noted Neuro General: patient oriented x3, gait normal and moves all extremities Cranial nerves: Yes Equal, round and reactive pupils present Psych Appearance: grossly normal Mental Status: mental status grossly normal Assessment & Plan Assessment & Plan (1) History of adenomatous polyp of colon: Comment: 04/09/20 Colonoscopy showed sigmoid diverticulosis and a 10 mm tubular adenoma was removed. Repeat colonoscopy is advised in 3 years (due 03/2023) - action was set in [facility]. Code(s): Z86.010 - Personal history of colon polyps Category: Medical (2) GERD (gastroesophageal reflux disease): Code(s): K21.9 - Gastro-esophageal reflux disease without esophagitis Category: Medical (3) Bleeding hemorrhoids: Comment: 02/19/21 Pt had an exam under anesthesia, hemorrhoidectomy x2 columns by Dr Serrato and rectal bleeding has almost resolved. Code(s): K64.9 - Unspecified hemorrhoids Category: Medical (4) Chronic LUQ pain: Code(s): R10.12 - Left upper quadrant pain; G89.29 - Other chronic pain Category: Medical (5) Duodenal diverticulum: Code(s): K57.10 - Diverticulosis of small intestine without perforation or abscess without bleeding Category: Medical (6) Abdominal bloating: Code(s): R14.0 - Abdominal distension (gaseous) Category: Medical (7) Nutcracker phenomenon of renal vein: Code(s): I87.1 - Compression of vein Category: Medical Plan 59 year old Danish-speaking male? followed in GI for rectal bleeding and? history of adenomatous colon polyps. Rectal bleeding is likely from hemorrhoids. Patient also complained of symptoms of heartburn and was advised to take famotidine 20 mg twice daily in place of Zantac and stated that he did not get the medicine at the pharmacy. Patient was advised to stop omeprazole and take sucralfate and pantoprazole 40 mg twice daily for continuing heartburn symptoms - he stopped the medications after he finished the prescriptions 04/09/20 EGD & COLONOSCOPY showed no esophagitis and antral gastritis with superficial erosions. Gastric biopsies were negative for Helicobacter pylori. A 10 mm tubular adenoma was removed during same-day colonoscopy. Moderate sigmoid diverticulosis and large hemorrhoids were noted. Rectal bleeding is likely from hemorrhoids. 02/19/21 Pt had an exam under anesthesia, hemorrhoidectomy x [address] Serrato and rectal bleeding has almost resolved. Continues to smoke 1 PPD and advised to quit. Has gained 9 lbs over the past year and was advised to work on loosing weight. Patient was advised to resume taking pantoprazole 40 mg twice daily for heartburn. [place] of dicyclomine for abdominal pain. 06/10/24 Colonoscopy (FU of colon polyps) was performed and two small hyperplastic polyps were removed and a hyperplastic appearing polyp was biopsied Moderate diverticulosis seen in the sigmoid colon Small hemorrhoids on retroflexed exam. Repeat Colonoscopy in 5 years if polyps are adenomatous and due to history of adenomatous colon polyps Pt placed on the colonoscopy recall list for repeat colon in 5 years. 08/12/24 Pt advised to have labs and schedule an Abd CT scan for evaluation of LUQ pain Increase Pantoprazole to twice daily Normal CRP and IBD serologies were negative 09/05/24 Pt advised to switch from pantoprazole to Lansoprozole 30 mg twice daily 11/29/24 Intermittent LUQ pain and abd bloating ? related to duodenal diverticulum or nutcracker syndrome Abd CT scan showed: VASCULAR: There is moderate aortoiliac atherosclerotic calcification. No abdominal aortic aneurysm or dissection is seen. There is a retroaortic left renal vein (3:40-2). IMPRESSION: 1. A small duodenal diverticulum is again seen, without associated inflammatory changes. 2. There is no bowel obstruction, free intraperitoneal air or abscess. No focal bowel wall thickening is seen. The vermiform appendix appears normal. 3. A 3 mm nonobstructing left renal calculus is seen. There is no further urinary calculus noted, and no obstructive uropathy is seen. 4. 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 This finding can be associated with recurrent left flank/abdominal pain, hematuria and proteinuria. Pt advised to have a UA and referred to Vascular surgery He is scheduled to see Urology on 12/25/24 Follow-up in 4 month Orders: Orders UA CC w/rflx Micro + Cult Today I87.1 - Compression of vein Referrals Vascular Surgery Referral I87.1 - Compression of vein Medications: New simethicone 125 mg PO TID 30 days PRN 90 tabs 2RF abdominal distention R14.0 - Abdominal distension (gaseous) Coding Level of Care Code Est Pt Level 4 (59790) Diagnoses History of adenomatous polyp of colon Z86.010 GERD (gastroesophageal reflux disease) K21.9 Bleeding hemorrhoids K64.9 Chronic LUQ pain R10.12; G89.29 Duodenal diverticulum K57.10 Abdominal bloating R14.0 Nutcracker phenomenon of renal vein I87.1 Time Spent (min) 23
[2024-11-29 07:34] VITALS: BP 95/62; BMI 31.3
== END 2024-11-29 08:15 | disposition home or self-care (01) ==
PROVIDERS: PCP Internal Medicine; Visit Provider Internal Medicine Gastroenterology
DX: Z86.0100 Personal history of colon polyps, unspecified (principal); K21.9 Gastro-esophageal reflux disease without esophagitis; K64.9 Unspecified hemorrhoids; R10.12 Left upper quadrant pain; G89.29 Other chronic pain; K57.10 Diverticulosis of small intestine without perforation or abscess without bleeding; R14.0 Abdominal distension (gaseous); I87.1 Compression of vein
CPT/HCPCS: 99214

== ENCOUNTER → 2024-12-17 10:04 | Outpatient (BNVA) | payer MEDICARE, MEDICAID, SELFPAY | PROVIDERS: PCP Internal Medicine; Visit Provider Surgery Vascular Surgery | DX: I87.1 Compression of vein (principal) | CPT/HCPCS: 99202 ==

== ENCOUNTER 2025-01-13 09:16 | Outpatient (REF) | payer MEDICARE, MEDICAID, SELFPAY ==
--- NOTE | ~2025-01-13 | CT_ITS ---
EXAMINATION: CT LUNG SCREENING HISTORY: Smoking history TECHNIQUE: Low dose axial images were obtained from the sternal notch to upper abdomen without IV contrast per standard departmental protocol. Sagittal and coronal reformatted images were also obtained and reviewed. One or more of the following techniques was used for dose reduction: Automated exposure control, adjustment of the mA and/or kV according to patient size, use of iterative reconstruction technique. DLP: 62 mGy-cm COMPARISON: Comparison is made with the prior examination dated 01/27/2023. FINDINGS: Lung nodules: No pulmonary nodules are identified. Emphysema: none Coronary Calcification: none Aortic Arch Calcification: none Potentially Significant Incidentals : none Additional Chest Findings: There is no pleural or pericardial effusion. No mediastinal or axillary lymphadenopathy is identified. Visualized upper abdomen: The visualized portions of the liver, spleen, and adrenals have an unremarkable unenhanced appearance. There is a punctate nonobstructing calculus at the upper pole of the left kidney. CT/CT lung screening IMPRESSION: No suspicious pulmonary nodules are identified. LUNG-RADS ASSESSMENT: Lung-RADS 1: Negative MANAGEMENT: Continue annual screening with LDCT in 12 months Category S: N/A Electronically signed by: José Miguel Bob MD 01/13/2025 12:17 PM [facility]
--- OUTSIDE RECORDS SUMMARY | 2025-01-13 10:03 | XMS_ITS | Clinical Summary ---
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 Name Role Phone Unavailable Primary Care Provider Unavailabl e Social History Tobacco Use Types Packs/Day Years Used Date Smoking Tobacco: Never Assessed Sex and Gender Information Value Date Recorded Sex Assigned at Not on file Legal Sex Male 7:38 AM EST Gender Identity Not on file Sexual Orientation Not on file Plan of Treatment Health Maintenance Due Date Last Done Comments DTaP,Tdap,and Td Vaccines (1 - Tdap) 1984 Hepatitis B Vaccines (1 of 3 - 19+ 3-dose series) 1984 Pneumococcal Vaccine: 50+ Ye ars (1 of 1 - PCV) 2015 Zoster Vaccines (1 of 2) 2015 COVID-19 Vaccine ( - 2023-2 5 season) 2024 Influenza Vaccine (#1) 2024 RSV Immunization Patients 60 + Years Old (1 - 1-dose 75+ series) 2040 HIB Vaccines Aged Out No longer eligi ble based on patient's age to complete this topic HPV Vaccines Aged Out No longer eligi ble based on patient's age to complete this topic Hepatitis A Vaccines Aged Out No long er eligible based on patient's age to complete this topic IPV Vaccines Aged Out No longer eligi ble based on patient's age to complete this topic MMR Vaccines Aged Out No longer eligi ble based on patient's age to complete this topic Meningococcal ACWY Vaccine Aged Out N o longer eligible based on patient's age to complete this topic Meningococcal B Vacine Aged Out No lo nger eligible based on patient's age to complete this topic Pneumococcal Vaccine: Pediat rics (0 to 5 Years) and At-Risk Patients (6 to 64 Years) Aged Out No longer eligible b ased on patient's age to complete this topic RSV Immunization Patients Un maribell 20 months Aged Out No longer eligible b ased on patient's age to complete this topic Varicella Vaccines Aged Out No longer eligible based on patient's age to complete this topic
== END 2025-01-13 09:17 | disposition home or self-care (01) ==
LOC: HO.CT 09:16
PROVIDERS: PCP Internal Medicine; Visit Provider Internal Medicine Pulmonary Disease
DX: Z12.2 Encounter for screening for malignant neoplasm of respiratory organs (principal); Z87.891 Personal history of nicotine dependence
CPT/HCPCS: 71271

== ENCOUNTER → 2025-01-13 09:18 | Outpatient (BNV) | payer MEDICARE, MEDICAID, SELFPAY | PROVIDERS: PCP Internal Medicine; Visit Provider Radiology Diagnostic Radiology | DX: Z87.891 Personal history of nicotine dependence (principal) | CPT/HCPCS: 71271 ==

== ENCOUNTER 2025-02-07 08:19 | Outpatient (AMB) | payer MEDICARE, MEDICAID, SELFPAY ==
--- NOTE | 2025-02-07 08:24 | A.OFFPC_ITS ---
Vital Signs 3 02/07/25 08:26 Height 5 ft 7 in Weight 212 lb 2 oz BMI 33.2 BP 120/66 Blood Pressure Location Lt brachial Position Sitting Pulse 87 Pulse Source Pulse Oximeter Temp 97.3 F Temp Source Temporal Artery Scan Pulse Oximetry (%) 97 Oxygen Delivery Method Room Air Intake Visit Reasons: TITO Dr. Willard Intake Note: Patient is here today for TITO from Dr Willard. Ends Breakage Clerk Required: No Lather Apprentice: Present Accompanied by: Spouse Allergies ibuprofen [From Motrin] Allergy (Severe, Verified 02/07/25 08:36) stomach pain morphine Allergy (Verified 02/07/25 08:36) Rash Penicillins Allergy (Verified 02/07/25 08:36) Hives Medication List - Last Reconciled 02/07/25 by Lucrecia Salas PA-C albuterol sulfate 2.5 mg (3 mL) inhalation Q4H albuterol sulfate 90 mcg/actuation 2 puffs inhalation Q4-6H PRN fluticasone furoate-vilanterol 200-25 mcg/dose (Breo Ellipta) 1 inh inhalation DAILY 30 days gabapentin 400 mg PO TID lansoprazole 30 mg PO BID nebulizer and compressor As directed simethicone 125 mg PO TID PRN 30 days Tobacco use date assessed: 02/07/25 Dental Screening Dental Screen Date: 02/07/25 Did you have a dental visit in the last 12 months?: Yes Did you have a dental problem in the last 6 months where you did not have access to dental care?: No Was dental information given to patient?: Patient has dentist HPI TITO Dr. Willard 2 HPI0 Details 59-year-old male with past medical histo ry of hyperlipidemia, depression, fibromyalgia, tobacco abuse, asthma-COPD overlap syndrome, GERD, obstructive sleep apnea last seen 07/[address] Willard coming in for transfer of care. In review of the notes, patient had CT of the lungs for annual lung cancer screening completed advised to follow up in 12 months. Patient was seen by vascular surgery 12/17/2024 for nutcracker phenomenon of renal vein advised to repeat CT scan in 3 months and evaluate at that time. Patient was seen by GI 11/29/2024 for heartburn by advised to take sucralfate and pantoprazole for heartburn symptoms.? Patient also had left middle finger trigger release surgery 09/12/2024. Patient was also seen by reception centre manager 08/2024 advised to continue on current regimen. Presenting with abdominal pain and bloating. The patient details ongoing significant bloating and abdominal pain localizing to the left side, impacting his daily functioning, associated with kidney stones and duodenal diverticulum diagnosed in past testing. 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 There is a request to retest for H. pylori due to consistent bloating despite previously negative testing. Management includes medication for gastroesophageal reflux disease and gas, with some symptom relief. Additional concerns include difficulty managing sleep apnea with CPAP and episodic asthma likely related to animal allergies. [facility] Medical History GOLDEN (obstructive sleep apnea) GERD (gastroesophageal reflux disease) Asthma-COPD overlap syndrome Asthma Disc degeneration, lumbar Fibromyalgia Major depression Hyperlipidemia Sigmoid diverticulosis Anxiety Arthritis High cholesterol Chronic back pain Surgical History History of elbow surgery H/O hemorrhoidectomy H/O shoulder surgery Hx of endoscopy Hx of colonoscopy Family History Father Diabetes Mother Alzheimer disease Dementia Brother No problems noted. Brother No problems noted. Sister No problems noted. Sister No problems noted. Son No problems noted. Daughter No problems noted. Daughter No problems noted. Other Mental health disorder Social History Housing: Apartment Alcohol intake: current Alcohol intake frequency: does not drink Alcohol type: hard liquor Patient Tobacco Use Status: Former Tobacco user Tobacco use type: Cigarette Cigarette Packs Per Day: 1 Cigarettes Per Day: 20.0 Years Smoked: quit in 09/2023 e-Cigarette/Vaping Use: Never Used Second Hand Smoke Exposure: Yes service: No Current occupational status: unemployed Current occupation: Right Handed Cognitive needs: Yes (cane) Hearing needs: No Vision needs: No Questionnaire PHQ-9 Over the last 2 weeks, how often have you been bothered by any of the following problems? 1. Little interest or pleasure in doing things: not at all 2. Feeling down, depressed, or hopeless: not at all 3. Trouble falling or staying asleep, or sleeping too much: not at all 4. Feeling tired or having little energy: not at all 5. Poor appetite or overeating: not at all 6. Feeling bad about yourself - or that you are a failure or have let yourself or your family down: not at all 7. Trouble concentrating on things, such as reading the newspaper or watching television: not at all 8. Moving or speaking so slowly that other people could have noticed. Or the opposite - being so fidgety or restless that you have been moving around a lot more than usual: not at all 9. Thoughts that you would be better off or of hurting yourself in some way: not at all Total score: 0 Depression Screening Interpretation: Negative Depression Screening Done: Yes Source: Developed by Drs. José Miguel Mcclellan, Tessie Mcclain, Yair Sethi and colleagues, with an educational sudhakar from [employer]. Thrive Questionnaire Date Thrive assessed: 02/07/25 I am a: Patient What is your living situation today?: I have a steady place to live Within the past 12 months, did the food you bought not last and you didn't have the money to get more?: Never true Within the past 12 months, did you worry whether your food would run out before you got money to buy more?: Never true Do you have trouble paying for medicines?: No Do you have trouble getting transportation to medical appointments?: No Do you have trouble paying your heating and electricity bill?: No Do you have trouble taking care of your child, family member or friend?: No Do you have trouble with day-to-day activities such as bathing, preparing meals, shopping, managing finances, etc.?: No Are you currently unemployed and looking for a job?: No Are you interested in more education?: No Please select the resources that you would like help with: None Currently or been in a relationship where the following occur: No concerns reported THRIVE Score: 0 AUDIT C Alcohol Use Questionnaire (AUDIT-C) 1. How often do you have a drink containing alcohol?: Never Total Score: 0 FILEMON-7 AMB Questionnaire FILEMON-7 Date FILEMON - 7 assessed: 02/07/25 Feeling nervous, anxious, or on edge: 1 = Several days (Currently in treatment) Not being able to stop or control worryin = Not at all Worrying too much about different things: 0 = Not at all Trouble relaxin = Not at all Being so restless that it is hard to sit still: 0 = Not at all Becoming easily annoyed or irritable: 0 = Not at all Feeling afraid as if something awful might happen: 0 = Not at all Total FILEMON-7 score (0-4 normal; 5-9 mild; 10-14 moderate; 15-21 severe): 1 Source: Developed by Drs. José Miguel Mcclellan, Tessie Mcclain, Yair Sethi and colleagues, with an educational sudhakar from [employer]. Review of Systems Const Denies body aches, Denies chills, Denies fever(s), Denies headache(s) and Reports poor appetite Eyes Reports no additional complaints ENT Denies dysphagia, Denies dizziness, Denies headache(s) and Denies odynophagia Card Denies chest pain, Denies lightheadedness and Denies dyspnea Resp Denies dyspnea GI Reports abdominal pain, Reports bloating, Denies dysphagia, Reports dyspepsia, Reports heartburn, Denies nausea, Denies odynophagia and Denies vomiting Reports no additional complaints Musc Reports no additional complaints and Denies abnormal gait Skin/Breast Details: birthmark on the left side of the neck that is itchy and burning sensation Neuro Denies abnormal gait, Denies dizziness and Denies headache(s) Psych Reports no additional complaints Physical exam (Primary Care) Vital Signs: Last Vital Signs Temp 97.3 F 02/07/25 08:26 Pulse 87 02/07/25 08:26 BP 120/66 02/07/25 08:26 Pulse Ox 97 02/07/25 08:26 Oxygen Delivery Method Room Air 02/07/25 08:26 BMI result Body Mass Index 33.2 Tobacco/Smoking Status: Tobacco use Status Tobacco use date assessed 02/07/25 02/07/25 08:33 Patient Tobacco Use Status Former Tobacco user 02/07/25 08:25 Tobacco use type Cigarette 02/07/25 08:25 e-Cigarette/Vaping Use Never Used 02/07/25 08:25 PHQ-9: PHQ-9 Score PHQ-9: Total score 0 02/07/25 08:33 Depression Screening Interpretation: Negative Thrive Assessment: Date of Thrive Assessment Date Thrive assessed 02/07/25 02/07/25 08:33 Currently or been in a relationship where the following occur: No concerns reported Const General: cooperative, healthy appearing, comfortable and no acute distress Orientation/consciousness: patient oriented x3 [facility] Head: Yes normocephalic Ears: hearing grossly normal bilaterally General nose exam: Normal external nose present Eyes General: appearance normal, both eyes and all related structures Conjunctivae: conjunctivae normal Neck Neck: Yes full ROM and Yes no lymphadenopathy Resp Effort & Inspection: normal respiratory effort Auscultation: clear to auscultation bilaterally, no crackles, no rales, no rhonchi and no wheezes Cardio Rate: regular rate Rhythm: regular rhythm GI Other: abd bloating Palpation (GI): Soft to palpation, not firm, Tenderness to palpation present (GI) in the LUQ, no guarding, not rigid and No Rebound tenderness present Skin General skin exam: no rashes or lesions noted Full body images: 2 1. atypical nevi with irregular borders without bleeding or dryness Neuro General: patient oriented x3 Gait exam (Neuro): Normal gait present Extrem General: Yes normal to inspection, Yes full ROM and No edema Psych Affect: normal affect Attitude: cooperative Insight: Good insight present (Psych) Judgement: Good judgement present (Psych) Coding Level of Care Code Est Pt Level 3 (15093) Diagnoses Nutcracker phenomenon of renal vein I87.1 Personal history of nicotine dependence Z87.891 Asthma-COPD overlap syndrome J44.89 GOLDEN (obstructive sleep apnea) G47.33 GERD (gastroesophageal reflux disease) K21.9 Hyperlipidemia E78.5 Atypical nevi D22.9 Abdominal bloating R14.0 Assessment & Plan Assessment & Plan (1) Nutcracker phenomenon of renal vein: Code(s): I87.1 - Compression of vein Category: Medical Plan: Patient is currently following with both urology and vascular surgery for this concern. Likely contributing to abdominal pain per vascular surgery last note. (2) Personal history of nicotine dependence: Code(s): Z87.891 - Personal history of nicotine dependence Category: Medical Plan: Continue with annual lung cancer screening program. Not currently smoking. (3) Asthma-COPD overlap syndrome: Code(s): J44.89 - Other specified chronic obstructive pulmonary disease Category: Medical Plan: Continue to follow with pulmonology and continue on current inhaler regimen. Patient has been using Breo as needed advised patient this is a once daily scheduled medication and continue on albuterol PRN (4) GOLDEN (obstructive sleep apnea): Code(s): G47.33 - Obstructive sleep apnea (adult) (pediatric) Category: Medical Plan: Uses CPAP faithfully at least 4 hours a night and benefits from this therapy. (5) GERD (gastroesophageal reflux disease): Code(s): K21.9 - Gastro-esophageal reflux disease without esophagitis Category: Medical Plan: Avoid trigger foods such as citrus, tomato products, soda, caffeine, spicy foods and other foods that may be irritating to your stomach. Avoid laying flat 3-4 hours after eating and elevate the head of the bed 30 degrees to prevent acid from moving into the esophagus. Continue on Lansoprazole and sucralfate (6) Hyperlipidemia: Code(s): E78.5 - Hyperlipidemia, unspecified Category: Medical Plan: Avoid foods that are high in cholesterol such as red meat, fried foods, eggs and baked goods. Triglyceride goal of less than 150 and LDL goal of less than 130. Not currently on medical management (7) Atypical nevi: Code(s): D22.9 - Melanocytic nevi, unspecified Category: Medical Plan: Plan to refer to dermatology for evaluation of nevi due to concerning symptoms. (8) Abdominal bloating: Code(s): R14.0 - Abdominal distension (gaseous) Category: Medical Plan: The plan includes retesting for Helicobacter pylori due to renewed symptoms and continue using medications for gastroesophageal reflux disease and bloating.Dietary management was discussed. A follow-up appointment was set for three months to monitor progress and review results. Continue to follow with GI. Plan This note was constructed using voice recognition software. While every effort has been made to ensure accuracy and bulk mail clerk, still areas may have been included sometimes these areas may affect the content or meeting of the given symptoms. Total time spent caring for the patient today was 30 minutes. This includes time spent before the visit reviewing the chart, time spent during the visit, and time spent after the visit and documentation. Patient was informed and verbally consented to the use of an ambient scribe for clinic note documentation during this visit. Orders: Orders 2 H pylori Ag Stool Today R14.0 - Abdominal distension (gaseous) Lipid Panel Today E78.5 - Hyperlipidemia, unspecified TSH reflex Free T4 Today Z00.00 - Encounter for general adult medical examination without abnormal findings Vitamin D 25-OH Total Today Z00.00 - Encounter for general adult medical examination without abnormal findings Vitamin B12 and Folate Today Z00.00 - Encounter for general adult medical examination without abnormal findings Free T4 (Free Thyroxine) Today Z00.00 - Encounter for general adult medical examination without abnormal findings Complete Blood Count Auto Diff Today D64.9 - Anemia, unspecified Comprehensive [place]. Panel Fast Today N28.9 - Disorder of kidney and ureter, unspecified Hemoglobin A1c Today Z13.1 - Encounter for screening for diabetes mellitus Referrals 2 Dermatology Referral D22.9 - Melanocytic nevi, unspecified
[2025-02-07 08:26] VITALS: BP 120/66; PULSE 87; TEMP 36.3; O2SAT 97; BMI 33.2
== END 2025-02-07 09:01 | disposition home or self-care (01) ==
LOC: HO.HMCH 08:19
DX: I87.1 Compression of vein (principal); Z87.891 Personal history of nicotine dependence; J44.89 Other specified chronic obstructive pulmonary disease; G47.33 Obstructive sleep apnea (adult) (pediatric); K21.9 Gastro-esophageal reflux disease without esophagitis; E78.5 Hyperlipidemia, unspecified; D22.9 Melanocytic nevi, unspecified; R14.0 Abdominal distension (gaseous)

== ENCOUNTER → 2025-02-07 08:19 | Outpatient (BNVA) | payer MEDICARE, MEDICAID, SELFPAY | DX: I87.1 Compression of vein (principal); J44.89 Other specified chronic obstructive pulmonary disease; Z87.891 Personal history of nicotine dependence; G47.33 Obstructive sleep apnea (adult) (pediatric); K21.9 Gastro-esophageal reflux disease without esophagitis; E78.5 Hyperlipidemia, unspecified; D22.9 Melanocytic nevi, unspecified; R14.0 Abdominal distension (gaseous) | CPT/HCPCS: 99212 ==

== ENCOUNTER 2025-02-12 07:43 | Outpatient (REF) | payer MEDICARE, SELFPAY ==
--- NOTE | ~2025-02-12 | CT_ITS ---
CLINICAL HISTORY: I87.1 - Compression of vein CT angiogram abdomen and pelvis with contrast Multiplanar reconstructions and 3D processing Comparison: 08/30/2024 Findings: Abdominal aorta normal caliber without dissection. Celiac and mesenteric origins patent without stenosis. Bilateral renal artery origins patent without stenosis. Retroaortic left renal vein incidentally noted. Common and external iliac arteries unremarkable. Bilateral common femoral arteries within normal limits. Lung bases clear. No acute bony abnormalities. Liver and spleen within normal limits. Pancreas and adrenal glands unremarkable. Gallbladder is within normal limits. Punctate nonobstructing left renal stone. No focal renal abnormality or ureteral stone. Stable 2 cm proximal right iliac node. No significant free fluid noted in the pelvis. No diverticulitis. Appendix unremarkable. Impression: No acute process This document has been electronically signed by: Arya Hayes MD on 02/12/2025 19:47:44
--- OUTSIDE RECORDS SUMMARY | 2025-02-12 07:46 | XMS_ITS | Clinical Summary ---
Author Organization [facility] ity Address [address] [place] [address] Care Team Providers Care Radiology Resident Name Role Phone Unavailable Primary Care Provider [...]
[2025-02-12] MEDS: iohexoL 350 MG/ML 100 ML INFUS..BTL IV (08:30)
[2025-02-12 13:49] LABS: Creatinine POC 0.9 mg/dL (0.5-1.4); GFR POC > 60
== END 2025-02-12 07:44 | disposition home or self-care (01) ==
LOC: HO.CT 07:43
PROVIDERS: Visit Provider Surgery Vascular Surgery
DX: I87.1 Compression of vein (principal)
CPT/HCPCS: 74174; 82565; Q9967

== ENCOUNTER → 2025-02-12 07:44 | Outpatient (BNV) | payer MEDICARE, SELFPAY | PROVIDERS: Visit Provider Radiology Diagnostic Radiology | DX: I87.1 Compression of vein (principal) | CPT/HCPCS: 74174 ==

== ENCOUNTER 2025-02-27 08:19 | Outpatient (AMB) | payer MEDICARE, MEDICAID, SELFPAY ==
--- OUTSIDE RECORDS SUMMARY | 2025-02-27 08:36 | XMS_ITS | Clinical Summary ---
Author Organization [facility] ity Address [address] [place] [address] Care Team Providers Care Home Care Consultant Name Role Phone Unavailable Primary Care Provider [...] - 2023-2 5 season) 2024 Influenza Vaccine (Season Ended) 2025 RSV Immunization Adult Patie nts (1 - 1-dose 75+ series) 2040 HIB [...] age to complete this topic Meningococcal B Vaccine Aged Out No l onger eligible based on patient's age to complete [...]
[2025-02-27 08:56] VITALS: BMI 33.2
--- NOTE | 2025-02-27 08:56 | MHC.OFFVIS ---
Vital Signs 02/27/25 08:56 Height 5 ft 7 in Weight 212 lb BMI 33.2 Intake Visit Reasons: follow up s/p CT Abd/Pelvis 02/12/25 Intake Note: follow up CTA Abd/pelvis 02/12/25. Pt states he still has pain on his Left flank consistently. Manager Agricultural Required: No Allergies ibuprofen [From Motrin] Allergy (Severe, Verified 02/27/25 09:00) stomach pain morphine Allergy (Verified 02/27/25 09:00) Rash Penicillins Allergy (Verified 02/27/25 09:00) Hives HPI HPI follow up s/p CT Abd/Pelvis 02/12/25: Details: The patient is a 59-year-old male presenting with left upper quadrant abdominal pain. The pain has been persistent without significant relief and is accompanied by nausea severe enough to interfere with breathing. Previous concerns regarding Nutcracker Syndrome, involving compression of the left renal vein, were ruled out via a CT scan on 02/12/2025, showing no vascular issues. The patient denies blood in his urine but reports rectal bleeding, attributed to his history of diverticulitis. The patient has been on various medications for gastrointestinal symptoms, with little success. He also reports a left kidney stone, which may contribute to his abdominal pain. [facility] Medical History GOLDEN (obstructive sleep apnea) GERD (gastroesophageal reflux disease) Asthma-COPD overlap syndrome Asthma Disc degeneration, lumbar Fibromyalgia Major depression Hyperlipidemia Sigmoid diverticulosis Anxiety Arthritis High cholesterol Chronic back pain Surgical History History of elbow surgery H/O hemorrhoidectomy H/O shoulder surgery Hx of endoscopy Hx of colonoscopy Family History Father Diabetes Mother Alzheimer disease Dementia Brother No problems noted. Brother No problems noted. Sister No problems noted. Sister No problems noted. Son No problems noted. Daughter No problems noted. Daughter No problems noted. Other Mental health disorder Social History Housing: Apartment Alcohol intake: current Alcohol intake frequency: does not drink Alcohol type: hard liquor Patient Tobacco Use Status: Former Tobacco user Tobacco use type: Cigarette Cigarette Packs Per Day: 1 Cigarettes Per Day: 20.0 Years Smoked: quit in 09/2023 e-Cigarette/Vaping Use: Never Used Second Hand Smoke Exposure: Yes service: No Current occupational status: unemployed Current occupation: Right Handed Cognitive needs: Yes (cane) Hearing needs: No Vision needs: No Review of Systems Const All systems reviewed & are unremarkable except as noted in HPI and below Reports no additional complaints ENT Reports Normal hearing present Card Denies chest pain, Denies chest pain at rest, Denies chest pain with activity and Denies pedal edema Resp Denies cough GI Denies abdominal pain Musc Denies abnormal gait, Denies muscle cramps and Denies radiating pain into limb Skin/Breast Denies skin ulcer and Denies wounds Neuro Reports Normal hearing present and Denies abnormal gait Psych Reports no additional complaints Physical Exam Vital Signs: BMI result Body Mass Index 33.2 Const General: cooperative, healthy appearing and comfortable Orientation/consciousness: oriented to person, oriented to place and oriented to time HEENT Head: Yes normal to inspection Neck Neck: Yes normal visual inspection Carotids: no bruits Chest Chest palpation & inspection: normal inspection of the chest Resp Effort & Inspection: normal respiratory effort and able to speak in complete sentences Auscultation: clear to auscultation bilaterally, no crackles, no rales, no rhonchi and no wheezes Cardio Rate: regular rate Rhythm: regular rhythm Heart sounds: S1 normal heart sound present and S2 normal heart sound present Bruits: no carotid bruits Peripheral pulses: Peripheral pulses 2+ throughout GI Inspection: Yes normal to inspection Skin Wounds: no wounds Hair: normal Neuro General: oriented to person, oriented to place and oriented to time Cranial nerves: Yes CN's II-XII intact bilaterally and Yes Normal hearing present Cognition (Neuro): normal cognition Motor exam (neuro): 5/5 motor strength present throughout Extrem Other: venous exam: No significant superficial varicosities or spider telangiectasias, minimal edema General: No clubbing, No cyanosis and No edema Psych Appearance: grossly normal Mental Status: mental status grossly normal Speech and movement: Normal speech and movement present Results Reviewed Results Reviewed: CT scan from 02/12/2025 was reviewed with no acute process. Assessment & Plan Assessment & Plan (1) Nutcracker phenomenon of renal vein: Code(s): I87.1 - Compression of vein Category: Medical Plan: The patient was informed of the CT scan findings, showing no current evidence of vascular compression, effectively excluding Nutcracker Syndrome. I discussed the potential implications of the left kidney stone, which may require further intervention, and the scheduled consultation with a urologist on 03/11/2025. Given the persistent nature of his symptoms and the gastrointestinal concerns related to diverticulitis, I emphasized the importance of ongoing coordination with his bungy jump master and primary care provider. Also encouraged patient to follow up with Urology. Patient will follow up with us on an as-needed basis. Thank you for allowing us to assist in his care. Plan Patient was informed and verbally consented to the use of an ambient scribe for clinic note documentation during this visit. Patient Instructions: - Follow up with the urologist on 03/11/2025 as planned for evaluation of the kidney stone. - Continue managing diverticulitis symptoms under the guidance of your bungy jump master. - Contact your primary care provider for any new or worsening symptoms or if clarification of your current treatment plan is needed. - Seek immediate medical attention if experiencing severe abdominal pain, excessive bleeding, or difficulty breathing. Coding Level of Care Code Est Pt Level 4 (34953) Diagnoses Nutcracker phenomenon of renal vein I87.1
== END 2025-02-27 09:31 | disposition home or self-care (01) ==
LOC: HO.HVS 08:20
PROVIDERS: Visit Provider Surgery Vascular Surgery
DX: I87.1 Compression of vein (principal)
CPT/HCPCS: 99214

== ENCOUNTER → 2025-02-27 08:19 | Outpatient (BNVA) | payer MEDICARE, SELFPAY | PROVIDERS: Visit Provider Surgery Vascular Surgery | DX: I87.1 Compression of vein (principal); Z87.891 Personal history of nicotine dependence | CPT/HCPCS: 99212 ==

== ENCOUNTER 2025-04-10 07:05 | Outpatient (AMB) | payer MEDICARE, SELFPAY ==
--- OUTSIDE RECORDS SUMMARY | 2025-04-10 07:08 | XMS_ITS | Clinical Summary ---
Author Organization [facility] ity Address [address] [place] [address] Care Team Providers Care Automotive Electrician Name Role Phone Unavailable Primary Care Provider [...]
--- NOTE | 2025-04-10 07:29 | A.OFFVIS_ITS ---
Vital Signs 04/10/25 07:39 Height 5 ft 7 in Weight 204 lb BMI 31.9 BP 128/81 Blood Pressure Location Lt brachial Position Sitting Pulse 69 Pulse Oximetry (%) 96 Oxygen Delivery Method Room Air Intake Visit Reasons: 4 mo bloating Intake Note: Patient 4 month follow up for abdominal bloating and lab results. Patient cc: N/V with poor appetite, bloody stool with constipation, abdominal pain/bloating, acid reflux and left middle quadrant pain also patient went the Vascular surgeon as you referral. 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 Required: No Accompanied by: Spouse Allergies ibuprofen [From Motrin] Allergy (Severe, Verified 04/10/25 07:33) stomach pain morphine Allergy (Verified 04/10/25 07:33) Rash Penicillins Allergy (Verified 04/10/25 07:33) Hives Medication List - Last Reconciled 04/10/25 by Allison Paredes MD albuterol sulfate 2.5 mg (3 mL) inhalation Q4H albuterol sulfate 90 mcg/actuation 2 puffs inhalation Q4-6H PRN fluticasone furoate-vilanterol 200-25 mcg/dose (Breo Ellipta) 1 inh inhalation DAILY 30 days gabapentin 400 mg PO TID lansoprazole 30 mg PO BID nebulizer and compressor As directed simethicone 125 mg PO TID PRN 30 days HPI HPI 4 mo bloating: Details: 60-YEAR-OLD PASHTO-SPEAKING MALE FOR FU OF GERD AND RECTAL BLEEDING 02/19/21 Pt had an exam under anesthesia, hemorrhoidectomy x2 columns by Dr Serrato ?TODAY'S VISIT Pt is accompanied by his who interpreted for the pt. THE PATIENT UNDERSTANDS AND SPEAKS SOME CHADIAN. Patient cc: N/V with poor appetite, bloody stool with constipation, abdominal pain/bloating, acid reflux and left middle quadrant pain also patient went the Vascular surgeon as you referral. Has constipation with rectal bleeding. Has a small to hard BMs 2-3 times a day associated with straining ?PAST VISITS: Left sides abdominal pain and bloating. Abd pain comes and goes - wakes up with abdominal pain in the morning Bloated all the time. Notes bloating and diarrhea after taking cheese and ice-cream - does not drink milk Denies urinary problems Intermittent rectal bleeding - once a week, lasts 3-4 days and then stops Does not feel he has hemorrhoids Denies rectal pain, constipation or diarrhea. Pt complains of intermittent rectal bleeding for the past few months - sometimes red and sometimes black. Sometimes mixed with the stool and sometimes just blood. Continues to have LUQ pain - states does not resolve after a BM. Frequent heartburn and medication is not helping. Takes Pantoprazole every day and has to take peptobismol at night. Can have black stool even if he does not take peptobismol. 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 He can wake up at night with the pain. Denies constipation or diarrhea. Can have a BM 2-3 times times a day Intermittent left sided - sometimes after he eats (2-3 times a week) Pain last for 30 min and goes away after a BM Complains of heartburn and bloating Hb is worse at night He was taking Nexium and ran out. Eats dinner at 4 pm and sleeps at 10 am He quit smoking in Sep and sometimes has a late night snack. Intermittent rectal bleeding every 3-4 days and advised to take fiber in his diet. ? ? ? Complains of constant left sided abdominal pain (in the middle - beside the belly button) - x 1 week. Notes a burning sensation in the stomach and denies n, v or urinary symptoms. Denies change in BMs - has a BM daily. Doing not too well and not too bad ? Complains of left sided abdominal pain. ? Not taking any GI medications at present - he stopped after he was finished with the prescriptions. ? Has gained 9 lbs over the past year and was advised to work on loosing weight. ? Continues to smoke 1 PPD and trying to quit slowly - advised to quit since continued smoking and wt gain is likely contributing to persistent heartburn. ? Still recovering from hemorrhoid surgery and had just a little bleeding. ? Noted a little improvement in symptoms after increasing the Carafate to three times a day. ? Continues to experience heartburn - notes heartburn whenever he eats ? I have been taking the pills and the pills are not working - advised to increase sucralfate to three times a day. ? Taking medications for GERD and is not helping and unable to sleep at night. ? Taking Omeprazole once a day and is not helping and not taking Famotidine. ? Avoids greasy foods, sodas, citrus fruits and juices and drinks coffee once in the morning. ? Abd CT scan results were reviewed with the patient. ? Has dinner at 6 pm and goes to bed around 7 or 8 (does not go to sleep right away) ? Complains of rectal bleeding for the past several yrs worse for the past 4 yrs. ? Blood is bright red and separate from the stools. ? Can sometimes feel weak. ? Patient denies change in bowel habits, occasional black stools. ? Complains of heartburn x 3 yrs every 3-4 days ? Denies dysphagia, nausea or vomiting, change in appetite or weight. ? Intermittent hoarseness and denies cough or sore throat. ? Patient denies major cardiac or pulmonary problems, loud snoring or history of sleep apnea. ? Has sleep disturbance - does not sleep well ? He denies past problems with anesthesia. ? Patient denies known family history of colon cancer, colon polyp or other GI malignancy LABS: January, reviewed ? IMAGING STUIDES:? 02/10/[address] SCAN SHOWED: ? ? ? KIDNEYS AND URETERS: There is a 2 mm nonobstructing stone in the upper ? ? ? pole of the left kidney. The kidneys are otherwise unremarkable. ? ? ? BLADDER: Unremarkable. ? ? ? GASTROINTESTINAL TRACT: There is a small duodenal diverticulum adjacent ? ? ? to the head of the pancreas. The small and large bowel are otherwise ? ? ? unremarkable. The appendix is unremarkable. The stomach is unremarkable. ?ENDOSCOPIC STUDIES: 04/09/20 EGD AND COLONOSCOPY SHOWED: ? ESOPHAGUS: 1 cms tongue of possible Brooks's - biopsied. ? STOMACH: Antral gastritis with superficial erosions. ? Colonoscopy Findings: ? One 10 mm polyp removed (TA on bx) ? Moderate diverticulosis seen in the sigmoid colon ? Large hemorrhoids on retroflexed exam. ? Plan: ? Continue present medications (Famotidine at 20 mg PO once daily) ? Repeat Colonoscopy interval based on path results - in 3-5 years if ? polyps are adenomatous and 10 years if polyps are hyperplastic. ? BIOPSIES SHOWED: ? A. Stomach, biopsies: Gastric mucosa with mild chronic, inactive gastritis; negative for Helicobacter pylori; negative for intestinal metaplasia/dysplasia. ? B. Esophagus, distal, biopsies: Cardia type mucosa with mild chronic inactive inflammation; negative for intestinal metaplasia/dysplasia; no squamous epithelium identified. ? C. Colon, sigmoid polyp, polypectomy: Tubular adenoma PFSH Medical History GOLDEN (obstructive sleep apnea) GERD (gastroesophageal reflux disease) Asthma-COPD overlap syndrome Asthma Disc degeneration, lumbar Fibromyalgia Major depression Hyperlipidemia Sigmoid diverticulosis Anxiety Arthritis High cholesterol Chronic back pain Surgical History History of elbow surgery H/O hemorrhoidectomy H/O shoulder surgery Hx of endoscopy Hx of colonoscopy Family History Father Diabetes Mother Alzheimer disease Dementia Brother No problems noted. Brother No problems noted. Sister No problems noted. Sister No problems noted. Son No problems noted. Daughter No problems noted. Daughter No problems noted. Other Mental health disorder Social History Housing: Apartment Alcohol intake: current Alcohol intake frequency: does not drink Alcohol type: hard liquor Patient Tobacco Use Status: Former Tobacco user Tobacco use type: Cigarette Cigarette Packs Per Day: 1 Cigarettes Per Day: 20.0 Years Smoked: quit in 09/2023 e-Cigarette/Vaping Use: Never Used Second Hand Smoke Exposure: Yes service: No Current occupational status: unemployed Current occupation: Right Handed Cognitive needs: Yes (cane) Hearing needs: No Vision needs: No Review of Systems Const All systems reviewed & are unremarkable except as noted in HPI and below Physical Exam Vital Signs: Last Vital Signs Pulse 69 04/10/25 07:39 BP 128/81 04/10/25 07:39 Pulse Ox 96 04/10/25 07:39 Oxygen Delivery Method Room Air 04/10/25 07:39 BMI result Body Mass Index 31.9 Const General: healthy appearing and no acute distress Nutritional Appearance: obese Orientation/consciousness: patient oriented x3 Limitations: language barrier HEENT Head: Yes normal to inspection Ears: hearing grossly normal bilaterally Eyes Sclerae: sclerae normal Pupils: Equal, round and reactive pupils present Neck Neck: Yes normal visual inspection Chest Chest palpation & inspection: normal inspection of the chest Resp Effort & Inspection: normal respiratory effort Auscultation: clear to auscultation bilaterally Cardio Palpation: normal PMI Rate: regular rate Rhythm: regular rhythm Heart sounds: S1 normal heart sound present, S2 normal heart sound present and no murmurs GI Palpation (GI): Soft to palpation, nontender and No hepatosplenomegaly present Auscultation: normal bowel sounds Rectal Exam - Male: Yes deferred Skin General skin exam: no rashes or lesions noted Neuro General: patient oriented x3, gait normal and moves all extremities Cranial nerves: Yes Equal, round and reactive pupils present Psych Appearance: grossly normal Mental Status: mental status grossly normal Assessment & Plan Assessment & Plan (1) History of adenomatous polyp of colon: Comment: 04/09/20 Colonoscopy showed sigmoid diverticulosis and a 10 mm tubular adenoma was removed. 06/10/24 Colonoscopy (FU of colon polyps) was performed and two small hyperplastic polyps were removed and a hyperplastic appearing polyp was biopsied Moderate diverticulosis seen in the sigmoid colon Small hemorrhoids on retroflexed exam. Repeat Colonoscopy in 5 years if polyps are adenomatous and due to history of adenomatous colon polyps Pt placed on the colonoscopy recall list for repeat colon in 5 years. Code(s): Z86.010 - Personal history of colon polyps Category: Medical (2) GERD (gastroesophageal reflux disease): Code(s): K21.9 - Gastro-esophageal reflux disease without esophagitis Category: Medical (3) Bleeding hemorrhoids: Comment: 02/19/21 Pt had an exam under anesthesia, hemorrhoidectomy x2 columns by Dr Serrato and rectal bleeding has almost resolved. Code(s): K64.9 - Unspecified hemorrhoids Category: Medical (4) Hemorrhoids, internal, with bleeding: Code(s): K64.8 - Other hemorrhoids Category: Medical (5) Chronic LUQ pain: Code(s): R10.12 - Left upper quadrant pain; G89.29 - Other chronic pain Category: Medical (6) Duodenal diverticulum: Code(s): K57.10 - Diverticulosis of small intestine without perforation or abscess without bleeding Category: Medical (7) Abdominal bloating: Code(s): R14.0 - Abdominal distension (gaseous) Category: Medical (8) Chronic constipation: Code(s): K59.09 - Other constipation Category: Medical Plan 60 year old Occitan-speaking male? followed in GI for rectal bleeding and? history of adenomatous colon polyps. Rectal bleeding is likely from hemorrhoids. Patient also complained of symptoms of heartburn and was advised to take famotidine 20 mg twice daily in place of Zantac and stated that he did not get the medicine at the pharmacy. Patient was advised to stop omeprazole and take sucralfate and pantoprazole 40 mg twice daily for continuing heartburn symptoms - he stopped the medications after he finished the prescriptions 04/09/20 EGD & COLONOSCOPY showed no esophagitis and antral gastritis with superficial erosions. Gastric biopsies were negative for Helicobacter pylori. A 10 mm tubular adenoma was removed during same-day colonoscopy. Moderate sigmoid diverticulosis and large hemorrhoids were noted. Rectal bleeding is likely from hemorrhoids. 02/19/21 Pt had an exam under anesthesia, hemorrhoidectomy x [address] Serrato and rectal bleeding has almost resolved. Continues to smoke 1 PPD and advised to quit. Has gained 9 lbs over the past year and was advised to work on loosing weight. Advised to resume taking pantoprazole 40 mg twice daily for heartburn. [place] of dicyclomine for abdominal pain. 06/10/24 Colonoscopy (FU of colon polyps) was performed and two small hyperplastic polyps were removed and a hyperplastic appearing polyp was biopsied Moderate diverticulosis seen in the sigmoid colon Small hemorrhoids on retroflexed exam. Repeat Colonoscopy in 5 years if polyps are adenomatous and due to history of adenomatous colon polyps Pt placed on the colonoscopy recall list for repeat colon in 5 years. 08/12/24 Pt advised to have labs and schedule an Abd CT scan for evaluation of LUQ pain Increase Pantoprazole to twice daily Normal CRP and IBD serologies were negative 09/05/24 Pt advised to switch from pantoprazole to Lansoprozole 30 mg twice daily 11/29/24 Intermittent LUQ pain and abd bloating ? related to duodenal diverticulum or nutcracker syndrome Abd CT scan showed: VASCULAR: There is moderate aortoiliac atherosclerotic calcification. No abdominal aortic aneurysm or dissection is seen. There is a retroaortic left renal vein (3:40-2). IMPRESSION: 1. A small duodenal diverticulum is again seen, without associated inflammatory changes. 2. There is no bowel obstruction, free intraperitoneal air or abscess. No focal bowel wall thickening is seen. The vermiform appendix appears normal. 3. A 3 mm nonobstructing left renal calculus is seen. There is no further urinary calculus noted, and no obstructive uropathy is seen. 4. 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 This finding can be associated with recurrent left flank/abdominal pain, hematuria and proteinuria. Pt advised to have a UA and referred to Vascular surgery He is scheduled to see Urology on 12/25/24 04/10/[address] a trail of Linzess 145 mcg daily or every other day x 1 month If no improvement in symptoms, start a FODMAP diet Advised to reschedule appointment with Urology - missed his appt Follow-up in 3 months Medications: New linaclotide (Linzess) 145 mcg PO QAM 30 caps 3RF 30 days G89.29 - Other chronic pain, K59.09 - Other constipation, R10.12 - Left upper quadrant pain Coding Level of Care Code Est Pt Level 4 (40875) Diagnoses History of adenomatous polyp of colon Z86.010 GERD (gastroesophageal reflux disease) K21.9 Bleeding hemorrhoids K64.9 Hemorrhoids, internal, with bleeding K64.8 Chronic LUQ pain R10.12; G89.29 Duodenal diverticulum K57.10 Abdominal bloating R14.0 Chronic constipation K59.09 Time Spent (min) 20
[2025-04-10 07:39] VITALS: BP 128/81; PULSE 69; O2SAT 96; BMI 31.9
== END 2025-04-10 07:59 | disposition home or self-care (01) ==
LOC: HO.HGI 07:06
PROVIDERS: Visit Provider Internal Medicine Gastroenterology
DX: Z86.0100 Personal history of colon polyps, unspecified (principal); K21.9 Gastro-esophageal reflux disease without esophagitis; K64.9 Unspecified hemorrhoids; K64.8 Other hemorrhoids; R10.12 Left upper quadrant pain; G89.29 Other chronic pain; K57.10 Diverticulosis of small intestine without perforation or abscess without bleeding; R14.0 Abdominal distension (gaseous); K59.09 Other constipation
CPT/HCPCS: 99214

== ENCOUNTER → 2025-04-10 07:05 | Outpatient (BNVA) | payer MEDICARE, SELFPAY | PROVIDERS: Visit Provider Internal Medicine Gastroenterology | DX: K21.9 Gastro-esophageal reflux disease without esophagitis (principal); K64.8 Other hemorrhoids; K57.10 Diverticulosis of small intestine without perforation or abscess without bleeding; K59.09 Other constipation; R10.12 Left upper quadrant pain; G89.29 Other chronic pain; R14.0 Abdominal distension (gaseous); Z86.0100 Personal history of colon polyps, unspecified | CPT/HCPCS: 99212 ==

== ENCOUNTER 2025-07-10 07:39 | Outpatient (AMB) | payer MEDICARE, SELFPAY ==
--- OUTSIDE RECORDS SUMMARY | 2025-07-10 07:41 | XMS_ITS | Clinical Summary ---
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 Name Role Phone Unavailable Primary Care Provider [...] DTaP,Tdap,and Td Vaccines (1 - Tdap) 1984 Pneumococcal Vaccine: 50+ Ye ars (1 of 1 - PCV) 2015 Zoster Vaccines (1 of 2) 2015 COVID-19 Vaccine (1 - 2023-2 5 season) 2024 Depression Screening 11/13/2024 Influenza Vaccine (#1) 2025 RSV Immunization Adult Patie nts (1 - 1-dose 75+ series) 2040 HIB Vaccines Aged Out No longer eligi ble based on patient's age to complete this topic HPV Vaccines Aged Out No longer eligi ble based on patient's age to complete this topic Hepatitis A Vaccines Aged Out No long er eligible based on patient's age to complete this topic Hepatitis B Vaccines Aged Out No long er eligible [...]
--- NOTE | 2025-07-10 07:50 | A.OFFVIS_ITS ---
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 Required: No Accompanied by: Spouse Allergies ibuprofen (From Motrin) Allergy (Severe, Verified 07/10/25 08:16) stomach pain morphine Allergy (Verified 07/10/25 08:16) Rash Penicillins Allergy (Verified 07/10/25 08:16) Hives Medication List - Last Reconciled 07/10/25 by JOSÉ Escobedo- albuterol sulfate 2.5 mg (3 mL) inhalation Q4H albuterol sulfate 90 mcg/actuation 2 puffs inhalation Q4-6H PRN fluticasone furoate-vilanterol 200-25 mcg/dose (Breo Ellipta) 1 inh inhalation DAILY 30 days gabapentin 400 mg PO TID linaclotide (Linzess) 145 mcg PO QAM 30 days nebulizer and compressor As directed HPI Comments Details: Rei is a 60-year-old Pashto-speaking male patient of Dr. Salas. He has a past medical history of GOLDEN, GERD, asthma-COPD overlap syndrome, fibromyalgia, depression, hyperlipidemia, anxiety, arthritis, hyperlipidemia, and chronic back pain. He presents to the office today as a new patient for nephrolithiasis and question of nutcracker syndrome. In discussion with the patient today he reports having had imaging that was noted to have kidney stones and recommendations were made for urology referral for further assessment evalua tion. Recent imaging results were reviewed with the patient today. CT 03/07 agent punctate nonobstructing left renal stone. No focal renal abnormality or ureteral stone. CT 09/05 a 3 mm nonobstructing left renal calculus is seen. There is no further urinary calculus noted, and no obstructive uropathy is seen. A retroaortic left renal vein is seen suggestive possible renal nutcracker syndrome. This finding can be associated with recurrent left flank pain/abdominal pain, hematuria and proteinuria per radiology report. He denies any previous history of nephrolithiasis and or surgical intervention for nephrolithiasis. He does report intermittent episodes of left upper abdominal discomfort right under his pectoral area. We did discuss nephrolithiasis, peanut sheller syndrome, and potential causes of pain patient experiences intermittently. He reports having followed up with vascular surgery and underwent further imaging for nutcracker syndrome that did note any abnormalities. We did discussed importance of adequate hydration relation to nephrolithiasis as well as overall health and well-being. When asked he denies any bothersome urinary issues. He denies urinary urgency, urinary frequency, incontinence, nocturia, hematuria, dysuria, foul smelling urine, changes to urinary stream, flank pain, fever, and or chills. He is happy with his current voiding parameters. In office urinalysis results with the patient today. All questions were answered. He otherwise offers no other issues or concerns at this time. [facility] Medical History GOLDEN (obstructive sleep apnea) GERD (gastroesophageal reflux disease) Asthma-COPD overlap syndrome Asthma Disc degeneration, lumbar Fibromyalgia Major depression Hyperlipidemia Sigmoid diverticulosis Anxiety Arthritis High cholesterol Chronic back pain Surgical History History of elbow surgery H/O hemorrhoidectomy H/O shoulder surgery Hx of endoscopy Hx of colonoscopy Family History Father Diabetes Mother Alzheimer disease Dementia Brother No problems noted. Brother No problems noted. Sister No problems noted. Sister No problems noted. Son No problems noted. Daughter No problems noted. Daughter No problems noted. Other Mental health disorder Social History Housing: Apartment Alcohol intake: current Alcohol intake frequency: does not drink Alcohol type: hard liquor Patient Tobacco Use Status: Former Tobacco user Tobacco use type: Cigarette Cigarette Packs Per Day: 1 Cigarettes Per Day: 20.0 Years Smoked: quit in 09/2023 e-Cigarette/Vaping Use: Never Used Second Hand Smoke Exposure: Yes service: No Current occupational status: unemployed Current occupation: Right Handed Cognitive needs: Yes (cane) Hearing needs: No Vision needs: No Review of Systems Const All systems reviewed & are unremarkable except as noted in HPI and below Physical Exam Const General: cooperative, healthy appearing, comfortable, no acute distress, well developed, alert and awake Nutritional Appearance: obese Orientation/consciousness: patient oriented x3 Limitations: no limitations HEENT Head: Yes normal to inspection, Yes normocephalic and Yes atraumatic Ears: hearing grossly normal bilaterally Eyes General: appearance normal, both eyes and all related structures Neck Neck: Yes normal visual inspection and Yes trachea midline Chest Chest palpation & inspection: normal inspection of the chest Resp Effort & Inspection: normal respiratory effort and able to speak in complete sentences Cardio Rate: regular rate GI Inspection: Yes normal to inspection General: Yes no CVA tenderness Back/Spine/Pelvis Back: no CVA tenderness Skin General skin exam: no rashes or lesions noted Neuro General: patient oriented x3 Extrem General: Yes normal to inspection Psych Appearance: grossly normal and well kempt Mental Status: mental status grossly normal Speech and movement: Normal speech and movement present and Clear speech present Affect: normal affect Attitude: cooperative Thought process: Normal thought process present Thought content: Normal thought content present Insight: Fair insight present (Psych) Judgement: Fair judgement present (Psych) Results Reviewed Results Reviewed: Date of Service: 02/12/25 Procedure(s): CT angio abdomen pelvis Findings: Abdominal aorta normal caliber without dissection. Celiac and mesenteric origins patent without stenosis. Bilateral renal artery origins patent without stenosis. Retroaortic left renal vein incidentally noted. Common and external iliac arteries unremarkable. Bilateral common femoral arteries within normal limits. Lung bases clear. No acute bony abnormalities. Liver and spleen within normal limits. Pancreas and adrenal glands unremarkable. Gallbladder is within normal limits. Punctate nonobstructing left renal stone. No focal renal abnormality or ureteral stone. Stable 2 cm proximal right iliac node. No significant free fluid noted in the pelvis. No diverticulitis. Appendix unremarkable. Impression: No acute process Date of Service: 08/30/24 Procedure(s): CT abdomen pelvis w IV con FINDINGS: LUNG BASES: The visualized lung bases are unremarkable. LIVER, GALLBLADDER, AND BILIARY TREE: The liver is normal in size, shape, and attenuation. No focal hepatic lesion or biliary ductal dilatation is present. The gallbladder is unremarkable with no evidence of radiopaque gallstones, gallbladder wall thickening, or obvious pericholecystic inflammatory changes. PANCREAS: Unremarkable. SPLEEN: Unremarkable. ADRENAL GLANDS: Unremarkable. KIDNEYS AND URETERS: The kidneys are normal in size, shape, and attenuation. At the upper pole of the right kidney (3:27), a 3 mm nonobstructing calculus is seen. There is no further urinary calculus, and no hydronephroureter is noted bilaterally. No perinephric stranding. BLADDER: Unremarkable. GASTROINTESTINAL TRACT: A small duodenal diverticulum is seen towards the junction of the second and third (inferior and transverse) segments. There is no adjacent inflammatory change. The small and large bowel are unremarkable. The vermiform appendix is unremarkable. ABDOMINAL WALL: There is a tiny fat-containing umbilical hernia. LYMPH NODES: Normal. VASCULAR: There is moderate aortoiliac atherosclerotic calcification. No abdominal aortic aneurysm or dissection is seen. There is a retroaortic left renal vein (3:40-2). PELVIC VISCERA: Unremarkable. OSSEOUS STRUCTURES: There is multi-level marked lower thoracic and mild lumbar spondylosis. No acute or aggressive osseous finding is noted. IMPRESSION: 1. A small duodenal diverticulum is again seen, without associated inflammatory changes. 2. There is no bowel obstruction, free intraperitoneal air or abscess. No focal bowel wall thickening is seen. The vermiform appendix appears normal. 3. A 3 mm nonobstructing left renal calculus is seen. There is no further urinary calculus noted, and no obstructive uropathy is seen. 4. 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 This finding can be associated with recurrent left flank/abdominal pain, hematuria and proteinuria. 5. No abdominopelvic mass, free fluid or lymphadenopathy is seen. 6. There is a tiny fat-containing umbilical hernia. 7. There is multi-level marked lower thoracic and mild lumbar spondylosis. Assessment & Plan Assessment & Plan (1) Nutcracker phenomenon of renal vein: Code(s): I87.1 - Compression of vein Category: Medical (2) Nephrolithiasis: Code(s): N20.0 - Calculus of kidney Category: Medical Plan In office urinalysis results with the patient today; as noted above. Recent imaging results reviewed with the patient today; as noted above. We did discussed potential causes of nephrolithiasis and question of nutcracker syndrome as well as further interventions and risks and benefits of these interventions. He currently denies any bothersome urinary issues. He reports be happy with current voiding parameters. Will obtain PSA. Will obtain renal ultrasound in 6 months. Follow-up in 6 months with imaging and labs; or sooner with any issues, concerns, and or questions. Orders: Orders Prostate Specific Antigen Today N40.0 - Benign prostatic hyperplasia without lower urinary tract symptoms AMB Urinalysis Automated Today Z13.9 - Encounter for screening, unspecified US renal BI 6 Months N20.0 - Calculus of kidney Patient Instructions: The patient had an opportunity to ask questions regarding the treatment plan. All questions were answered. Physical exam, labs, and imaging were discussed and reviewed in detail. As well as risks, benefits, and discussion of treatment choices. No major barriers to understanding were identified. The patient expressed understanding and agreement with the above treatment plan. The patient was made aware they should contact our office by phone for worsening of their current condition, the appearance of new symptoms, or with any questions or concerns. Compliance is encouraged with any medications and follow up testing that is ordered. It is a privilege to be allowed the opportunity to participate in? your urological care.? Again, if you have any questions or concerns If you have any questions or concerns please do not hesitate to contact me. The office is [phone]. This note is constructed using voice recognition software. While every effort has been made to ensure accuracy hotel breakfast attendant errors may have been included. Yours sincerely, ENOCH Escobedo Coding Level of Care Code New Pt Level 3 (43985) Diagnoses Nutcracker phenomenon of renal vein I87.1 Nephrolithiasis N20.0
== END 2025-07-10 08:17 | disposition home or self-care (01) ==
LOC: HO.HUSH 07:40
PROVIDERS: Visit Provider Nurse Practitioner Family
DX: I87.1 Compression of vein (principal); N20.0 Calculus of kidney; Z13.9 Encounter for screening, unspecified
CPT/HCPCS: 99203

== ENCOUNTER → 2025-07-10 07:39 | Outpatient (BNVA) | payer MEDICARE, SELFPAY | PROVIDERS: Visit Provider Nurse Practitioner Family | DX: I87.1 Compression of vein (principal); N20.0 Calculus of kidney | CPT/HCPCS: 81003; 99202 ==

== ENCOUNTER 2025-08-15 08:00 | Outpatient (AMB) | payer MEDICARE, MEDICAID, SELFPAY ==
[2025-08-15 08:11] VITALS: BP 128/88; PULSE 73; TEMP 36.2; O2SAT 97; BMI 33.1
--- NOTE | 2025-08-15 08:13 | A.OFFVIS_ITS ---
Intake Vital Signs 08/15/25 08:11 08/15/25 08:16 Height 5 ft 7 in Weight 211 lb 4 oz BMI 33.1 33.1 BP 128/88 Blood Pressure Location Lt brachial Position Sitting Pulse 73 Pulse Source Pulse Oximeter Temp 97.1 F Temp Source Temporal Artery Scan Pulse Oximetry (%) 97 Oxygen Delivery Method Room Air Intake Visit Reasons: AWV Accompanied by: Significant Other Allergies ibuprofen (From Motrin) Allergy (Severe, Verified 08/15/25 08:38) stomach pain morphine Allergy (Verified 08/15/25 08:38) Rash Penicillins Allergy (Verified 08/15/25 08:38) Hives Medication List - Last Reconciled 08/15/25 by Lucrecia Salas PA-C albuterol sulfate 2.5 mg (3 mL) inhalation Q4H albuterol sulfate 90 mcg/actuation 2 puffs inhalation Q4-6H PRN fluticasone furoate-vilanterol 200-25 mcg/dose (Breo Ellipta) 1 inh inhalation DAILY 30 days gabapentin 400 mg PO TID linaclotide (Linzess) 145 mcg PO QAM 30 days nebulizer and compressor As directed quetiapine 50 mg PO BEDTIME PRN HPI AWV HPI Details 60-year-old male with past medical histo ry of hyperlipidemia, depression, fibromyalgia, tobacco abuse, asthma-COPD overlap syndrome, GERD, obstructive sleep apnea last seen 01/2025 coming in for AWV. In review of the notes, patient was seen in Urology 06/2025 plan to obtain PSA and renal US and follow up in 6 months. She was seen by GI 03/2025 plan for repeat colonoscopy in 5 years and continued on Linzess. Seen by vascular surgery 02/2025 recommended follow up with urology and follow up as needed. Presenting with an annual wellness visit. Persistent heartburn not controlled by current medications. Pain in the area associated with diverticulosis, evaluated with imaging showing no acute findings. Uses Breo daily and albuterol as needed, with a history of smoking cessation. Constipation Previously on Linzess, currently managing without it, reporting improvement in bowel movements. colonoscopy: UTD PSA: UTD w/ Urology vaccines: TDAP UTD due for PCV and declined today eye exam: referral placed [facility] Medical History GOLDEN (obstructive sleep apnea) GERD (gastroesophageal reflux disease) Asthma-COPD overlap syndrome Asthma Disc degeneration, lumbar Fibromyalgia Major depression Hyperlipidemia Sigmoid diverticulosis Anxiety Arthritis High cholesterol Chronic back pain Surgical History History of elbow surgery H/O hemorrhoidectomy H/O shoulder surgery Hx of endoscopy Hx of colonoscopy Family History Father Diabetes Mother Alzheimer disease Dementia Brother No problems noted. Brother No problems noted. Sister No problems noted. Sister No problems noted. Son No problems noted. Daughter No problems noted. Daughter No problems noted. Other Mental health disorder Social History Housing: Apartment Alcohol intake: current Alcohol intake frequency: does not drink Alcohol type: hard liquor Patient Tobacco Use Status: Former Tobacco user Tobacco use type: Cigarette Cigarette Packs Per Day: 1 Cigarettes Per Day: 20.0 Years Smoked: quit in 09/2023 e-Cigarette/Vaping Use: Never Used Second Hand Smoke Exposure: Yes service: No Current occupational status: unemployed Current occupation: Right Handed Cognitive needs: Yes (cane) Hearing needs: No Vision needs: No Questionnaire Medicare Wellness Checkup What gender do you identify with?: male During the past 4 weeks, how much have you been bothered by emotional problems such as feeling anxious, depressed, irritable, sad or downhearted, and blue?: slightly During the past 4 weeks, has your physical & emotional health limited your social activities with family, friends, neighbors, or groups?: slightly During the past 4 weeks, how much bodily pain have you generally had?: moderate pain During the past 4 weeks, was someone available to help you if you needed & wanted help?: yes, as much as I wanted During the past 4 weeks, what was the hardest physical activity you could do for at least 2 minutes?: very light Can you get to places out of walking distance without help? (For eg., can you travel alone on buses, taxis or drive your car?): No Can you go shopping for groceries or clothes without someone's help?: No Can you prepare your own meals?: Yes Can you do your housework without help?: No Because of any health problems, do you need the help of another person with your personal care needs such as eating, bathing, dressing or getting around the house?: Yes Can you handle your own money without help?: No During the past 4 weeks, how would you rate your health in general?: fair During the past 4 weeks how have things been going for you?: good & bad parts about equal Are you having difficulties driving your car?: not applicable, I don't use a car Do you always fasten your seat belt when you are in a car?: yes, usually During past 4 weeks, have you been bothered by the following: never: Teeth or denture problems? and Problems using the telephone?, seldom: Falling or dizzy when standing up and Sexual problems?, sometimes: Tiredness or fatigue? and often: Trouble eating well? Have you fallen 2 or more times in the past year?: No Are you afraid of falling?: Yes Are you a smoker?: no During the past 4 weeks, how many drinks of wine, beer, or other alcoholic beverages did you have?: no alcohol at all Do you exercise for about 20 minutes 3 or more times a week?: yes, all the time Have you been given information to help with the following?: no: Hazards in your house that might hurt you? and no: Keeping track of your medications? How often do you have trouble taking medicines the way you have been told to take them?: I do not have to take medicine How confident are you that you can control & manage most of your health problems?: very confident What is your race?: or origin or descent PHQ-9 Over the last 2 weeks, how often have you been bothered by any of the following problems? 1. Little interest or pleasure in doing things: more than half the days 2. Feeling down, depressed, or hopeless: not at all 3. Trouble falling or staying asleep, or sleeping too much: not at all 4. Feeling tired or having little energy: not at all 5. Poor appetite or overeating: nearly every day 6. Feeling bad about yourself - or that you are a failure or have let yourself or your family down: not at all 7. Trouble concentrating on things, such as reading the newspaper or watching television: not at all 8. Moving or speaking so slowly that other people could have noticed. Or the opposite - being so fidgety or restless that you have been moving around a lot more than usual: not at all 9. Thoughts that you would be better off or of hurting yourself in some way: not at all Total score: 5 Depression Screening Interpretation: Positive Depression Screening Done: Yes 00781 - PHQ-9 Billing: Yes Source: Developed by Drs. José Miguel Mcclellan, Tessie Mcclain, Yair Sethi and colleagues, with an educational sudhakar from [employer]. Review of Systems Const Denies body aches, Denies fatigue, Denies fever(s), Denies frequent falls, Denies headache(s) and Denies weakness Eyes Reports no additional complaints and Denies change in vision ENT Denies dysphagia, Denies dizziness, Denies facial pain, Denies headache(s) and Denies odynophagia Card Denies chest pain, Denies syncope, Denies irregular heart rhythm, Denies leg edema, Denies lightheadedness and Denies dyspnea Resp Denies cough and Denies dyspnea GI Reports abdominal pain, Reports constipation (improving ), Denies dysphagia, Reports dyspepsia, Reports heartburn, Denies diarrhea, Denies nausea, Denies odynophagia and Denies vomiting Denies dysuria, Denies urinary frequency, Denies urinary hesitancy and Denies urinary urgency Musc Reports back pain and Denies myalgias Skin/Breast Reports system reviewed and no additional complaints, except as documented Neuro Denies dizziness, Denies syncope, Denies frequent falls, Denies headache(s) and Denies weakness Psych Reports no additional complaints Endo Denies fatigue Physical Exam Vital Signs: Last Vital Signs Temp 97.1 F 08/15/25 08:11 Pulse 73 08/15/25 08:11 BP 128/88 08/15/25 08:11 Pulse Ox 97 08/15/25 08:11 Oxygen Delivery Method Room Air 08/15/25 08:11 BMI result Body Mass Index 33.1 Const General: cooperative, healthy appearing, comfortable and no acute distress Orientation/consciousness: patient oriented x3 HEENT Head: Yes normocephalic Ears: hearing grossly normal bilaterally, external ears normal, TM's normal bilaterally and EAC's normal General nose exam: Normal external nose present Face and sinus: Yes normal facial exam and Yes sinuses nontender Mouth: Normal oral and palatal mucosa present and tongue normal Throat: Yes posterior oropharynx normal Eyes General: appearance normal, both eyes and all related structures Conjunctivae: conjunctivae normal Pupils: Equal, round and reactive pupils present EOM: EOMs intact bilaterally and No Nystagmus present Neck Neck: Yes normal visual inspection, Yes full ROM and Yes no lymphadenopathy Chest Chest palpation & inspection: normal inspection of the chest Resp Effort & Inspection: normal respiratory effort Auscultation: clear to auscultation bilaterally, no crackles, no rales, no rhonchi, no wheezes and breath sounds present Cardio Rate: regular rate Rhythm: regular rhythm Peripheral pulses: radial pulses present and dorsalis pedis present GI Inspection: Yes normal to inspection and No Abdominal wall edema Palpation (GI): Soft to palpation, not firm and nontender Auscultation: normal bowel sounds Rectal Exam - Male: Yes deferred General: Yes no CVA tenderness Back/Spine/Pelvis Back: no CVA tenderness Skin General skin exam: no rashes or lesions noted Neuro General: patient oriented x3 Cranial nerves: Yes Equal, round and reactive pupils present, Yes Midline tongue present, Yes Ability to bilaterally elevate shoulders present and No Nystagmus present Gait exam (Neuro): Normal gait present Extrem General: Yes normal to inspection, Yes full ROM, No no pedal edema and No edema Psych Speech and movement: Normal speech and movement present Affect: normal affect Insight: Good insight present (Psych) Judgement: Good judgement present (Psych) Assessment & Plan Assessment & Plan (1) Physical exam: Code(s): Z00.00 - Encounter for general adult medical examination without abnormal f indings Plan: Patient is up-to-date on all recommended routine screenings for his age. He is due for pneumonia vaccine which he is declining today and agrees to have it next visit. Reminded patient about blood work and plan to follow up in 6 months or sooner as needed or pending blood work evaluation. (2) Major depression: Comment: [facility] weekly Code(s): F32.9 - Major depressive disorder, single episode, unspecified Qualifiers: Major depression recurrence: unspecified whether recurrent Active/Remission status: remission status unspecified Qualified Code(s): F32.9 - Major depressive disorder, single episode, unspecified Plan: He continues to follow with [facility] and feels his depression is well managed. (3) GOLDEN (obstructive sleep apnea): Code(s): G47.33 - Obstructive sleep apnea (adult) (pediatric) Plan: Discussed appropriate use of CPAP and recommended using nightly to reduced cardiac strain. (4) Nutcracker phenomenon of renal vein: Code(s): I87.1 - Compression of vein Plan: He will continue to follow with vascular surgery as needed and Urology. (5) Hyperlipidemia: Code(s): E78.5 - Hyperlipidemia, unspecified Plan: Avoid foods that are high in cholesterol such as red meat, fried foods, eggs and baked goods. Triglyceride goal of less than 150 and LDL goal of less than 100. Reminded about blood work (6) GERD (gastroesophageal reflux disease): Code(s): K21.9 - Gastro-esophageal reflux disease without esophagitis Plan: Avoid trigger foods such as citrus, tomato products, soda, caffeine, spicy foods and other foods that may be irritating to your stomach. Avoid laying flat 3-4 hours after eating and elevate the head of the bed 30 degrees to prevent acid from moving into the esophagus. Plan to restart on as omeprazole daily (7) Sigmoid diverticulosis: Code(s): K57.30 - Diverticulosis of large intestine without perforation or abscess without bleeding Plan: Up-to-date on colonoscopy in he will continue to follow with Dr. Paredes (8) Nephrolithiasis: Code(s): N20.0 - Calculus of kidney Plan: Continue to follow with Urology. Encouraged patient to increase his water intake. (9) Asthma: Code(s): J45.909 - Unspecified asthma, uncomplicated Plan: Asthma currently controlled on present medications. Continue on Breo daily and albuterol as needed. Avoid triggers such as allergies. Continue to follow with Dr. Mullen Plan This note was constructed using voice recognition software. While every effort has been made to ensure accuracy and web retailer, still areas may have been included sometimes these areas may affect the content or meeting of the given symptoms. Total time spent caring for the patient today was 30 minutes. This includes time spent before the visit reviewing the chart, time spent during the visit, and time spent after the visit and documentation. Patient was informed and verbally consented to the use of an ambient scribe for clinic note documentation during this visit. Orders: Referrals Optometry Referral Z00.00 - Encounter for general adult medical examination without abnormal findings Medications: New esomeprazole magnesium 40 mg PO DAILY 90 caps 0RF Quality Reporting (2019) Depression/Bipolar (159/160/161/177) PHQ-9: Total score: 5 Coding Level of Care Code Medicare Subsequent (G0439) Diagnoses Physical exam Z00.00 Major depressive disorder, remission status unspecified, unspecified whether recurrent F32.9 Major depression recurrence: unspecified whether recurrent Active/Remission status: remission status unspecified GOLDEN (obstructive sleep apnea) G47.33 Nutcracker phenomenon of renal vein I87.1 Hyperlipidemia E78.5 GERD (gastroesophageal reflux disease) K21.9 Sigmoid diverticulosis K57.30 Nephrolithiasis N20.0 Asthma J45.909 CPT Codes Advance Care Planning - Time spent: 1-15 minutes, not on file ([id number]) Additional Codes PHQ-9 - 73049 - PHQ-9 Billing: Yes ([id number]) Advance Care Planning Advance Care Planning discussion: Completed/Scanned Date of discussion: 08/15/25 Who was present: myself, patient, spouse Forms completed: MOLST Time spent: 1-15 minutes, not on file Actual minutes spent: 3
[2025-08-15 08:16] VITALS: BMI 33.1
== END 2025-08-15 08:57 | disposition home or self-care (01) ==
LOC: HO.HMCH 08:01
DX: Z00.00 Encounter for general adult medical examination without abnormal findings (principal); F32.9 Major depressive disorder, single episode, unspecified; G47.33 Obstructive sleep apnea (adult) (pediatric); I87.1 Compression of vein; E78.5 Hyperlipidemia, unspecified; K21.9 Gastro-esophageal reflux disease without esophagitis; K57.30 Diverticulosis of large intestine without perforation or abscess without bleeding; N20.0 Calculus of kidney; J45.909 Unspecified asthma, uncomplicated

== ENCOUNTER → 2025-08-15 08:00 | Outpatient (BNVA) | payer MEDICARE, SELFPAY | DX: Z00.00 Encounter for general adult medical examination without abnormal findings (principal); F32.9 Major depressive disorder, single episode, unspecified; G47.33 Obstructive sleep apnea (adult) (pediatric); I87.1 Compression of vein; E78.5 Hyperlipidemia, unspecified; K21.9 Gastro-esophageal reflux disease without esophagitis; K57.30 Diverticulosis of large intestine without perforation or abscess without bleeding; N20.0 Calculus of kidney; J45.909 Unspecified asthma, uncomplicated; Z87.891 Personal history of nicotine dependence | CPT/HCPCS: 96127 ==

== ENCOUNTER 2025-09-02 08:55 | Outpatient (AMB) | payer MEDICARE, MEDICAID, SELFPAY ==
[2025-09-02 09:42] VITALS: BMI 33.0
--- NOTE | 2025-09-02 09:42 | A.OFFVIS_ITS ---
Vital Signs 09/02/25 09:42 Height 5 ft 7 in Weight 211 lb BMI 33.0 Intake Visit Reasons: New prob- Left 2nd digit pain Intake Note: Rei 60 yr old right hand dominant male who is disabled, presents today with his girlfriend Aleta, for a new problem visit for his left hand index finger pain. States he is now having catching and locking on his index finger that started about 3 months ago and has worsen. Patient would like to discuss surgery. Hx of Left middle finger trigger finger status post trigger release, DOS 09/12/2024 w/ Dr Real. Allergies ibuprofen (From Motrin) Allergy (Severe, Verified 09/02/25 09:46) stomach pain morphine Allergy (Verified 09/02/25 09:46) Rash Penicillins Allergy (Verified 09/02/25 09:46) Hives HPI HPI New prob- Left 2nd digit pain: Details: Rei is a 60 year old right hand dominant man who presents for a left index trigger finger. He is here with his girlfriend, Aleta. He complains of ~3 months of painful locking & catching of his left index finger. He would like to discuss surgery. He has a Hx of a left middle trigger finger release, DOS: 09/12/25. [facility] Medical History GOLDEN (obstructive sleep apnea) GERD (gastroesophageal reflux disease) Asthma-COPD overlap syndrome Asthma Disc degeneration, lumbar Fibromyalgia Major depression Hyperlipidemia Sigmoid diverticulosis Anxiety Arthritis High cholesterol Chronic back pain Surgical History History of elbow surgery H/O hemorrhoidectomy H/O shoulder surgery Hx of endoscopy Hx of colonoscopy Family History Father Diabetes Mother Alzheimer disease Dementia Brother No problems noted. Brother No problems noted. Sister No problems noted. Sister No problems noted. Son No problems noted. Daughter No problems noted. Daughter No problems noted. Other Mental health disorder Social History Housing: Apartment Alcohol intake: current Alcohol intake frequency: does not drink Alcohol type: hard liquor Patient Tobacco Use Status: Former Tobacco user Tobacco use type: Cigarette Cigarette Packs Per Day: 1 Cigarettes Per Day: 20.0 Years Smoked: quit in 09/2023 e-Cigarette/Vaping Use: Never Used Second Hand Smoke Exposure: Yes service: No Current occupational status: unemployed Current occupation: Right Handed Cognitive needs: Yes (cane) Hearing needs: No Vision needs: No Review of Systems Const All systems reviewed & are unremarkable except as noted in HPI and below Physical Exam Vital Signs: BMI result Body Mass Index 33.0 Const General: cooperative, healthy appearing and no acute distress Orientation/consciousness: patient oriented x3 HEENT Head: Yes normocephalic and Yes atraumatic Eyes EOM: EOMs intact bilaterally Resp Effort & Inspection: normal respiratory effort and able to speak in complete sentences Cardio Jugular venous distension: no JVD Skin General skin exam: turgor normal Rashes: no rashes Neuro General: patient oriented x3 Extrem Other: Evaluation of Left Upper Extremity: The patient is alert, oriented, and in no acute distress Neuro: Median, Ulnar, Radial nerves motor and sensory intact and sensation is normal to the tips of all digits Vascular: Cap refill brisk ROM: He can make a fist and extend all his digits Visible & palpable locking & catching of the index finger Tender over the index finger a1 raymond Skin: No lacerations or abrasions. General: No Ecchymosis. No Erythema or evidence of infection. Psych Appearance: grossly normal Affect: normal affect Attitude: cooperative Assessment & Plan Assessment & Plan (1) Trigger finger, left index finger: Code(s): M65.322 - Trigger finger, left index finger Category: Medical Plan Assessment & Plan: 1. Left index finger trigger finger I educated him about this condition I discussed operative and non-operative treatment options The patient would like to proceed with surgery The risks and benefits of operative treatment were discussed with the patient and the patient wishes to proceed with surgery. These risks include, but are not limited to risk of damage to blood vessels, nerves, tendons, infection, recurrence, incomplete relief of preoperative symptoms, persistent pain, possible need for further surgery and the risks associated with regional blocks and anesthesia. The plan is to take the patient to the operating room sometime in the next few weeks for the following procedures: 1. Left index finger trigger release, under local All of the preoperative paperwork including the consent was reviewed today. All the patient's questions were answered. 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 Left middle finger trigger finger, S/P release DOS: 09/12/25 Resolved Scribed for Marlin Real MD by Joey Bishop, medical assembly, on 09/02/25 at 9:50 AM, EST. Coding Level of Care Code Est Pt Level 4 (15549) Diagnoses Trigger finger, left index finger M65.322
== END 2025-09-02 09:57 | disposition home or self-care (01) ==
LOC: HO.HOS 08:56
PROVIDERS: Visit Provider Orthopaedic Surgery
DX: M65.322 Trigger finger, left index finger (principal)
CPT/HCPCS: 99214

== ENCOUNTER → 2025-09-02 08:55 | Outpatient (BNVA) | payer MEDICARE, SELFPAY | PROVIDERS: Visit Provider Orthopaedic Surgery | DX: M65.322 Trigger finger, left index finger (principal) | CPT/HCPCS: 99212 ==

== ENCOUNTER 2025-09-29 10:40 | Day surgery (SDC) | payer MEDICARE, MEDICAID, SELFPAY ==
--- NOTE | 2025-09-29 10:31 | P.OP_ITS ---
Operative Note Operative Note Date of Service: 09/29/25 Narrative: Operative Note Preop diagnosis: 1. Left index finger Trigger finger Postop diagnosis: Same Procedure: 1. Left index finger A1 raymond release Surgeon: Marlin Real MD Baggage Handler: None Anesthesia: local block using 1% lidocaine with epinephrine Findings: No locking or catching after A1 raymond release EBL: Less than 5 mL Tourniquet time: None Specimens: None Complications: None Disposition: Brought to recovery room in stable condition Plan: Follow-up for 10-14 days for wound check and suture removal Indications: The patient is 60 years old, with a left index finger trigger finger that has been unresponsive to nonoperative management. The risks and benefits of operative treatment including but not limited to risk of damage to blood vessels, nerves, tendons, infection, persistent pain, persistent symptoms, recurrence or possible need for additional surgery were discussed with the patient and the patient wishes to proceed with surgery. Procedure: Once consent was obtained a local block was performed in the preop area using a combination of 1% lidocaine with epinephrine. The patient was then brought back to the operating suite and placed on the operative table in supine position. The left upper extremity was prepped and draped in a standard surgical fashion. Once assured that we had a good block, a 1.5 cm oblique incision was made centered over the A1 raymond of the left index finger . The incision was made through the skin to the subcutaneous tissues using a #15 blade. Careful dissection was made down to the level of the A1 raymond using tenotomy scissors, with care being taken to protect the nearby neurovascular structures. A longitudinal incision was made in the A1 raymond 1st using a #15 blade, then using tenotomy scissors under direct visualization. The A1 raymond was noted to be thickened. Following our A1 raymond release, we no longer saw any locking or catching of the digit with flexion and extension. Once satisfied with our A1 raymond release the wound was copiously irrigated with normal saline and hemostasis was obtained with a brief period of local pressure. The skin edges were reapproximated with some 5.0 nylon suture material and a sterile dressing was applied. The patient appears to have tolerated the procedure well and with no complications. All digits were well vascularized at the conclusion of the case.
--- NOTE | 2025-09-29 10:31 | MHC.SHP ---
Pre-Procedural Eval Section A - 24 Hr Update-Section A only Date of Service: 09/29/25 The patient is an INPATIENT: No Changes since office visit: No Cold of Flu in the past 2 weeks, No New Medical Problems, No Changes in Medication and No Patient answered all questions The patient has been examined within 24 hours of the surgical procedure. The History & Physical has been completed within 30 days and I have reviewed it.: Yes Section B - Complete if H&P > 30 days Chief Complaint: Trigger finger, left index finger Allergies: Allergies Allergy/AdvReac Type Severity Reaction Status Date / Time ibuprofen (From Motrin) Allergy Severe stomach Verified 09/02/25 09:46 pain morphine Allergy Rash Verified 09/02/25 09:46 Penicillins Allergy Hives Verified 09/02/25 09:46 Plan Diagnosis/Plan: Unchanged I have reviewed the history and physical and performed a pertinent physical examination on my patient. No changes have occurred unless specified. Time Spent With Patient Time: Total time managing care of this patient today ____ minutes.
[2025-09-29 13:58] VITALS: BP 147/104; PULSE 98; RESP 18; TEMP 36.5; O2SAT 96; BMI 35.4
[2025-09-29 15:30] VITALS: BP 170/106; PULSE 90; RESP 18; O2SAT 96
== END 2025-09-29 15:34 | disposition home or self-care (01) ==
PROVIDERS: Visit Provider Orthopaedic Surgery
PROC: (CPT 26055; principal; 2025-09-29 14:20)
DX: M65.322 Trigger finger, left index finger (principal); G47.33 Obstructive sleep apnea (adult) (pediatric); J44.9 Chronic obstructive pulmonary disease, unspecified; M79.7 Fibromyalgia; E78.00 Pure hypercholesterolemia, unspecified; G89.29 Other chronic pain; M51.360 Other intervertebral disc degeneration, lumbar region with discogenic back pain only; K21.9 Gastro-esophageal reflux disease without esophagitis; F32.A Depression, unspecified; F41.9 Anxiety disorder, unspecified; Z88.0 Allergy status to penicillin; Z88.1 Allergy status to other antibiotic agents; Z88.5 Allergy status to narcotic agent; Z98.890 Other specified postprocedural states; Z87.891 Personal history of nicotine dependence; Z56.0 Unemployment, unspecified
CPT/HCPCS: 26055; J0165; J2003

== ENCOUNTER → 2025-09-29 10:40 | Outpatient (BNV) | payer MEDICARE, MEDICAID, SELFPAY | PROVIDERS: Visit Provider Orthopaedic Surgery | DX: M65.322 Trigger finger, left index finger (principal) | CPT/HCPCS: 26055 ==

== ENCOUNTER 2025-10-05 16:05 | Emergency (ER) | payer MEDICARE, MEDICAID, SELFPAY ==
--- NOTE | ~2025-10-05 | XR_ITS ---
CLINICAL HISTORY: HTN, pain 2 view chest x-ray Comparison: CR/SR - XR CHEST 2 VIEWS - 11/04/23 01:53 EST Findings: No consolidation, pleural effusion or pneumothorax. Normal size heart. No acute fracture. IMPRESSION: No acute cardiopulmonary process. This document has been electronically signed by: Alissa Barrios DO on 10/05/2025 17:47:43
--- NOTE | ~2025-10-05 | CT_ITS ---
CLINICAL HISTORY: headache, HTN CT HEAD WITHOUT CONTRAST Comparison: None Findings: No acute intracranial hemorrhage, extra-axial fluid collection, hydrocephalus or midline shift. Age appropriate generalized parenchymal atrophy. There are periventricular and subcortical white matter hypodensities which are nonspecific but most likely related to microangiopathic gliosis. There is no sinus or mastoid fluid. Visualized orbits: No acute abnormalities. There is no acute fracture. IMPRESSION: 1. No acute intracranial hemorrhage. This document has been electronically signed by: Alissa Barrios DO on 10/05/2025 18:07:09
--- NOTE | 2025-10-05 16:06 | ECG_ITS ---
Test Reason : chest pain Blood Pressure : */* mmHG Vent. Rate : 98 BPM Atrial Rate : 98 BPM P-R Int : 148 ms QRS Dur : 96 ms QT Int : 376 ms P-R-T Axes : 56 55 44 degrees QTcB Int : 480 ms Normal sinus rhythm Prolonged QT Abnormal ECG When compared with ECG of 04-Nov-2023 03:28, No significant change was found Referred By: Generic ED Physician Electronically Signed By: Kyler Toney
[2025-10-05 16:51] VITALS: BP 174/93; PULSE 72; RESP 16; TEMP 36.2; O2SAT 97; BMI 28.9
--- NOTE | 2025-10-05 16:56 | ED_ITS ---
HPI - General Adult General Chief complaint: General Medical Stated complaint: CP, increased BP Time Seen by Provider: 10/05/25 19:27 History of Present Illness ED Provider: Carlos Steele MD HPI narrative: Author / Clinician: Carlos Steele MD Chief Complaint Elevated blood pressure readings at home with associated chest pain and headache. History of Present Illness The patient presented from Bed 19 for evaluation of elevated home blood pressure noted earlier this afternoon. While seated and not exerting himself, he developed a diffuse headache and a non-exertional chest pain. He reported feeling generally unwell ( feeling bad ) at that time. There is a history of asthma but no other chronic medical conditions reported. He denies alcohol or drug use and does not smoke cigarettes. A prior hand release surgery was performed recently; blood pressure was noted to be elevated at that discharge as well. Review of Systems - Cardiovascular: Positive for chest pain. - Neurologic: Positive for headache. - General: Positive for feeling unwell. Past Medical History Asthma. Surgical History Recent hand release procedure (details unspecified). Social History Denies alcohol use, illicit drug use, and cigarette smoking. Physical Examination Vital Signs: Emergency Department Course Head CT: normal. Basic metabolic panel/electrolytes: within normal limits. Cardiac troponin: negative. Electrocardiogram: normal. Blood pressure remained mildly elevated but not in a hypertensive crisis range throughout ED stay. Assessment & Plan Diagnosis: Elevated blood pressure; Chest pain (non-exertional, work-up negative for acute coronary syndrome); Headache. Plan: - Discharge home from the emergency department. - Instructed patient to relax and refrain from excessive blood pressure checks until follow-up. - Maintain a home blood pressure diary and review results with primary care physician. Disposition Discharged home. Related Data Home Medications ?Medication ?Instructions ?Recorded ?Confirmed gabapentin 400 mg capsule 400 mg PO TID 09/13/2108/15 quetiapine 50 mg tablet 50 mg PO BEDTIME PRN insomni a 08/15/25 08/15/25 hydroxyzine pamoate 25 mg capsule 25 mg PO BID 5 Previous Rx's ?Medication ?Instructions ?Recorded nebulizer and compressor #1 ea 08/25/23 albuterol sulfate 2.5 mg/3 mL 2.5 mg (3 mL) inhalation Q4H #75 mL 11/04/23 (0.083 %) solution for nebulization fluticasone furoate 200 1 inh inhalation DAILY 30 da ys #1 01/08/25 mcg-vilanterol 25 mcg/dose ea inhalation powder (Breo Ellipta) albuterol sulfate 90 mcg/actuation 2 puff inhalation Q 4-6H PRN 01/22/25 aerosol inhaler shortness of breath or wheez ing #8.5 grams linaclotide 145 mcg capsule 145 mcg PO QAM 30 days #30 caps 04/10/25 (Linzess) esomeprazole magnesium 40 mg 40 mg PO DAILY #90 caps 1 capsule,delayed release hydrocodone 5 mg-acetaminophen 325 1 tab PO Q4-6H PRN pain #5 tabs 09/29/25 mg tablet Allergies Allergy/AdvReac Type Severity Reaction Status Date / Time ibuprofen (From Motrin) Allergy Severe stomach Verified 10/05/25 16:52 pain morphine Allergy Rash Verified 10/05/25 16:52 Penicillins Allergy Hives Verified 10/05/25 16:52 [facility] Past Medical History Medical History GOLDEN (obstructive sleep apnea) GERD (gastroesophageal reflux disease) Asthma-COPD overlap syndrome Asthma Disc degeneration, lumbar Fibromyalgia Major depression Hyperlipidemia Sigmoid diverticulosis Anxiety Arthritis High cholesterol Chronic back pain Surgical History History of elbow surgery H/O hemorrhoidectomy H/O shoulder surgery Hx of endoscopy Hx of colonoscopy Family History Family History Father Diabetes Mother Alzheimer disease Dementia Brother No problems noted. Brother No problems noted. Sister No problems noted. Sister No problems noted. Son No problems noted. Daughter No problems noted. Daughter No problems noted. Other Mental health disorder Social History Social History Housing: Apartment Alcohol intake: current Alcohol intake frequency: holidays/special occasions only Alcohol type: hard liquor Patient Tobacco Use Status: Former Tobacco user Tobacco use type: Cigarette Cigarette Packs Per Day: 1 Cigarettes Per Day: 20.0 Years Smoked: quit in 09/2023 e-Cigarette/Vaping Use: Never Used Second Hand Smoke Exposure: Yes service: No Current occupational status: unemployed Current occupation: Right Handed Cognitive needs: Yes (cane) Hearing needs: No Vision needs: No Physical Exam ED Exam Exam: EXAM: Gen: Alert, awake, well appearing, well hydrated. Head: Atraumatic Eyes: Anicteric, Normal conjunctiva. ENT: Moist mucosa, no pallor. ? Neck: Supple. Skin: ?No observable rash or bruising on exposed or examined skin Respiratory: Breathing comfortably, No distress.Clear to auscultation bilaterally, symmetric chest expansion, No wheeze, rales, ronchi. Cardiovascular: Regular rate and rhythm. No murmurs or rub. Well perfused periphery, warm extremities. No edema. ? Abdominal: No focal tenderness. Soft, no objective distension. No palpable masses or obvious organomegaly. ?No guarding, no rebound tenderness or other peritoneal findings. : No flank tenderness. Neuro: Alert. Gross movement of all extremities intact. ? Psych: Calm. Cooperative. MSK: No grossly visible deformity. Vital signs: See flowsheet Vital Signs: Vital Signs - 24 hr 10/05/25 16:51 10/05/25 19:36 10/05/25 20:04 Temperature 97.1 F 98.3 F 98.3 F Pulse Rate 72 90 90 Respiratory Rate 16 18 18 Blood Pressure 174/93 H 151/96 H 151/96 H Pulse Oximetry 97 98 98 Oxygen Delivery Method Room Air Room Air Room Air BMI result Body Mass Index 28.9 Course Course Course Narrative: Rapid medical examination performed in triage by Daily Caban PA-C: Patient is a 60 year old assigned male at presenting to the emergency department with a headache. Patient states he has had a headache for several days and discovered he has elevated blood pressure. Detailed physical exam and review of systems are deferred to the home health clinician. EKG, labs, imaging ordered. Patient placed back in the waiting room pending room availability and results. Medical Decision Making Medical Decision Making MDM Narrative: Medical Decision Makin-year-old male with mild generalized non thunderclap headache and atypical nonexertional chest pain. Reassuring workup here ordered and performed and completed prior to my evaluating the patient. CT head reviewed no acute pathology. ECG nonischemic see interpretation below. Lab work reassuring without evidence of end-organ damage. The patient looks well now he has mild hypertension only in the ED here. Close follow up PCP blood pressure diary at home to be taken reassurance and counseling patient understood Preliminary Favored Differential Diagnosis: Essential hypertension, white coat hypertension, among additional considered etiologies Testing Interpreted Independently: ECG rate 98 sinus rhythm QTC 480 no acute ischemic changes normal intervals and axis Radiology or Lab testing Results Reviewed: ?See below for details Consults: ?See below for details Independent Historians/External Chart Reviews: ?See below for details Social Determinants of Health Impacting MDM/Planning: ?See below for details Lab Data 10/05/25 17:35 10/05/25 17:35 Labs: Lab Results 10/05/25 Range/Units 17:35 WBC 6.2 (4.8-10.8) X10*3/uL RBC 4.71 (4.60-5.80) X10*6/uL Hgb 13.4 L (14.0-18.0) g/dl Hct 39.8 L (42.0-52.0) % MCV 84.5 (80.0-98.0) fL MCH 28.5 (27.0-33.0) pg MCHC 33.7 (31.0-36.0) g/dl RDW 13.2 (11.0-16.0) % Plt Count 266 (160-400) X10*3/uL MPV 9.0 L (9.4-12.4) fL Immature Gran % (Auto) 0.2 (0.0-0.4) % Neut % (Auto) 60.4 (45-73) % Lymph % (Auto) 29.7 (20-40) % [place] % (Auto) 7.8 (2-11) % Eos % (Auto) 1.3 (0-4) % Baso % (Auto) 0.6 (0-2) % Lymph # (Auto) 1.8 (1.2-4.9) X10*3/uL [place] # (Auto) 0.5 (0.1-1.2) X10*3/uL Eos # (Auto) 0.1 (0.0-0.4) X10*3/uL Baso # (Auto) 0.0 (0.0-0.2) X10*3/uL Abs Immat Gran (auto) 0.01 (0.00-0.03) X10*3/uL Absolute Neuts (auto) 3.7 (2.0-8.3) x10*3/uL Absolute Nucleated RBC 0.000 (0.0-0.012) X10*3/uL Nucleated RBC % (auto) 0.0 (0.0-0.2) /100WBC Sodium 139 (135-145) mmol/L Potassium 4.1 (3.3-5.1) mmol/L Chloride 101 (96-108) mmol/L Carbon Dioxide 27 (22-29) mmol/L Anion Gap 15 (12-20) BUN 17 H (9-16) mg/dL Creatinine 0.98 (0.5-1.4) mg/dL Estim Creat Clear Calc 85.6 Estimated GFR > 60 Random Glucose 113 (60-115) mg/dL Calcium 8.9 (8.4-10.2) mg/dL Magnesium 2.0 (1.6-2.6) mg/dL Total Bilirubin 0.3 (0.0-1.0) mg/dL AST 34 (5-37) U/L ALT 37 (0-40) U/L Alkaline Phosphatase 133 H (39-117) U/L Troponin I High Sens < 2.7 (<3.5-35.0) ng/L Total Protein 7.9 (6.5-8.0) g/dL Albumin 4.4 (3.5-5.0) g/dL Influenza Type A (PCR) NEGATIVE (Negative) Influenza Type B (PCR) NEGATIVE (Negative) RSV RNA Qual (PCR) NEGATIVE (Negative) SARS-CoV-2 RNA (RT-PCR) NEGATIVE (Negative) Discharge Plan Discharge Clinical Impression: Headache Patient Disposition: Home, Self-Care Instructions: General Headache (ED) Additional Instructions: You had a reassuring workup in our ER including normal lab tests, CT brain and ECG. Call your primary MD for follow up Prescriptions: No Action fluticasone furoate-vilanterol [Breo Ellipta] 200-25 mcg/dose blister with device 1 inh inhalation DAILY 30 Days Qty: 1 6RF albuterol sulfate 90 mcg/actuation HFA aerosol inhaler 2 puff inhalation Q4-6H PRN (Reason: shortness of breath or wheezing) Qty: 8.5 1RF (DME) nebulizer and compressor Device See Rx Instructions .Route Qty: 1 0RF Rx Instructions: As directed albuterol sulfate 2.5 mg /3 mL (0.083 %) solution for nebulization 2.5 mg inhalation Q4H Qty: 75 0RF hydrocodone-acetaminophen 5-325 mg tablet 1 tab PO Q4-6H PRN (Reason: pain) Qty: 5 0RF Rx Instructions: Partial Fill upon patient request. gabapentin 400 mg capsule 400 mg PO TID Linzess 145 mcg capsule 145 mcg PO QAM 30 Days Qty: 30 3RF quetiapine 50 mg tablet 50 mg PO BEDTIME PRN (Reason: insomnia) esomeprazole magnesium 40 mg capsule,delayed release(DR/EC) 40 mg PO DAILY Qty: 90 0RF hydroxyzine pamoate 25 mg capsule 25 mg PO BID Interventions: ED Discharge Assessment Last Done: 10/05/25 20:04 Discharge Date/Time: 10/05/25 20:05 Print Language: Fijian
[2025-10-05 17:44] LABS: Hematocrit 39.8 % (42.0-52.0); Hemoglobin 13.4 g/dl (14.0-18.0); Imm Gran Abs Auto 0.01 X10*3/uL (0.00-0.03); Imm Gran Pct Auto 0.2 % (0.0-0.4); Lymphocytes Absolute Auto 1.8 X10*3/uL (1.2-4.9); MANUAL DIFF FLAG NO; Mean Corpuscular HGB Conc 33.7 g/dl (31.0-36.0); Mean Corpuscular Hemoglobin 28.5 pg (27.0-33.0); Mean Corpuscular Volume 84.5 fL (80.0-98.0); NRBC Abs Auto 0.000 X10*3/uL (0.0-0.012); NRBC Pct Auto 0.0 /100WBC (0.0-0.2); Platelet Count 266 X10*3/uL (160-400); Red Blood Count 4.71 X10*6/uL (4.60-5.80); White Blood Count 6.2 X10*3/uL (4.8-10.8)
[2025-10-05 17:59] LABS: Alanine Aminotransferase 37 U/L (0-40); Albumin Level 4.4 g/dL (3.5-5.0); Alkaline Phosphatase 133 U/L (39-117); Anion Gap 15 (12-20); Aspartate Amino Transferase 34 U/L (5-37); Blood Urea Nitrogen 17 mg/dL (9-16); Calcium 8.9 mg/dL (8.4-10.2); Carbon Dioxide 27 mmol/L (22-29); Chloride 101 mmol/L (96-108); Creatinine Clr Calc Pharmacy 85.6; Estimated Glomerular Filt Rate > 60; Magnesium 2.0 mg/dL (1.6-2.6); Potassium 4.1 mmol/L (3.3-5.1); Sodium 139 mmol/L (135-145); Total Protein 7.9 g/dL (6.5-8.0)
[2025-10-05 18:05] LABS: Troponin-I High Sensitivity < 2.7 ng/L (<3.5-35.0)
[2025-10-05 18:23] LABS: Resp Syncy Virus RNA Qual PCR NEGATIVE (Negative); SARS COV2 PCR INHOUSE NEGATIVE (Negative)
[2025-10-05 19:36] VITALS: BP 151/96; PULSE 90; RESP 18; TEMP 36.8; O2SAT 98
[2025-10-05 20:04] VITALS: BP 151/96; PULSE 90; RESP 18; TEMP 36.8; O2SAT 98
== END 2025-10-05 20:05 | disposition home or self-care (01) ==
PROVIDERS: Physician Assistant Medical; Emergency Provider Emergency Medicine
DX: R07.89 Other chest pain (principal); R51.9 Headache, unspecified; Z79.899 Other long term (current) drug therapy; Z87.891 Personal history of nicotine dependence; Z03.818 Encounter for observation for suspected exposure to other biological agents ruled out
CPT/HCPCS: 36415; 70450; 71046; 80053; 83735; 84484; 85025; 87637; 93005; 99284

== ENCOUNTER → 2025-10-05 16:06 | Outpatient (BNV) | payer MEDICARE, MEDICAID, SELFPAY | PROVIDERS: Emergency Provider Emergency Medicine; Visit Provider Internal Medicine Cardiovascular Disease | DX: R94.31 Abnormal electrocardiogram [ECG] [EKG] (principal); R07.9 Chest pain, unspecified | CPT/HCPCS: 93010 ==

== ENCOUNTER → 2025-10-05 16:56 | Outpatient (BNV) | payer MEDICARE, MEDICAID, SELFPAY | PROVIDERS: Visit Provider Radiology Diagnostic Radiology | DX: I10 Essential (primary) hypertension (principal); R51.9 Headache, unspecified; R07.9 Chest pain, unspecified | CPT/HCPCS: 70450; 71046 ==

== ENCOUNTER 2025-10-08 08:01 | Outpatient (AMB) | payer MEDICARE, MEDICAID, SELFPAY ==
--- NOTE | 2025-10-08 08:12 | A.OFFPC_ITS ---
Vital Signs 10/08/25 08:13 Height 5 ft 8 in Weight 216 lb 2 oz BMI 32.9 BP 144/80 H Blood Pressure Location Lt brachial Position Sitting Pulse 87 Pulse Source Pulse Oximeter Temp 97.1 F Temp Source Temporal Artery Scan Pulse Oximetry (%) 97 Oxygen Delivery Method Room Air Intake Visit Reasons: High Blood Pressure Intake Note: Patient is here to follow up on High blood pressure. Brass Cleaner Required: Yes Brass Cleaner Language: International Organizer Name: Aleta (spouse) Information Interpreted: non-clinical & clinical (Pt decline solution spec service and prefer spouse to translate) Retail Marketing Coordinator: Present Accompanied by: Spouse Allergies ibuprofen (From Motrin) Allergy (Severe, Verified 10/08/25 08:13) stomach pain morphine Allergy (Verified 10/08/25 08:13) Rash Penicillins Allergy (Verified 10/08/25 08:13) Hives Medication List - Last Reconciled 10/08/25 by Jose Jenkins MD albuterol sulfate 2.5 mg (3 mL) inhalation Q4H albuterol sulfate 90 mcg/actuation 2 puffs inhalation Q4-6H PRN esomeprazole magnesium 40 mg PO DAILY fluticasone furoate-vilanterol 200-25 mcg/dose (Breo Ellipta) 1 inh inhalation DAILY 30 days gabapentin 400 mg PO TID hydroxyzine pamoate 25 mg PO BID linaclotide (Linzess) 145 mcg PO QAM 30 days nebulizer and compressor As directed quetiapine 50 mg PO BEDTIME PRN Tobacco use date assessed: 10/08/25 Dental Screening Dental Screen Date: 02/07/25 HPI HPI Comments History of Present Illness Details The patient is a 60 year old M with PMH of hyperlipidemia, depression, fibromyalgia, tobacco abuse, asthma-COPD overlap syndrome, GERD, obstructive sleep apnea presenting for evaluation of newly diagnosed hypertension. The patient had no prior history of high blood pressure until it was detected during a visit for a hand surgery on the . Following the surgery, blood pressure monitoring revealed elevated readings, with measurements as high as 173/100 mmHg. The patient also reported experiencing headaches, which prompted a visit to the emergency room where the blood pressure was 170/106 mmHg. Today's BP is 151/96 mmHg. During the ER visit, a CT scan of the head and an EKG were performed and both were normal. Recent lab work showed a creatinine of 0.98, indicating normal kidney function. The patient has never been on any medications for blood pressure. [facility] Medical History (Updated 10/08/25 @ 08:47 by Jose Jenkins MD) History of trigger finger GOLDEN (obstructive sleep apnea) GERD (gastroesophageal reflux disease) Asthma-COPD overlap syndrome Asthma Disc degeneration, lumbar Fibromyalgia Major depression Hyperlipidemia Sigmoid diverticulosis Anxiety Arthritis High cholesterol Chronic back pain Surgical History (Updated 10/08/25 @ 08:19 by ZENA Melo) History of hand surgery History of elbow surgery H/O hemorrhoidectomy H/O shoulder surgery Hx of endoscopy Hx of colonoscopy Family History Father Diabetes Mother Alzheimer disease Dementia Brother No problems noted. Brother No problems noted. Sister No problems noted. Sister No problems noted. Son No problems noted. Daughter No problems noted. Daughter No problems noted. Other Mental health disorder Social History Housing: Apartment Alcohol intake: current Alcohol intake frequency: holidays/special occasions only Alcohol type: hard liquor Patient Tobacco Use Status: Former Tobacco user Tobacco use type: Cigarette Cigarette Packs Per Day: 1 Cigarettes Per Day: 20.0 Years Smoked: quit in 09/2023 e-Cigarette/Vaping Use: Never Used Second Hand Smoke Exposure: Yes service: No Current occupational status: unemployed Current occupation: Right Handed Cognitive needs: Yes (cane) Hearing needs: No Vision needs: No Questionnaire Thrive Questionnaire Date Thrive assessed: 08/08/25 I am a: Patient What is your living situation today?: I have a steady place to live Within the past 12 months, did the food you bought not last and you didn't have the money to get more?: Never true Within the past 12 months, did you worry whether your food would run out before you got money to buy more?: Sometimes True Do you have trouble paying for medicines?: No Do you have trouble getting transportation to medical appointments?: No Do you have trouble paying your heating and electricity bill?: No Do you have trouble taking care of your child, family member or friend?: No Do you have trouble with day-to-day activities such as bathing, preparing meals, shopping, managing finances, etc.?: Yes Are you currently unemployed and looking for a job?: No Are you interested in more education?: No Please select the resources that you would like help with: None Currently or been in a relationship where the following occur: I choose not to answer THRIVE Score: 1 FILEMON-7 AMB Questionnaire FILEMON-7 Date FILEMON - 7 assessed: 02/07/25 Source: Developed by Drs. José Miguel Mcclellan, Tessie Mcclain, Yair Sethi and colleagues, with an educational sudhakar from [employer]. Review of Systems Const Details: As per HPI. Physical exam (Primary Care) Vital Signs: Last Vital Signs Temp 97.1 F 10/08/25 08:13 Pulse 87 10/08/25 08:13 BP 144/80 H 10/08/25 08:13 Pulse Ox 97 10/08/25 08:13 Oxygen Delivery Method Room Air 10/08/25 08:13 BMI result Body Mass Index 32.9 Tobacco/Smoking Status: Tobacco use Status Tobacco use date assessed 10/08/25 10/08/25 08:20 Patient Tobacco Use Status Former Tobacco user 10/08/25 08:20 Tobacco use type Cigarette 10/08/25 08:20 e-Cigarette/Vaping Use Never Used 10/08/25 08:20 Thrive Assessment: Date of Thrive Assessment Date Thrive assessed 08/08/25 10/08/25 08:20 Currently or been in a relationship where the following occur: I choose not to answer Const Other: Pertinent findings are in BOLD GENERAL APPEARANCE NAD, activity normal for age, well developed/ well nourished, no cyanosis, pallor, or diaphoresis. EYES lids/conjunctiva normal. EARS/NOSE/THROAT Mucous membranes moist, nares normal, lips/teeth normal uvula midline without oral pharyngeal erythema, exudate or swelling TMs normal bilaterally. No lymphangitis/lymphedema. HEAD/NECK normocephalic atraumatic, no facial trauma, neck is supple. RESPIRATORY respiratory effort normal, speaks in full sentences, no tripod position, no accessory muscle use. Lungs clear to auscultation without rhonchi, wheezes, rales CARDIAC Regular rate and rhythm, no edema. ABDOMINAL Soft, ND/NT. No evidence of fluid wave. No pulsatile masses on exam, rebound tenderness, Johnson sign or pain over Mcburney's point. MUSCLES/EXTREMITIES No abnormal range of motion, no swelling. SKIN Warm, pink and dry. No rashes, dermatoses, petechiae or lesions. NEUROLOGICAL Speech is clear and appropriate. Normal level of consciousness. Gai t and coordination are normal. 5/5 strength in all extremities. PSYCH Normal mood and affect. Judgement/competence is appropriate Coding Level of Care Code Est Pt Level 3 (22462) Diagnoses Primary hypertension I10 Hypertension type: primary hypertension Time Spent (min) 20 Assessment & Plan Assessment & Plan (1) HTN (hypertension): Code(s): I10 - Essential (primary) hypertension Category: Medical Qualifiers: Hypertension type: primary hypertension Qualified Code(s): I10 - Essential (primary) hypertension Plan: - The patient presents with newly diagnosed hypertension noted after a recent hand surgery, with readings as high as 170/106 mmHg in the emergency department and associated headaches. - Workup in the ER, including a CT scan and EKG, was unremarkable, and kidney function is normal. - Will initiate losartan 25 mg once daily. - Losartan is preferred over lisinopril to avoid the potential side effect of cough. - The patient is advised to monitor blood pressure daily at home while relaxing and maintain a log of the readings. - Plan to follow up on October 22 to review the blood pressure log and adjust medication if necessary. Plan I have discussed the new diagnosis of hypertension with the patient. I explained the plan to start losartan 25 mg once daily, noting that this is the lowest therapeutic dose for this medication. I also explained my preference for losartan over lisinopril to avoid the potential side effect of a cough. I instructed the patient to monitor blood pressure at home, especially during relaxing times like in the evening, and to keep a log of the measurements. We have scheduled a follow-up appointment for October 22 to review these readings and adjust the treatment plan as needed. Medications: New losartan 25 mg PO DAILY 90 tabs 3RF
[2025-10-08 08:13] VITALS: BP 144/80; PULSE 87; TEMP 36.2; O2SAT 97; BMI 32.9
== END 2025-10-08 08:47 | disposition home or self-care (01) ==
LOC: HO.HMCH 08:02
PROVIDERS: Visit Provider Internal Medicine
DX: I10 Essential (primary) hypertension (principal)

== ENCOUNTER → 2025-10-08 08:01 | Outpatient (BNVA) | payer MEDICARE, MEDICAID, SELFPAY | PROVIDERS: Visit Provider Internal Medicine | DX: I10 Essential (primary) hypertension (principal) | CPT/HCPCS: 99212 ==

== ENCOUNTER 2025-10-17 08:48 | Outpatient (AMB) | payer MEDICARE, MEDICAID, SELFPAY ==
--- NOTE | 2025-10-17 09:39 | A.OFFVIS_ITS ---
Vital Signs 10/17/25 09:40 Height 5 ft 8 in Weight 216 lb BMI 32.8 Intake Visit Reasons: PO: LT TF trigger 09/29/25 AR. Intake Note: Rei is a 60 year old right hand dominant male who presents today for a Post- Operative Visit status post Left Trigger Finger Release performed by Dr. Real on 09/29/25. Patient reports his sutures came out . Patient denies any finger locking. He is not taking pain medications at this time. 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 Real on 09/29/25. Patient reports his sutures came out . Patient reports that he was unable to make it to his previous postop due to the snow. Patient denies any finger locking. He is not taking pain medications at this time. [facility] Medical History (Updated 10/08/25 @ 08:47 by Jose Jenkins MD) History of trigger finger GOLDEN (obstructive sleep apnea) GERD (gastroesophageal reflux disease) Asthma-COPD overlap syndrome Asthma Disc degeneration, lumbar Fibromyalgia Major depression Hyperlipidemia Sigmoid diverticulosis Anxiety Arthritis High cholesterol Chronic back pain Surgical History (Updated 10/08/25 @ 08:19 by ZENA Melo) History of hand surgery History of elbow surgery H/O hemorrhoidectomy H/O shoulder surgery Hx of endoscopy Hx of colonoscopy Family History Father Diabetes Mother Alzheimer disease Dementia Brother No problems noted. Brother No problems noted. Sister No problems noted. Sister No problems noted. Son No problems noted. Daughter No problems noted. Daughter No problems noted. Other Mental health disorder Social History Housing: Apartment Alcohol intake: current Alcohol intake frequency: holidays/special occasions only Alcohol type: hard liquor Patient Tobacco Use Status: Former Tobacco user Tobacco use type: Cigarette Cigarette Packs Per Day: 1 Cigarettes Per Day: 20.0 Years Smoked: quit in 09/2023 e-Cigarette/Vaping Use: Never Used Second Hand Smoke Exposure: Yes service: No Current occupational status: unemployed Current occupation: Right Handed Cognitive needs: Yes (cane) Hearing needs: No Vision needs: No Review of Systems Const All systems reviewed & are unremarkable except as noted in HPI and below Physical Exam Vital Signs: BMI result Body Mass Index 32.8 Const General: cooperative, healthy appearing and no acute distress Orientation/consciousness: patient oriented x3 HEENT Head: Yes normocephalic and Yes atraumatic Eyes EOM: EOMs intact bilaterally Resp Effort & Inspection: normal respiratory effort and able to speak in complete sentences Cardio Jugular venous distension: no JVD Skin General skin exam: turgor normal Rashes: no rashes Neuro General: patient oriented x3 Extrem Other: Evaluation of Left Upper Extremity: The patient is alert, oriented, and in no acute distress Neuro: Median, Ulnar, Radial nerves motor and sensory intact and sensation is normal to the tips of all digits Vascular: Cap refill brisk ROM: He can make a fist and extend all his digits No further visible and palpable locking and catching of the left index finger Not Tender over the index finger a1 raymond Skin: Well healed incision site noted over the A1 raymond of the left index finger No lacerations or abrasions. No remaining sutures General: No Ecchymosis. No Erythema or evidence of infection. Psych Appearance: grossly normal Affect: normal affect Attitude: cooperative Assessment & Plan Assessment & Plan (1) Trigger finger, left index finger: Code(s): M65.322 - Trigger finger, left index finger Category: Medical Plan 1. Status post left index finger trigger release DOS 09/29/2025 Patient appears to be recovering well postoperatively Patient is educated about the typical recovery course As patient is already 3 weeks out from surgery, 2 lb weight limit times one- week, no further restrictions at this time Patient appears to be recovering very well, and requires no further acute follow-up with us postoperatively Patient is educated and worrisome signs and symptoms, and should call us if they experience any of these, including but not limited to redness, swelling, increased pain, and discharge Patient understands this and is amenable to this plan Follow-up as needed with any acute concerns Coding Level of Care Code Global (47361) Diagnoses Trigger finger, left index finger M65.322
[2025-10-17 09:40] VITALS: BMI 32.8
== END 2025-10-17 09:52 | disposition home or self-care (01) ==
LOC: HO.HOS 08:49
DX: M65.322 Trigger finger, left index finger (principal)
CPT/HCPCS: 99024

== ENCOUNTER → 2025-10-17 08:48 | Outpatient (BNVA) | payer MEDICARE, MEDICAID, SELFPAY | DX: Z47.89 Encounter for other orthopedic aftercare (principal); M65.322 Trigger finger, left index finger | CPT/HCPCS: 99212 ==